=== PATIENT | female | born 1935 | race Caucasian/White ===

== ENCOUNTER → 2017-03-13 | Outpatient (CLI) | payer OTHER, MEDICARE ==
[~2017-03-13] MED LIST: AMOX875T PO; ATOR-22 PO; AZITTAB PO; BTP80 PO; CHOL100027 PO; EPP3/2 IM; LEVA1.255 INH; PRED10TA PO; SOTA80TA55 PO; SYN25 PO; WARF-284 PO
--- NOTE | 2017-03-13 11:02 | DIAGNOSTIC IMAGING REPORT ---
CHEST 2 VIEWS ROUTINE CLINICAL HISTORY: COPD EXCERNATION dyspnea COMPARISON STUDY: 08/25/2015 FINDINGS: Mild chronic bronchovascular prominence. No focal infiltrate. Heart top limits normal in terms of size. Diaphragms smooth. IMPRESSION: Chronic change. No acute process. The above report was generated using voice recognition software. It may contain grammatical, syntax or spelling errors. Electronically signed by: Jersey Menchaca M.D. 03/13/2017 11:00 AM Dictated Date/Time: 03/13/2017 10:59 AM
== END | disposition home or self-care (01) ==
LOC: C.RAD 10:31
PROVIDERS: ATTEND Physician Assistant Medical
DX: J44.1 Chronic obstructive pulmonary disease with (acute) exacerbation (principal)

== ENCOUNTER 2018-11-24 13:16 | Inpatient (IN) ==
--- OUTSIDE RECORDS SUMMARY | 2018-11-24 13:19 | External Medical Summary | Continuity of Care Document ---
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) (R61) Vitamin D deficiency (268.9) (E55.9) Hyperlipidemia (272.4) (E78.5) Esophageal reflux (530.81) (K21.9) Angioedema (995.1) (T78.3XXA) Idiopathic urticaria (708.1) (L50.1) Hypertension (401.9) (I10) Allergies and Adverse Reactions ciprofloxacin (Allergy) Iodine Solution SOLN (Allergy) nitrofurantoin (Allergy) Plavix (Allergy) Salicylates (Allergy) Zetia (Allergy) Adhesive Tape (Allergy) Medications EpiPen 0.3 MG/0.3ML SHAILA Refills: 0 Ondansetron HCl - 4 MG Oral Tablet; TAKE 1 TABLET EVERY 6 HO URS NEEDED Refills: 0 [place] Nasal [place] 0.65 % Nasal Solution Refills: 0 Levalbuterol HCl - 1.25 MG/0.5ML Inhalation Nebulization Katie ution Refills: 0 Warfarin Sodium TABS Refills: 0 Levothyroxine Sodium 25 MCG Oral Tablet; TAKE 1 TABLET DAILY . Refills: 0 HYDROcodone-Acetaminophen 5-325 MG Oral Tablet; TAKE 1 TABLET EVERY 6 HOURS NEEDED. Refills: 0 Azithromycin 250 MG Oral Tablet Refills: 0 Ceftin 500 MG TABS; TAKE 1 TABLET EVERY 12 HOURS DAILY. Refills: 0 predniSONE 10 MG Oral Tablet Refills: 0 Atorvastatin Calcium 20 MG Oral Tablet; TAKE 1 TABLET DAILY. Refills: 0 DuoNeb 0.5-2.5 (3) MG/3ML SOLN Refills: 0 Advair Diskus 250-50 MCG/DOSE Inhalation Aerosol Powder Breath Activated; INHALE 1 PUFFS TWICE DAILY Refills: 0 Sotalol HCl - 80 MG Oral Tablet; TAKE TABLET 1.5 TABLETS AM 1 TABLET PM Refills: 0 Vitamin D 1000 UNIT Oral Tablet; TAKE 1 TABLET DAILY. Refills: 0 Procedures Procedures not documented Immunizations Immunizations not documented Social History - Smoking Status Former smoker Interventions Discussion/SummaryThe patient is very pleasant but not the best historian. I discussed the case with Dr. Do on the phone. She indicated she was concerned that the patient was taking prednisone far too often. I suspect that is true. The patient tells me that she has used the rescue pack 3 times this year but it may well be more than that. Her physical exam revealed wheezing and was compatible with obstructive lung disease even though the pulmonary function test only showed restriction.Patient does not know her medicines or understand her medicines well. There was a lot of confusion as to what she was actually taking. She had been prescribed an Advair Diskus 250/51 puff b.i.d.. She did not use it at all. She states she thought that was only if she would have any symptoms. She had been on duo nebs which she was only taking when she was sick. Levalbuterol was also listed on her medicines. She told me that she did not get the other nebulizer solution because the pharmacy told her they would not give it to her and that other information needed to be obtained. Obviously the levalbuterol would have advantages for her in that it would be less likely to cause elevated heart rates from the atrial fibrillation.I spoke with the patient at length regarding her situation. I have suggested that she start taking the Advair regularly. I showed her how to use it properly. Dr. Do was going to evaluate if she ever got the levalbuterol or not and try to clarify that situation. She was also going to try to arrange for the x-rays to get put through to the [employer] computer system. I will plan on seeing the patient in 2 months for follow-up. Thank you for referring this patient. Plan of Treatment Planned Observations Planned Goals not documented Results No Known Results Results not documented Encounters Appointment; Boone Bejarano DO 08-Jun-2016 10:30 Encounter Diagnosis: Problem not documented
[2018-11-24] MEDS ORDERED: SODIUM CHLORIDE 0.9% 1000ML 1,000 ML IV ONE (13:57)
[2018-11-24] MEDS ORDERED: cefTRIAXone SODIUM 1,000 MG/50 ML BAG IV STA (13:57)
[2018-11-24] MEDS ORDERED: ACETAMINOPHEN 500 MG TAB PO STA (13:59)
--- NOTE | 2018-11-24 14:42 | XRay Report ---
XR chest 1V portable HISTORY: Sepsis COMPARISON: Chest 08/25/2015. FINDINGS: No pneumothorax. No pleural effusions. The heart is mildly enlarged. Mild diffuse interstit ial thickening, unchanged. No new focal lung consolidations to suggest pneumonia. IMPRESSION: No change in the mild cardiomegaly and chronic interstitial thickening. Electronically signed by: Jm Fontana M.D. 11/24/2018 2:41 PM
--- NOTE | 2018-11-24 14:47 | XRay Report ---
KUB HISTORY: Ureteral stent placed COMPARISON: KUB 02/24/2007. FINDINGS: The bowel gas pattern is unremarkable. There are no dilated loops of small bowel to suggest an obstruction. Prior cholecystectomy. No renal or ureteral calculi identified left ureteral stent appears in good position. No pneumoperitoneum or pneumatosis. IMPRESSION: The left ureteral stent appears in good position. No definite renal or ureteral calculi identified. Electronically signed by: Jm Fontana M.D. 11/24/2018 2:45 PM
[2018-11-24 15:02] LABS: Appearance Urine Cloudy (Clear); Bilirubin Urine Negative (Negative); Blood Urine 3+ (Negative); Color Urine Orange; Epithelial Cell Urine Auto >30 /lpf (0-5); Glucose Urine UA Negative (Negative); Ketones Urine Negative (Negative); Leukocyte Esterase Urine 2+ (Negative); Nitrite Urine Positive (Negative); Protein Urine 2+ (Negative); Specific Gravity Urine 1.018 (1.000-1.030); Urobilinogen Urine Negative (Negative); WBC Urine Automated >30 /hpf (0-5)
[2018-11-24 15:15] LABS: Basophils # (auto) 0.02 K/uL (0-0.2); Basophils % (auto) 0.1 %; Eosinophils # (auto) 0.06 K/uL (0-0.5); Eosinophils % (auto) 0.4 %; Hematocrit (blood only) 42.2 % (37-47); Hemoglobin 14.5 g/dL (12.0-16.0); Immature Granulocytes # (auto) 0.06 K/uL (0.00-0.02); Immature Granulocytes % (auto) 0.4 %; Lymphocytes # (auto) 1.32 K/uL (1.2-3.4); Lymphocytes % (auto) 9.4 %; Mean Corpuscular Hgb Conc 34.4 g/dL (32-36); Mean Corpuscular Volume 89.8 fL (80-100); Monocytes # (auto) 1.38 K/uL (0.11-0.59); Monocytes % (auto) 9.8 %; Neutrophils # (auto) 11.26 K/uL (1.4-6.5); Neutrophils % (auto) 79.9 %; Platelet Count 192 K/uL (130-400); RDW Coefficient of Variation 14.7 % (11.5-14.5); RDW Standard Deviation 48.8 fL (36.4-46.3)
[2018-11-24 15:27] LABS: Bacteria Urine Automated 1+ (Negative)
[2018-11-24 15:28] LABS: RBC Urine Automated >30 /hpf (0-4)
[2018-11-24 15:34] LABS: Calcium 8.7 mg/dl (8.5-10.1); Est GFR (Non-African American) 45.7; Potassium 4.2 mmol/L (3.5-5.1)
[2018-11-24 15:35] LABS: Partial Thromboplastin Ratio 1.3; Partial Thromboplastin Time 35.3 Seconds (21.0-31.0); Prothrombin Time 54.5 Seconds (9.0-12.0)
[2018-11-24 15:37] LABS: Albumin Globulin Ratio 0.7 (0.9-2); Bilirubin,Total 0.3 mg/dl (0.2-1); Globulin 4.4 gm/dl (2.5-4.0); Total Protein 7.4 gm/dl (6.4-8.2)
[2018-11-24 15:48] LABS: INR 6.1 (0.9-1.1)
[2018-11-24] MEDS ORDERED: FLUCONAZOLE 100 MG/50 ML BAG IV SCH (16:00)
--- NOTE | 2018-11-24 16:07 | Ultrasound Report ---
RENAL ULTRASOUND HISTORY: Ureteral stent w/ fever COMPARISON: Abdomen and pelvis CT 02/24/2007. FINDINGS: Right kidney: 12.1 cm. There are 2 cysts within largest measuring 1.6 cm. No hydronephrosis. Normal c orticomedullary differentiation and cortical thickness. Left kidney: 14.0 cm. Mild to moderate cortical thinning. There is a 1 cm stone within the midpole an d a 5 mm stone within the lower pole. There are few left renal cysts. The proximal portion of the brooks nt is not well visualized. The distal stent is seen within the bladder. No hydronephrosis. Bladder: Decompressed and therefore not well visualized. The distal left ureteral stent is identified . IMPRESSION: 1. No hydronephrosis. 2. The proximal portion of the left ureteral stent is not well visualized. However, the distal stent is located within the bladder. 3. Left-sided nephrolithiasis. Electronically signed by: Jm Fontana M.D. 11/24/2018 4:06 PM
[2018-11-24] MEDS ORDERED: EPINEPHRINE ADULT AUTO-INJECT 0.3 MG SYR IM PRN (18:36)
--- NOTE | 2018-11-24 20:02 | Emergency Department Note ---
Entered by Eulalia Gallego acting as a scribe for Jose A Cummings DO History of Present Illness General Chief complaint: Fever Stated complaint: FEVER AFTER SURGERY ON KIDNEY SUNDAY Source: patient Mode of arrival: ambulatory Limitations: no limitations History of Present Illness Onset (ago): hour(s) 6 Radiation: non-radiation Pain Consistency: + constant Maximum Pain Intensity: 8 Relieved By: + none Exacerbated By: + none Associated symptoms: + nausea/vomiting (+nausea, -vomiting) and + other (- diarrhea, -cold symptoms, -rhinorrhea, +hematuria); no chest pain and no cough Treatments prior to arrival: none The patient is an 83 year old female who presents to the ED with complaints of a persistent fever. She states she had stones taken out of her left kidney 1 week ago, and 1 week prior to that. The surgery was performed by Dr. Rodas of [facility] and done with a laser. She does have a stent in place in her left ureter. This morning she noticed her temperature was around 99 and has continued to rise. The highest recorded temperature at home was 101.7. She admits to nausea and "burning" flank pain. She is taking Pyridium but denies taking any antibiotics. She denies any recent cough, rhinorrhea, cold symptoms, chest pain, vomiting or diarrhea. The patient does take daily Coumadin and admits to hematuria. She does not take Tylenol as she is allergic to Aspirin. Home Medications Home Medications Medication Instructions Recorded Confirmed Type atorvastatin 20 mg PO DAILY 11/24/18 11/24/18 History cholecalciferol (vitamin D3) 1,000 unit PO DAILY 11/24/18 11/24/18 History [Vitamin D3] clotrimazole [Lotrimin AF] 1 applic TOPICAL BID 11/24/18 11/24/18 History epinephrine [EpiPen] 0.3 mg IM Q3H PRN 11/24/18 11/24/18 History fluticasone propionate 2 spray INTRANASAL DAILY 11/24/18 11/24/18 History gabapentin 100 mg PO TID 11/24/18 11/24/18 History levalbuterol HCl 1.25 mg INHALATION Q8H PRN 11/24/18 11/24/18 History levothyroxine 25 mcg PO QAM 11/24/18 11/24/18 History loratadine 10 mg PO DAILY 11/24/18 11/24/18 History losartan 50 mg PO BID 11/24/18 11/24/18 History melatonin 3 mg PO HS 11/24/18 11/24/18 History ondansetron 4 mg PO Q6H PRN 11/24/18 11/24/18 History oxycodone 5 mg PO Q6H PRN 11/24/18 11/24/18 History phenazopyridine 200 mg PO TID 11/24/18 11/24/18 History sotalol 120 mg PO BID 11/24/18 11/24/18 History tamsulosin 0.4 mg PO DAILY 11/24/18 11/24/18 History warfarin 3.75 mg PO DAILY 11/24/18 11/24/18 History Allergies Allergy/AdvReac Type Severity Reaction Status Date / Time aspirin Allergy Severe THROAT Verified 11/24/18 14:30 SWELLING nitrofurantoin Allergy Severe couldn't Verified 11/24/18 14:30 breathe adhesive Allergy Unknown TAPE Verified 11/24/18 14:30 clopidogrel Allergy Unknown - Verified 11/24/18 14:30 ezetimibe Allergy Unknown - Verified 11/24/18 14:30 Iodinated Contrast- Oral and Allergy Unknown . Verified 11/24/18 14:30 IV Dye iodine Allergy Unknown - Verified 11/24/18 14:30 Past Med/Surg History Medical History History of hysterectomy Social History Preferred Language: [place] Communication Ability: Effective Belt Polisher Required: No Beliefs That Will Affect Care: None Current Living Situation: Alone Feels Safe at Home: Yes Safety Concerns: Feels Safe At This Time Smoking Status: Former smoker Hx Alcohol Use: No Hx Substance Use: No Physical Exam Vital Signs Vital Signs - 24 hr 11/24/18 13:27 11/24/18 15:45 Temperature 37.9 C H 37.3 C Temperature Source Oral Oral Sepsis Recent Fever Within 48 Hours No Sepsis New/Unexplained Change in Mental Status No Sepsis Action Taken by Nursing No Action Required Pulse Rate 66 Pulse Rate [Finger] 59 L Pulse Rhythm [Finger] Regular Pulse Strength [Finger] Normal Respiratory Rate 20 16 Respiratory Effort / Characteristics Non-Labored Spontaneous Respiratory Depth Normal Respiratory Pattern Regular Blood Pressure 169/105 H Blood Pressure [Right Arm] 140/59 L Blood Pressure Mean 126 Blood Pressure Mean [Right Arm] 86 Blood Pressure Position [Right Arm] Lying Pulse Oximetry 93 98 Oxygen Delivery Method Room Air Room Air GENERAL: Patient is sitting up in bed, alert, well appearing, well nourished, no distress, non-toxic EYE EXAM: normal conjunctiva OROPHARYNX: no exudate, no erythema, lips, buccal mucosa, and tongue normal and mucous membranes are moist NECK: supple, no nuchal rigidity, no adenopathy, non-tender LUNGS: Clear to auscultation. Normal chest wall mechanics HEART: no murmurs, S1 normal and S2 normal ABDOMEN: abdomen soft, non-tender, normo-active bowel sounds, no masses, no rebound or guarding. BACK: Back is symmetrical on inspection and there is no deformity, no midline tenderness, no CVA tenderness. SKIN: no rashes and no bruising UPPER EXTREMITIES: upper extremities are grossly normal. LOWER EXTREMITIES: No pitting edema. NEURO EXAM: Normal sensorium, cranial nerves II-XII grossly intact, normal speech, no gross weakness of arms, no gross weakness of legs. Gross sensation intact. Course ED COURSE: Vital signs were reviewed and showed the patient is hypertensive and febrile. The patients medical record was reviewed The above diagnostic studies were performed and reviewed. ED treatments and interventions as stated above. 1355: The patient was evaluated in room C7. A complete history and physical exa mination was performed. 1558: I discussed the patients case with [facility]. She agrees the patient should be hospitalized for further evaluation. 1613: I discussed the patients case [facility] The patient will be further evaluated. 1620: Upon reevaluation, the patient is resting comfortably. I discussed my findings with the patient and she understands and agrees with the treatment plan. Based on the patients age, coexisting illnesses, exam and lab findings the decision to treat as an inpatient was made. The patient remained stable while under my care. The patient will be evaluated for further management. Consultations Consultation #1: I discussed the patients case with [facility] The patient will be further evaluated. Time: 16:13 Administered Medications Discontinued Medications Acetaminophen (Tylenol) 1,000 mg PO NOW STA Stop: 11/24/18 14:00 Last Admin: 11/24/18 14:28 Dose: 1,000 mg Documented by: [id number] Ceftriaxone Sodium (Rocephin) 1,000 mg in 50 mls @ 100 mls/hr IV NOW STA Stop: 11/24/18 14:26 Last Infusion: 11/24/18 15:30 Dose: 0 mls/hr Documented by: [id number] Admin: 11/24/18 15:00 Dose: 100 mls/hr Documented by: [id number] Sodium Chloride (Nss 1000ml) 1,000 mls @ 999 mls/hr IV .Q1H1M ONE Stop: 11/24/18 14:57 Last Infusion: 11/24/18 16:01 Dose: 0 mls/hr Documented by: [id number] Admin: 11/24/18 15:00 Dose: 999 mls/hr Documented by: [id number] Medical Decision Making Differential Diagnosis Differential diagnoses includes but is not limited to gastritis, peptic ulcer disease, GERD, gallbladder disease, pancreatitis, small bowel obstruction, acute coronary syndrome, pericarditis, ischemic bowel, irritable bowel disease, irritable bowel syndrome, appendicitis, diverticulitis, malignancy, hernia, urinary tract infection, torsion, perforation, trauma, infectious. Medical Records Attestation: I reviewed the patient's medical records. Home Medications Current Medication List: was personally reviewed by me Laboratory Data Attestation: I reviewed the patient's lab results. Result diagrams: 11/24/18 15:02 11/24/18 15:02 Lab Results 11/24/18 11/24/18 11/24/18 Range/Units 14:00 15:02 15:02 WBC 14.10 H (4.8-10.8) K/uL RBC 4.70 (4.2-5.4) M/uL Hgb 14.5 (12.0-16.0) g/dL Hct 42.2 (37-47) % MCV 89.8 (80-100) fL MCH 30.9 (25-34) pg MCHC 34.4 (32-36) g/dL RDW Std Deviation 48.8 H (36.4-46.3) fL RDW Coeff of Matias 14.7 H (11.5-14.5) % Plt Count 192 (130-400) K/uL MPV 12.0 H (7.4-10.4) fL Immature Gran % (Auto) 0.4 % Neut % (Auto) 79.9 % Lymph % (Auto) 9.4 % Miller % (Auto) 9.8 % Eos % (Auto) 0.4 % Baso % (Auto) 0.1 % Immature Gran # (Auto) 0.06 H (0.00-0.02) K/uL Neut # (Auto) 11.26 H (1.4-6.5) K/uL Lymph # (Auto) 1.32 (1.2-3.4) K/uL Miller # (Auto) 1.38 H (0.11-0.59) K/uL Eos # (Auto) 0.06 (0-0.5) K/uL Baso # (Auto) 0.02 (0-0.2) K/uL PT 54.5 H (9.0-12.0) Seconds INR 6.1 H* (0.9-1.1) APTT 35.3 H (21.0-31.0) Seconds PTT Ratio 1.3 Sodium (136-145) mmol/L Potassium (3.5-5.1) mmol/L Chloride (98-107) mmol/L Carbon Dioxide (21-32) mmol/L Anion Gap (3-11) BUN (7-18) mg/dl Creatinine (0.6-1.2) mg/dl Est Cr Clr Drug Dosing ml/min Est GFR ( Amer) Est GFR (Non-Af Amer) BUN/Creatinine Ratio (10-20) Glucose (70-99) mg/dl Lactate (0.4-2.0) mmol/L Calcium (8.5-10.1) mg/dl Total Bilirubin (0.2-1) mg/dl AST (15-37) U/L ALT (12-78) U/L Alkaline Phosphatase (45-117) U/L Total Protein (6.4-8.2) gm/dl Albumin (3.4-5.0) gm/dl Globulin (2.5-4.0) gm/dl Albumin/Globulin Ratio (0.9-2) Urine Color [place] Urine Appearance Cloudy A (Clear) Urine pH 5.0 (4.5-7.5) Ur Specific [place] 1.018 (1.000-1.030) Urine Protein 2+ H (Negative) Urine Glucose (UA) Negative (Negative) Urine Ketones Negative (Negative) Urine Blood 3+ H (Negative) Urine Nitrite Positive A (Negative) Urine Bilirubin Negative (Negative) Urine Urobilinogen Negative (Negative) Ur Leukocyte Esterase 2+ H (Negative) Urine WBC (Auto) >30 H (0-5) /hpf Urine RBC (Auto) >30 H (0-4) /hpf U Hyaline Cast (Auto) 1-5 (0-5) /lpf U Epithel Cells (Auto) >30 H (0-5) /lpf Urine Bacteria (Auto) 1+ H (Negative) Urine Yeast Budding A (None Prsent) 11/24/18 11/24/18 Range/Units 15:02 15:02 WBC (4.8-10.8) K/uL RBC (4.2-5.4) M/uL Hgb (12.0-16.0) g/dL Hct (37-47) % MCV (80-100) fL MCH (25-34) pg MCHC (32-36) g/dL RDW Std Deviation (36.4-46.3) fL RDW Coeff of Matias (11.5-14.5) % Plt Count (130-400) K/uL MPV (7.4-10.4) fL Immature Gran % (Auto) % Neut % (Auto) % Lymph % (Auto) % Miller % (Auto) % Eos % (Auto) % Baso % (Auto) % Immature Gran # (Auto) (0.00-0.02) K/uL Neut # (Auto) (1.4-6.5) K/uL Lymph # (Auto) (1.2-3.4) K/uL Miller # (Auto) (0.11-0.59) K/uL Eos # (Auto) (0-0.5) K/uL Baso # (Auto) (0-0.2) K/uL PT (9.0-12.0) Seconds INR (0.9-1.1) APTT (21.0-31.0) Seconds PTT Ratio Sodium 141 (136-145) mmol/L Potassium 4.2 (3.5-5.1) mmol/L Chloride 108 H (98-107) mmol/L Carbon Dioxide 27 (21-32) mmol/L Anion Gap 6.0 (3-11) BUN 34 H (7-18) mg/dl Creatinine 1.12 (0.6-1.2) mg/dl Est Cr Clr Drug Dosing 44.0 ml/min Est GFR ( Amer) 53.0 Est GFR (Non-Af Amer) 45.7 BUN/Creatinine Ratio 30.0 H (10-20) Glucose 85 (70-99) mg/dl Lactate 1.6 (0.4-2.0) mmol/L Calcium 8.7 (8.5-10.1) mg/dl Total Bilirubin 0.3 (0.2-1) mg/dl AST 32 (15-37) U/L ALT 40 (12-78) U/L Alkaline Phosphatase 100 (45-117) U/L Total Protein 7.4 (6.4-8.2) gm/dl Albumin 3.0 L (3.4-5.0) gm/dl Globulin 4.4 H (2.5-4.0) gm/dl Albumin/Globulin Ratio 0.7 L (0.9-2) Urine Color Urine Appearance (Clear) Urine pH (4.5-7.5) Ur Specific [place] (1.000-1.030) Urine Protein (Negative) Urine Glucose (UA) (Negative) Urine Ketones (Negative) Urine Blood (Negative) Urine Nitrite (Negative) Urine Bilirubin (Negative) Urine Urobilinogen (Negative) Ur Leukocyte Esterase (Negative) Urine WBC (Auto) (0-5) /hpf Urine RBC (Auto) (0-4) /hpf U Hyaline Cast (Auto) (0-5) /lpf U Epithel Cells (Auto) (0-5) /lpf Urine Bacteria (Auto) (Negative) Urine Yeast (None Prsent) Imaging Data Radiologist's Impression: Radiology results as stated below per my review and the radiologist's interpretation: RENAL ULTRASOUND HISTORY: Ureteral stent w/ fever COMPARISON: Abdomen and pelvis CT 02/24/2007. FINDINGS: Right kidney: 12.1 cm. There are 2 cysts within largest measuring 1.6 cm. No hydronephrosis. Normal corticomedullary differentiation and cortical thickness. Left kidney: 14.0 cm. Mild to moderate cortical thinning. There is a 1 cm stone within the midpole and a 5 mm stone within the lower pole. There are few left renal cysts. The proximal portion of the stent is not well visualized. The distal stent is seen within the bladder. No hydronephrosis. Bladder: Decompressed and therefore not well visualized. The distal left ureteral stent is identified. IMPRESSION: 1. No hydronephrosis. 2. The proximal portion of the left ureteral stent is not well visualized. However, the distal stent is located within the bladder. 3. Left-sided nephrolithiasis. Electronically signed by: Jm Fontana M.D. 11/24/2018 4:06 PM KUB HISTORY: Ureteral stent placed COMPARISON: KUB 02/24/2007. FINDINGS: The bowel gas pattern is unremarkable. There are no dilated loops of small bowel to suggest an obstruction. Prior cholecystectomy. No renal or ureteral calculi identified left ureteral stent appears in good position. No pneumoperitoneum or pneumatosis. IMPRESSION: The left ureteral stent appears in good position. No definite renal or ureteral calculi identified. Electronically signed by: Jm Fontana M.D. 11/24/2018 2:45 PM XR chest 1V portable HISTORY: Sepsis COMPARISON: Chest 08/25/2015. FINDINGS: No pneumothorax. No pleural effusions. The heart is mildly enlarged. Mild diffuse interstitial thickening, unchanged. No new focal lung consolidations to suggest pneumonia. IMPRESSION: No change in the mild cardiomegaly and chronic interstitial thickening. Electronically signed by: Jm Fontana M.D. 11/24/2018 2:41 PM Blood Pressure Blood Pressure Findings: Low blood pressure MDM Narrative Patient is an 83-year-old female who presents the ER who follows with Dr. Rodas who had 2 scopes and a stent placed to Fridays back to back. Patient notes that the fever started today associate with chills. Patient was slightly tachycardic. Labs show mild leukocytosis of 14,000. No significant anemia. INR was significant elevated at 6.1. BMP along with LFTs bilirubin was unremarkable. UA was positive for nitrates whites and leuks. Yeast was also positive. Diflucan given. Renal ultrasound was unremarkable. KUB was sent in place. Chest x-ray unremarkable. Patient was given IV fluids and IV Rocephin. Discussed with urology and the hospitalist and patient was admitted for fevers associate with tachycardia and leukocytosis secondary to urine infection/sepsis. Impression & Plan Sepsis, UTI (urinary tract infection) Discharge Plan Visit Data *Final* Discharge Date/Time: 11/24/18 18:05 Chief Complaint: Fever Stated Complaint: FEVER AFTER SURGERY ON KIDNEY SUNDAY ED Provider: Jose A Cummings Discharge Problem: Sepsis, UTI (urinary tract infection) Patient Disposition: Admitted As Inpatient Discharge Instructions Interventions: ED Discharge Assessment Last Done: 11/24/18 18:05 The scribe's documentation has been prepared under my direction and personally reviewed by me in its entirety. I confirm that the note above accurately reflec ts all work, treatment, procedures, and medical decision making performed by me.
[2018-11-24] MEDS ORDERED: PHYTONADIONE 5 MG TAB PO STA (20:05)
[2018-11-24] MEDS: LEVALBUTEROL HCL 0.63 MG/3 ML NEB NEB SCH (20:18)
[2018-11-24] MEDS: SODIUM CHLORIDE 0.9% 1000ML 1,000 ML IV SCH (20:28)
--- NOTE | 2018-11-24 20:29 | History & Physical Report ---
Date of Service November 24, 2018 Assessment & Plan (1) UTI (urinary tract infection): Kidney stones, s/p Lithotripsy - ff up blood and urine culture - Ceftri IV daily - Urology consulted Elevated INR Chronic Coumadin use, A. fib -Vitamin K 5 mg p.o. given hematuria -Continue sotalol 150 mg twice daily Paroxysmal A. fib, TIA -Continue sotalol, hold Coumadin Right buttock wounds = Daily wound care Hypertension -Continue losartan Asthma COPD -Nebs every 6 hours DVT prophylaxis Patient has supratherapeutic INR History of Present Illness 83-year-old female with history of kidney stones,, paroxysmal atrial fibrillation, TIA, hypertension, dyslipidemia, asthma/COPD, hypothyroidism, GERD presenting with fevers and chills x1 day. Next Patient had a second lithotripsy with stent placement and basket extraction last Sunday. Yesterday patient had developed fevers and chills, also noted blood-tinged urine. At the ER, urinalysis showed possible UTI. She was started on ceftriaxone IV. On exam, the patient seen resting in bed, comfortable no distress Denies active abdominal pain, does report dysuria. Also reports some shortness of breath and dry cough. Denies other symptoms Primary Care Provider: Jyoti Do, Allergies Allergy/AdvReac Type Severity Reaction Status Date / Time aspirin Allergy Severe THROAT Verified 11/24/18 14:30 SWELLING nitrofurantoin Allergy Severe couldn't Verified 11/24/18 14:30 breathe adhesive Allergy Unknown TAPE Verified 11/24/18 14:30 clopidogrel Allergy Unknown - Verified 11/24/18 14:30 ezetimibe Allergy Unknown - Verified 11/24/18 14:30 Iodinated Contrast- Oral and Allergy Unknown . Verified 11/24/18 14:30 IV Dye iodine Allergy Unknown - Verified 11/24/18 14:30 Home Medications Home Medications Medication Instructions Recorded Confirmed Type atorvastatin 20 mg PO DAILY 11/24/18 11/24/18 History cholecalciferol (vitamin D3) 1,000 unit PO DAILY 11/24/18 11/24/18 History [Vitamin D3] clotrimazole [Lotrimin AF] 1 applic TOPICAL BID 11/24/18 11/24/18 History epinephrine [EpiPen] 0.3 mg IM Q3H PRN 11/24/18 11/24/18 History fluticasone propionate 2 spray INTRANASAL DAILY 11/24/18 11/24/18 History gabapentin 100 mg PO TID 11/24/18 11/24/18 History levalbuterol HCl 1.25 mg INHALATION Q8H PRN 11/24/18 11/24/18 History levothyroxine 25 mcg PO QAM 11/24/18 11/24/18 History loratadine 10 mg PO DAILY 11/24/18 11/24/18 History losartan 50 mg PO BID 11/24/18 11/24/18 History melatonin 3 mg PO HS 11/24/18 11/24/18 History ondansetron 4 mg PO Q6H PRN 11/24/18 11/24/18 History oxycodone 5 mg PO Q6H PRN 11/24/18 11/24/18 History phenazopyridine 200 mg PO TID 11/24/18 11/24/18 History sotalol 120 mg PO BID 11/24/18 11/24/18 History tamsulosin 0.4 mg PO DAILY 11/24/18 11/24/18 History warfarin 3.75 mg PO DAILY 11/24/18 11/24/18 History Past Med/Surg History Medical History History of hysterectomy Social History Preferred Language: Yakut Communication Ability: Effective Environmental Services Tech Required: No Beliefs That Will Affect Care: None Current Living Situation: Alone Feels Safe at Home: Yes Safety Concerns: Feels Safe At This Time Smoking Status: Former smoker Hx Alcohol Use: No Hx Substance Use: No Review of Systems Review of Systems: All systems reviewed & are unremarkable except as noted in HPI & below Physical Exam Physical Exam: General- oriented x 3, not in distress, speaks in sentences with no effort or accessory muscle use Head- atraumatic Eyes- PERRL, EOMI, anicteric ENT- oropharynx clear Neck- supple, no JVD, no adenopathy, no thyromegaly; carotids +2/2, no bruits appreciated Lungs- faint intermittent wheeze Heart- normal rate, regular rhythm; no murmur, no gallop, no rub appreciated Abdomen- normal bowel sounds, nondistended, soft, nontender, no masses or hepatosplenomegaly Extremities- no pretibial edema, no calf tenderness; peripheral pulses intact Buttock- two small wounds, right buttock- medial Neuro- alert, oriented x 3; CN 2-12 grossly intact; motor 5/5 bilaterally;sensation 100% on all extremities; no other gross focal neurologic deficits Skin- warm & dry Results & Data Vital Signs (Past 12 Hours) Vital Signs Temp Pulse Pulse Resp BP BP Pulse Ox 11/24/18 19:06 36.8 C 20 135/74 97 11/24/18 18:40 36.8 C 70 20 133/83 94 11/24/18 17:45 57 L 18 135/62 98 11/24/18 15:45 37.3 C 59 L 16 140/59 L 98 11/24/18 13:27 37.9 C H 66 20 169/105 H 93 Laboratory Results Laboratory Results - last 24 hr 11/24/18 11/24/18 11/24/18 14:00 15:02 15:02 WBC 14.10 H RBC 4.70 Hgb 14.5 Hct 42.2 MCV 89.8 MCH 30.9 MCHC 34.4 RDW Std Deviation 48.8 H RDW Coeff of Matias 14.7 H Plt Count 192 MPV 12.0 H Immature Gran % (Auto) 0.4 Neut % (Auto) 79.9 Lymph % (Auto) 9.4 [place] % (Auto) 9.8 Eos % (Auto) 0.4 Baso % (Auto) 0.1 Immature Gran # (Auto) 0.06 H Neut # (Auto) 11.26 H Lymph # (Auto) 1.32 [place] # (Auto) 1.38 H Eos # (Auto) 0.06 Baso # (Auto) 0.02 PT 54.5 H INR 6.1 H* APTT 35.3 H PTT Ratio 1.3 Sodium Potassium Chloride Carbon Dioxide Anion Gap BUN Creatinine Est Cr Clr Drug Dosing Est GFR ( Amer) Est GFR (Non-Af Amer) BUN/Creatinine Ratio Glucose Lactate Calcium Total Bilirubin AST ALT Alkaline Phosphatase Total Protein Albumin Globulin Albumin/Globulin Ratio Urine Color Muse Urine Appearance Cloudy A Urine pH 5.0 Ur Specific [place] 1.018 Urine Protein 2+ H Urine Glucose (UA) Negative Urine Ketones Negative Urine Blood 3+ H Urine Nitrite Positive A Urine Bilirubin Negative Urine Urobilinogen Negative Ur Leukocyte Esterase 2+ H Urine WBC (Auto) >30 H Urine RBC (Auto) >30 H U Hyaline Cast (Auto) 1-5 U Epithel Cells (Auto) >30 H Urine Bacteria (Auto) 1+ H Urine Yeast Budding A 11/24/18 11/24/18 15:02 15:02 WBC RBC Hgb Hct MCV MCH MCHC RDW Std Deviation RDW Coeff of Matias Plt Count MPV Immature Gran % (Auto) Neut % (Auto) Lymph % (Auto) [place] % (Auto) Eos % (Auto) Baso % (Auto) Immature Gran # (Auto) Neut # (Auto) Lymph # (Auto) [place] # (Auto) Eos # (Auto) Baso # (Auto) PT INR APTT PTT Ratio Sodium 141 Potassium 4.2 Chloride 108 H Carbon Dioxide 27 Anion Gap 6.0 BUN 34 H Creatinine 1.12 Est Cr Clr Drug Dosing 44.0 Est GFR ( Amer) 53.0 Est GFR (Non-Af Amer) 45.7 BUN/Creatinine Ratio 30.0 H Glucose 85 Lactate 1.6 Calcium 8.7 Total Bilirubin 0.3 AST 32 ALT 40 Alkaline Phosphatase 100 Total Protein 7.4 Albumin 3.0 L Globulin 4.4 H Albumin/Globulin Ratio 0.7 L Urine Color Urine Appearance Urine pH Ur Specific [place] Urine Protein Urine Glucose (UA) Urine Ketones Urine Blood Urine Nitrite Urine Bilirubin Urine Urobilinogen Ur Leukocyte Esterase Urine WBC (Auto) Urine RBC (Auto) U Hyaline Cast (Auto) U Epithel Cells (Auto) Urine Bacteria (Auto) Urine Yeast
[2018-11-24] MEDS: PHENAZOPYRIDINE HCL 200 MG TAB PO SCH (21:25)
[2018-11-24] MEDS: CLOTRIMAZOLE 1% CR 15 GM TUBE TOP SCH (21:26)
[2018-11-24] MEDS: LOSARTAN POTASSIUM 50 MG TAB PO SCH (21:28)
[2018-11-24] MEDS: LACTOBACILLUS ACIDOPHILUS (FLORANEX) TAB PO SCH (21:28)
[2018-11-24] MEDS: SOTALOL HCL 80 MG TAB PO SCH (21:29)
[2018-11-24] MEDS: ACETAMINOPHEN 325 MG TAB PO PRN (21:42)
[2018-11-25] MEDS: LEVALBUTEROL HCL 0.63 MG/3 ML NEB NEB SCH ×2 (02:21→07:12)
[2018-11-25] MEDS: LEVOTHYROXINE SODIUM 25 MCG TABLET PO SCH (06:13)
[2018-11-25 06:53] LABS: Basophils # (auto) 0.02 K/uL (0-0.2); Basophils % (auto) 0.2 %; Eosinophils # (auto) 0.05 K/uL (0-0.5); Eosinophils % (auto) 0.4 %; Hematocrit (blood only) 41.8 % (37-47); Hemoglobin 13.6 g/dL (12.0-16.0); Immature Granulocytes # (auto) 0.06 K/uL (0.00-0.02); Immature Granulocytes % (auto) 0.5 %; Lymphocytes # (auto) 1.31 K/uL (1.2-3.4); Lymphocytes % (auto) 10.6 %; Mean Corpuscular Hgb Conc 32.5 g/dL (32-36); Mean Corpuscular Volume 90.7 fL (80-100); Mean Platelet Volume 12.4 fL (7.4-10.4); Monocytes # (auto) 1.11 K/uL (0.11-0.59); Monocytes % (auto) 8.9 %; Neutrophils # (auto) 9.86 K/uL (1.4-6.5); Neutrophils % (auto) 79.4 %; Platelet Count 179 K/uL (130-400); RDW Standard Deviation 49.6 fL (36.4-46.3); Red Blood Count 4.61 M/uL (4.2-5.4); White Blood Count 12.41 K/uL (4.8-10.8)
[2018-11-25 07:29] LABS: BUN Creatinine Ratio 21.4 (10-20); Calcium 8.6 mg/dl (8.5-10.1); Creatinine Clr Calc Pharmacy 43.5 ml/min; Est GFR (African American) 51.9; Est GFR (Non-African American) 44.7
[2018-11-25] MEDS: TAMSULOSIN HCL 0.4 MG CAP PO SCH (08:40)
[2018-11-25] MEDS: FLUTICASONE PROPIONATE NA SPR 16 GM BTL SCH (08:40)
[2018-11-25] MEDS: ATORVASTATIN 20 MG TAB PO SCH (08:40)
[2018-11-25] MEDS: GABAPENTIN 100 MG CAP PO SCH (08:40)
[2018-11-25] MEDS: LOSARTAN POTASSIUM 50 MG TAB PO SCH ×2 (08:40→21:41)
[2018-11-25] MEDS: CLOTRIMAZOLE 1% CR 15 GM TUBE TOP SCH ×2 (08:40→21:42)
[2018-11-25] MEDS: CHOLECALCIFEROL 1,000 UNITS TAB PO SCH (08:41)
[2018-11-25] MEDS: LACTOBACILLUS ACIDOPHILUS (FLORANEX) TAB PO SCH ×4 (08:41→21:41)
[2018-11-25] MEDS: PHENAZOPYRIDINE HCL 200 MG TAB PO SCH ×3 (08:41→21:41)
[2018-11-25] MEDS: SOTALOL HCL 80 MG TAB PO SCH ×2 (08:41→17:15)
--- NOTE | 2018-11-25 08:41 | Urology Consultation ---
Date of Consultation November 25, 2018 Assessment & Plan (1) UTI (urinary tract infection): seems to be limited to just the bladder no sign of pyelonephritis on exam. Await urine culture results seems to be improving on wide coverage. Her allergies might make picking an oral agent for home challenging. I think she has an intolerance to cipro as well. I think her urine incontinence will improve with treatment of uti. We can consider an antimuscarinic, but she is complaining of dry mouth at baseline so it might make it worse still add stool softener as well. I will remove the stent in the office mid week. Present on Admission?: Yes History of Present Illness Attending Physician: Adrian Armstrong MD History of Present Illness I am asked by Dr Armstrong to evaluate and treat patient for UTI after stone surgery. She presented with fever and dysuria. SHe had 2 surgeries for large left kidney stones, last sunday and 11/15 and this past wednesday 11/22. Intraop urine culture was no growth. She began with fevers POD #2. I asked her to be admitted. She has primarily bladder pain with bladder spasms intense urinary frequency and urge incontinence. She has no kidney pain. She had bacterial and yeast on admission urine so she has broad coverage. Her white count and temp curve are improving. Allergies Allergy/AdvReac Type Severity Reaction Status Date / Time aspirin Allergy Severe THROAT Verified 11/24/18 14:30 SWELLING nitrofurantoin Allergy Severe couldn't Verified 11/24/18 14:30 breathe adhesive Allergy Unknown TAPE Verified 11/24/18 14:30 clopidogrel Allergy Unknown - Verified 11/24/18 14:30 ezetimibe Allergy Unknown - Verified 11/24/18 14:30 Iodinated Contrast- Oral and Allergy Unknown . Verified 11/24/18 14:30 IV Dye iodine Allergy Unknown - Verified 11/24/18 14:30 Home Medications Home Medications Medication Instructions Recorded Confirmed Type atorvastatin 20 mg PO DAILY 11/24/18 11/24/18 History cholecalciferol (vitamin D3) 1,000 unit PO DAILY 11/24/18 11/24/18 History [Vitamin D3] clotrimazole [Lotrimin AF] 1 applic TOPICAL BID 11/24/18 11/24/18 History epinephrine [EpiPen] 0.3 mg IM Q3H PRN 11/24/18 11/24/18 History fluticasone propionate 2 spray INTRANASAL DAILY 11/24/18 11/24/18 History gabapentin 100 mg PO TID 11/24/18 11/24/18 History levalbuterol HCl 1.25 mg INHALATION Q8H PRN 11/24/18 11/24/18 History levothyroxine 25 mcg PO QAM 11/24/18 11/24/18 History loratadine 10 mg PO DAILY 11/24/18 11/24/18 History losartan 50 mg PO BID 11/24/18 11/24/18 History melatonin 3 mg PO HS 11/24/18 11/24/18 History ondansetron 4 mg PO Q6H PRN 11/24/18 11/24/18 History oxycodone 5 mg PO Q6H PRN 11/24/18 11/24/18 History phenazopyridine 200 mg PO TID 11/24/18 11/24/18 History sotalol 120 mg PO BID 11/24/18 11/24/18 History tamsulosin 0.4 mg PO DAILY 11/24/18 11/24/18 History warfarin 3.75 mg PO DAILY 11/24/18 11/24/18 History Patient History Medical History History of hysterectomy Social History Preferred Language: Malay Communication Ability: Effective Hazard Waste Handler Required: No Beliefs That Will Affect Care: None Current Living Situation: Alone Feels Safe at Home: Yes Safety Concerns: Feels Safe At This Time Smoking Status: Former smoker Hx Alcohol Use: No Hx Substance Use: No Review of Systems Review of Systems: PMH- HTN, afib, obesity Soc- , + grown children, retired, no tobacco use no alcohol Fam hx- not contributory at her advanced age ROS- + fevers, + slow bowels, + dry mouth, no chest pain, no cough, no shortness of breath, no rash, severe urinary incontinence Physical Exam Constitutional: WD/WN, vitals as above + well hydrated, + obese and healthy appearing Respiratory: normal respiratory effort and able to speak in complete sentences; no retractions and no cough Gastrointestinal (Abdomen): Inspection/Auscultation: abdomen normal to inspection and normal bowel sounds; abdomen not distended Percussion/Palpation: + abdomen tender tender in the suprapubic area, no rebound no tenderness in the right or left flank to percussion. Skin: no rashes, warm and dry no edema on the shins Psychiatric: A+Ox3, euthymic affect Results & Data Vital Signs (Past 12 Hours) Vital Signs Temp Pulse Resp BP BP Pulse Ox 11/25/18 07:13 71 18 94 11/25/18 07:00 37.9 C H 70 20 114/68 92 11/25/18 04:00 37.3 C 67 18 135/77 92 11/25/18 02:21 75 16 94 11/25/18 00:13 37.8 C H 66 16 135/73 92 11/24/18 21:44 37.7 C H
[2018-11-25] MEDS ORDERED: cefTRIAXone SODIUM 1,000 MG in DEXTROSE 5% 50 ML IV SCH (09:00)
[2018-11-25 09:20] LABS: INR 2.3 (0.9-1.1); Prothrombin Time 22.3 Seconds (9.0-12.0)
[2018-11-25] MEDS: SODIUM CHLORIDE 0.9% 1000ML 1,000 ML IV SCH ×2 (09:20→23:56)
[2018-11-25] MEDS: TOLTERODINE TARTRATE LA 4 MG CAPCR PO SCH (09:20)
[2018-11-25] MEDS: DOCUSATE SODIUM/SENNA 50/8.6MG TAB PO SCH (09:20)
[2018-11-25] MEDS ORDERED: LEVALBUTEROL HCL 0.63 MG/3 ML NEB NEB PRN (09:36)
[2018-11-25] MEDS ORDERED: cefTRIAXone SODIUM 2,000 MG in DEXTROSE 5% 50 ML IV SCH (16:00)
[2018-11-25] MEDS: ACETAMINOPHEN 325 MG TAB PO PRN (16:02)
[2018-11-25] MEDS ORDERED: PROMETHAZINE HCL 12.5 MG in SODIUM CHLORIDE 0.9% 50 ML IV PRN (16:22)
--- NOTE | 2018-11-25 16:48 | Hospitalist Progress Note ---
Date of Service November 25, 2018 Assessment & Plan (1) UTI (urinary tract infection): Kidney stones, s/p Lithotripsy - ff up blood and urine culture - Ceftri IV daily - Urology consulted Arianna Gallardo-Nicho added Plan to remove ureteral stent on Sunday Elevated INR Chronic Coumadin use, A. fib -Vitamin K 5 mg p.o. given hematuria 2.3 Hematuria resolved -Continue sotalol 150 mg twice daily Paroxysmal A. fib, TIA -Continue sotalol INR 2.3, hold Coumadin today Right buttock wounds = Daily wound care Wound care consult Hypertension -Continue losartan Asthma COPD Respiratory status improved -Nebs as needed DVT prophylaxis INR 2.3 Disposition Anticipate discharge to home when medically stable Subjective Follow-up for UTI Seen resting in bed, comfortable Main complaint is incontinence, and some dysuria Denies hematuria No abdominal pain, nausea vomiting Denies shortness of breath, cough, chest pain, dizziness Denies other symptoms Review of Systems Review of Systems: All systems reviewed & are unremarkable except as noted in HPI & below Physical Exam Physical Exam: General- oriented x 3, not in distress, speaks in sentences with no effort or accessory muscle use Eyes- anicteric Neck- no JVD Lungs- clear breath sounds bilaterally, no rales/wheezes Heart- normal rate, regular rhythm; no murmurs Abdomen- normal bowel sounds, nondistended, soft, nontender No CVA tenderness Extremities- no pretibial edema, no calf tenderness Neuro- alert, oriented x 3; no gross focal neurologic deficits Skin- warm & dry Results & Data Vital Signs (Past 12 Hours) Vital Signs Temp Pulse Pulse Resp BP BP Pulse Ox 11/25/18 15:23 38.0 C H 67 20 154/72 H 91 11/25/18 15:22 66 11/25/18 11:47 36.9 C 65 20 135/79 93 11/25/18 07:13 71 18 94 11/25/18 07:00 37.9 C H 70 20 114/68 92 Laboratory Results Laboratory Results - last 24 hr 11/25/18 11/25/18 11/25/18 06:26 06:26 07:38 WBC 12.41 H RBC 4.61 Hgb 13.6 Hct 41.8 MCV 90.7 MCH 29.5 MCHC 32.5 RDW Std Deviation 49.6 H RDW Coeff of Matias 15.0 H Plt Count 179 MPV 12.4 H Immature Gran % (Auto) 0.5 Neut % (Auto) 79.4 Lymph % (Auto) 10.6 [place] % (Auto) 8.9 Eos % (Auto) 0.4 Baso % (Auto) 0.2 Immature Gran # (Auto) 0.06 H Neut # (Auto) 9.86 H Lymph # (Auto) 1.31 [place] # (Auto) 1.11 H Eos # (Auto) 0.05 Baso # (Auto) 0.02 PT INR Sodium 142 Potassium 3.8 Chloride 108 H Carbon Dioxide 25 Anion Gap 9.0 BUN 24 H Creatinine 1.14 Est Cr Clr Drug Dosing 43.5 Est GFR ( Amer) 51.9 Est GFR (Non-Af Amer) 44.7 BUN/Creatinine Ratio 21.4 H Glucose 99 Calcium 8.6 11/25/18 09:02 WBC RBC Hgb Hct MCV MCH MCHC RDW Std Deviation RDW Coeff of Matias Plt Count MPV Immature Gran % (Auto) Neut % (Auto) Lymph % (Auto) [place] % (Auto) Eos % (Auto) Baso % (Auto) Immature Gran # (Auto) Neut # (Auto) Lymph # (Auto) [place] # (Auto) Eos # (Auto) Baso # (Auto) PT 22.3 H INR 2.3 H Sodium Potassium Chloride Carbon Dioxide Anion Gap BUN Creatinine Est Cr Clr Drug Dosing Est GFR ( Amer) Est GFR (Non-Af Amer) BUN/Creatinine Ratio Glucose Calcium
[2018-11-25] MEDS ORDERED: METOPROLOL TARTRATE 1 MG/ML VIAL IV STA (18:13)
[2018-11-25] MEDS ORDERED: dilTIAZem HCl 5 MG/ML 5 ML VIAL IV STA (19:17)
[2018-11-26] MEDS ORDERED: POTASSIUM CHLORIDE 20 MEQ TABCR PO STA (02:20)
[2018-11-26] MEDS ORDERED: METOPROLOL TARTRATE 1 MG/ML VIAL IV STA ×2 (02:20→03:53)
[2018-11-26] MEDS ORDERED: PIPERACILL/TAZOBAC CONSULT ACTIVE PRN (02:27)
--- NOTE | 2018-11-26 02:28 | Hospitalist Progress Note ---
Date of Service November 26, 2018 Subjective Made aware by RN of jordan matos, cardiac rate 140-160s. Patient comfortable. WBC noted to be increasing. AP Rapid [place] fib secondary to sepsis secondary to complicated UTI History Enterococcus growth on outpatient urine cultures. Change ceftriaxone to Zosyn for now. IVF, IV beta-bria, IV Cardizem boluses Continue Sotalol Supplement electrolytes Will relay to AM provider Results & Data Vital Signs (Past 12 Hours) Vital Signs Temp Pulse Pulse Resp BP BP BP 11/25/18 23:07 36.3 C L 107 H 20 119/69 11/25/18 19:34 36.3 C L 107 H 20 103/58 L 11/25/18 18:22 128 H 119/71 11/25/18 16:54 37.6 C H 124 H 22 118/71 11/25/18 15:23 38.0 C H 67 20 154/72 H 11/25/18 15:22 66 Pulse Ox 11/25/18 23:07 94 11/25/18 19:34 91 11/25/18 18:22 11/25/18 16:54 91 11/25/18 15:23 91 11/25/18 15:22
[2018-11-26] MEDS ORDERED: PIPERACILLIN/TAZOBACTAM 4.5 GM in DEXTROSE 5% 100 ML IV ONE (02:29)
[2018-11-26 02:45] LABS: Basophils # (auto) 0.01 K/uL (0-0.2); Basophils % (auto) 0.1 %; Eosinophils # (auto) 0.08 K/uL (0-0.5); Eosinophils % (auto) 0.5 %; Hematocrit (blood only) 39.7 % (37-47); Hemoglobin 12.9 g/dL (12.0-16.0); Immature Granulocytes # (auto) 0.08 K/uL (0.00-0.02); Immature Granulocytes % (auto) 0.5 %; Lymphocytes # (auto) 1.72 K/uL (1.2-3.4); Lymphocytes % (auto) 11.6 %; Mean Corpuscular Hgb Conc 32.5 g/dL (32-36); Mean Corpuscular Volume 90.2 fL (80-100); Mean Platelet Volume 11.9 fL (7.4-10.4); Monocytes % (auto) 8.8 %; Neutrophils # (auto) 11.61 K/uL (1.4-6.5); Neutrophils % (auto) 78.5 %; Platelet Count 148 K/uL (130-400)
[2018-11-26 02:58] LABS: INR 1.4 (0.9-1.1); Prothrombin Time 13.7 Seconds (9.0-12.0)
[2018-11-26 03:03] LABS: Calcium 8.1 mg/dl (8.5-10.1); Creatinine Clr Calc Pharmacy 49.1 ml/min; Est GFR (Non-African American) 51.8; Magnesium 1.9 mg/dl (1.8-2.4); Potassium 4.1 mmol/L (3.5-5.1)
[2018-11-26] MEDS ORDERED: SODIUM CHLORIDE 0.9% 500 ML IV ONE (03:06)
[2018-11-26] MEDS ORDERED: MAGNESIUM SULFATE / D5W 1 GM/100 ML BAG IV ONE (03:06)
[2018-11-26 03:14] LABS: Albumin Level 2.4 gm/dl (3.4-5.0)
[2018-11-26] MEDS: SOTALOL HCL 80 MG TAB PO SCH ×2 (03:35→20:52)
[2018-11-26] MEDS ORDERED: dilTIAZem HCl 5 MG/ML 5 ML VIAL IV STA ×3 (03:55→14:00)
[2018-11-26] MEDS: LEVOTHYROXINE SODIUM 25 MCG TABLET PO SCH (06:00)
[2018-11-26] MEDS ORDERED: dilTIAZem HCl 5 MG/ML 5 ML VIAL IV ONE (06:25)
[2018-11-26] MEDS ORDERED: DIGOXIN 250 MCG in SYRINGE 9 ML IV STA (06:27)
[2018-11-26] MEDS: CLOTRIMAZOLE 1% CR 15 GM TUBE TOP SCH ×2 (08:10→20:52)
[2018-11-26] MEDS ORDERED: Heparin IV Low Dose *NO* Bolus IV SCH (08:22)
[2018-11-26] MEDS: LOSARTAN POTASSIUM 50 MG TAB PO SCH ×2 (08:27→20:51)
[2018-11-26] MEDS: LACTOBACILLUS ACIDOPHILUS (FLORANEX) TAB PO SCH ×4 (08:27→22:14)
[2018-11-26] MEDS: PHENAZOPYRIDINE HCL 200 MG TAB PO SCH ×3 (08:27→20:51)
[2018-11-26] MEDS: ATORVASTATIN 20 MG TAB PO SCH (08:27)
[2018-11-26] MEDS: GABAPENTIN 100 MG CAP PO SCH (08:27)
[2018-11-26] MEDS: TAMSULOSIN HCL 0.4 MG CAP PO SCH (08:27)
[2018-11-26] MEDS: FLUTICASONE PROPIONATE NA SPR 16 GM BTL SCH (08:27)
[2018-11-26] MEDS: DOCUSATE SODIUM/SENNA 50/8.6MG TAB PO SCH (08:27)
[2018-11-26] MEDS: CHOLECALCIFEROL 1,000 UNITS TAB PO SCH (08:27)
[2018-11-26] MEDS: PIPERACILLIN/TAZOBACTAM 3.375 GM in DEXTROSE 5% 100 ML IV SCH ×2 (08:28→16:38)
[2018-11-26] MEDS: TOLTERODINE TARTRATE LA 4 MG CAPCR PO SCH (08:29)
--- NOTE | 2018-11-26 08:30 | Hospitalist Progress Note ---
Date of Service November 26, 2018 Assessment & Plan (1) UTI (urinary tract infection): Kidney stones, s/p Lithotripsy, Stent Placement - blood and urine culture: negative so far - tmax 38C at 3 pm yesterday, afebrile since this morning - Ceftri changed to Zosyn overnight in light of increased WBC, a fib in RVR ff up cultures - possible removal of Ureteral Stent tomorrow as per Dr. Rodas - Urology consulted Detrol added, Senokot-S added Paroxysmal A. fib, TIA - in RVR - likely from underlying infection, stress - on Sotalol 120mg BID given IV Diltiazem and Digoxin overnight - on Coumadin admission INR 6, with hematuria, given Vit k INR today 1.4, hematuria resolving, heparin IV low dose, no bolus started coumadin held for planned stent removal tomorrow Right buttock wounds = Daily wound care Wound care consult Hypertension -Continue losartan Asthma COPD Respiratory status improved -Nebs as needed DVT prophylaxis inr 1.4 heparin drip started Disposition Anticipate discharge to home when medically stable Subjective ff up for UTI, a fib converted to a fib in RVR late evening yesterday given Diltiazem IV and Digoxin overnight remains in a fib , rate controlled resting in bed, comfortable not in distress denies active chest pain, dyspnea, palpitations, nausea no abdominal pain/flank pain, chills reports intermittent pink tinged urine denies other symptoms Review of Systems Review of Systems: All systems reviewed & are unremarkable except as noted in HPI & below Physical Exam Physical Exam: General- oriented x 3, not in distress, speaks in sentences with no effort or accessory muscle use Eyes- anicteric Neck- no JVD Lungs- clear BS BL no rales/wheezing Heart- normal rate, irregularly irregular rhythm; no murmurs Abdomen- normal bowel sounds, nondistended, soft, nontender Extremities- no pretibial edema, no calf tenderness Neuro- alert, oriented x 3; no gross focal neurologic deficits Skin- warm & dry Results & Data Vital Signs (Past 12 Hours) Vital Signs Temp Pulse Pulse Resp BP BP BP 11/26/18 07:20 37.5 C 93 H 18 127/62 11/26/18 07:14 91 H 11/26/18 03:28 36.8 C 160 H 24 132/87 11/26/18 02:45 141 H 148/74 H 05/27/19 23:07 36.3 C L 107 H 20 119/69 Pulse Ox 11/26/18 07:20 91 11/26/18 07:14 11/26/18 03:28 94 11/26/18 02:45 11/25/18 23:07 94 Laboratory Results Laboratory Results - last 24 hr 11/25/18 11/26/18 11/26/18 09:02 02:34 02:34 WBC 14.80 H RBC 4.40 Hgb 12.9 Hct 39.7 MCV 90.2 MCH 29.3 MCHC 32.5 RDW Std Deviation 50.0 H RDW Coeff of Matias 15.0 H Plt Count 148 MPV 11.9 H Immature Gran % (Auto) 0.5 Neut % (Auto) 78.5 Lymph % (Auto) 11.6 [place] % (Auto) 8.8 Eos % (Auto) 0.5 Baso % (Auto) 0.1 Immature Gran # (Auto) 0.08 H Neut # (Auto) 11.61 H Lymph # (Auto) 1.72 [place] # (Auto) 1.30 H Eos # (Auto) 0.08 Baso # (Auto) 0.01 PT 22.3 H 13.7 H INR 2.3 H 1.4 H Sodium Potassium Chloride Carbon Dioxide Anion Gap BUN Creatinine Est Cr Clr Drug Dosing Est GFR ( Amer) Est GFR (Non-Af Amer) BUN/Creatinine Ratio Glucose Calcium Magnesium Albumin TSH 11/26/18 02:34 WBC RBC Hgb Hct MCV MCH MCHC RDW Std Deviation RDW Coeff of Matias Plt Count MPV Immature Gran % (Auto) Neut % (Auto) Lymph % (Auto) [place] % (Auto) Eos % (Auto) Baso % (Auto) Immature Gran # (Auto) Neut # (Auto) Lymph # (Auto) [place] # (Auto) Eos # (Auto) Baso # (Auto) PT INR Sodium 140 Potassium 4.1 Chloride 109 H Carbon Dioxide 29 Anion Gap 2.0 L BUN 19 H Creatinine 1.01 Est Cr Clr Drug Dosing 49.1 Est GFR ( Amer) 60.0 Est GFR (Non-Af Amer) 51.8 BUN/Creatinine Ratio 19.0 Glucose 135 H Calcium 8.1 L Magnesium 1.9 Albumin 2.4 L TSH 0.392
[2018-11-26] MEDS ORDERED: HEPARIN IV BOLUS 4,000 UNITS in SYRINGE 0 ML IV ONE (10:30)
[2018-11-26] MEDS: Heparin Adult LOW DOSE Wt-Based Dextrose 5% 25,000 units/500 mL IV SCH (11:53)
[2018-11-26] MEDS: SODIUM CHLORIDE 0.9% 1000ML 1,000 ML IV SCH (14:50)
[2018-11-26] MEDS: dilTIAZem HCl 125 MG in DEXTROSE 5% 100 ML IV SCH (15:11)
--- NOTE | 2018-11-26 16:06 | Consultation Report ---
DATE OF CONSULTATION: 11/26/2018 INPATIENT CARDIOLOGY CONSULTATION CONSULTATION REQUESTED BY: Dr. Lea. REASON FOR CONSULTATION: Atrial fibrillation with rapid ventricular response. HISTORY OF PRESENT ILLNESS: Ms. Ramos is a very pleasant 83-year-old woman who normally follows with Dr. Urena and Shellie Agudelo of our cardiology practice. She presented to [facility] Emergency Department on 11/24/2018 with a complaint of fevers, chills and blood-tinged urine a few days after cystoscopy and lithotripsy. The patient was recently admitted to the telemetry unit and started on broad-spectrum antibiotics for her urinary tract infection. Her INR was elevated at arrival and vitamin K was given. She was maintained on her sotalol. Then, early in the a.m. of 11/26/2018, the patient was found to go into atrial fibrillation with rapid ventricular response and was given a bolus of Cardizem and started on a heparin drip. Currently, the patient states that she is feeling well. She is feeling better than when she arrived and denies experiencing any palpitations, shortness of breath, lightheadedness, dizziness, syncope, or chest pain. She states her heart really has been bothering her lately. Upon review of extensive medical records, the patient has a long history of tachypalpitations and paroxysmal atrial fibrillation on chronic sotalol therapy. Most recent ZIO patch monitor performed in September showed 20% Afib burden. PAST SURGICAL HISTORY: 1. Cardiac catheterization, revealing nonobstructive disease in the past. 2. Multiple cystoscopies. 3. Multiple colonoscopies. 4. Lithotripsy. 5. Carpal tunnel surgery. 6. Total abdominal hysterectomy. MEDICAL ILLNESSES: 1. Paroxysmal atrial fibrillation on chronic sotalol and Coumadin therapy. 2. Asthma. 3. History of tobacco abuse. 4. Dyslipidemia. 5. Hypothyroidism. 6. Recurrent renal calculi. FAMILY HISTORY: Noncontributory. SOCIAL HISTORY: The patient is a former smoker, quit in 2008. Denies any alcohol or recreational drug use. REVIEW OF SYSTEMS: As per HPI. All review of systems reviewed and negative at this time. ALLERGIES: 1. ZETIA. 2. ADHESIVE TAPE. 3. CIPRO. 4. IODINE. 5. NITROFURANTOIN. 6. PLAVIX. 7. ASPIRIN, CAUSES THROAT SWELLING. MEDICATIONS AN OUTPATIENT: 1. Sotalol 120 mg b.i.d. 2. Atorvastatin 20 mg daily. 3. Warfarin with alternating 7.5 mg dosages. 4. Levoxyl. 5. Neurontin. 6. Losartan 50 mg b.i.d. PHYSICAL EXAMINATION: VITALS: Temperature 36.9, pulse 112, respiratory rate 12, blood pressure 111/70. GENERAL: Awake, alert, oriented x3 in no acute distress. HEENT: Normocephalic, atraumatic. Pupils equal, round, reactive to light and accommodation. Extraocular muscles intact. Anicteric. Moist mucous membranes. NECK: No JVD, no bruit. CARDIOVASCULAR: Irregularly irregular, unable to appreciate any murmurs, rubs or gallops. PULMONARY: Clear to auscultation bilaterally. No rales, rhonchi, or wheezing. ABDOMEN: Bowel sounds x4, soft. No rebound, guarding, tenderness. No organomegaly. EXTREMITIES: No clubbing, cyanosis or edema. +2 pedal pulses bilaterally. SKIN: Warm and dry. TEST RESULTS: A 12-lead EKG performed in the Emergency Department independently reviewed at this time shows normal sinus rhythm at 63 beats per minute, normal axis, normal intervals with a QTC of 440 milliseconds. Repeat EKG on 11/26/2018 shows atrial fibrillation with rapid ventricular response, the heart rate of 100 beats per minute. IMPRESSION: 1. Atrial fibrillation with rapid ventricular response. 2. Longstanding history of paroxysmal atrial fibrillation on chronic Coumadin and sotalol therapy. 3. Urinary tract infection with hematuria, Coumadin reversed. 4. Hypertension. RECOMMENDATIONS: It was my pleasure to see Mrs. Ramos in consultation today. From a cardiac standpoint, I believe it is certainly understandable that she go back in atrial fibrillation, given the UTI and I believe the most prudent course of action at this point, we would try to help get her rates under control to see if we cannot get her to spontaneously convert to normal sinus rhythm, so we will start her on a Cardizem bolus and drip. She will be maintained on her heparin therapy. She has not been off anticoagulation for an extended period of time and do believe that we possible perform a discontinue cardioversion without VANESSA should that be necessary. Otherwise, she will continue her current dose of sotalol.
--- NOTE | 2018-11-26 18:35 | Urology Progress Note ---
Date of Service November 26, 2018 Assessment & Plan (1) UTI (urinary tract infection): urine is only growing yeast spoke with pharmacy and Dr Espinal. The diflucan can prolong QT so will get daily ekg. Stay on monitored bed. plan stent removal at bedside tomorrow mid day does not need to stop heparin or be NPO for stent removal. Present on Admission?: Yes Subjective Patient is feeling fair. Neither better nor worse than yesterday. She is still bothered with urge incontinence but sounds like less since the antimuscarinic started. Her daughter thinks the stent is causing a reaction which caused the afib. She has a niece who is allergic to stents so she thinks this is similar. She can feel the afib only a little , much less than in years past. She was moved to PCU and is on heparin and cardizem drips. Her family says she was lethargic most of yesterday. Review of Systems Review of Systems: All systems reviewed & are unremarkable except as noted in HPI & below Last fever 3pm Sunday, poor appetite, still with constipation, has a small sore on the buttocks not infected, no margareth angina, no emesis. Results & Data Vital Signs (Past 12 Hours) Vital Signs Temp Pulse Pulse Resp BP BP Pulse Ox 11/26/18 16:00 120 H 11/26/18 15:00 36.8 C 126 H 20 121/81 92 11/26/18 11:18 36.9 C 100 H 18 111/70 91 11/26/18 07:20 37.5 C 93 H 18 127/62 91 11/26/18 07:14 91 H
[2018-11-26 18:53] LABS: Partial Thromboplastin Ratio 1.6; Partial Thromboplastin Time 42.2 Seconds (21.0-31.0)
[2018-11-26] MEDS ORDERED: FLUCONAZOLE 100 MG TAB PO STA (19:10)
[2018-11-26] MEDS ORDERED: HEPARIN IV BOLUS 3,000 UNITS in SYRINGE 0 ML IV ONE (22:15)
[2018-11-27] MEDS: PIPERACILLIN/TAZOBACTAM 3.375 GM in DEXTROSE 5% 100 ML IV SCH ×2 (00:29→08:29)
[2018-11-27 05:11] LABS: Creatinine Clr Calc Pharmacy 59.8 ml/min; Est GFR (Non-African American) 63.8
[2018-11-27 05:12] LABS: Partial Thromboplastin Ratio 2.8
[2018-11-27 05:15] LABS: Partial Thromboplastin Time 75.6 Seconds (21.0-31.0)
[2018-11-27] MEDS: LEVOTHYROXINE SODIUM 25 MCG TABLET PO SCH (06:11)
[2018-11-27] MEDS: dilTIAZem HCl 125 MG in DEXTROSE 5% 100 ML IV SCH (08:28)
[2018-11-27] MEDS: SOTALOL HCL 80 MG TAB PO SCH ×2 (08:30→20:32)
[2018-11-27] MEDS: CLOTRIMAZOLE 1% CR 15 GM TUBE TOP SCH ×2 (08:31→20:32)
[2018-11-27] MEDS: FLUTICASONE PROPIONATE NA SPR 16 GM BTL SCH (08:31)
[2018-11-27] MEDS: ATORVASTATIN 20 MG TAB PO SCH (09:34)
[2018-11-27] MEDS: TAMSULOSIN HCL 0.4 MG CAP PO SCH (09:34)
[2018-11-27] MEDS: PHENAZOPYRIDINE HCL 200 MG TAB PO SCH ×3 (09:34→20:31)
[2018-11-27] MEDS: CHOLECALCIFEROL 1,000 UNITS TAB PO SCH (09:34)
[2018-11-27] MEDS: LACTOBACILLUS ACIDOPHILUS (FLORANEX) TAB PO SCH ×4 (09:34→20:31)
[2018-11-27] MEDS: LOSARTAN POTASSIUM 50 MG TAB PO SCH ×2 (09:34→20:31)
[2018-11-27] MEDS: GABAPENTIN 100 MG CAP PO SCH (09:34)
[2018-11-27] MEDS: DOCUSATE SODIUM/SENNA 50/8.6MG TAB PO SCH (09:34)
[2018-11-27] MEDS: TOLTERODINE TARTRATE LA 4 MG CAPCR PO SCH (09:34)
[2018-11-27] MEDS: SODIUM CHLORIDE 0.9% 1000ML 1,000 ML IV SCH ×2 (11:21→20:33)
[2018-11-27 11:46] LABS: INR 1.3 (0.9-1.1); Partial Thromboplastin Ratio 1.5; Partial Thromboplastin Time 41.3 Seconds (21.0-31.0); Prothrombin Time 13.1 Seconds (9.0-12.0)
[2018-11-27] MEDS ORDERED: HEPARIN IV BOLUS 3,000 UNITS in SYRINGE 0 ML IV STA (12:08)
--- NOTE | 2018-11-27 12:19 | Procedure Note ---
Procedure Note Date of Service November 27, 2018 Note Pre-op Diagnosis: left stent after stone surgery Post-op diagnosis: same Procedure: cysto left stent removal Surgeon: jarad Assist: none EBL; 0mL specimens : none Findings- clean bladder, clean stent complications; none Anesthesia: none Location; PCU bed #204 Indications: has ureteral stent after stone surgery. We suspect stent might now be colonized with yeast and so plan stent removal to aid clearance of fungus. Report of Operation: Patient was placed in frogleg position with her sacrum elevated on a folded blanket. Her genitals were prepped and draped in sterile fashion. Time out held with team. I placed a 18 fr flexible cystoscope to bladder. Saline was the irrigant. The urethra is unremarkable. The bladder is free or inflammatory changes and urine is an orange color consistent with dilute pyridium staining. T he UOs are in normal location. The stent is quite clean. I used a flexible stent grasper to grasp the bladder coil of stent and removed it easily. She was cleaned up and the assisted back into the bedside chair. She tolerated procedure well. Plan: remains in hospital for treatment of fungal UTI and afib Pyridium for dysuria x 3 days flomax can be discontinued ASA 3 clean contaminated case diflucan antifungal given last night Coding
[2018-11-27] MEDS: Heparin Adult LOW DOSE Wt-Based Dextrose 5% 25,000 units/500 mL IV SCH (15:12)
[2018-11-27] MEDS ORDERED: WARFARIN SOD 5 MG TAB PO SCH (16:00)
[2018-11-27 19:15] LABS: Partial Thromboplastin Ratio 1.8
[2018-11-27 19:19] LABS: Partial Thromboplastin Time 47.6 Seconds (21.0-31.0)
--- NOTE | 2018-11-27 20:41 | Hospitalist Progress Note ---
Date of Service November 27, 2018 Assessment & Plan (1) UTI (urinary tract infection): was admitted with concerns for Urinary tract infection after stone surgery -had 2 surgeries for large left kidney stones, on 11/15/18 and 11/22/18. Intraoperative urine culture was no growth. -presented with fever and initial started on ceftriaxone and then transitioned to Zosyn -admission blood culture no growth to date and admission urine culture with ricardo only -cysto left stent removal completed on 11/27/18; Dr. Rodas urology discussed about monitoring patient off antibiotics and off fluconzole and will monitor the patient off IV antibiotics and off anti fungals -Pyridium for dysuria x 3 days Atrial fibrillation with rapid ventricular response. Longstanding history of paroxysmal atrial fibrillation on chronic Coumadin and sotalol therapy. -remains on diltiazem drip as per cardiology -on heparin drip because INR was supratherapeutic as 6 on admission and this was reversed and patient with rapid ventricular response -continue heparin drip with coumadin 5 mg started on 11/27/18 - on Sotalol 120mg BID History of hypothyroidism -continue home dose Levothyroxine -TSH 0.392, will repeat TSH with free T4 Hypertension -Continue losartan Right buttock wounds -Daily wound care Asthma COPD -Respiratory status improved DVT prophylaxis heparin drip with coumadin 5 mg started on 11/27/18 Subjective Patient with atrial fibrillation and sometimes tachycardia. remains on diltiazem drip as per cardiology. patient feels comfortable. denies chest pain or palpitations. no shortness of breath. on room air Physical Exam 2 Constitutional: comfortable Eyes: PERRL, conjunctivae normal, anicteric sclerae EOM intact bilaterally ENMT: external ear and nose normal, oropharynx normal Respiratory: normal respiratory effort, lungs clear to auscultation Cardiovascular: Rate/Rhythm: + tachycardic and + irregularly irregular Gastrointestinal (Abdomen): normal bowel sounds, soft, nontender, no hepatosplenomegaly Musculoskeletal: no cyanosis or clubbing, extremities motor strength 5/5 Head/Neck/Chest: normocephalic and head atraumatic Neurologic: PERRL, EOMI, accommodation nl, no face palsy, no dysarthria CN's II-XI intact bilaterally Results & Data Vital Signs (Past 12 Hours) Vital Signs Temp Pulse Pulse Resp BP BP Pulse Ox 11/27/18 20:00 37.3 C 96 H 18 143/86 H 93 11/27/18 16:00 59 L 11/27/18 15:48 37.4 C 77 18 128/61 94 11/27/18 11:33 37.3 C 63 16 126/65 94 11/27/18 09:32 75 124/61
[2018-11-28 01:43] LABS: Appearance Urine Slightly Cloudy (Clear); Color Urine Orange; Protein Urine Negative (Negative); Specific Gravity Urine 1.007 (1.000-1.060)
[2018-11-28 01:45] LABS: Epithelial Cell Urine >30 /lpf (0-5)
[2018-11-28 01:46] LABS: Bacteria Urine 1+ (Negative)
[2018-11-28] MEDS: dilTIAZem HCl 125 MG in DEXTROSE 5% 100 ML IV SCH (04:37)
[2018-11-28] MEDS: LEVOTHYROXINE SODIUM 25 MCG TABLET PO SCH (06:08)
[2018-11-28 06:24] LABS: Basophils # (auto) 0.01 K/uL (0-0.2); Basophils % (auto) 0.1 %; Eosinophils # (auto) 0.22 K/uL (0-0.5); Hemoglobin 11.8 g/dL (12.0-16.0); Immature Granulocytes # (auto) 0.04 K/uL (0.00-0.02); Immature Granulocytes % (auto) 0.4 %; Lymphocytes # (auto) 1.52 K/uL (1.2-3.4); Lymphocytes % (auto) 13.7 %; Mean Corpuscular Hgb Conc 32.8 g/dL (32-36); Mean Platelet Volume 12.6 fL (7.4-10.4); Monocytes # (auto) 0.93 K/uL (0.11-0.59); Monocytes % (auto) 8.4 %; Neutrophils # (auto) 8.35 K/uL (1.4-6.5); Neutrophils % (auto) 75.4 %; Platelet Count 180 K/uL (130-400); RDW Coefficient of Variation 14.8 % (11.5-14.5); RDW Standard Deviation 49.1 fL (36.4-46.3); White Blood Count 11.07 K/uL (4.8-10.8)
[2018-11-28 06:37] LABS: INR 1.8 (0.9-1.1); Partial Thromboplastin Ratio 1.6; Partial Thromboplastin Time 42.1 Seconds (21.0-31.0); Prothrombin Time 17.6 Seconds (9.0-12.0)
[2018-11-28 06:53] LABS: Albumin Level 2.2 gm/dl (3.4-5.0); BUN Creatinine Ratio 21.7 (10-20); Calcium 8.8 mg/dl (8.5-10.1); Creatinine Clr Calc Pharmacy 66.3 ml/min; Est GFR (African American) 84.7; Est GFR (Non-African American) 73.1; Magnesium 1.8 mg/dl (1.8-2.4); Potassium 3.7 mmol/L (3.5-5.1)
[2018-11-28] MEDS ORDERED: HEPARIN IV BOLUS 3,000 UNITS in SYRINGE 0 ML IV ONE (07:00)
[2018-11-28 07:04] LABS: Albumin Globulin Ratio 0.6 (0.9-2); Bilirubin,Total 0.4 mg/dl (0.2-1); Total Protein 6.2 gm/dl (6.4-8.2)
[2018-11-28] MEDS: FLUTICASONE PROPIONATE NA SPR 16 GM BTL SCH (07:29)
[2018-11-28] MEDS: CLOTRIMAZOLE 1% CR 15 GM TUBE TOP SCH ×2 (07:30→20:36)
[2018-11-28] MEDS: GABAPENTIN 100 MG CAP PO SCH (07:31)
[2018-11-28] MEDS: DOCUSATE SODIUM/SENNA 50/8.6MG TAB PO SCH (07:31)
[2018-11-28] MEDS: PHENAZOPYRIDINE HCL 200 MG TAB PO SCH ×2 (07:31→14:29)
[2018-11-28] MEDS: TOLTERODINE TARTRATE LA 4 MG CAPCR PO SCH (07:31)
[2018-11-28] MEDS: SOTALOL HCL 80 MG TAB PO SCH ×2 (07:31→20:36)
[2018-11-28] MEDS: CHOLECALCIFEROL 1,000 UNITS TAB PO SCH (07:32)
[2018-11-28] MEDS: LOSARTAN POTASSIUM 50 MG TAB PO SCH ×2 (07:32→20:36)
[2018-11-28] MEDS: LACTOBACILLUS ACIDOPHILUS (FLORANEX) TAB PO SCH ×4 (07:32→20:36)
[2018-11-28] MEDS: ATORVASTATIN 20 MG TAB PO SCH (07:32)
--- NOTE | 2018-11-28 07:59 | Cardiology Progress Note ---
Date of Service November 27, 2018 Assessment & Plan (1) Atrial flutter: rates controlled on heparin on cardizem gtt asymptomatic doubt she would tolerate full dose anticoagulation given recurrent calculi will cont cardizem gtt for now if does not convert by 11/29, will perform cardioversion laura not needed since heparin was started immediately after going into flutter unfortunately, would need 30 days of anticoagulation in that case (2) UTI (urinary tract infection): started on diflucan will monitor qt interval with daily ekg's and keep on tele to evaluate for ventricular arrhythmias will cont current sotalol dose for now Subjective Late entry for 11/27/18. Pt seen and examined, states that she's feeling better today. Denies experiencing "buzzing sensation in her chest" that she felt previously with atrial flutter. Denies cp, sob, palpitations, lightheadedness or dizziness. tele reviewed: atrial flutter with variable rates Review of Systems Review of Systems: All systems reviewed & are unremarkable except as noted in HPI & below Physical Exam Physical Exam: General: Awake, alert and oriented x 3. No acute distress. HEENT: Normocephalic, atraumatic. Pupils equal, round and reactive to light and accommodation. Extraocular muscles are intact. Anicteric sclera. Moist mucous membranes. Neck: No JVD. No bruit. Cardiovascular: irregularly irregular, unable to appreciate murmur, rub or gallop. Pulmonary: Clear to auscultation bilaterally. No rales, rhonchi, or wheezing. Abdomen: Bowel sounds x 4, soft. No rebound, guarding or tenderness. No organomegaly. Extremities: No clubbing, cyanosis or edema. +2 pedal pulses bilaterally. Skin: Warm and dry. Results & Data Vital Signs (Past 12 Hours) Vital Signs Temp Pulse Pulse Resp BP BP Pulse Ox 11/28/18 07:01 37.0 C 98 H 20 126/73 94 11/28/18 04:00 36.4 C L 82 18 127/93 95 11/28/18 00:46 82 11/28/18 00:29 37.1 C 107 H 16 107/72 94 11/27/18 20:00 37.3 C 96 H 18 143/86 H 93
[2018-11-28] MEDS ORDERED: dilTIAZem HCL 30 MG TAB PO SCH (09:45)
--- NOTE | 2018-11-28 10:27 | Cardiology Progress Note ---
Date of Service November 28, 2018 Assessment & Plan (1) Atrial flutter: rates controlled on heparin asymptomatic doubt she would tolerate full dose anticoagulation given recurrent calculi will chage cardizem to po 30mg tid now if does not convert by 11/29, will perform cardioversion laura not needed since heparin was started immediately after going into flutter unfortunately, would need 30 days of anticoagulation in that case (2) UTI (urinary tract infection): started on diflucan will monitor qt interval with daily ekg's and keep on tele to evaluate for ventricular arrhythmias will cont current sotalol dose for now QTc actually decreased to 415 ms today Subjective Pt seen and examined, oob in chair. States that she's feeling well. Some blood clots in urine last PM, now resolved. Denies dysuria, abdominal pain, chest pain, sob, palpitations, lightheadedness or dizziness. tele reviewed: atrial flutter with controlled rates Review of Systems Review of Systems: All systems reviewed & are unremarkable except as noted in HPI & below Physical Exam Physical Exam: General: Awake, alert and oriented x 3. No acute distress. HEENT: Normocephalic, atraumatic. Pupils equal, round and reactive to light and accommodation. Extraocular muscles are intact. Anicteric sclera. Moist mucous membranes. Neck: No JVD. No bruit. Cardiovascular: irregularly irregular, unable to appreciate murmur, rub or gallop. Pulmonary: Clear to auscultation bilaterally. No rales, rhonchi, or wheezing. Abdomen: Bowel sounds x 4, soft. No rebound, guarding or tenderness. No organomegaly. Extremities: No clubbing, cyanosis or edema. +2 pedal pulses bilaterally. Skin: Warm and dry. Results & Data Vital Signs (Past 12 Hours) Vital Signs Temp Pulse Pulse Resp BP Pulse Ox 11/28/18 07:01 37.0 C 98 H 20 126/73 94 11/28/18 04:00 36.4 C L 82 18 127/93 95 11/28/18 00:46 82 11/28/18 00:29 37.1 C 107 H 16 107/72 94
--- NOTE | 2018-11-28 12:47 | Hospitalist Progress Note ---
Date of Service November 28, 2018 Assessment & Plan (1) UTI (urinary tract infection): was admitted with concerns for Urinary tract infection after stone surgery -had 2 surgeries for large left kidney stones, on 11/15/18 and 11/22/18. Intraoperative urine culture was no growth. -presented with fever and initial started on ceftriaxone and then transitioned to Zosyn -admission blood culture no growth to date and admission urine culture with ricardo only -cysto left stent removal completed on 11/27/18; Dr. Rodas urology discussed about monitoring patient off antibiotics and off fluconzole and will monitor the patient off IV antibiotics and off anti fungals -continue Pyridium for dysuria x total of 3 days; currently 2 more days left Atrial fibrillation with rapid ventricular response. Longstanding history of paroxysmal atrial fibrillation on chronic Coumadin and sotalol therapy. -on heparin drip because INR was supratherapeutic as 6 on admission and this was reversed and patient with rapid ventricular response -continue heparin drip with coumadin 5 mg started on 11/27/18. INR is 1.8 on 11/28/18 and will reduce coumaidn to 2.5 mg daily and monitor INR while on heparin drip - on Sotalol 120mg BID -as of 11/28/18, patient is transitioned from diltiazem drip as per cardiology to oral diltiazem 30mg TID -will keep NPO after midnight incase cardiology has any plans on cardioversion by 11/29/18 History of hypothyroidism -continue home dose Levothyroxine -TSH 0.392, -repeat TSH as 0.589 Hypertension -Continue losartan Right buttock wounds -Daily wound care Asthma COPD -Respiratory status improved DVT prophylaxis heparin drip with coumadin Subjective Patient continues to be in atrial fibrillation with heart rate controlled in the 80 bpm. continues to be on heparin drip. INR 1.8 and will reduce today's coumadin dosing to avoid supratherapeutic INR. Patient with no fever since being off antibiotics or anti fungal. Patient denies acute pain. on room air denies acute shortness of breath. no abdomen pain. no back pain Physical Exam Constitutional: comfortable Eyes: PERRL, conjunctivae normal, anicteric sclerae EOM intact bilaterally ENMT: external ear and nose normal, oropharynx normal Respiratory: normal respiratory effort, lungs clear to auscultation Cardiovascular: Rate/Rhythm: regular rhythm and + irregularly irregular Gastrointestinal (Abdomen): normal bowel sounds, soft, nontender, no hepatosplenomegaly Musculoskeletal: no cyanosis or clubbing, extremities motor strength 5/5 Head/Neck/Chest: normocephalic and head atraumatic Neurologic: PERRL, EOMI, accommodation nl, no face palsy, no dysarthria CN's II-XI intact bilaterally Results & Data Vital Signs (Past 12 Hours) Vital Signs Temp Pulse Pulse Resp BP Pulse Ox 11/28/18 11:07 36.5 C 78 20 112/89 95 11/28/18 07:01 37.0 C 98 H 20 126/73 94 11/28/18 04:00 36.4 C L 82 18 127/93 95 11/28/18 00:46 82
[2018-11-28 14:13] LABS: Partial Thromboplastin Ratio 1.7
[2018-11-28 14:14] LABS: Partial Thromboplastin Time 46.1 Seconds (21.0-31.0)
[2018-11-28] MEDS: dilTIAZem HCL 30 MG TAB PO SCH ×2 (14:29→20:36)
[2018-11-28] MEDS ORDERED: WARFARIN SOD 2.5 MG TAB PO SCH (16:00)
[2018-11-28] MEDS ORDERED: WARFARIN SOD 7.5 MG TAB PO SCH (16:00)
--- NOTE | 2018-11-28 17:25 | Urology Progress Note ---
Date of Service November 28, 2018 Assessment & Plan (1) UTI (urinary tract infection): urine is only growing yeast had one dose diflucan then stent removal next day. we have paused treatment of infection and thus far with removal of stent she is doing well I have no concern about the debris she passed after stent removal. No need to study it in the lab. She seems to be helped by the detrol LA (tolterodine 4mg) keep her on it until discharge then discontinue. If her bladder starts to become overactive again she can call office for refill. Present on Admission?: Yes Subjective patient feeling better she is off abt and off diflucan her bladder is feeling better since the stent was removed. she is having some dry mouth from the detrol Review of Systems Review of Systems: no chest pain, no breathing problems, bowels fine, + dry mouth, appetite improving, passed some clots in urine after stent removal . Physical Exam Constitutional: WD/WN, vitals as above + obese and comfortable Results & Data Vital Signs (Past 12 Hours) Vital Signs Temp Pulse Resp BP Pulse Ox 11/28/18 15:29 37.1 C 100 H 18 119/55 L 96 11/28/18 11:07 36.5 C 78 20 112/89 95 11/28/18 07:01 37.0 C 98 H 20 126/73 94
[2018-11-28] MEDS: Heparin Adult LOW DOSE Wt-Based Dextrose 5% 25,000 units/500 mL IV SCH (22:32)
[2018-11-29 05:56] LABS: Basophils # (auto) 0.02 K/uL (0-0.2); Basophils % (auto) 0.2 %; Eosinophils # (auto) 0.21 K/uL (0-0.5); Eosinophils % (auto) 2.4 %; Hematocrit (blood only) 36.4 % (37-47); Hemoglobin 12.1 g/dL (12.0-16.0); Immature Granulocytes # (auto) 0.06 K/uL (0.00-0.02); Immature Granulocytes % (auto) 0.7 %; Lymphocytes # (auto) 1.82 K/uL (1.2-3.4); Lymphocytes % (auto) 21.1 %; Mean Corpuscular Hgb Conc 33.2 g/dL (32-36); Mean Corpuscular Volume 90.3 fL (80-100); Mean Platelet Volume 11.5 fL (7.4-10.4); Monocytes # (auto) 0.82 K/uL (0.11-0.59); Monocytes % (auto) 9.5 %; Neutrophils # (auto) 5.68 K/uL (1.4-6.5); Neutrophils % (auto) 66.1 %; Platelet Count 192 K/uL (130-400); RDW Coefficient of Variation 14.7 % (11.5-14.5); RDW Standard Deviation 49.1 fL (36.4-46.3); Red Blood Count 4.03 M/uL (4.2-5.4); White Blood Count 8.61 K/uL (4.8-10.8)
[2018-11-29] MEDS: LEVOTHYROXINE SODIUM 25 MCG TABLET PO SCH (05:56)
[2018-11-29 06:24] LABS: INR 2.8 (0.9-1.1); Partial Thromboplastin Ratio 1.7; Prothrombin Time 26.4 Seconds (9.0-12.0)
[2018-11-29 06:28] LABS: BUN Creatinine Ratio 23.3 (10-20); Calcium 9.1 mg/dl (8.5-10.1); Creatinine Clr Calc Pharmacy 67.2 ml/min; Est GFR (Non-African American) 74.2; Potassium 3.7 mmol/L (3.5-5.1)
[2018-11-29] MEDS: LOSARTAN POTASSIUM 50 MG TAB PO SCH (08:00)
[2018-11-29] MEDS: LACTOBACILLUS ACIDOPHILUS (FLORANEX) TAB PO SCH (08:01)
[2018-11-29] MEDS: SOTALOL HCL 80 MG TAB PO SCH (08:01)
[2018-11-29] MEDS: DOCUSATE SODIUM/SENNA 50/8.6MG TAB PO SCH (08:02)
[2018-11-29] MEDS: GABAPENTIN 100 MG CAP PO SCH (08:02)
[2018-11-29] MEDS: TOLTERODINE TARTRATE LA 4 MG CAPCR PO SCH (08:02)
[2018-11-29] MEDS: dilTIAZem HCL 30 MG TAB PO SCH (08:03)
[2018-11-29] MEDS: CHOLECALCIFEROL 1,000 UNITS TAB PO SCH (08:08)
[2018-11-29] MEDS: FLUTICASONE PROPIONATE NA SPR 16 GM BTL SCH (08:08)
[2018-11-29] MEDS: ATORVASTATIN 20 MG TAB PO SCH (08:08)
[2018-11-29] MEDS: CLOTRIMAZOLE 1% CR 15 GM TUBE TOP SCH (08:09)
[2018-11-29] MEDS ORDERED: MIDAZOLAM HCL 1 MG/ML 2ML VIAL ONE (09:14)
[2018-11-29] MEDS ORDERED: fentaNYL citrate 100 MCG/2 ML VIAL ONE (09:14)
--- NOTE | 2018-11-29 09:54 | Cardiology Progress Note ---
Date of Service November 29, 2018 Assessment & Plan (1) Atrial flutter: rates controlled on heparin asymptomatic will plan for d/c cardioversion this AM no hematuria on heparin, previously tolerating coumadin without issue coumadin restarted last PM INR therapeutic today (2) UTI (urinary tract infection): received single dose of diflucan QTc actually decreased to 455 ms today QT has remained stable no need to monitor further Subjective Pt seen and examined, states that she feels well. No complaints overnight. Denies cp, sob, palpitations, lightheadedness or dizziness. No hematuria. Tele reviewed: atrial flutter with variable rates overnight. Review of Systems Review of Systems: All systems reviewed & are unremarkable except as noted in HPI & below Physical Exam Physical Exam: General: Awake, alert and oriented x 3. No acute distress. HEENT: Normocephalic, atraumatic. Pupils equal, round and reactive to light and accommodation. Extraocular muscles are intact. Anicteric sclera. Moist mucous membranes. Neck: No JVD. No bruit. Cardiovascular: irregularly irregular, unable to appreciate murmur, rub or gallop. Pulmonary: Clear to auscultation bilaterally. No rales, rhonchi, or wheezing. Abdomen: Bowel sounds x 4, soft. No rebound, guarding or tenderness. No organomegaly. Extremities: No clubbing, cyanosis or edema. +2 pedal pulses bilaterally. Skin: Warm and dry. Results & Data Vital Signs (Past 12 Hours) Vital Signs Temp Pulse Pulse Resp BP BP Pulse Ox 11/29/18 07:38 36.9 C 111 H 20 139/76 95 11/29/18 03:51 36.7 C 87 18 129/85 94 11/29/18 03:39 36.8 C 77 18 139/64 93 11/29/18 00:00 111 H 11/28/18 23:30 36.7 C 109 H 18 134/73 96
--- NOTE | 2018-11-29 12:34 | History & Physical Report ---
Date of Service November 29, 2018 Assessment & Plan (1) UTI (urinary tract infection): UTI (urinary tract infection) from ureteral stent; s/p ureteral stent removal on this hospitalization -had 2 surgeries for large left kidney stones, on 11/15/18 and 11/22/18. Intraoperative urine culture was no growth. -presented with fever and initial started on ceftriaxone and then transitioned to Zosyn -admission blood culture no growth to date and admission urine culture with ricardo only -cysto left stent removal completed on 11/27/18; Dr. Rodas urology discussed about monitoring patient off antibiotics and off fluconzole and will monitor the patient off IV antibiotics and off anti fungals -11/29/18: no fevers since stent removal, no dsyuria symptoms; patient discharge to home and can follow up with Dr. Rodas as needed Atrial fibrillation with rapid ventricular response. Atrial fibrillation with rapid ventricular response (currently sinus bradycardia on 11/29/18), supratherapeutic INR on admission, INR subsequently reversed and then anticoagulated on anticoagulation therapy with coumadin and heparin drip (currently INR is 2.8), -on this admission patient had atrial fibrillation with rapid ventricular response and the INR that was supratherapeutic as 6 and this was reversed and patient and patient with rapid ventricular response -patient was placed on heparin drip on this hospitalization after INR was reversed. left ureteral stent was removed. -patient then was bridged to therapeutic INR with heparin drip -heart rate was controlled with Sotalol 120mg BID; initially also with diltiazem drip and then transitioned to oral diltizaem by 11/28/18 -plans were made to cardiovert patient on 11/29/18 by cardiology service but Patient cardioverted to sinus bradycardia on 11/29/18 spontaneously -Dr. Espinal from cardiology service recommends a follow up appointment with cardiology clinic in 2 to 4 weeks but there are no available appointments within that time frame currently; the [facility] appointment line will send message to cardiology office on adjusting appointment schedules -patient will continue home dose sotalol 120 mg BID -Patient should hold coumadin on 11/29/18 and then resume coumadin as low dose 2 mg daily until follow up with coumadin clinic on 12/02/2018 6:20 PM Provider [facility], [place] hypothyroidism -continue home dose Levothyroxine -TSH 0.392, -repeat TSH as 0.589 Hypertension -Continue losartan Right buttock wounds -self care on discharge Asthma COPD -Respiratory status improved DVT prophylaxis heparin drip with coumadin Discharge Diagnosis UTI (urinary tract infection) from ureteral stent; s/p ureteral stent removal on this hospitalization. Atrial fibrillation with rapid ventricular response (currently sinus bradycardia on 11/29/18), supratherapeutic INR on admission, INR subsequently reversed and then anticoagulated on anticoagulation therapy with coumadin and heparin drip (currently INR is 2.8), Hypothyroidism Follow up appointments Dr. Espinal from cardiology service recommends a follow up appointment with cardiology clinic in 2 to 4 weeks but there are no available appointments within that time frame currently; the [facility] appointment line will send message to cardiology office on adjusting appointment schedules Follow up with urology Dr. Rodas office if needed Other follow ups Patient should hold coumadin on 11/29/18 and then resume coumadin as low dose 2 mg daily until follow up with coumadin clinic on 12/02/2018 6:20 PM Provider [facility] [place] [facility], [place] 12/04/2018 1:00 PM Provider Leticia Malave [facility], [place] 12/16/2018 9:50 AM Provider Jyoti Do [facility] 01/20/2019 3:00 PM Provider Dorothea Romero MD Department Nephrology, [facility] 02/04/2019 1:30 PM Provider Shellie Agudelo PA-C Department Cardiology, [facility] History of Present Illness Patient cardioverted to sinus bradycardia on 11/29/18 spontaneously. Patient denies chest pain. No shortness of breath. no lightheadedness. no dizziness. no fever. no dysuria. no fever Primary Care Provider: Jyoti Do DO Allergies Allergy/AdvReac Type Severity Reaction Status Date / Time aspirin Allergy Severe THROAT Verified 11/24/18 14:30 SWELLING nitrofurantoin Allergy Severe couldn't Verified 11/24/18 14:30 breathe adhesive Allergy Unknown TAPE Verified 11/24/18 14:30 clopidogrel Allergy Unknown - Verified 11/24/18 14:30 ezetimibe Allergy Unknown - Verified 11/24/18 14:30 Iodinated Contrast- Oral and Allergy Unknown . Verified 11/24/18 14:30 IV Dye iodine Allergy Unknown - Verified 11/24/18 14:30 Home Medications Home Medications Medication Instructions Recorded Confirmed Type atorvastatin 20 mg PO DAILY 11/24/18 11/24/18 History cholecalciferol (vitamin D3) 1,000 unit PO DAILY 11/24/18 11/24/18 History [Vitamin D3] clotrimazole [Lotrimin AF] 1 applic TOPICAL BID 11/24/18 11/24/18 History epinephrine [EpiPen] 0.3 mg IM Q3H PRN 11/24/18 11/24/18 History fluticasone propionate 2 spray INTRANASAL DAILY 11/24/18 11/24/18 History gabapentin 100 mg PO TID 11/24/18 11/24/18 History levalbuterol HCl 1.25 mg INHALATION Q8H PRN 11/24/18 11/24/18 History levothyroxine 25 mcg PO QAM 11/24/18 11/24/18 History loratadine 10 mg PO DAILY 11/24/18 11/24/18 History losartan 50 mg PO BID 11/24/18 11/24/18 History melatonin 3 mg PO HS 11/24/18 11/24/18 History ondansetron 4 mg PO Q6H PRN 11/24/18 11/24/18 History oxycodone 5 mg PO Q6H PRN 11/24/18 11/24/18 History phenazopyridine 200 mg PO TID 11/24/18 11/24/18 History sotalol 120 mg PO BID 11/24/18 11/24/18 History tamsulosin 0.4 mg PO DAILY 11/24/18 11/24/18 History warfarin 3.75 mg PO DAILY 11/24/18 11/24/18 History warfarin 2 mg PO DAILY@1600 2 Days #4 tab 11/29/18 Rx Past Med/Surg History Medical History History of hysterectomy Social History Preferred Language: Lithuanian Communication Ability: Effective Launch Leader Required: No Beliefs That Will Affect Care: None Current Living Situation: Alone Feels Safe at Home: Yes Safety Concerns: Feels Safe At This Time Smoking Status: Former smoker Hx Alcohol Use: No Hx Substance Use: No Physical Exam Constitutional: comfortable Eyes: PERRL, conjunctivae normal, anicteric sclerae EOM intact bilaterally ENMT: external ear and nose normal, oropharynx normal Respiratory: normal respiratory effort, lungs clear to auscultation Cardiovascular: Rate/Rhythm: regular rhythm and + bradycardic Gastrointestinal (Abdomen): normal bowel sounds, soft, nontender, no hepatosplenomegaly Musculoskeletal: no cyanosis or clubbing, extremities motor strength 5/5 Head/Neck/Chest: normocephalic and head atraumatic Neurologic: PERRL, EOMI, accommodation nl, no face palsy, no dysarthria CN's II-XI intact bilaterally Results & Data Vital Signs (Past 12 Hours) Vital Signs Temp Pulse Resp BP BP Pulse Ox 11/29/18 11:50 36.5 C 54 L 18 131/64 96 11/29/18 07:38 36.9 C 111 H 20 139/76 95 11/29/18 03:51 36.7 C 87 18 129/85 94 11/29/18 03:39 36.8 C 77 18 139/64 93
--- NOTE | 2018-11-29 12:46 | Discharge Summary ---
Date of Service November 29, 2018 Admission HPI Per Admitting Provider 83-year-old female with history of kidney stones,, paroxysmal atrial fibrillation, TIA, hypertension, dyslipidemia, asthma/COPD, hypothyroidism, GERD presenting with fevers and chills x1 day. Next Patient had a second lithotripsy with stent placement and basket extraction last Sunday. Yesterday patient had developed fevers and chills, also noted blood-tinged urine. At the ER, urinalysis showed possible UTI. She was started on ceftriaxone IV. On exam, the patient seen resting in bed, comfortable no distress Denies active abdominal pain, does report dysuria. Also reports some shortness of breath and dry cough. Denies other symptoms Admission Exam Per Admitting Provider General- oriented x 3, not in distress, speaks in sentences with no effort or accessory muscle use Head- atraumatic Eyes- PERRL, EOMI, anicteric ENT- oropharynx clear Neck- supple, no JVD, no adenopathy, no thyromegaly; carotids +2/2, no bruits appreciated Lungs- faint intermittent wheeze Heart- normal rate, regular rhythm; no murmur, no gallop, no rub appreciated Abdomen- normal bowel sounds, nondistended, soft, nontender, no masses or hepatosplenomegaly Extremities- no pretibial edema, no calf tenderness; peripheral pulses intact Buttock- two small wounds, right buttock- medial Neuro- alert, oriented x 3; CN 2-12 grossly intact; motor 5/5 bilater ally;sensation 100% on all extremities; no other gross focal neurologic deficits Skin- warm & dry Principal Diagnosis UTI (urinary tract infection) from ureteral stent; s/p ureteral stent removal on this hospitalization. Atrial fibrillation with rapid ventricular response (currently sinus bradycardia on 11/29/18), supratherapeutic INR on admission, INR subsequently reversed and then anticoagulated on anticoagulation therapy with coumadin and heparin drip (currently INR is 2.8), Hypothyroidism Discharge Exam Constitutional comfortable Eyes PERRL, conjunctivae normal, anicteric sclerae EOM intact bilaterally ENMT external ear and nose normal, oropharynx normal Respiratory normal respiratory effort, lungs clear to auscultation Cardiovascular Rate/Rhythm: regular rhythm and + bradycardic Gastrointestinal (Abdomen) normal bowel sounds, soft, nontender, no hepatosplenomegaly Musculoskeletal no cyanosis or clubbing, extremities motor strength 5/5 Head/Neck/Chest: normocephalic and head atraumatic Neurologic PERRL, EOMI, accommodation nl, no face palsy, no dysarthria CN's II-XI intact bilaterally Discharge Data Allergies Allergy/AdvReac Type Severity Reaction Status Date / Time aspirin Allergy Severe THROAT Verified 11/24/18 14:30 SWELLING nitrofurantoin Allergy Severe couldn't Verified 11/24/18 14:30 breathe adhesive Allergy Unknown TAPE Verified 11/24/18 14:30 clopidogrel Allergy Unknown - Verified 11/24/18 14:30 ezetimibe Allergy Unknown - Verified 11/24/18 14:30 Iodinated Contrast- Oral and Allergy Unknown . Verified 11/24/18 14:30 IV Dye iodine Allergy Unknown - Verified 11/24/18 14:30 Consultations 11/24/18 16:14 ED Decision to Admit Stat 11/24/18 18:36 Consult Urology Routine 11/26/18 07:34 Consult Cardiology Routine Ordered Studies 11/24/18 14:01 US renal/blad retro comp Stat Hospital Course (1) UTI (urinary tract infection): UTI (urinary tract infection) from ureteral stent; s/p ureteral stent removal on this hospitalization -had 2 surgeries for large left kidney stones, on 11/15/18 and 11/22/18. Intraoperative urine culture was no growth. -presented with fever and initial started on ceftriaxone and then transitioned to Zosyn -admission blood culture no growth to date and admission urine culture with ricardo only -cysto left stent removal completed on 11/27/18; Dr. Rodas urology discussed about monitoring patient off antibiotics and off fluconzole and will monitor the patient off IV antibiotics and off anti fungals -11/29/18: no fevers since stent removal, no dsyuria symptoms; patient discharge to home and can follow up with Dr. Rodas as needed Atrial fibrillation with rapid ventricular response. Atrial fibrillation with rapid ventricular response (currently sinus bradycardia on 11/29/18), supratherapeutic INR on admission, INR subsequently reversed and then anticoagulated on anticoagulation therapy with coumadin and heparin drip (currently INR is 2.8), -on this admission patient had atrial fibrillation with rapid ventricular response and the INR that was supratherapeutic as 6 and this was reversed and patient and patient with rapid ventricular response -patient was placed on heparin drip on this hospitalization after INR was reversed. left ureteral stent was removed. -patient then was bridged to therapeutic INR with heparin drip -heart rate was controlled with Sotalol 120mg BID; initially also with diltiazem drip and then transitioned to oral diltizaem by 11/28/18 -plans were made to cardiovert patient on 11/29/18 by cardiology service but Patient cardioverted to sinus bradycardia on 11/29/18 spontaneously -Dr. Espinal from cardiology service recommends a follow up appointment with cardiology clinic in 2 to 4 weeks but there are no available appointments within that time frame currently; the [facility] appointment line will send message to cardiology office on adjusting appointment schedules -patient will continue home dose sotalol 120 mg BID -Patient should hold coumadin on 11/29/18 and then resume coumadin as low dose 2 mg daily until follow up with coumadin clinic on 12/02/2018 6:20 PM Provider [facility], [place] hypothyroidism -continue home dose Levothyroxine -TSH 0.392, -repeat TSH as 0.589 Hypertension -Continue losartan Right buttock wounds -self care on discharge Asthma COPD -Respiratory status improved DVT prophylaxis heparin drip with coumadin Discharge Diagnosis UTI (urinary tract infection) from ureteral stent; s/p ureteral stent removal on this hospitalization. Atrial fibrillation with rapid ventricular response (currently sinus bradycardia on 11/29/18), supratherapeutic INR on admission, INR subsequently reversed and then anticoagulated on anticoagulation therapy with coumadin and heparin drip (currently INR is 2.8), Hypothyroidism Follow up appointments Dr. Espinal from cardiology service recommends a follow up appointment with cardiology clinic in 2 to 4 weeks but there are no available appointments within that time frame currently; the [facility] appointment line will send message to cardiology office on adjusting appointment schedules Follow up with urology Dr. Rodas office if needed Other follow ups Patient should hold coumadin on 11/29/18 and then resume coumadin as low dose 2 mg daily until follow up with coumadin clinic on 12/02/2018 6:20 PM Provider [facility] Department Pharmacy, [place] 12/04/2018 1:00 PM Provider Leticia Malave Department [facility] 12/16/2018 9:50 AM Provider Jyoti Do DO [facility] 01/20/2019 3:00 PM Provider Dorothea Romero MD Department Nephrology, [facility] 02/04/2019 1:30 PM Provider Shellie Agudelo PA-C Department Cardiology, [facility] Total Time Total Time Spent Total Time Spent (In Minutes): 40 minutes Total Time Includes: Examination of the Patient, Discharge Planning, Medication Reconciliation and Communication With Other Providers Discharge Plan Discharge Items Patient Disposition: Home - Self-Care Reason For Visit: UTI Discharge Diagnosis: UTI (urinary tract infection) from ureteral stent; s/p ureteral stent removal on this hospitalization. Atrial fibrillation with rapid ventricular response (currently sinus bradycardia on 11/29/18), supratherapeutic INR on admission, INR subsequently reversed and then anticoagulated on anticoagulation therapy with coumadin and heparin drip (currently INR is 2.8), Hypothyroidism Condition: Good Discharge Goals: Improve disease control Activity: Resume your previous activity Non-emergency contact: Primary Care Provider, Tuyere Fitter and Urologist Call non-emergency contact if: you have any medication questions Follow-up/Referrals: Jyoti Do DO [Primary Care Provider] - Diet: Heart Healthy Addtl Provider Instructions: Follow up appointments Dr. Espinal from cardiology service recommends a follow up appointment with cardiology clinic in 2 to 4 weeks but there are no available appointments within that time frame currently; the [facility] appointment line will send message to cardiology office on adjusting appointment schedules Follow up with urology Dr. Rodas office if needed Other follow ups Patient should hold coumadin on 11/29/18 and then resume coumadin as low dose 2 mg daily until follow up with coumadin clinic on 12/02/2018 6:20 PM Provider [facility] [place] Department Pharmacy, [place] 12/04/2018 1:00 PM Provider Leticia Malave DO [facility] 12/16/2018 9:50 AM Provider Jyoti Do DO [facility] 01/20/2019 3:00 PM Provider Dorothea Romero MD Department Nephrology, [facility] 02/04/2019 1:30 PM Provider Shellie Agudelo PA-C Department Cardiology, [facility] Prescriptions: New warfarin 2 mg tablet 2 mg PO DAILY@1600 2 Days Qty: 4 RF: 0 Continued atorvastatin 20 mg tablet 20 mg PO DAILY RF: 0 sotalol 80 mg tablet 120 mg PO BID RF: 0 gabapentin 100 mg capsule 100 mg PO TID RF: 0 epinephrine [EpiPen] 0.3 mg/0.3 mL Auto-Injector 0.3 mg IM Q3H PRN (Reason: Allergic Reaction) RF: 0 cholecalciferol (vitamin D3) [Vitamin D3] 1,000 unit Capsule 1,000 unit PO DAILY RF: 0 fluticasone propionate 50 mcg/actuation spray,suspension 2 spray intranasal DAILY RF: 0 clotrimazole [Lotrimin AF] 1 % Cream 1 applic TOPICAL BID RF: 0 losartan 50 mg tablet 50 mg PO BID RF: 0 melatonin 3 mg Tablet 3 mg PO HS RF: 0 levothyroxine 25 mcg tablet 25 mcg PO QAM RF: 0 levalbuterol HCl 1.25 mg/3 mL Solution For Nebulization 1.25 mg INHALATION Q8H PRN (Reason: Wheezing) RF: 0 ondansetron 4 mg Tablet,Disintegrating 4 mg PO Q6H PRN (Reason: Nausea) RF: 0 loratadine 10 mg Tablet 10 mg PO DAILY RF: 0 Discontinued warfarin 7.5 mg tablet 3.75 mg PO DAILY RF: 0 phenazopyridine 200 mg tablet 200 mg PO TID RF: 0 tamsulosin 0.4 mg capsule 0.4 mg PO DAILY RF: 0 oxycodone 5 mg tablet 5 mg PO Q6H PRN (Reason: Pain) RF: 0 Stand-Alone Forms: [facility] Discharge Orders: Discharge Order (Routine); Ordered 11/29/18 Ordered By: Renato Wood Admission Data Admit Date/Time: 11/24/18 16:45 Attending Provider: Renato Wood Admit Provider: Adrian Armstrong Primary Care Provider: Jyoti Do Other Providers: Adrian Armstrong ; Brandi Rodas ; Karsten David Service: Telemetry
[2018-11-30] MEDS ORDERED: WARFARIN SOD 2.5 MG TAB PO SCH (16:00)
== END 2018-11-29 13:40 | disposition home or self-care (01) | DRG 699 ==
LOC: ED 13:16 → SUATTDRO 16:45 → 2W 16:45 → 2E 11-26 15:02

== ENCOUNTER 2019-01-17 13:17 | Inpatient (IN) ==
[~2019-01-17 13:17] MED LIST changes: -AMOX875T PO; -ATOR-22 PO; -AZITTAB PO; -BTP80 PO; +CEFAZOLIN 2000MG 2,000 MG/15 ML SYR IV SCH; -CHOL100027 PO; -EPP3/2 IM; -LEVA1.255 INH; +LR 15ML/HR IV SCH; +PATIENT'S HEIGHT AND/OR WEIGHT NEEDED SCH; -PRED10TA PO; -SOTA80TA55 PO; -SYN25 PO; -WARF-284 PO
[2019-01-17] MEDS ORDERED: LIDOCAINE HCL 1% 20 ML VIAL ONE (14:57)
[2019-01-17] MEDS ORDERED: BUPIVACAINE 0.25% 30 ML VIAL ONE (14:57)
[2019-01-17] MEDS ORDERED: BACITRACIN INJ 50,000 UNIT VIAL ONE (14:57)
--- NOTE | 2019-01-17 15:18 | Pre Anesthesia Assessment ---
Date of Service January 17, 2019 Pre Sedation Assessment Vital Signs Temp Pulse Resp BP Pulse Ox 01/17/19 14:22 36.5 C 56 L 20 187/87 H 96 Cardiovascular RRR, no murmur, no edema + bradycardic Respiratory normal respiratory effort, lungs clear to auscultation Pre-Sedation Airway Assessment Smoking Status: Light tobacco smoker Hx Sleep Apnea: No Hx Difficult Intubation: No Short, Thick Neck: No Thyromental Distance: < 3.5 Finger Breadths Oral Cavity: + WNL Mallampati Class: II ASA: ASA3 NPO Status Date of Last Intake of Fluids: 01/16/19 Date of Last Intake of Solid Food: 01/16/19 Procedure Planning Contraindications for Sedation: none Current Medications Reviewed: Yes Notes The planned sedation has been discussed with the patient. Informed Consent was obtained. I have identified the patient, determined the appropriateness of sedation and have assessed the patient immediately prior to the procedure. All medicine(s) and interventions are by my order.
--- NOTE | 2019-01-17 15:18 | History & Physical Bridge Note ---
Date of Service January 17, 2019 History & Physical Bridge Note I have examined the patient, reviewed the History & Physical and in the interval since the performance of the History & Physical I have noted the following changes of clinical significance: no changes noted
[2019-01-17] MEDS ORDERED: fentaNYL citrate 100 MCG/2 ML VIAL ONE (15:35)
[2019-01-17] MEDS ORDERED: MIDAZOLAM HCL 5 MG/ML 1 ML VIAL ONE (15:35)
[2019-01-17] MEDS ORDERED: raNITIdine HCl 25 MG/ML VIAL IV ONE (15:42)
[2019-01-17] MEDS ORDERED: methylPREDNISolone 125 MG/2 ML VIAL ONE (15:42)
[2019-01-17] MEDS ORDERED: DiphenhydrAMINE HCL 50 MG/ML VIAL ONE (15:42)
[2019-01-17] MEDS ORDERED: ACETAMINOPHEN 325 MG TAB PO PRN (17:00)
[2019-01-17] MEDS ORDERED: OXYCODONE/ACETAMINOPHEN 5mg/325mg TAB PO PRN (17:00)
--- NOTE | 2019-01-17 17:01 | Post Anesthesia Assessment ---
Date of Service January 17, 2019 Post Sedation Assessment Vital Signs Temp Pulse Resp BP Pulse Ox 01/17/19 14:22 36.5 C 56 L 20 187/87 H 96 Recovery Score Activity: Moves 4 extremities Respiration: Deep Breath/Cough Circulation: +/-20% PreAnes Value Consciousness: Fully Awake Oxygen Saturation: > 92% On Room Air Discharge Sedation Level of Care: Fast Track Phase II Post Sedation Plan On clinical assessment, the patient appears to have tolerated the sedation without complications. Patient is recovering as anticipated. Patient will continue to be monitored by nursing and may be discharged when sedation discharge criteria are met per below protocol. Upon Completions of procedure and additional 15 minutes continue every 5 minute vital signs and the P.A.R. score; then discharge to a Phase [facility] or [facility] per the following guidelines: * Discharge Patient to appropriate Phase II area if PAR is 8 or greater or return to pre- procedure baseline. The post - procedure orders will be as directed. * If PAR score is less than 8 or not return to pre-procedure baseline then patient will follow Phase I monitoring till PAR is reached for Phase II. The Phase I may be done in procedure room or may call to secure a Phase I area. * If naloxone or flumazenil are used for reversal, hold in Phase I for continued monitoring from when last reversal dose was given for a minimum of 60 minutes or longer pending the nurse and/or physician discretion of patient condition before discharge to Phase II. Please call the Sedation Physician to re-evaluate and complete post-note for discharge to Phase II area. Do NOT discharge from procedure sedation or Phase 1 until post- sedation evaluation note is complete by procedure /sedation MD Sedation Discharge Instructions to be given to the patient at discharge to home.
--- NOTE | 2019-01-17 17:02 | Operative Report ---
Post Operative Report Pre & Post Diagnosis TBS Operation Date: 01/17/19 15:00 <No data on this case meets the specified criteria> Procedure Operation Date: 01/17/19 15:00 Actual Procedures p Pacer with A/V Leads (Dual) - Anali Blank DO Surgeon Anali Blank, DO Street Photographer none Estimated Blood Loss 40 Findings Consistent with Post-Op Diagnosis Specimens none Description of Procedure see official report I attest to the content of the Intraoperative Record and any orders documented therein. Any exceptions are noted below.
[2019-01-17] MEDS ORDERED: FLUTICASONE PROPIONATE NA SPR 16 GM BTL NAE PRN (17:04)
[2019-01-17] MEDS ORDERED: EPINEPHRINE ADULT AUTO-INJECT 0.3 MG SYR IM PRN (17:04)
[2019-01-17] MEDS ORDERED: ONDANSETRON 4 MG TAB PO PRN (17:04)
[2019-01-17] MEDS ORDERED: LORATADINE 10 MG TAB PO PRN (17:04)
[2019-01-17] MEDS ORDERED: LEVALBUTEROL HCL 1.25 MG/3 ML NEB INH PRN (17:04)
--- NOTE | 2019-01-17 17:09 | Discharge Summary ---
Date of Service January 20, 2019 Admission HPI Per Admitting Provider pt a/w TBS for elective ppm Admission Exam Per Admitting Provider aaox3, NAD NC/AT, EOMI Supple No JVD Nrl S1/S2, No murmur CTA b/l no w/r/r soft nt/nd no LE edema b/l skin intact no focal deficits Principal Diagnosis TBS s/p dual chamber ppm pAF s/p increase in sotalol dose Discharge Exam aaox3, NAD NC/AT, EOMI Supple No JVD Nrl S1/S2, No murmur CTA b/l no w/r/r soft nt/nd no LE edema b/l skin intact no focal deficits left pectoral incision intact, no hematoma mild ecchymosis ENMT Mallampati Class: II Respiratory normal respiratory effort, lungs clear to auscultation Cardiovascular RRR, no murmur, no edema Rate/Rhythm: + bradycardic Discharge Data Allergies Allergy/AdvReac Type Severity Reaction Status Date / Time aspirin Allergy Severe THROAT Verified 01/17/19 14:00 SWELLING Iodinated Contrast- Oral and Allergy Severe can't Verified 01/17/19 14:00 IV Dye breath iodine Allergy Severe can't Verified 01/17/19 14:00 breath nitrofurantoin Allergy Severe couldn't Verified 01/17/19 14:00 breathe ezetimibe Allergy Intermediate pt unsure Verified 01/17/19 14:00 adhesive Allergy Mild tears skin Verified 01/17/19 14:00 clopidogrel Allergy Unknown pt unsure Verified 01/17/19 14:00 Procedures Performed Operation Date: 01/17/19 15:00 Actual Procedures p Pacer with A/V Leads (Dual) - Anali Blank DO Ordered Studies 01/17/19 07:00 EP Lab Images for PACS ONCE Hospital Course (1) Tachy-kelsey syndrome: (2) Atrial fibrillation: pt went back into pAF on 01/19 but converted back to SR/AP on her own with addition of metoprolol to the higher dose of sotalol Total Time Total Time Spent Total Time Spent (In Minutes): 30 Total Time Includes: Examination of the Patient, Discharge Planning, Medication Reconciliation and Other Discharge Plan Discharge Items Patient Disposition: Home - Self-Care Reason For Visit: DCP Discharge Diagnosis: TBS s/p dual chamber ppm and increase in sotalol Discharge Goals: Improve function Activity: As commented below Activity Comment: do not lift the left elbow over the left shoulder for 1 month Lifting: No more than 10 pounds Lifting Comment: do not lift more than 10 pounds with the left arm for 2 weeks Bathing: Keep incision dry Bathing Comment: can get insicion wet on Friday 01/19 Sexual Activity: After two weeks Driving/Machine Use: Resume 1 day after discharge Non-emergency contact: Primary Care Provider and Scuba Diving Teacher Call non-emergency contact if: you have any medication questions Follow-up/Referrals: Jyoti Do DO [Primary Care Provider] - Diet: Heart Healthy Addtl Provider Instructions: Device and wound check Wednesday 01/24 If you notice any swelling call my office immdediately. Take 7.5mg of coumadin tonite then resume normal dosing and followup with anticoagulation clinic. Prescriptions: New metoprolol succinate 25 mg Tablet Extended Release 24 Hr 25 mg PO QAM Qty: 34 RF: 3 sotalol 80 mg Tablet 160 mg PO BID Qty: 60 RF: 0 Continued atorvastatin 20 mg tablet 20 mg PO DAILY RF: 0 gabapentin 100 mg capsule 100 mg PO TID RF: 0 epinephrine [EpiPen] 0.3 mg/0.3 mL Auto-Injector 0.3 mg IM Q3H PRN (Reason: Allergic Reaction) RF: 0 cholecalciferol (vitamin D3) [Vitamin D3] 1,000 unit Capsule 1,000 unit PO DAILY RF: 0 fluticasone propionate 50 mcg/actuation spray,suspension 2 spray intranasal DAILY PRN (Reason: Congestion) RF: 0 clotrimazole [Lotrimin AF] 1 % Cream 1 applic TOPICAL BID RF: 0 losartan 50 mg tablet 50 mg PO BID RF: 0 melatonin 3 mg Tablet 3 mg PO HS RF: 0 levothyroxine 25 mcg tablet 25 mcg PO QAM RF: 0 levalbuterol HCl 1.25 mg/3 mL Solution For Nebulization 1.25 mg INHALATION Q8H PRN (Reason: Wheezing) RF: 0 ondansetron 4 mg Tablet,Disintegrating 4 mg PO Q6H PRN (Reason: Nausea) RF: 0 loratadine 10 mg Tablet 10 mg PO DAILY PRN (Reason: Congestion) RF: 0 warfarin [Coumadin] 7.5 mg Tablet 3.75 mg PO DAILY RF: 0 Discontinued sotalol 80 mg tablet 120 mg PO BID RF: 0 Stand-Alone Forms: [facility] Discharge Orders: Discharge Order (Routine); Ordered 01/20/19 Ordered By: Dalton Do Admission Data Admit Date/Time: 01/17/19 16:14 Attending Provider: Anali Blank Admit Provider: Anali Blank Primary Care Provider: Jyoti Do Other Providers: Natalya Langley ; Clifford Clifford ; Ana Clifford ; Elías Leigh ; Trinidad Murrieta ; Quirino Montague ; Lizeth Katz ; Boone Katz V ; Ritika Galo ; Clara Bradford ; Ruben Gillespie ; Karsten Tellez ; Sonam Avendaño ; Jm Avendaño ; Bren Leblanc ; Brandi Parker ; Sita Gomez ; Yamileth Stoll ; Babs Griffith ; Bijan Olguin ; Pritesh Nino ; Lupe Garcia ; Liberty Wu ; Samaria Gregorio ; Rene Bates ; Hunter Chapa ; Duke Carter ; Prasanna Carter ; Elan Wheat ; Hunter Jackson ; Dipti Green ; Floyd Adrian ; Lucas Salazar ; Boone Oconnor ; Shahram Lu ; Evie Duran ; Melissa Schaeffer ; Ritika Lanier ; Rossy Shin ; Jersey Shin ; Karsten Boo ; Cindy Keating ; Radha Keating ; Manuel Brothers ; Bettye Hoffman ; Adrian Piña ; Cindy Amaya ; Kim Watson ; Ede Lott ; Swapna Mcgee Service: Telemetry Other Interventions: Discharge Summary Assessment (RN) Last Done: 01/20/19 11:54 Pending Studies at Discharge: No DC Date/Time DO NOT enter until pt leaves facility: 01/20/19 12:05
[2019-01-17 18:26] LABS: INR 1.2 (0.9-1.1); Prothrombin Time 11.8 Seconds (9.0-12.0)
[2019-01-17] MEDS: GABAPENTIN 100 MG CAP PO SCH (20:54)
[2019-01-17] MEDS: LOSARTAN POTASSIUM 50 MG TAB PO SCH (20:55)
[2019-01-17] MEDS: CLOTRIMAZOLE 1% CR 15 GM TUBE TOP SCH (20:55)
[2019-01-17] MEDS: SOTALOL HCL 80 MG TAB PO SCH (20:59)
[2019-01-18] MEDS: LEVOTHYROXINE SODIUM 25 MCG TABLET PO SCH ×2 (06:05→06:25)
[2019-01-18] MEDS: ATORVASTATIN 20 MG TAB PO SCH (08:11)
[2019-01-18] MEDS: CHOLECALCIFEROL 1,000 UNITS TAB PO SCH (08:11)
[2019-01-18] MEDS: SOTALOL HCL 80 MG TAB PO SCH ×2 (08:11→20:59)
[2019-01-18] MEDS: GABAPENTIN 100 MG CAP PO SCH ×3 (08:12→21:01)
[2019-01-18] MEDS: LOSARTAN POTASSIUM 50 MG TAB PO SCH ×2 (08:12→21:00)
[2019-01-18] MEDS: CLOTRIMAZOLE 1% CR 15 GM TUBE TOP SCH ×2 (08:12→21:00)
--- NOTE | 2019-01-18 09:41 | XRay Report ---
XR chest 2V routine CLINICAL HISTORY: Post pacemaker chest x-ray COMPARISON STUDY: 11/24/2018 FINDINGS: The heart is mildly enlarged. There is a left subclavian dual-chamber central venous pacema ker present. There is no focal pulmonary consolidation. There are no pleural effusions. There is no p neumothorax. Electrode position is unremarkable.[ IMPRESSION: No evidence of pneumothorax status post placement of a left subclavian dual-chamber centr al venous pacemaker. Electronically signed by: Eddie Quintanilla M.D. 01/18/2019 9:39 AM
--- NOTE | 2019-01-18 13:23 | Cardiology Progress Note ---
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 No complications. Hospitalized for sotalol loading. Previous dose 120 mg twice daily. She received 2 doses of 160 mg, last evening as well as this morning. Repeat ECG demonstrates normal QTC. No evidence of paroxysmal atrial fibrillation on telemetry. Continue sotalol dosing. Plan for discharge after 6 doses, sunday01/20/19. Subjective Patient seen and examined at the bedside. Feeling well from a cardiovascular perspective. Atrial paced rhythm on telemetry. Repeat ECG this morning demonstrates normal QT interval. Denies palpitations, chest discomfort, unusual shortness of breath. Mild soreness over pacemaker implantation site noted. No evidence of pneumothorax per chest x-ray. Review of Systems Review of Systems: All systems reviewed & are unremarkable except as noted in HPI & below Physical Exam Physical Exam: General: NAD, AAO x3, well nourished. HEENT: Normocephalic. Atraumatic. Conjunctiva pink, no scleral icterus. Neck: No carotid bruits, the carotid upstrokes are brisk. No JVD. No HJR chest: Left-sided pacemaker pressure dressing clean, dry, intact. Heart: Regular normal S-1 and S-2 no S-3 or S-4 gallop. No murmurs or rub appreciated. PMI is not displaced. No RV heave. Lungs: Clear bilateral without rales , rhonchi, or wheeze. Abdomen: Normal bowel sounds. Soft. Nontender. No masses or organomegaly. No abdominal bruits. Extremities: No clubbing, cyanosis, or edema. Pulses: radial=2/4, Dorsalis pedis =2/4, posterior tibial=2/4. Neuro: Cranial nerves grossly intact. No focal motor deficit. Results & Data Vital Signs (Past 12 Hours) Vital Signs Temp Pulse Resp BP Pulse Ox 01/18/19 12:13 36.5 C 59 L 18 146/54 H 97 01/18/19 07:53 36.9 C 61 18 150/78 H 98 01/18/19 05:00 36.3 C L 62 18 150/76 H 94
[2019-01-18] MEDS ORDERED: WARFARIN SOD 1.25 MG TAB PO SCH (16:00)
[2019-01-18] MEDS ORDERED: METOPROLOL TARTRATE 1 MG/ML VIAL IV STA (22:51)
[2019-01-18] MEDS ORDERED: METOPROLOL TARTRATE 1 MG/ML VIAL IV ONE (22:53)
[2019-01-19] MEDS: LEVOTHYROXINE SODIUM 25 MCG TABLET PO SCH (05:52)
[2019-01-19] MEDS: LOSARTAN POTASSIUM 50 MG TAB PO SCH ×2 (08:47→20:39)
[2019-01-19] MEDS: GABAPENTIN 100 MG CAP PO SCH ×3 (08:47→20:39)
[2019-01-19] MEDS: SOTALOL HCL 80 MG TAB PO SCH ×2 (08:47→20:40)
[2019-01-19] MEDS: ATORVASTATIN 20 MG TAB PO SCH (08:47)
[2019-01-19] MEDS: CHOLECALCIFEROL 1,000 UNITS TAB PO SCH (08:47)
[2019-01-19] MEDS: CLOTRIMAZOLE 1% CR 15 GM TUBE TOP SCH ×2 (08:48→20:40)
[2019-01-19] MEDS ORDERED: METOPROLOL TARTRATE 1 MG/ML VIAL IV STA (12:39)
--- NOTE | 2019-01-19 12:40 | Cardiology Progress Note ---
Date of Service January 19, 2019 Assessment & Plan (1) Tachy-kelsey syndrome: (2) Atrial fibrillation: Patient converted to atrial fibrillation with rapid ventricular response last evening. Will give additional 5 mg IV Lopressor x1 now. Lab studies including BMP, magnesium level, CBC, and INR will be drawn at this time. Repeat ECG now and then daily. Continue sotalol 160 mg twice daily. Continue to follow clinically. Patient may require transesophageal guided cardioversion prior to d ischarge. Repeat labs demonstrate subtherapeutic INR. Will initiate IV heparin without bolus. Increase Coumadin to 7.5 mg daily. Repeat PT/INR in a.m. N.p.o. except medications after midnight. Subjective Patient seen and examined at the bedside. Converted to atrial fibrillation last evening. Intermittent periods of rapid ventricular response. Patient notes palpitations. Denies chest pain at this time. Heart rates remain mildly elevated on telemetry. Review of Systems Review of Systems: All systems reviewed & are unremarkable except as noted in HPI & below Physical Exam Physical Exam: General: NAD, AAO x3, well nourished. Overweight. HEENT: Normocephalic. Atraumatic. Conjunctiva pink, no scleral icterus. Neck: No carotid bruits, the carotid upstrokes are brisk. No JVD. No HJR. Chest: Left- sided pacemaker surgical site clean, dry, intact. No erythema or drainage. Heart: Irregular, borderline tachycardic. Normal S1-S2. No murmur appreciated. PMI is not displaced. No RV heave. Lungs: Clear bilateral without rales , rhonchi, or wheeze. Abdomen: Normal bowel sounds. Soft. Nontender. No masses or organomegaly. No abdominal bruits. Extremities: No clubbing, cyanosis, or edema. Pulses: radial=2/4, Dorsalis pedis =2/4, posterior tibial=2/4. Neuro: Cranial nerves grossly intact. No focal motor deficit. Results & Data Vital Signs (Past 12 Hours) Vital Signs Temp Pulse Resp BP Pulse Ox 01/19/19 11:35 37.0 C 107 H 18 131/71 95 01/19/19 07:59 36.4 C L 105 H 18 138/90 01/19/19 03:40 37.0 C 113 H 18 145/86 H 94
[2019-01-19 13:35] LABS: Basophils # (auto) 0.02 K/uL (0-0.2); Basophils % (auto) 0.1 %; Eosinophils # (auto) 0.08 K/uL (0-0.5); Eosinophils % (auto) 0.5 %; Hematocrit (blood only) 40.2 % (37-47); Hemoglobin 13.1 g/dL (12.0-16.0); Immature Granulocytes # (auto) 0.06 K/uL (0.00-0.02); Immature Granulocytes % (auto) 0.4 %; Lymphocytes # (auto) 3.29 K/uL (1.2-3.4); Lymphocytes % (auto) 22.4 %; Mean Corpuscular Volume 90.5 fL (80-100); Mean Platelet Volume 11.6 fL (7.4-10.4); Monocytes # (auto) 1.08 K/uL (0.11-0.59); Monocytes % (auto) 7.4 %; Neutrophils # (auto) 10.15 K/uL (1.4-6.5); Neutrophils % (auto) 69.2 %; Platelet Count 174 K/uL (130-400); RDW Coefficient of Variation 15.6 % (11.5-14.5); RDW Standard Deviation 51.7 fL (36.4-46.3); Red Blood Count 4.44 M/uL (4.2-5.4); White Blood Count 14.68 K/uL (4.8-10.8)
[2019-01-19 13:46] LABS: Mean Corpuscular Hgb Conc 32.6 g/dL (32-36)
[2019-01-19 13:53] LABS: INR 1.1 (0.9-1.1); Prothrombin Time 11.4 Seconds (9.0-12.0)
[2019-01-19 14:00] LABS: BUN Creatinine Ratio 22.6 (10-20); Calcium 8.5 mg/dl (8.5-10.1); Creatinine Clr Calc Pharmacy 39.4 ml/min; Est GFR (African American) 47.3; Est GFR (Non-African American) 40.8; Magnesium 2.2 mg/dl (1.8-2.4); Potassium 3.7 mmol/L (3.5-5.1)
[2019-01-19] MEDS ORDERED: Heparin IV Standard *NO* Bolus IV ONE (14:01)
[2019-01-19] MEDS ORDERED: METOPROLOL TARTRATE 50 MG TAB PO STA (14:07)
[2019-01-19] MEDS ORDERED: POTASSIUM CHLORIDE 20 MEQ TABCR PO STA (14:08)
[2019-01-19] MEDS: SODIUM CHLORIDE 0.9% 500 ML IV SCH ×2 (15:24→21:38)
[2019-01-19] MEDS ORDERED: Heparin Adult STANDARD Wt-Based Dextrose 5% 25,000 units/500 mL IV SCH (15:45)
[2019-01-19] MEDS ORDERED: WARFARIN SOD 7.5 MG TAB PO SCH (16:00)
[2019-01-19] MEDS ORDERED: METOPROLOL TARTRATE 25 MG TAB PO SCH (21:00)
[2019-01-19 22:42] LABS: Partial Thromboplastin Ratio 2.5
[2019-01-19 22:48] LABS: Partial Thromboplastin Time 68.6 Seconds (21.0-31.0)
[2019-01-20] MEDS: LEVOTHYROXINE SODIUM 25 MCG TABLET PO SCH (05:58)
[2019-01-20 06:46] LABS: INR 1.4 (0.9-1.1); Partial Thromboplastin Ratio 4.7; Prothrombin Time 13.6 Seconds (9.0-12.0)
[2019-01-20 06:50] LABS: Partial Thromboplastin Time 127.2 Seconds (21.0-31.0)
[2019-01-20 07:07] LABS: BUN Creatinine Ratio 29.8 (10-20); Calcium 8.2 mg/dl (8.5-10.1); Creatinine Clr Calc Pharmacy 57.9 ml/min; Est GFR (Non-African American) 64.7; Potassium 3.9 mmol/L (3.5-5.1)
[2019-01-20 07:49] LABS: Partial Thromboplastin Ratio 4.6
[2019-01-20 07:59] LABS: Partial Thromboplastin Time 123.7 Seconds (21.0-31.0)
[2019-01-20] MEDS ORDERED: METOPROLOL SUCC 25MG EXT REL TAB PO SCH (09:00)
[2019-01-20] MEDS: SOTALOL HCL 80 MG TAB PO SCH (09:18)
[2019-01-20] MEDS: CHOLECALCIFEROL 1,000 UNITS TAB PO SCH (09:18)
[2019-01-20] MEDS: ATORVASTATIN 20 MG TAB PO SCH (09:18)
[2019-01-20] MEDS: CLOTRIMAZOLE 1% CR 15 GM TUBE TOP SCH (09:19)
[2019-01-20] MEDS: LOSARTAN POTASSIUM 50 MG TAB PO SCH (09:19)
[2019-01-20] MEDS: GABAPENTIN 100 MG CAP PO SCH (09:19)
--- NOTE | 2019-01-20 10:06 | Cardiology Progress Note ---
Date of Service January 20, 2019 Assessment & Plan (1) Tachy-kelsey syndrome: (2) Atrial fibrillation: Patient converted to sinus rhythm overnight. Feeling well from a cardiovascular perspective. Will discharge to home on sotalol 160 mg twice daily and Toprol-XL 25 mg daily. Instructed to take 7.5 mg of Coumadin this evening then resume normal dosing. Follow-up with anticoagulation clinic as scheduled. Outpatient electrophysiology follow-up with Dr. Ortega in 2 to 4 weeks. Subjective Patient seen and examined at the bedside. Converted to normal sinus rhythm last evening. Feeling well this morning. INR remains subtherapeutic. A.m. ECG demonstrates normal QTc. Review of Systems Review of Systems: All systems reviewed & are unremarkable except as noted in HPI & below Physical Exam Physical Exam: General: NAD, AAO x3, well nourished. Overweight. HEENT: Normocephalic. Atraumatic. Conjunctiva pink, no scleral icterus. Neck: No carotid bruits, the carotid upstrokes are brisk. No JVD. No HJR. Chest: Left- sided pacemaker surgical site clean, dry, intact. No erythema or drainage. Heart: Irregular, borderline tachycardic. Normal S1-S2. No murmur appreciated. PMI is not displaced. No RV heave. Lungs: Clear bilateral without rales , rhonchi, or wheeze. Abdomen: Normal bowel sounds. Soft. Nontender. No masses or organomegaly. No abdominal bruits. Extremities: No clubbing, cyanosis, or edema. Pulses: radial=2/4, Dorsalis pedis =2/4, posterior tibial=2/4. Neuro: Cranial nerves grossly intact. No focal motor deficit. Results & Data Vital Signs (Past 12 Hours) Vital Signs Temp Pulse Pulse Resp BP Pulse Ox 01/20/19 07:05 36.6 C 60 20 134/85 96 01/20/19 04:43 36.6 C 61 17 140/84 95 01/20/19 00:01 96 H 01/19/19 23:10 36.7 C 99 H 18 137/73 95
--- NOTE | 2019-01-25 06:37 | Operative Report ---
DATE OF OPERATION: 01/17/2019 DATE OF PROCEDURE: 01/17/2019 PREOPERATIVE DIAGNOSIS: Tachybrady syndrome. POSTOPERATIVE DIAGNOSIS: Tachybrady syndrome. PROCEDURE: Dual chamber rate responsive permanent pacemaker under fluoroscopic guidance. SURGEON: Anali Blank DO ASSISTANTS: None. ANESTHESIA: Monitored conscious sedation administered under my supervision by Teetee Stout. Start time 1552 and end time 1654. A total of 2 mg of Versed, 50 mcg of fentanyl. INTRAVENOUS FLUIDS: 39 mL. ANTIBIOTICS: Two grams of Ancef. ADDITIONAL MEDICINES: 50 mg of Benadryl, 125 mg of Solu-Medrol, 50 mg of Zantac secondary to her having a contrast dye allergy. BLOOD LOSS: 40 mL. FINDINGS: See below. URINE OUTPUT: Not applicable. SPECIMENS: None. FINDINGS: See below. DRAINS: None. INDICATIONS: This is an 83-year-old female with past medical history for paroxysmal atrial fibrillation on sotalol 120 mg twice a day and Coumadin. Her CHADS2-VASc score of 6, hypertension, hyperlipidemia, history of a TIA, asthma, COPD and hypothyroidism. She is having evidence of tachybrady syndrome and was recommended a dual chamber pacemaker. CONSENT: Consent was obtained prior to the patient going into electrophysiology lab. The patient was informed of the risks, benefits and alternative procedure. Risks include but not limited to sudden cardiac , cardiac arrhythmias, cerebrovascular accident, myocardial infarction, injury to the blood vessels, chamber of the heart and lung, bleeding, and infection. The patient understood these risks and agreed to the procedure as planned. Informed consent was obtained. DESCRIPTION OF THE PROCEDURE: The patient was brought into the electrophysiology lab in a fasting state. She was connected to continuous telemetry monitor. A timeout was performed to ensure patient's identity and procedure correctly. The patient was prepped and draped over the left infraclavicular space in normal surgical standard fashion. Monitored conscious sedation was given throughout the procedure for patient's comfort level. Drift precautions were maintained throughout the procedure. A 10 mL of 1% lidocaine, bupivacaine mixture were given in the left deltopectoral groove. Incision was made in left deltopectoral groove. Blunt dissection was performed down to identify cephalic vein. Cephalic vein was identified and isolated using 0 silk ties. The vein was nicked with an 11 blade and a guidewire was inserted without any resistance. An 8-Swedish sheath was inserted over the guidewire without any resistance. Dilator was removed and a second guidewire was inserted through the 8-Swedish sheath to allow for retained venous access. Sheath was removed, flushed, dilator reinserted over and then it was reinserted over one of the guidewires. The guidewire and dilator removed. The right ventricular lead was then advanced into right ventricle and positioned in intraventricular apex under fluoroscopic guidance. There was adequate pacing and sensing thresholds and no diaphragmatic stimulation with high output pacing. The 8-Swedish sheath was peeled away and lead was fixated to pectoralis muscle using 0 silk suture. A second 8-Swedish sheath was inserted over the retained guidewire without any resistance. The guidewire and dilator removed. The right atrial lead was then advanced into right atrium and positioned into right atrial appendage under fluoroscopic guidance. There was adequate pacing and sensing thresholds and no diaphragmatic stimulation with high output pacing. The 8-Swedish sheath was peeled away and lead was fixated to pectoralis muscle using 0 silk suture. A pursestring using 2-[address] needle was placed around the vein puncture site to stop any backbleeding. Then using blunt dissection over the pectoralis muscle within the pectoralis fascia, a pacemaker pocket was created. Pocket was flushed with copious amounts of bacitracin saline wash and inspected for hemostasis. Pulse generator was attached to the leads, making sure that the pins were in appropriate position, passed set screw and set screws were all tightened. Pulse generator was then placed in the Tyrx pouch followed then by being placed in the pocket, making sure that the leads were lying flat beneath the device. A stay stitch using 0 silk suture was used to secure the device to pectoralis muscle. The incision was then closed in 3-layer fashion with 2-0 Vicryl and suture followed by 3-0 Vicryl interrupted suture followed by 4-0 Monocryl running stitch and Dermabond was applied followed by a pressure dressing. EQUIPMENT: 1. Pulse generator is a Medtronic Carey XT DR BELIA Kimball [id number], serial #[id number]. 2. Tyrx pouch is reference [facility] [id number], lot #[id number], expiration 03/01/2019. 3. Right atrial lead Medtronic 5076-52 cm, serial #[id number]. 4. Right ventricular lead, Medtronic 5076-58 cm, serial #[id number]. INTRAOPERATIVE TESTIN. Right atrial lead: P waves 3.4 millivolts, impedance 456 ohms, threshold 0.5 volts at 0.4 milliseconds. 2. Right ventricular lead: R waves 11.6 millivolts, impedance 798 ohms, threshold 0.8 volts at 0.4 milliseconds. FINAL MEASUREMENTS THROUGH THE DEVICE: 1. Right atrial lead: P-wave 4.6 millivolts, impedance 494 ohms, threshold 0.5 volts at 0.4 milliseconds. 2. Right ventricular lead: R-wave 17.6 millivolts, impedance 798 ohms, threshold 0.5 volts at 0.4 milliseconds. FINAL PARAMETERS: MVP-R 60/130, right atrial amplitude 3.5 volts, pulse width 0.4 milliseconds, sensitivity 0.3 millivolts. Right ventricular amplitude 3.5 volts, pulse width 0.4 milliseconds, sensitivity 1.2 millivolts. IMPRESSION: Successful dual chamber rate responsive permanent pacemaker implantation under fluoroscopic guidance secondary to tachybrady syndrome. PLAN: Monitor patient in the hospital for an increase in her sotalol dose to 160 twice a day. Continue her on Coumadin. She is not allowed to lift left elbow or left shoulder for 1 month. She cannot lift more than 10 pounds with the left arm for 2 weeks. She can shower in 2 days, let water run over the incision, do not scrub it. She should follow up in our [facility] on Sunday01/24/2019 for device and wound check. I attest to the content of the Intraoperative Record and any orders documented therein. Any exception s are noted below.
== END 2019-01-20 12:05 | disposition home or self-care (01) | DRG 244 ==
LOC: ASU 13:17 → 2S 16:14
DX: E78.5 Hyperlipidemia, unspecified; I10 Essential (primary) hypertension; I48.0 Paroxysmal atrial fibrillation; J45.909 Unspecified asthma, uncomplicated; Z86.73 Personal history of transient ischemic attack (TIA), and cerebral infarction without residual deficits; Z79.01 Long term (current) use of anticoagulants; I49.5 Sick sinus syndrome; J44.9 Chronic obstructive pulmonary disease, unspecified; E03.9 Hypothyroidism, unspecified

== ENCOUNTER 2023-06-08 20:27 | Inpatient (IN) ==
[2023-06-08 21:43] LABS: Alanine Aminotransferase 14 U/L (7-52); Albumin Globulin Ratio 1.2 (0.9-2); Albumin Level 3.9 gm/dl (3.4-5.0); Alkaline Phosphatase 121 U/L (34-104); Anion Gap 6 (3-11); Aspartate Aminotransferase 24 U/L (13-39); Bilirubin,Total 0.5 mg/dl (0.2-1.0); Blood Urea Nitrogen 23 mg/dl (6-23); Calcium 9.2 mg/dl (8.6-10.3); Carbon Dioxide 28 mmol/L (21-32); Chloride 105 mmol/L (98-107); Est GFR (African American) 74.6 ml/min; Est GFR (Non-African American) 64.3 ml/min; Globulin 3.3 gm/dl (2.5-4.0); Glucose 110 mg/dl (70-99(Fasting)); Sodium 139 mmol/L (136-145); Total Protein 7.2 gm/dl (6.0-8.3)
[2023-06-08 22:08] LABS: Basophils # (auto) 0.03 K/uL (0.00-0.20); Basophils % (auto) 0.4 %; Eosinophils # (auto) 0.13 K/uL (0.00-0.50); Eosinophils % (auto) 1.7 %; Hemoglobin 14.5 g/dl (12.0-16.0); Immature Granulocytes # (auto) 0.02 K/uL (0.01-0.20); Immature Granulocytes % (auto) 0.3 %; Lymphocytes # (auto) 2.07 K/uL (1.20-3.40); Lymphocytes % (auto) 27.7 %; Mean Corpuscular Hemoglobin 29.7 pg (25.0-34.0); Mean Corpuscular Hgb Conc 32.2 g/dL (32.0-36.0); Mean Platelet Volume 12.1 fL (9.4-12.4); Monocytes # (auto) 0.74 K/uL (0.11-0.59); Monocytes % (auto) 9.9 %; Neutrophils # (auto) 4.48 K/uL (1.40-6.50); Platelet Count 187 K/uL (130-400); RDW Coefficient of Variation 15.1 % (11.5-14.5); RDW Standard Deviation 51.1 fL (36.4-46.3); Red Blood Count 4.89 M/uL (4.20-5.40); White Blood Count 7.47 K/ul (4.8-10.8)
--- NOTE | 2023-06-08 23:16 | Emergency Department Note ---
Impression & Plan Back pain, Ambulatory dysfunction, Sciatica, Abnormal CT of thoracic spine ED Provider Note CHIEF COMPLAINT: Bilateral hip and leg pain HISTORY OF PRESENTING ILLNESS: This 88-year-old female patient presents to the emergency department via EMS with her daughter for evaluation of lower back pain, bilateral hip pain, and leg pain for the past 3 days. Patient states that she has had back pain over the past 3 days that radiates into both of her legs. Both legs are now swollen which is new for her. The patient states the pain also radiates into her RLQ and she is concerned for possible kidney stone. She has a history of renal failure as well. She rates her discomfort as 5/10. She denies chest pain or SOB. Denies any injury or trauma. No nausea or vomiting. Denies any loss of control of their bowel or bladder functions. Denies any numbness of their legs. Denies weakness of their legs. Denies any saddle paresthesias. Denies abdominal pain, nausea, or vomiting. Denies urinary symptoms or changes in their BMs. She is on Coumadin. She has take Tylenol at home without much improvement. She has a history of skin cancer, but she doesn't know what kind. She follows up with dermatology, but not oncology at this time. History of ovarian cancer when she was younger s/p hysterectomy. REVIEW OF SYSTEMS: See HPI for pertinent positives and pertinent negatives. ALLERGIES: See below MEDICATIONS: See below PAST MEDICAL HISTORY: See below PHYSICAL EXAM: VITALS: Vitals are noted on the nurse's note and reviewed by myself. GENERAL: Non toxic, no acute distress, non-diaphoretic. SKIN: See musculoskeletal exam. Capillary refill <2 sec. EYES: PERRLA. EOMI. Conjunctivae without injection, sclerae without icterus. NOSE: Patent without discharge. MOUTH: Mucous membranes moist. Uvula midline. Airway patent. NECK: Supple without nuchal rigidity. No cervical spine tenderness. No paraspinal muscle tenderness. Full range of motion of the neck without pain. HEART: Regular rate and rhythm without murmurs gallops or rubs. LUNGS: Clear to auscultation bilaterally without wheezes, rales or rhonchi. No retractions or accessory muscle use. ABDOMEN: Positive bowel sounds x 4. Normal tympanic percussion. Soft, tender to palpation in the right lower quadrant. No masses or organomegaly. No CVA tenderness. Abbott sign negative. No guarding or rebound tenderness. No focal LLQ tenderness. MUSCULOSKELETAL: The patient is tender to palpation of the thoracic and lumbar spine diffusely. She is also tender to palpation over the paraspinal muscles of the thoracic and lumbar spine. The patient's bilateral lower extremities are edematous without pitting. No obvious erythema or warmth. Mild discomfort in the bilateral calves. No bony tenderness to palpation of the bilateral lower extremities. She does have a mildly positive right-sided straight leg raise test, but negative left-sided straight leg raise test. Dorsalis pedis and posterior tibial pulse 2+ and equal bilaterally. Normal sensation to light and sharp touch of the bilateral lower extremities. NEURO: Patient was alert and oriented. No focal neurological deficits. DIFFERENTIAL DIAGNOSIS: Differential diagnosis includes strain/sprain, muscle spasm, disc herniation, fracture, subluxation, metastatic disease, cord compression, discitis, sciatica, cauda equina, conus medullaris syndrome, infection, epidural abscess, epidural hematoma, aortic disease, renal colic, UTI, pyelonephritis, gastrointestinal, as well as other pathologies. ED COURSE AND MEDICAL DECISION MAKING: HISTORY FROM INDEPENDENT HISTORIAN: Additional history was obtained from the patient's daughter. MONITOR: Continuous security monitor: Order was placed for continuous security monitor. Patient was placed on the security monitor and continuous pulse ox. Patient was noted to be in normal sinus rhythm at an initial rate of 70 bpm per my interpretation. EKG: EKG was interpreted by myself as an atrial paced rhythm at 61 bpm with no acute ST or T wave changes and no significant change from her previous EKG. MEDICATIONS GIVEN: 500 mL normal saline solution bolus. Morphine 4 mg IV and Zofran 4 mg IV. INTERPRETATION OF LABS: I interpreted the labs with full lab results as below in the lab section of this note. CBC without leukocytosis, anemia, or thrombocytopenia. INR is therapeutic at 2.6. Glucose 110 and alk phos 121, but CMP otherwise without significant abnormalities. BNP is elevated 141. Lipase normal. High-sensitivity troponin was normal. Urinalysis was negative. INTERPRETATION OF IMAGING: Chest x-ray was interpreted by myself and showed possible congestive changes in the left lower lobe with radiology report still pending. Additional imaging studies were interpreted by myself and read by radiology as per the imaging section of this note. CT scan of the abdomen pelvis without contrast showed nonspecific nodular thickening of the adrenal glands, but otherwise negative. CT scan of the lumbar spine without contrast showed no acute lumbar spine pathology. CT scan of the thoracic spine without contrast showed no acute fracture or subluxation, but did show multiple pulmonary nodules concerning for metastatic disease. There are also findings concerning for bronchitis with prominent mediastinal lymph nodes. Venous Dopplers of the bilateral lower extremities showed no evidence for DVT, but does show a complex right popliteal cyst. CONSULTATIONS: On-call hospitalist [facility] SUMMARY: I examined the patient. An IV lock was placed and labs were drawn. The patient was medicated as above with improvement of her pain as long as she does not move. However, she still has significant pain with movement or trying to ambulate. The patient declined any additional medication for pain while in the emergency department. Workup results as above. There is concern for multiple pulmonary nodules and possible metastatic disease on the CT scan of the thoracic spine. The patient was not aware of these findings before I discussed them with her and her daughter. The patient has a history of ovarian cancer when she was younger and is currently being treated by dermatology for "skin cancer." The patient is unable to tolerate IV contrast even with premedication per the patient so additional imaging was not obtained in the emergency department. The patient was independently evaluated by Dr. Graham, who agrees with my assessment and treatment plan. The patient does not feel that she can ambulate on her own at home due to the pain and will also require further workup of the possible metastatic disease. The patient would like to be admitted for further evaluation and treatment as well as pain management. I spoke with the on-call hospitalist who agreed to admit the patient for further management. Please refer to their dictation for further details. 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 Acid reflux COPD (chronic obstructive pulmonary disease) Asthma Hypothyroidism Hypertension Hypertension Hyperlipidemia TIA (transient ischemic attack) Surgical History History of cataract extraction with lens replacement History of tonsillectomy History of cholecystectomy History of hysterectomy History of hysterectomy Family History Other Family history non-contributory Social History Smoking Status: Current some day smoker Tobacco Type: Cigarettes Hx Alcohol Use: No Hx Substance Use: No Preferred Language: Jordanian Communication Ability: Effective Engineering Team Supervisor Required: No Beliefs That Will Affect Care: None Current Living Situation: Alone Feels Safe at Home: Yes Assistive Devices: Oxygen - Continuous Allergies Allergies Allergy/AdvReac Type Severity Reaction Status Date / Time aspirin Allergy Severe THROAT Verified 06/27/19 11:26 SWELLING Iodinated Contrast Media Allergy Severe can't Verified 06/27/19 11:26 breath iodine Allergy Severe can't Verified 06/27/19 11:26 breath nitrofurantoin Allergy Severe couldn't Verified 06/27/19 11:26 breathe ezetimibe Allergy Intermediate pt unsure Verified 06/27/19 11:26 adhesive Allergy Mild tears skin Verified 06/27/19 11:26 clopidogrel Allergy Unknown pt unsure Verified 06/27/19 11:26 Home Meds Home Medications Medication Instructions Recorded Confirmed allopurinol 100 mg tablet 100 mg PO DAILY 06/09/23 06/09/23 atorvastatin 20 mg tablet 20 mg PO DAILY 06/09/23 06/09/23 gabapentin 100 mg capsule 100 mg PO TID 06/09/23 06/09/23 hydrochlorothiazide 25 mg tablet 25 mg PO UD 06/09/23 06/09/23 levothyroxine 25 mcg tablet 25 mcg PO DAILY 06/09/23 06/09/23 metoprolol succinate 100 mg 100 mg PO DAILY 06/09/23 06/09/23 tablet,extended release 24 hr metoprolol succinate 25 mg 25 mg PO DAILY 06/09/23 06/09/23 tablet,extended release 24 hr potassium citrate 10 mEq (1,080 10 meq PO BID 06/09/23 06/09/23 mg) tablet,extended release sotalol 160 mg tablet 160 mg PO BID 06/09/23 06/09/23 warfarin 2.5 mg tablet 2.5 mg PO UD 06/09/23 06/09/23 Results & Data (ED) Vital Signs Vital Signs - 24 hr 06/08/23 20:28 06/08/23 23:32 06/08/23 23:38 Temperature 36.8 C Temperature Source Temporal Artery Scan Pulse Rate 78 60 Pulse Rate [Apical] 61 Respiratory Rate 18 18 Respiratory Effort / Characteristics Non-Labored Spontaneous Respiratory Depth Normal Respiratory Pattern Regular Blood Pressure 154/82 H Blood Pressure [Right Arm] 152/73 H Blood Pressure Mean 106 Blood Pressure Mean [Right Arm] 99 Blood Pressure Position [Right Arm] Semi-fowlers Pulse Oximetry 97 98 Oxygen Delivery Method Room Air Room Air Sepsis Recent Fever Within 48 Hours No Sepsis New/Unexplained Change in Mental Status No Sepsis Action Taken by Nursing No Action Required 06/09/23 00:01 06/09/23 02:00 06/09/23 03:30 Temperature Temperature Source Pulse Rate 73 Pulse Rate [Apical] 60 61 Respiratory Rate 18 20 Respiratory Effort / Characteristics Non-Labored Spontaneous Non-Labored Spontaneous Respiratory Depth Normal Normal Respiratory Pattern Regular Regular Blood Pressure Blood Pressure [Right Arm] 153/63 H 149/61 H Blood Pressure Mean Blood Pressure Mean [Right Arm] 93 90 Blood Pressure Position [Right Arm] Semi-fowlers Pulse Oximetry 98 97 Oxygen Delivery Method Room Air Room Air Sepsis Recent Fever Within 48 Hours Sepsis New/Unexplained Change in Mental Status Sepsis Action Taken by Nursing 06/09/23 04:16 06/09/23 06:09 Temperature Temperature Source Pulse Rate Pulse Rate [Apical] 63 61 Respiratory Rate 20 20 Respiratory Effort / Characteristics Non-Labored Spontaneous Non-Labored Spontaneous Respiratory Depth Normal Normal Respiratory Pattern Blood Pressure Blood Pressure [Right Arm] 146/118 H 142/77 H Blood Pressure Mean Blood Pressure Mean [Right Arm] 127 98 Blood Pressure Position [Right Arm] Pulse Oximetry 96 95 Oxygen Delivery Method Room Air Room Air Sepsis Recent Fever Within 48 Hours Sepsis New/Unexplained Change in Mental Status Sepsis Action Taken by Nursing Laboratory Data 06/08/23 21:05 06/08/23 21:05 Lab Results 06/08/23 06/08/23 06/09/23 Range/Units 21:05 23:43 00:22 WBC 7.47 (4.8-10.8) K/ul RBC 4.89 (4.20-5.40) M/uL Hgb 14.5 (12.0-16.0) g/dl Hct 45.0 (37.0-47.0) % MCV 92.0 (80.0-100.0) fL MCH 29.7 (25.0-34.0) pg MCHC 32.2 (32.0-36.0) g/dL RDW Std Deviation 51.1 H (36.4-46.3) fL RDW Coeff of Matias 15.1 H (11.5-14.5) % Plt Count 187 (130-400) K/uL MPV 12.1 (9.4-12.4) fL Immature Gran % (Auto) 0.3 % Neut % (Auto) 60.0 % Lymph % (Auto) 27.7 % [place] % (Auto) 9.9 % Eos % (Auto) 1.7 % Baso % (Auto) 0.4 % Neut # (Auto) 4.48 (1.40-6.50) K/uL Lymph # (Auto) 2.07 (1.20-3.40) K/uL [place] # (Auto) 0.74 H (0.11-0.59) K/uL Eos # (Auto) 0.13 (0.00-0.50) K/uL Baso # (Auto) 0.03 (0.00-0.20) K/uL Immature Gran # (Auto) 0.02 (0.01-0.20) K/uL PT 26.5 H (9.0-12.0) Seconds INR 2.6 H (0.9-1.1) APTT 37 H (21-31) Seconds PTT Ratio 1.3 Sodium 139 (136-145) mmol/L Potassium 4.0 (3.5-5.1) mmol/L Chloride 105 (98-107) mmol/L Carbon Dioxide 28 (21-32) mmol/L Anion Gap 6 (3-11) BUN 23 (6-23) mg/dl Creatinine 0.82 (0.6-1.2) mg/dl Est Cr Clr Drug Dosing Not Reportable Est GFR ( Amer) 74.6 ml/min Est GFR (Non-Af Amer) 64.3 ml/min BUN/Creatinine Ratio 28.0 H (10-20) Glucose 110 H (70-99(Fasting)) mg/dl Calcium 9.2 (8.6-10.3) mg/dl Total Bilirubin 0.5 (0.2-1.0) mg/dl AST 24 (13-39) U/L ALT 14 (7-52) U/L Alkaline Phosphatase 121 H (34-104) U/L Troponin I High Sens 4.7 (0-14) pg/ml B-Natriuretic Peptide 141 H (0-100) pg/ml Total Protein 7.2 (6.0-8.3) gm/dl Albumin 3.9 (3.4-5.0) gm/dl Globulin 3.3 (2.5-4.0) gm/dl Albumin/Globulin Ratio 1.2 (0.9-2) Lipase 30 (11-82) U/L Urine Color Yellow Urine Appearance Clear (Clear) Urine pH 7.0 (4.5-7.5) Ur Specific [place] 1.020 (1.000-1.030) Urine Protein Negative (Negative) Urine Glucose (UA) Negative (Negative) Urine Ketones Negative (Negative) Urine Blood Negative (Negative) Urine Nitrite Negative (Negative) Urine Bilirubin Negative (Negative) Urine Urobilinogen Negative (Negative) Ur Leukocyte Esterase Negative (Negative) Administered Medications Discontinued Medications Sodium Chloride (Nss) 500 mls @ 999 mls/hr IV .Q31M ONE Stop: 06/08/23 23:57 Last Infusion: 06/09/23 00:16 Dose: Infused Documented By: Admin: 06/08/23 23:45 Dose: 999 mls/hr Documented By: KINA Morphine Sulfate (Morphine Sulfate 4 Mg/Ml 1 Ml Carp\\Vial) 4 mg IV NOW STA Stop: 06/08/23 23:28 Last Admin: 06/08/23 23:45 Dose: 4 mg Documented By: KINA Ondansetron HCl (Ondansetron Inj 2 Mg/Ml 2 Ml Vial) 4 mg IV NOW STA Stop: 06/08/23 23:28 Last Admin: 06/08/23 23:45 Dose: 4 mg Documented By: KINA Imaging Data Radiologist's Impression: Abdomen/Pelvis CT 06/08/23 23:27 Exam(s): CT ABDOMEN + PELVIS Without Contrast EXAM: CT Abdomen and Pelvis Without Intravenous Contrast CLINICAL HISTORY: Reason for exam: RLQ and right flank pain. TECHNIQUE: Axial computed tomography images of the abdomen and pelvis without intravenous contrast. CTDI is 38.35 mGy and DLP is 2640.63 mGy-cm. Automated exposure control was utilized for the study. A dose lowering technique was utilized adhering to the principles of ALARA. COMPARISON: CT abdomen on 02/24/2007 FINDINGS: Lung bases: Unremarkable. No mass. No consolidation. Heart: Mild cardiomegaly. Pacer wire partially visualized in the heart. Coronary artery and mitral annular calcifications. ABDOMEN: Liver: Unremarkable. Gallbladder and bile ducts: Prior cholecystectomy. No ductal dilation. Pancreas: Unremarkable. No ductal dilation. Spleen: Unremarkable. No splenomegaly. Adrenals: Nonspecific nodular thickening of the adrenal glands. Kidneys and ureters: Bilateral renal cysts. Nonspecific bilateral perinephric fat stranding. No obstructing stones. Stomach and bowel: Evaluation of the stomach is limited by underdistention. Diverticulosis without evidence of diverticulitis. No small bowel obstruction. PELVIS: Appendix: Normal appendix. Bladder: Unremarkable. No stones. Reproductive: Unremarkable as visualized. ABDOMEN and PELVIS: Intraperitoneal space: Unremarkable. No free air. No significant fluid collection. Bones/joints: Degenerative changes of the spine. Grade 1 anterolisthesis of L4 on L5. No acute fracture. No dislocation. Soft tissues: Small fat-containing umbilical and ventral hernias. Vasculature: Atherosclerotic changes of the vasculature. No aortic aneurysm. Lymph nodes: Unremarkable. No enlarged lymph nodes. IMPRESSION: Nonspecific nodular thickening of the adrenal glands. No acute abnormality in the abdomen or pelvis. Electronically signed by: Nenita Hull M.D. 06/09/23 03:32 AM Chest X-Ray 06/08/23 23:27 XR chest 1V portable HISTORY: back pain COMPARISON: Chest and left rib series 06/27/2019. FINDINGS: No pneumothorax. No pleural effusions. The heart remains mildly enlarged. This left-sided dual-chamber pacemaker. No acute fractures. Mild interstitial thickening which is likely chronic. No new focal lung consolidations to suggest a pneumonia. No evidence for pulmonary edema. Left basilar linear densities favor subsegmental atelectasis or scarring. This remains unchanged. IMPRESSION: No significant change compared to the prior study. No acute process. ACT 112: Negative or not required by law. Electronically signed by: Jm Fontana M.D. 06/09/2023 7:[address] 06/08/23 23:27 Exam(s): CT L SPINE EXAM: CT Lumbar Spine Without Intravenous Contrast CLINICAL HISTORY: Reason for exam: back pain. TECHNIQUE: Axial computed tomography images of the lumbar spine without intravenous contrast. CTDI is 38.35 mGy and DLP is 2640.63 mGy-cm. Automated exposure control was utilized for the study. A dose lowering technique was utilized adhering to the principles of ALARA. COMPARISON: No relevant prior studies available. FINDINGS: Vertebrae: Unremarkable. No acute fracture. Diffuse osteopenia throughout the visualized bones. Positive [place] sign out L1-2, L2-3, L3-4 and L4-5. Discs/spinal canal/neural foramina: No acute findings. No spinal canal stenosis. Soft tissues: Unremarkable. IMPRESSION: No evidence of acute lumbar spine pathology. Electronically signed by: Lucy Nelson MD 06/09/23 02:[address] 06/08/23 23:27 Exam(s): CT T SPINE EXAM: CT Thoracic Spine Without Intravenous Contrast CLINICAL HISTORY: Reason for exam: back pain. TECHNIQUE: Axial computed tomography images of the thoracic spine without intravenous contrast. Automated exposure control was utilized for the study. A dose lowering technique was utilized adhering to the principles of ALARA. COMPARISON: No relevant prior studies available. FINDINGS: Vertebrae: Unremarkable. No acute fracture. Diffuse osteopenia throughout the visualized bones. Discs/spinal canal/neural foramina: No acute findings. No spinal canal stenosis. Soft tissues: Findings concerning for bronchitis, which may be of infectious or inflammatory etiologies. Prominent mediastinal lymph nodes. Multiple pulmonary nodules concerning for metastatic disease. IMPRESSION: No evidence of acute thoracic spine pathology. Multiple pulmonary nodules concerning for metastatic disease. Findings concern for bronchitis, which may be infectious or inflammatory urologist with prominent mediastinal lymph nodes. Electronically signed by: Lucy Nelson MD 06/09/23 02:22 AM Venous Doppler Study 06/08/23 23:27 Exam(s): US VENOUS BILATERAL LOWER EXTREMITIES EXAM: US Duplex Bilateral Lower Extremities Veins CLINICAL HISTORY: Reason for exam: Bilateral leg swelling and discomfort. TECHNIQUE: Real-time duplex ultrasound scan of the bilateral lower extremity veins integrating B-mode two-dimensional vascular structure, Doppler spectral analysis, color flow Doppler imaging and compression. COMPARISON: None FINDINGS: Right deep veins: Unremarkable. No DVT in the right common femoral, femoral, proximal deep femoral or popliteal veins. The veins demonstrate normal color flow, are normally compressible, with normal phasic flow and/or augmentation response. Right superficial veins: Unremarkable. No thrombus in the visualized right great saphenous vein. Left deep veins: Unremarkable. No DVT in the left common femoral, femoral, proximal deep femoral or popliteal veins. The veins demonstrate normal color flow, are normally compressible, with normal phasic flow and/or augmentation response. Left superficial veins: Unremarkable. No thrombus in the visualized left great saphenous vein. Soft tissues: Complex right popliteal cyst measuring 3.9 x 3.3 x 1.2 cm. IMPRESSION: 1. No deep venous thrombosis identified in either lower extremity. 2. Complex right popliteal cyst. Electronically signed by: Nenita Hull M.D. 06/09/23 03:37 AM Discharge Plan Visit Data Chief Complaint: Leg Injury/Pain Stated Complaint: BILATERAL HIP AND LEG PAIN FOR 3 DAYS ED Provider: Nayeli Graham ED Midlevel Provider: Gloria Roe Discharge Problem: Back pain, Ambulatory dysfunction, Sciatica, Abnormal CT of thoracic spine Patient Disposition: Admitted As Inpatient Condition: Good Forms Stand Alone Forms: [facility] Prescriptions Prescriptions: No Action sotalol 160 mg tablet 160 mg PO BID atorvastatin 20 mg tablet 20 mg PO DAILY metoprolol succinate 100 mg tablet extended release 24 hr 100 mg PO DAILY Rx Instructions: total 125mg daily warfarin 2.5 mg tablet 2.5 mg PO UD Rx Instructions: warfarin 3.75 mg po every Sunday and 2.5mg all other days. allopurinol 100 mg tablet 100 mg PO DAILY levothyroxine 25 mcg tablet 25 mcg PO DAILY potassium citrate 10 mEq (1,080 mg) tablet extended release 10 meq PO BID hydrochlorothiazide 25 mg tablet 25 mg PO UD Rx Instructions: 1 tab 4 times a week gabapentin 100 mg capsule 100 mg PO TID metoprolol succinate 25 mg tablet extended release 24 hr 25 mg PO DAILY Rx Instructions: total 125mg daily Referrals Referrals: Jyoti Do DO [Primary Care Provider] - Discharge Problem: Back pain Qualifiers: Back pain location: low back pain Chronicity: acute Back pain laterality: b ilateral Sciatica presence: with sciatica Sciatica laterality: sciatica of right side Qualified Code(s): M54.41 - Lumbago with sciatica, right side Sciatica Qualifiers: Laterality: right Qualified Code(s): M54.31 - Sciatica, right side
[2023-06-08] MEDS ORDERED: SODIUM CHLORIDE 0.9% 500 ML IV ONE (23:27)
[2023-06-08] MEDS ORDERED: MoRPHine SULFATE 4 MG/ML 1 ML CARP\\VIAL IV STA (23:27)
[2023-06-08] MEDS ORDERED: ONDANSETRON INJ 2 MG/ML 2 ML VIAL IV STA (23:27)
--- OUTSIDE RECORDS SUMMARY | 2023-06-09 | External Medical Summary | Summary of Care ---
Author Name Unknown Organization [facility] Address [address] [place] [address] Phone [phone] Care Team Providers Care Continuous Pickling Line Pickler Helper Name Role Phone NickJyoti bowman Primary Care Provider [phone] Encounter Details Date Type Department Care Team (Late st Contact Info) Description 05/11/2023 Result Scan Unspecified Department Andrzej Urena MD [address] [place] [address] <No scans attached> Allergies Active Allergy Reactions Criticality Noted Date Comments Adhesive Tape 10/30/2001 Rash Ciprofloxacin 09/29/2015 Eye drops, for pink eye and made her eye more red. 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 30 Tab 1 10/24/2014 Active levalbuterol (XOPENEX) 1.25 MG/3ML nebulizer solution Inhale 3 mL via nebulizer every 8 hours as needed for Wheezing. 120 mL 0 10/23/2018 Active Additional Information Patient not taking.Reported on 05/02/2023 Premarin 0.625 MG/GM Vaginal Cream (Estrogens, Conjugated)Indicati ons:Vaginal irritation Administer into the vagina 1 g in the morning. 42.5 g 12 12/28/2021 Active Additional Information Patient not taking.Reported on 04/23/2023 Metoprolol Succinate ER 100 MG Oral Tablet Extended Release 24 Hour (Toprol XL) Take 1 Tablet by mouth in the morning. 90 Tablet 3 08/03/2022 Active Additional Information Patient taking differently:100 mg OralHS, Reported on 08/09/2022 Gabapentin 100 MG Oral Capsule (Neurontin) take 1 capsule by mouth three times a day 270 Capsule 1 08/22/2022 Active Allopurinol 100 MG Oral Tablet (Zyloprim) take 1 tablet by mouth once daily 90 Tablet 2 09/25/2022 Active Metoprolol Succinate ER 25 MG Oral Tablet Extended Release 24 Hour (toPROL XL)Indications:Paro xysmal A-fib (HCC),Tachy-kelsey syndrome (HCC),HTN, goal below 140/90 Take one tablet with the 100 mg to equal 125 mg a day. 270 Tablet 3 11/06/2022 Active Sotalol HCl 160 MG Oral Tablet (Betapace)Indicatio ns:Paroxysmal A-fib (HCC) take 1 tablet by mouth twice a day 360 Tablet 3 11/21/2022 Active Potassium Citrate ER 10 MEQ (1080 MG) Oral Tablet Extended Release (Urocit-K)Indicatio ns:Nephrolithiasis, Stage 3a chronic kidney disease (HCC) take 1 tablet by mouth every morning and 1 tablet by mouth BEFORE BEDTIME 180 Tablet 2 11/22/2022 Active Levothyroxine Sodium 25 MCG Oral Tablet (Levoxyl) take 1 tablet by mouth once daily AT LEAST 30 MINUTES PRIOR TO BREAKFAST/OTHER MEDS 90 Tablet 2 11/21/2022 Active Warfarin Sodium 2.5 MG Oral Tablet (Coumadin)Indicatio ns:History of TIA (transient ischemic attack),Paroxysmal A-fib (HCC),Anticoagulate d on Coumadin,Anticoagul ation management encounter,USP current use of anticoagulant therapy Take 1 Tablet by mouth every evening. As directed. New tablet strength. Please dispense EMMA 90 Tablet 1 01/30/2023 Active Atorvastatin Calcium 20 MG Oral Tablet (Lipitor)Indication s:Dyslipidemia, goal LDL below 100 take 1 tablet by mouth once daily 90 Tablet 1 02/06/2023 Active hydroCHLOROthiazide 25 MG Oral Tablet (Hydrodiuril) TAKE 1 TABLET BY MOUTH DAILY 4 DAYS A WEEK INSTRUCTED 90 Tablet 3 05/02/2023 Active documented as of this encounter (statuses as of 05/11/2023) Active Problems Problem Noted Date Diagnosed Date COPD, group A, by GOLD 2017 classification 03/12 Overview: Per COPD GOLD Classification Hx of nonmelanoma skin cancer 06/08/2022 Overview: basal cell carcinoma (L 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/2014) Chronic kidney disease, stage 3a 05/09/2021 Overview: Per CKD protocol Family history of nonmelanoma skin cancer 2018 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 08/13/2015 03/14/2017 Overview: ICD-10 update of inactive term Hx of skin cancer, basal cell 02/07/2015 06/08/2022 Overview: Hx NMSC - BCC L nasal bridge 03/2014 Hematuria, gross 10/24/2014 03/27/2018 Urolithiasis 10/24/2014 03/27/2018 Bronchitis 03/15/2012 03/14/2017 COPD exacerbation 03/15/2012 03/14/2017 Hematuria 03/15/2012 03/14/2017 Overview: ICD-10 update of inactive term A-fib 12/25/2011 03/27/2018 Benign neoplasm of adrenal gland 05/22/2011 03/27/2018 PULMONARY NODULES 02/17/2011 03/27/2018 Generalized hyperhidrosis 02/17/2011 Malaise and fatigue 08/06/2009 05/22/20 11 Hematuria 08/06/2009 05/22/2011 Overview: ICD-10 update of inactive term Otalgia 06/30/2009 05/22/2011 Cough 06/30/2009 05/22/2011 Acute URI 06/30/2009 05/22/2011 Acute sinusitis 06/30/2009 05/22/2011 Benign neoplasm of colon 10/10/2007 Overview: adenomatous; repeat colonoscopy in 3 yrs Calculus of ureter 08/27/2007 8 DYSFUNCT EUSTACHIAN TUBE 11/01/2005 Idiopathic urticaria 09/16/2003 018 Urinary frequency 08/18/2003 03/23/2004 Dyslipidemia, goal to be determined 04/29/2003 05/12/2010 TIA (transient ischemic attack) 10/30/2001 09/21/2017 Tobacco use disorder 016 documented as of this encounter (statuses as of 05/11/2023) Immunizations Name Administration Dates Next Due COVID-19 mRNA, LNP-s, No Pre serve, 2-Dose Series (Pfizer) 06/10/2021,10/06/2020,09/15/2020 Pneumococcal Conjugate Vacc, 13 Valent (Prevnar) 02/24/2015 Pneumococcal Polysaccharide PPV23 (Pneumovax) 04/23/2007 SEASONAL INFLUENZA, PF, 6 M & Above, IM , (FLULAVAL or FLUZONE) 03/17/2020,03/19/2019,04/24/2018,03/2017 Seasonal Influenza, Quadriva lent Hd (Fluzone Hd) 04/23/2023,05/17/2022,04/29/2021 Seasonal Influenza, Quadriva lent, No Preserve, IM 05/18/2016,03/29/2015 05/18/2017 Seasonal Influenza, Split, I IV3, With Preserve, Inj 03/16/2014,03/19/2013,04/19/2012,03/03,04/01/2010,05/24/2009,04/27/20 08,04/23/2007,04/24/2006 TD, Preservative Free 04/27/2008 TDAP (age 10 and older)(Boostrix) 03/16/2014 Varicella Vaccine (Chicken Pox) 05/25/2006 Varicella Zoster Vaccine (Adult) 04/30/2014 Zoster Vaccine Recombinant (Shingrix) 12/17/2019 ,02/28/2019 documented as of this encounter Social History Tobacco Use Types Packs/Day Years Used Date Smoking Tobacco: Some Days Cigarettes 0.1 40 Passive Smoke Exposure: Current Smokeless Tobacco: Never Comments:passive smoke now a nd a rare cigarette if playing poker Passive Exposure Comments:Off and On around passive smoke Alcohol Use Standard Drinks/Week Comments No 0 (1 standard drink = 0.6 oz pur e alcohol) PHQ-2 Answer Date Recorded PHQ Adult Total Score 0 03/02/2023 Hunger Vital Sign Answer Date Recorded Within the past 12 months, y ou worried that your food would run out before you got the money to buy more. Never true 03/01/20 22 Within the past 12 months, t he food you bought just didn't last and you didn't have money to get more. Never true 03/01/2022 Sex and Gender Information Value Date Recorded Sex Assigned at Female 06/02/2019 9:10 AM EST Gender Identity Female 06/02/2019 9:10 AM EST Sexual Orientation Straight 11/11/2021 10 :36 AM EDT Job Start Date Occupation Industry Not on file Not on file Not on file documented as of this encounter Plan of Treatment Upcoming Encounters Date Type Department Care Team (Late st Contact Info) Description 05/18/2023 10:40 AM EST 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, [place] [address] [address] [place] [facility] [address] [address] 06/13/2023 10:10 AM EST Office Visit Family Practice, [place] [address] [phone] Jyoti Do DO [address] [facility] [address] 07/31/2023 10:30 AM EST Cardiac Studies Cardiology, [facility] [address] [facility] [place] [address] [facility] [address] [facility] [place] [address] 08/13/2023 2:30 PM EST Office Visit Cardiology, [facility] [address] [place] [address] [place] PA-C [address] [facility] [place] [address] 03/05/2024 10:00 AM EDT Nurse Only Ancillary Department, [place] [address] [place] [address] [place], Nurse Annual Wellness [address] [place] [address] Health Maintenance Due Date Last Done Comments Alpha-1 Antitrypsin 1953 DXA Scan 2014 2007, 08/2006, 2007, Additional history exists DISCUSS TOBACCO CESSATION (REFER TO SMARTSET #3291) 09/21/2018 09/21/2017 (Course Completed) COLONOSCOPY-EVERY 3 YRS AGES 18-100 07/28/2019 07/28/2016, 07/28/2016, 12/06/2010, Additional history exists COVID-19 Vaccine ( season) 2023 06/10/2021, 10/06/2020, 09/15/2020 CKD HGB USE SMARTSET 99813 05/17/202305/17, 11/07/2021, 11/07/2021, Additional history exists TSH 08/02/2023 08/02/2022, 05/02, 11/11/2021, Additional history exists Albumin/Creatinine Ratio 02/24/2024 02/23/2023, 10/30 CKD PHOS USE SMARTSET [id number] 02/24/2024 0810/2022, 11/07/2021, 05/06/2021, Additional history exists Depression Screening 03/02/2024 03/02/2023 O2 ASSESSMENT COMPLETED IN PAST YEAR FOR COPD 03/02/2024 03/02/2023 DTaP,Tdap,and Td Vaccines (2 - Td or Tdap) 03/16/2024 03/16/2014, 04/27/2008 Pneumococcal Vaccine: 65+ Years Completed 02/24/2015, 04/23/2007 Zoster Vaccines Completed 12/17/2019, 02/01, 04/30/2014 Influenza Vaccine (FLU shot) Completed , 05/17/2022, 04/29/2021, Additional history exists GARDASIL-HPV IMMUNIZATION SERIES Aged Out No longer eligible based on patient's age to complete this topic Hepatitis B Aged Out No longer eligi ble based on patient's age to complete this topic MENINGOCOCCAL (MENACTRA/MENVEO) Aged Out No longer eligible based on patient's age to complete this topic documented as of this encounter Medical Devices Not on filedocumented as of this encounter Procedures Procedure Name Priority Date/Time Associated Diagnosis Comments CARDIOLOGY SCANNED RESULT 05/11/2023 documented in this encounter Results * CARDIOLOGY SCANNED RESULT (05/11/2023) 05/11/2023 Andrzej Urena MD OTHER documented in this encounter Advance Directives Latest Code Status on File Code Status Date Activated Date Inactivated Comments Full Code 11/12/2015 10:17 AM 11/12/2015 6:13 PM This order reflects the patients wishes and were consensually agreed upon. Code Status History Code Status Date Activated Date Inactivated Comments Full Code 11/27/2014 6:49 AM 11/27/2014 1:49 PM This order reflects the patients wishes and were consensually agreed upon. Full Code 08/27/2007 8:13 AM 08/27/2007 3:51 PM Care Teams Continuous Pickling Line Pickler Helper Relationship Specialty Start Date End Date Jyoti Do DO [address] [place] [address] PCP - General Family Medicine 08/08/18 documented as of this encounter
--- OUTSIDE RECORDS SUMMARY | 2023-06-09 | External Medical Summary | Summary of Care ---
Author Name Unknown Organization [facility] Address [address] [place] [address] Phone [phone] Care Team Providers Care Medical Records Receptionist Name Role Phone Jyoti Do DO Primary Care Provider [phone] Reason for Visit * Reason Comments Dosage Adjustment In Person (Anticoag Cl inic) Encounter Details Date Type Department Care Team (Latest Contact Info) Description 05/15/2023 1:50 PM EST 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 Pharmacy, [address] [address] [facility] [address] [place] [address] History of TIA (transient ischemic attack)*; Paroxysmal A-fib (HCC); Anticoagulated on Coumadin; 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 management encounter; 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),Asthma with COPD (chronic obstructive [...] A-fib (HCC),Anticoagulate d on Coumadin,Anticoagul ation management encounter,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 Take 1 [...] as of this encounter (statuses as of 05/15/2023) Active Problems Problem Noted Date Diagnosed Date [...] as of this encounter (statuses as of 05/15/2023) Resolved Problems Problem Noted Date Diagnosed Date Resolved Date Prediabetes 12/12/2021 03/15/2023 Overview: Per Prediabetes protocol Kidney disease, chronic, sta ge III (GFR 30-59 ml/min) 06/09/2019 05/12/2021 Overview: Per CKD protocol Acute recurrent maxillary sinusitis 10/18/2018 03/19/2019 Postural headache 01/19/2017 03/27/2018 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 08/13/2015 [...] as of this encounter (statuses as of 05/15/2023) Immunizations Name Administration Dates Next Due COVID-19 mRNA, LNP-s, No Pre serve, 2-Dose Series (Smule) 06/10/2021,10/06/2020,09/15/2020 Pneumococcal Conjugate Vacc, 13 Valent (Prevnar) 02/24/2015 Pneumococcal Polysaccharide PPV23 (Pneumovax) 04/23/2007 SEASONAL INFLUENZA, PF, 6 M & Above, IM , (FLULAVAL or FLUZONE) 03/17/2020,03/19/2019,04/24/2018,10/0 03/2017 Seasonal Influenza, Quadriva lent Hd (Fluzone Hd) [...] on file documented as of this encounter Progress Notes * Kendall Cohen RPh - 05/15/2023 1:39 PM EST Medication Therapy Disease Management - 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 Sonia Ramos 1935 Patient Findings Negatives: Signs/symptoms of thrombosis, Signs/symptoms of bleeding, Change in health, Change in alcohol use, Change in activity, Upcoming invasive procedure, Missed doses, Extra doses, Change in medications, Change in diet/appetite, Bruising INR Result As of 05/15/2023 INR goal: 2.0-3.0 INR used for dosin.2 (05/15/2023) Warfarin Plan As of 05/15/2023 Full warfarin instructions: 3.75 mg every Sun; 2.5 mg all other days No change documented: Kendall Cohen RPh Next INR check: 06/13/2023 Repeat PT/INR in 4 week(s) Weekly dose: not changed Kendall Johnson RPh, CACP, CDE Clinical Pharmacist Medication Therapy Management Clinic 05/15/2023 1:50 PM documented in this encounter Plan of Treatment Upcoming Encounters Date Type Department Care Team (Late st Contact Info) Description 06/13/2023 10:00 AM EST Laboratory Laboratory, [place] [address] [facility], [place] [phone] [facility] [address] [facility], [place] [address] 06/13/2023 10:10 AM EST Office Visit Family [facility], [place] [address] [facility], [place] [phone] Jyoti Do, [address] [facility], [place] [address] 06/14/2023 7:00 AM EST 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 Pharmacy, [place] [address] [facility], [place] [address] [place] [facility] [address] [facility], [place] [address] 07/31/2023 10:30 AM EST Cardiac Studies Cardiology, [facility] [address] [facility] [address] [facility] [address] 08/13/2023 2:30 PM EST Office Visit Cardiology, [facility] [place] [address] [place] PAJef[facility] [address] [facility] [address] 03/05/2024 10:00 AM EDT Nurse Only Ancillary Department, [place] [address] [facility], [place] [address] [place], Nurse Annual Wellness [address] [facility], [place] [address] Health Maintenance Due Date Last Done Comments Alpha-1 Antitrypsin 1953 DXA Scan 2014 2007, 08/2006, 2007, Additional history exists DISCUSS TOBACCO CESSATION (REFER TO SMARTSET #3291) 09/21/2018 09/21/2017 (Course Completed) COLONOSCOPY-EVERY 3 YRS AGES 18-100 07/28/2019 07/28/2016, 07/28/2016, 12/06/2010, Additional history exists COVID-19 Vaccine ( season) 2023 06/10/2021, 10/06/2020, 09/15/2020 CKD HGB USE SMARTSET 14480 05/17/202305/17, 11/07/2021, 11/07/2021, Additional history exists TSH 08/02/2023 08/02/2022, 05/02, 11/11/2021, Additional history exists Albumin/Creatinine Ratio 02/24/2024 02/23/2023, 10/30 CKD PHOS USE SMARTSET 43771 02/24/2024 0810/2022, 11/07/2021, 05/06/2021, Additional history exists [...] Procedure Name Priority Date/Time Associated Diagnosis Comments INR FINGERSTICK, POINT OF CARE STAT 05/15/2023 1:44 PM EST History of TIA (transient ischemic attack) Paroxysmal A-fib (HCC) Anticoagulated on Coumadin 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 management encounter 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 documented in this encounter Results * INR FINGERSTICK, POINT OF CARE (05/15/2023 1:44 PM EST) Fingerstick INR 2.2 INR 1:45 PM EST [facility] Blood 05/15/2023 1:44 PM EST 05/15/2023 1:45 PM EST Narrative [facility] - 05/15/2023 1:45 PM EST Therapeutic ranges for non-operative patients: Prophylaxsis/treatment of DVT: (Range:2.0-3.0) Treatment of pulmonary embolism:(Range:2.0-3.0) Prevention of systemic embolism from: -tissue heart valves -acute myocardial infarction -valvular heart disease -atrial fibrillation (Range: 2.0-3.0) Mechanical prosthetic valves: (Range: 2.5-3.5) [facility] Uribe [facility] POINT OF CARE TEST DOCKED DEVICE UNSOLICITED RESULTS [facility] [place] [facility] [address] [place] [address] documented in this encounter Visit Diagnoses Diagnosis History of TIA (transient ischemic attack)- Primary Transient ischemic attack (TIA), and cerebral infarction without residual deficits Paroxysmal A-fib (HCC) Atrial fibrillation Anticoagulated on Coumadin Encounter for therapeutic drug monitoring 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 management encounter Encounter for therapeutic drug monitoring USP current use of anticoagulant therapy documented in this encounter Advance Directives Latest [...] 8:13 AM 08/27/2007 3:51 PM Care Teams Medical Records Receptionist Relationship Specialty Start Date End Date Jyoti Do DO [address] [place] [address] PCP - General Family Medicine 08/08/18 documented as of this encounter
--- OUTSIDE RECORDS SUMMARY | 2023-06-09 | External Medical Summary | Summary of Care ---
Author Name Unknown Organization [facility] Address [address] [place] [address] Phone [phone] Care Team Providers Care Extrusion Operator Name Role Phone Dian Maurer DO Primary Care Provider [phone] Reason for Visit * Reason Comments eRx-Medication Refill Encounter Details Date Type Department Care Team (Late st Contact Info) Description 05/15/2023 Refill [place] [address] [place] [address] Dian Maurer DO [address] [place] [address] Allergies Active Allergy Reactions Criticality Noted Date Comments Adhesive Tape 10/30/2001 Rash Ciprofloxacin 09/29/2015 Eye drops, for pink eye and made her eye more red. Iodine 03/06/2000 hives Nitrofurantoin Diarrhea 03/08/2012 SOB Diarrhea Clopidogrel Bisulfate Muscle pain 08/18/2009 Salicylates 03/06/2000 ASA throat swelling Ezetimibe Hives Medium 01/19/2009 documented as of this encounter (statuses as of 05/16/2023) Medications Medication Sig Dispensed Refills Start Date End Date Status EPIPEN 0.3 MG/0.3ML IJ DEVIIndications:An gioneurotic edema One injection into thigh as needed for severe allergic reaction 2 Device 1 2 Active Additional Information Patient not taking.Reported on 05/02/2023 NEBULIZER COMPRESSOR MISCIndications:CO PD exacerbation (HCC),Asthma with COPD (chronic obstructive pulmonary disease),Wheezing Use as directed 1 Each 1 5 Active ondansetron (ZOFRAN) 4 MG TabletIndications: Hematuria, gross,Urolithiasis ,Renal cyst,Backache Take 1 Tab by mouth every 6 hours as needed for Nausea. 30 Tab 1 5 Active levalbuterol (XOPENEX) 1.25 MG/3ML nebulizer solution Inhale 3 mL via nebulizer every 8 hours as needed for Wheezing. 120 mL 0 9 Active Additional Information Patient not taking.Reported on 05/02/2023 Premarin 0.625 MG/GM Vaginal Cream (Estrogens, Conjugated)Indicat ions:Vaginal irritation Administer into the vagina 1 g in the morning. 42.5 g 12 2 Active Additional Information Patient not taking.Reported on 04/23/2023 Metoprolol Succinate ER 100 MG Oral Tablet Extended Release 24 Hour (Toprol XL) Take 1 Tablet by mouth in the morning. 90 Tablet 3 3 Active Additional Information Patient taking differently:100 mg OralHS, Reported on 08/09/2022 Allopurinol 100 MG Oral Tablet (Zyloprim) take 1 tablet by mouth once daily 90 Tablet 2 3 Active Metoprolol Succinate ER 25 MG Oral Tablet Extended Release 24 Hour (toPROL XL)Indications:Par oxysmal A-fib (HCC),Tachy-kelsey syndrome (HCC),HTN, goal below 140/90 Take one tablet with the 100 mg to equal 125 mg a day. 270 Tablet 3 3 Active Sotalol HCl 160 MG Oral Tablet (Betapace)Indicati ons:Paroxysmal A-fib (HCC) take 1 tablet by mouth twice a day 360 Tablet 3 3 Active Potassium Citrate ER 10 MEQ (1080 MG) Oral Tablet Extended Release (Urocit-K)Indicati ons:Nephrolithiasi s,Stage 3a chronic kidney disease (HCC) take 1 tablet by mouth every morning and 1 tablet by mouth BEFORE BEDTIME 180 Tablet 2 3 Active Levothyroxine Sodium 25 MCG Oral Tablet (Levoxyl) take 1 tablet by mouth once daily AT LEAST 30 MINUTES PRIOR TO BREAKFAST/OTHER MEDS 90 Tablet 2 3 Active Warfarin Sodium 2.5 MG Oral Tablet (Coumadin)Indicati ons:History of TIA (transient ischemic attack),Paroxysmal A-fib (HCC),Anticoagulat ed on Coumadin,Anticoagu lation management encounter,half-way current use of anticoagulant therapy Take 1 Tablet by mouth every evening. As directed. New tablet strength. Please dispense EMMA 90 Tablet 1 3 Active Atorvastatin Calcium 20 MG Oral Tablet (Lipitor)Indicatio ns:Dyslipidemia, goal LDL below 100 take 1 tablet by mouth once daily 90 Tablet 1 3 Active hydroCHLOROthiazid e 25 MG Oral Tablet (Hydrodiuril) TAKE 1 TABLET BY MOUTH DAILY 4 DAYS A WEEK INSTRUCTED 90 Tablet 3 3 Active Gabapentin 100 MG Oral Capsule (Neurontin) take 1 capsule by mouth three times a day 270 Capsule 1 3 Active Gabapentin 100 MG Oral Capsule (Neurontin) take 1 capsule by mouth three times a day 270 Capsule 1 3 05/16/20 23 Discontinued documented as of this encounter (statuses as of 05/16/2023) Active Problems Problem Noted Date Diagnosed Date [...] as of this encounter (statuses as of 05/16/2023) Resolved Problems Problem Noted Date Diagnosed Date Resolved Date Prediabetes 12/12/2021 03/15/2023 Overview: Per Prediabetes protocol Kidney disease, chronic, sta ge III (GFR 30-59 ml/min) 06/09/2019 05/12/2021 Overview: Per CKD protocol Acute recurrent maxillary sinusitis 10/18/2018 03/19/2019 Postural headache 01/19/2017 03/27/2018 half-way current use of ant icoagulant therapy 08/13/2015 [...] as of this encounter (statuses as of 05/16/2023) Immunizations Name Administration Dates Next Due COVID-19 mRNA, LNP-s, No Pre serve, 2-Dose Series ([employer]) 06/10/2021,10/06/2020,09/15/2020 Pneumococcal Conjugate Vacc, 13 Valent (Prevnar) [...] on file documented as of this encounter Miscellaneous Notes * Telephone Encounter - Dian Maurer DO - 05/16/2023 9:48 AM ESTSigned Prescriptions: Disp Refills Gabapentin 100 MG Oral Capsule (Neurontin) 270 Ca*1 Sig: take 1 capsule by mouth three times a day Authorizing Provider: DIAN MAURER * Telephone Encounter - Luann Cabrales LPN - 05/15/2023 4:44 PM ESTPending Prescriptions: Disp Refills Gabapentin 100 MG Oral Capsule [Pharmacy M*270 Ca*1 Sig: take 1 capsule by mouth three times a day * Telephone Encounter - Keenan Horn - 05/15/2023 1:23 PM ESTPending Prescriptions: Disp Refills Gabapentin 100 MG Oral Capsule [Pharmacy M*270 Ca*1 Sig: take 1capsule by mouth three times a day documented in this encounter Plan of Treatment Upcoming Encounters Date Type Department Care Team (Late st Contact Info) Description 06/13/2023 10:00 AM EST Laboratory Laboratory, [place] [address] [place] [facility] [place] [phone] [place], Laboratory [address] [place] [address] 06/13/2023 10:10 AM EST Office Visit [facility], [place] [address] [facility] [phone] Dian Maurer DO [address] [place] [facility] [place] [facility] [address] 06/14/2023 7:00 AM EST 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 Pharmacy, [place] [address] [place] [facility] [address] [place] [facility] [address] [place] [facility] [address] 07/31/2023 10:30 AM EST Cardiac Studies Cardiology, [facility] [address] [facility] [place] [address] Amy Christie [facility] [address] [facility] [place] [address] 08/13/2023 2:30 PM EST Office Visit Cardiology, [facility] [address] [place] [address] [place] PA-C [address] [place] [address] 03/05/2024 10:00 AM EDT Nurse Only Ancillary Department, [place] [address] [facility] [address] [place], Nurse [facility] [address] [facility] [address] Health Maintenance Due Date Last Done Comments Alpha-1 Antitrypsin 1953 DXA Scan 2014 2007, 08/2006, 2007, Additional history exists DISCUSS TOBACCO CESSATION (REFER TO SMARTSET #3291) 09/21/2018 09/21/2017 (Course Completed) COLONOSCOPY-EVERY 3 YRS AGES 18-100 07/28/2019 07/28/2016, 07/28/2016, 12/06/2010, Additional history exists COVID-19 Vaccine ( season) 2023 06/10/2021, 10/06/2020, 09/15/2020 CKD HGB USE SMARTSET 51975 05/17/202305/17, 11/07/2021, 11/07/2021, Additional history exists TSH 08/02/2023 08/02/2022, 05/02, 11/11/2021, Additional history exists Albumin/Creatinine Ratio 02/24/2024 02/23/2023, 10/30 CKD PHOS USE SMARTSET 31152 02/24/2024 0810/2022, 11/07/2021, 05/06/2021, Additional history exists [...] Not on filedocumented as of this encounter Advance Directives Latest Code Status [...] 8:13 AM 08/27/2007 3:51 PM Care Teams Extrusion Operator Relationship Specialty Start Date End Date Dian Maurer DO [address] [place] [address] PCP - General Family Medicine 08/08/18 documented as of this encounter
--- OUTSIDE RECORDS SUMMARY | 2023-06-09 | External Medical Summary ---
Author Name Unknown Address Unknown Organization : Laboratory Report Ordering Provider Test Date Status DONNY ALLISON 05/15/2023 13:44:01 Final Therapeutic ranges for non-o perative patients:
Prophylaxsis/treatment of DVT: (Range:2.0-3.0)
Treatment of pulmonary embolism:(Range:2.0-3.0)
Prevention of systemic embolism from:
-tissue heart valves
-acute myocardial infarction
-valvular heart disease
-atrial fibrillation
(Range: 2.0-3.0)
Mechanical prosthetic valves: (Range: 2.5-3.5) Observation Date Value Abnormality Reference (Units ) Status INR in Capillary blood by Coagulation assay 05/15/2023 13:44:01 2.2 (INR) Final Performing Location
--- OUTSIDE RECORDS SUMMARY | 2023-06-09 00:01 | External Medical Summary ---
Author Name Unknown Address Unknown Organization : Laboratory Report Ordering Provider Test Date Status DONNY ALLISON 04/20/2023 10:03:31 Final Therapeutic ranges for non-o perative patients:
Prophylaxsis/treatment of DVT: (Range:2.0-3.0)
Treatment of pulmonary embolism:(Range:2.0-3.0)
Prevention of systemic embolism from:
-tissue heart valves
-acute myocardial infarction
-valvular heart disease
-atrial fibrillation
(Range: 2.0-3.0)
Mechanical prosthetic valves: (Range: 2.5-3.5) Observation Date Value Abnormality Reference (Units ) Status INR in Capillary blood by Coagulation assay 04/20/2023 10:03:31 2.4 (INR) Final Performing Location
--- OUTSIDE RECORDS SUMMARY | 2023-06-09 00:01 | External Medical Summary | Summary of Care ---
Author Name Unknown Organization [facility] Address [address] [place] [address] Phone [phone] Care Team Providers Care Wind Turbine Controls Engineer Name Role Phone HiDian Demetri MICHEL Primary Care Provider [phone] Reason for Visit * Reason Comments Follow Up Encounter Details Date Type Department Care Team (Late st Contact Info) Description 05/02/2023 10:30 AM EDT Office Visit Cardiology, [facility] [address] [facility] [place] [address] Andrzej Urena MD [address] [facility] [place] [address] Paroxysmal atrial fibrillation (HCC)*; Cardiac pacemaker in situ Allergies Active Allergy Reactions Criticality Noted Date Comments Adhesive Tape 10/30/2001 Rash Ciprofloxacin 09/29/2015 Eye drops, for pink eye and made her eye more red. Iodine 03/06/2000 hives Nitrofurantoin Diarrhea 03/08/2012 SOB Diarrhea Clopidogrel Bisulfate Muscle pain 08/18/2009 Salicylates 03/06/2000 ASA throat swelling Ezetimibe Hives Medium 01/19/2009 documented as of this encounter (statuses as of 05/02/2023) Medications Medication Sig Dispensed Refills Start Date End Date Status EPIPEN 0.3 MG/0.3ML IJ DEVIIndications:An gioneurotic edema One injection into thigh as needed for severe allergic reaction 2 Device 1 11/21/2011 Active Additional Information Patient not taking.Reported on 05/02/2023 NEBULIZER COMPRESSOR MISCIndications:CO PD exacerbation (HCC),Asthma with COPD (chronic obstructive pulmonary disease),Wheezing Use as directed 1 Each 1 10/02/2014 Active ondansetron (ZOFRAN) 4 MG TabletIndications: Hematuria, [...] Release 24 Hour (toPROL XL)Indications:Par oxysmal A-fib (HCC),Tachy-slade syndrome (HCC),HTN, goal below 140/90 Take one [...] once daily 90 Tablet 1 02/06/2023 Active hydroCHLOROthiazid e 25 MG Oral Tablet (Hydrodiuril) TAKE 1 TABLET BY MOUTH DAILY 4 DAYS A WEEK INSTRUCTED 90 Tablet 3 05/02/2023 Active hydroCHLOROthiazid e 25 MG Oral Tablet (Hydrodiuril) TAKE 1 TABLET BY MOUTH DAILY 5 DAYS A WEEK INSTRUCTED 90 Tablet 3 12/05/2022 3 Discontinu ed(Refill) documented as of this encounter (statuses as of 05/02/2023) Active Problems Problem Noted Date Diagnosed Date COPD, group A, by GOLD 2017 classification 03/12 Overview: Per COPD GOLD Classification Hx of nonmelanoma skin cancer 06/08/2022 Overview: basal cell carcinoma (L 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/2014) Chronic kidney disease, stage 3a 05/09/2021 Overview: Per CKD protocol Family history of nonmelanoma skin cancer 2018 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 Paroxysmal A-fib 10/18/2018 History of [...] as of this encounter (statuses as of 05/02/2023) Resolved Problems Problem Noted Date Diagnosed Date [...] as of this encounter (statuses as of 05/02/2023) Immunizations Name Administration Dates Next Due COVID-19 mRNA, LNP-s, No Pre serve, 2-Dose Series ([email or web address]) 06/10/2021,10/06/2020,09/15/2020 Pneumococcal Conjugate Vacc, 13 Valent (Prevnar) [...] Passive Smoke Exposure: Current Smokeless Tobacco: Never Tobacco Cessation:Ready to Q uit: Not Asked; Counseling Given: Not Answered Comments:passive smoke now and a rare cigarette if playing poker Passive [...] on file documented as of this encounter Last Filed Vital Signs Vital Sign Reading Time Taken Comments Blood Pressure 106/60 05/02/2023 10:13 AM EDT Pulse 82 05/02/2023 10:13 AM EDT Temperature - - Respiratory Rate 20 05/02/2023 10:1 3 AM EDT Oxygen Saturation - - Inhaled Oxygen Concentration - - Weight 84.7 kg (186 lb 11.2 oz) 023 10:13 AM EDT Height - - Body Mass Index 31.07 03/02/2023 10:34 AM EDT documented in this encounter Progress Notes * Andrzej Urena MD - 05/02/2023 10:30 AM EDT May 02, 2023 Cardiology Follow Up Referring Provider: PCP: DIAN MAURER [facility] [address] [place], [place] [id number] Chief Complaint: Follow-up tachy Slade syndrome SUBJECTIVE: Sonia Ramos is a 86 year old year old female with ongoing cardiac issues 1. Longstanding hypertension with hypertensive heart disease. 2. Remote cardiac catheterization without obstructive disease with negative stress testing, last performed August 2015, negative. 3. Paroxysmal atrial fibrillation, atrial tachycardias controlled in sinus rhythm with sotalol. 4. Chronic obstructive lung disease. 5. History of remote TIA. 6. 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 Notes no cardiac complaints notes no chest pain or discomfort. Is concerned regarding chronic left shoulder pain, right knee pain Worries blood pressure is too low Rare episodes of tachy palpitations noted but no syncope or near syncope and much improved from prior No fevers chills or unexplained infections. No bleeding difficulties Weight is stable no edema or orthopnea A Complete Review of Systems is as stated above or negative. 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 ANGIOEDEMA T78.3XXA Asthma in COPD J44.89 Esophageal reflux K21.9 ADVANCE DIRECTIVE INFORMATION History of tobacco use Z87.891 Dyslipidemia, goal LDL below 100 E78.5 Vitamin D deficiency E55.9 Hypothyroidism E03.9 Anticoagulated on Coumadin Z79.01 Renal cyst N28.1 History of TIA (transient ischemic attack) Z86.73 Paroxysmal A-fib ([facility]) I48.0 Tachy-slade syndrome ([facility]) I49.5 Family history of nonmelanoma skin cancer Z80.8 Chronic kidney disease, stage 3a ([facility]) N18.31 Hx of nonmelanoma skin cancer Z85.828 COPD, group A, by GOLD 2017 classification ([facility]) J44.9 Review of patient's allergies indicates: Allergen Reactions Zetia [Ezetimibe] Hives Adhesive Tape Rash Ciprofloxacin Eye drops, for pink eye and made her eye more red. Iodine hives Nitrofurantoin Diarrhea SOB Diarrhea Plavix [Clopidogrel Bisulfate] Muscle pain Salicylates ASA throat swelling Current Outpatient Medications Medication Sig Dispense Refill ondansetron (ZOFRAN) 4 MG Tablet Take 1 Tab by mouth every 6 hours as needed for Nausea. 30 Tab 1 Metoprolol Succinate ER 100 MG Oral Tablet Extended Release 24 Hour (Toprol XL) Take 1 Tablet by mouth in the morning. (Patient taking differently: Take 1 Tablet by mouth at bedtime.) 90 Tablet 3 Gabapentin 100 MG Oral Capsule (Neurontin) take 1 capsule by mouth three times a day 270 Capsule 1 Allopurinol 100 MG Oral Tablet (Zyloprim) take 1 tablet by mouth once daily 90 Tablet 2 Metoprolol Succinate ER 25 MG Oral Tablet Extended Release 24 Hour (toPROL XL) Take one tablet withthe 100 mg to equal 125 mg a day. 270 Tablet 3 Sotalol HCl 160 MG Oral Tablet (Betapace) take 1 tablet by mouth twice a day 360 Tablet 3 Potassium Citrate ER 10 MEQ (1080 MG) Oral Tablet Extended Release (Urocit-K) take 1 tablet by mouth every morning and 1 tablet by mouth BEFORE BEDTIME 180 Tablet 2 Levothyroxine Sodium 25 MCG Oral Tablet (Levoxyl) take 1 tablet by mouth once daily AT LEAST 30 MINUTES PRIOR TO BREAKFAST/OTHER MEDS 90 Tablet 2 Warfarin Sodium 2.5 MG Oral Tablet (Coumadin) Take 1 Tablet by mouth every evening. As directed. New tablet strength. Please dispense EMMA 90 Tablet 1 Atorvastatin Calcium 20 MG Oral Tablet (Lipitor) take 1 tablet by mouth once daily 90 Tablet 1 hydroCHLOROthiazide 25 MG Oral Tablet (Hydrodiuril) TAKE 1 TABLET BY MOUTH DAILY 4 DAYS A WEEK INSTRUCTED 90 Tablet 3 EPIPEN 0.3 MG/0.3ML IJ SHAILA One injection into thigh as needed for severe allergic reaction (Patient not taking: Reported on 05/02/2023) 2 Device 1 NEBULIZER COMPRESSOR [facility] Use as directed 1 Each 1 levalbuterol (XOPENEX) 1.25 MG/3ML nebulizer solution Inhale 3 mL via nebulizer every 8 hours as needed for Wheezing. (Patient not taking: Reported on 05/02/2023) 120 mL 0 Premarin 0.625 MG/GM Vaginal Cream (Estrogens, Conjugated) Administer into the vagina 1 g in the morning. (Patient not taking: Reported on 04/23/2023) 42.5 g 12 No current facility-administered medications for this visit. OBJECTIVE/PHYSICAL EXAMINATION: BP 106/60 (BP Site: Left Arm, BP Position: Sitting, BP Cuff Size: Large) | Pulse 82 | Resp 20 | Wt 84.7 kg (186 lb 11.2 oz) | BMI 31.07 kg/m | BSA 1.97 m General: no acute distress and stated age Head: normocephalic, no masses, lesions, tenderness or abnormalities Eyes: conjunctiva are pink and non-injected, sclera clear Throat: clear Nares: without discharge Neck: supple, no adenopathy, no bruits, normal jugular venous pulse, no hepatojugular reflux, no carotid bruits Chest: normal shape and normal respiratory effort pacemaker site without irritation or tenderness Lungs: clear to auscultation and percussion with mildly diminished breath sounds Cardiac Exam: - regular rate & rhythm, no murmur, gallop or rub - normal S-1, normal S-2 Abdomen: abdomen soft, non-tender, no abnormal masses, no hepatosplenomegaly, no abdominal bruit, no femoral bruit Musculoskeletal: no gait disturbance, no joint inflammation, no deforming arthritis Extremities: no edema, no cyanosis, pulses intact 2+/4 Neuro: grossly normal exam Data: Echocardiogram July 08, 2021 There was normal sinus rhythm during the examination. The left ventricular cavity size is normal. The LV wall thickness is mildly increased (concentric). The left ventricular wall motion is normal. The qualitative LV ejection fraction is 55-59% (normal). The left atrium is moderately enlarged. Mild mitral regurgitation is present. Moderate tricuspid regurgitation is present. There is no evidence of pulmonary hypertension. Pacemaker interrogation February 20, 2023 Normal device function estimated battery life 9.6 years Predominantly atrial paced 73% 22 % atrial fibrillation breakthrough burden ASSESSMENT: 87 year old year old female with ongoing issues 1. Longstanding hypertension with hypertensive heart disease controlled on current regimen 2. Paroxysmal atrial fibrillation with tachy-salde syndrome control predominantly in sinus rhythm with sotalol a good medication tolerance. No renal insufficiency. Patient on chronic anticoagulation with warfarin patient mildly symptomatic during breakthrough episodes 3. Status post dual-chamber pacemaker with normal device function PLAN: Discussed management in detail with patient. Patient on high-dose beta-bria and sotalol with still breakthrough atrial fibrillation. If episodes become more pronounced consider AV junction ablation Patient report any worsening symptoms DISPOSITION: Return 6 months Andrzej Urena MD Cardiology, [address] [address] documented in this encounter Nursing Notes * Maria E Bustillo CMA - 05/02/2023 10:11 AM EDT Examination Room: 14 Name: Sonia Ramos Date of : (1935). Reason for Visit: 7M f/u Interim Hospitalization(s): [facility] ED November 2022 fall Problems/Concerns: denies Chest Pain/SOB: denies [facility] Discussed: Not applicable [facility] is a way you can talk to your provider online through e-mail. Would you like to sign up? I can activate it for you? DECLINES Patient was instructed to not get up on the exam table until directed and assisted by their provider; patient is to remain seated in the chair/ wheelchair/ exam table for fall prevention and safety reasons. Patient is aware to have assistance to step down off exam table with personnel. Patient voiced full comprehension of instructions. documented in this encounter Plan of Treatment Upcoming Encounters Date Type Department Care Team (Late st Contact Info) Description 05/18/2023 10:40 AM EST 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 Pharmacy, [place] [address] [place] [address] [facility] [address] [place] [address] 06/13/2023 10:10 AM EST Office Visit [facility], [place] [address] [facility] [phone] Dian Maurer, [address] [place] [address] 07/31/2023 10:30 AM EST Cardiac Studies Cardiology, [facility] [address] [facility] [place] [address] [facility] [address] [facility] [place] [address] 08/13/2023 2:30 PM EST Office Visit Cardiology, [facility] [address] [facility] [place] [address] [place] PA-C [address] [place] [address] 03/05/2024 10:00 AM EDT Nurse Only Ancillary Department, [place] [address] [facility] [address] [place], Nurse [facility] [address] [facility] [address] Health Maintenance Due Date Last Done Comments Alpha-1 Antitrypsin 1953 DXA Scan 2014 2007, 08/2006, 2007, Additional history exists DISCUSS TOBACCO CESSATION (REFER TO SMARTSET #3291) 09/21/2018 09/21/2017 (Course Completed) COLONOSCOPY-EVERY 3 YRS AGES 18-100 07/28/2019 07/28/2016, 07/28/2016, 12/06/2010, Additional history exists COVID-19 Vaccine ( season) 2023 06/10/2021, 10/06/2020, 09/15/2020 CKD HGB USE SMARTSET [id number] 05/17/202305/17, 11/07/2021, 11/07/2021, Additional history exists TSH 08/02/2023 08/02/2022, 05/02, 11/11/2021, Additional history exists Albumin/Creatinine Ratio 02/24/2024 02/23/2023, 10/30 CKD PHOS USE SMARTSET [id number] 02/24/202401/31, 11/07/2021, 05/06/2021, Additional history exists Depression Screening 03/02/2024 03/02/2023 O2 ASSESSMENT COMPLETED IN PAST YEAR FOR COPD 03/02/2024 03/02/2023 DTaP,Tdap,and Td Vaccines (2 - Td or Tdap) 03/16/2024 03/16/2014, 04/27/2008 Pneumococcal Vaccine: 65+ Years Completed 02/24/2015, 04/23/2007 Zoster Vaccines Completed 12/17/2019, 08/3 , 04/30/2014 Influenza Vaccine (FLU shot) Completed , [...] Not on filedocumented as of this encounter Visit Diagnoses Diagnosis Paroxysmal atrial fibrillation (HCC)- Primary Atrial fibrillation Cardiac pacemaker in situ documented in this encounter Advance Directives Latest [...] 8:13 AM 08/27/2007 3:51 PM Care Teams Wind Turbine Controls Engineer Relationship Specialty Start Date End Date Dian Maurer DO [address] [place] [address] PCP - General Family Medicine 08/08/18 documented as of this encounter"
--- OUTSIDE RECORDS SUMMARY | 2023-06-09 00:01 | External Medical Summary | Summary of Care ---
Author Name Unknown Organization [facility] Address [address] [place] [address] Phone [phone] Care Team Providers Care Office Auditor Name Role Phone Jyoti Do DO Primary Care Provider [phone] Reason for Visit * Reason Onset Date Comments Chronic Kidney Disease (CKD) Medication Administration 04/23/2023 Flu an d/or Pneumo Inj Encounter Details Date Type Department Care Team (Late st Contact Info) Description 04/23/2023 11:40 AM EDT Office Visit Nephrology, [facility] [address] [place] [address] Rich Dick MD [address] [facility] [place] [address] Nephrolithiasis*; Need for prophylactic vaccination and inoculation against influenza; Stage 3a chronic kidney disease (HCC); HTN, goal below 150/90 Allergies Active Allergy Reactions Criticality Noted Date Comments Adhesive Tape 10/30/2001 Rash Ciprofloxacin 09/29/2015 Eye drops, for pink eye and made her eye more red. 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 120 mL 0 10/23/2018 Active Premarin 0.625 MG/GM Vaginal Cream (Estrogens, Conjugated)Indicati [...] BREAKFAST/OTHER MEDS 90 Tablet 2 11/21/2022 Active hydroCHLOROthiazide 25 MG Oral Tablet (Hydrodiuril) TAKE 1 TABLET BY MOUTH DAILY 5 DAYS A WEEK INSTRUCTED 90 Tablet 3 12/05/2022 Active Warfarin Sodium 2.5 MG Oral Tablet (Coumadin)Indicatio ns:History of TIA (transient ischemic attack),Paroxysmal A-fib (HCC),Anticoagulate d on Coumadin,Anticoagul ation management encounter,prison current use of anticoagulant therapy Take 1 Tablet by mouth every evening. As directed. New tablet strength. Please dispense EMMA 90 Tablet 1 01/30/2023 Active Atorvastatin Calcium 20 MG Oral Tablet (Lipitor)Indication s:Dyslipidemia, goal LDL below 100 take 1 tablet by mouth once daily 90 Tablet 1 02/06/2023 Active documented as of this encounter (statuses as of 04/23/2023) Active Problems Problem Noted Date Diagnosed Date [...] as of this encounter (statuses as of 04/23/2023) Resolved Problems Problem Noted Date Diagnosed Date Resolved Date Prediabetes 12/12/2021 03/15/2023 Overview: Per Prediabetes protocol Kidney disease, chronic, sta ge III (GFR 30-59 ml/min) 06/09/2019 05/12/2021 Overview: Per CKD protocol Acute recurrent maxillary sinusitis 10/18/2018 03/19/2019 Postural headache 01/19/2017 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 08/13/2015 [...] as of this encounter (statuses as of 04/23/2023) Immunizations Name Administration Dates Next Due COVID-19 [...] Sign Reading Time Taken Comments Blood Pressure 116/71 04/23/2023 11:37 AM EDT Pulse 69 04/23/2023 11:37 AM EDT Temperature 36.5 C (97.7 F) 04/23/2023 11:37 AM E DT Respiratory Rate - - Oxygen Saturation - - Inhaled Oxygen Concentration - - Weight 85.4 kg (188 lb 4.8 oz) 04/23/2023 11:37 AM EDT Height - - Body Mass Index 31.33 03/02/2023 10:34 AM EDT documented in this encounter Patient Instructions * Patient Instructions* Evelina Tijerina LPN - 04/23/2023 11:44 AM EDT ~~PATIENT INSTRUCTIONS FOR FLU SHOT~~ Possible side effects of influenza vaccine, (flu shot), are usually mild and include: 1. Soreness or redness at injection site 2. Low grade fever 3. Body aches You may use Tylenol/Acetaminophen as needed for these symptoms. LET YOUR DOCTOR KNOW IMMEDIATELY IF YOU HAVE DIFFICULTY BREATHING OR SWALLOWING, EXPERIENCE ITCHINGOF FEET OR HANDS, HAVE SWELLING OF EYES, FACE OR INSIDE OF NOSE. documented in this encounter Progress Notes * Rich Dick MD - 04/23/2023 12:01 PM EDT REASON FOR VISIT: Nephrolithiasis HPI: Sonia Ramos is a 87 year old female seen for nephrolithiasis. First kidney stone about 20+ yrs ago. Pt says she has had easily about 40 procedures. Pt with hypertension for many years. History of afib on coumadin. Pt with asthma/copd-quit tobacco about 6 yrs ago. Hx of stroke in 1989 with slight paralysis on right side but has gotten better. Hx of an WY in 1989 about 4 weeks after stroke. she had cystoscopy on 11/15/2018 and 11/22/2018 with the lithotripsy. She also had a left JJ stent which was exchanged on 11/22/2018. Kidney stone was 80% uric acid and 20% calcium oxalate. Last office visit was in ---. No kidney stone events-- even the renal ultrasound done 08/08/2022 did not show any kidney stone. She is on potassium citrate + Lemon juice + HCTZ for stone prevention. She is trying to drink more water. Past Medical History: Diagnosis Date Atrial fibrillation (HCC) Atrial tachycardia Benign neoplasm of colon 10/10/07 adenomatous; repeat colonoscopy in 3 yrs Benign neoplasm of colon 12/06/10 diverticulosis, polyps x4 -adenomatous tissue --repeat in 3 yrs COPD, severity to be determined (HCC) Dyslipidemia, goal to be determined Esophageal reflux HTN, goal below 140/90 Idiopathic urticaria TIA (transient ischemic attack) Tobacco use disorder smoked about 34 years. Uterine cancer (HCC) at age 33. Review of Systems: General ROS: negative for - chills or fever Psychological ROS: negative for - mood swings ENT ROS: negative for - nasal congestion or nasal discharge Endocrine ROS: negative Respiratory ROS: no cough, shortness of breath, or wheezing Cardiovascular ROS: no chest pain or dyspnea on exertion Gastrointestinal ROS: no abdominal pain, change in bowel habits, or black or bloody stools Genito-Urinary ROS: no dysuria, trouble voiding, or hematuria Musculoskeletal ROS: negative for - muscle pain Neurological ROS: no TIA or stroke symptoms Dermatological ROS: negative for rash Family History Problem Relation Age of Onset Allergies Daughter rhinitis Cancer Daughter Colon Ca age 33. Cancer Daughter Appendix Cancer Sister Salivary Glands Social History Socioeconomic History Marital status: Spouse name: Not on file Number of children: Not on file Years of education: Not on file Highest education level: Not on file Occupational History Not on file Social Needs Financial resource strain: Not on file Food insecurity: Worry: Not on file Inability: Not on file Transportation needs: Medical: Not on file Non-medical: Not on file Tobacco Use Smoking status: Former Smoker Packs/day: 1.00 Years: 40.00 Pack years: 40.00 Last attempt to quit: 11/30/2008 Years since quittin.4 Smokeless tobacco: Never Used Tobacco comment: passive smoke now Substance and Sexual Activity Alcohol use: No Drug use: No Sexual activity: Not Currently Lifestyle Physical activity: Days per week: Not on file Minutes per session: Not on file Stress: Not on file Relationships Social connections: Talks on phone: Not on file Gets together: Not on file Attends hoahaoism service: Not on file Active member of club or organization: Not on file Attends meetings of clubs or organizations: Not on file Relationship status: Not on file Intimate partner violence: Fear of current or ex partner: Not on file Emotionally abused: Not on file Physically abused: Not on file Forced sexual activity: Not on file Other Topics Concern Not on file Social History Narrative Lives alone. 13 steps, she sleeps upstairs. Has to go down stairs to go to bathroom. No walker or no cane. Retired Worked for [employer] Current Outpatient Medications Medication Sig Dispense Refill EPIPEN 0.3 MG/0.3ML IJ SHAILA One injection into thigh as needed for severe allergic reaction 2 Device 1 NEBULIZER COMPRESSOR MISC Use as directed 1 Each 1 ondansetron (ZOFRAN) 4 MG Tablet Take 1 [...] PRIOR TO BREAKFAST/OTHER MEDS 90 Tablet 2 hydroCHLOROthiazide 25 MG Oral Tablet (Hydrodiuril) TAKE 1 TABLET BY MOUTH DAILY 5 DAYS A WEEK INSTRUCTED 90 Tablet 3 Warfarin Sodium 2.5 MG Oral Tablet (Coumadin) Take 1 Tablet by mouth every evening. As directed. New tablet strength. Please dispense EMMA 90 Tablet 1 Atorvastatin Calcium 20 MG Oral Tablet (Lipitor) take 1 tablet by mouth once daily 90 Tablet 1 levalbuterol (XOPENEX) 1.25 MG/3ML nebulizer solution Inhale 3 mL via nebulizer every 8 hours as needed for Wheezing. 120 mL 0 Premarin 0.625 MG/GM Vaginal Cream (Estrogens, Conjugated) Administer into the vagina 1 g in the morning. (Patient not taking: Reported on 04/23/2023) 42.5 g 12 No current facility-administered medications for this visit. Filed Vitals: 04/23/23 1137 BP: 116/71 Pulse: 69 Temp: 36.5 C (97.7 F) TempSrc: Tympanic Weight: 85.4 kg (188 lb 4.8 oz) PHYSICAL EXAM: GENERAL: Alert, in no acute distress. EYES: PERRL, conjunctivae anicteric. ENT: Mucous membranes moist, oropharynx clear. NECK: Supple, no JVD. LYMPH: No cervical or supraclavicular lymphadenopathy. LUNGS: Clear to auscultation bilaterally, no respiratory distress. CARDIAC: Regular rate and rhythm, normal S1/S2, no murmurs, rubs, or gallops. ABDOMEN: Soft, non-tender, non-distended, bowel sounds present. EXT/MSK: No clubbing, cyanosis, or edema. SKIN: No rash, no jaundice. NEURO: No tremor, no asterixis. LABS/STUDIES: NEPH-FLOW Latest Ref Rng & Units 01/07/2019 06/02/2019 08/28/2019 Bun 6 - 20 mg/dL 26 (H) 25 (H) 22 (H) Cr 0.5 - 1.0 mg/dL 1.0 1.0 1.0 eGFR >60 mL/min eGFR >60 51.2 (L) 55.8 (L) 54.0 (L) K 3.5 - 5.1 mmol/L 4.2 4.1 4.2 Hb 12.0 - 15.3 g/dL 14.5 NEPH-FLOW Latest Ref Rng & Units 01/01/2020 02/24/2020 05/19/2020 Bun 6 - 20 mg/dL 19 18 17 Cr 0.5 - 1.0 mg/dL 0.9 0.8 0.9 eGFR >60 mL/min eGFR >60 >60.0 >60.0 >60.0 K 3.5 - 5.1 mmol/L 4.3 3.8 4.7 Hb 12.0 - 15.3 g/dL 15.1 NEPH-FLOW Latest Ref Rng & Units 01/01/2020 02/24/2020 05/19/2020 Bun 6 - 20 mg/dL 19 18 17 Cr 0.5 - 1.0 mg/dL 0.9 0.8 0.9 eGFR >60 mL/min eGFR >60 >60.0 >60.0 >60.0 K 3.5 - 5.1 mmol/L 4.3 3.8 4.7 Hb 12.0 - 15.3 g/dL 15.1 NEPH-FLOW Latest Ref Rng & Units 05/19/2020 11/10/2020 05/06/2021 Bun 6 - 20 mg/dL 17 26 (H) 28 (H) Cr 0.5 - 1.0 mg/dL 0.9 1.0 1.0 eGFR >=60 mL/min 53.8 (L) 52 (L) eGFR >60 >60.0 K 3.5 - 5.1 mmol/L 4.7 4.2 4.3 Hb 12.0 - 15.3 g/dL 15.0 Pro/Cr ratio <150 mg/g 70 Latest Reference Range & Units 05/17/22 11:19 08/02/22 11:42 Sodium 135 - 146 mmol/L 140 140 Potassium 3.5 - 5.1 mmol/L 4.5 4.3 Chloride 98 - 107 mmol/L 104 101 CO2 22 - 32 mmol/L 25 33 (H) BUN 6 - 20 mg/dL 20 25 (H) Creatinine 0.5 - 1.0 mg/dL 0.9 0.9 Estimated Glomerular Filtration Rate >=60 mL/min 64 62 Anion Gap 7 - 15 mmol/L 11 6 (L) Glucose 70 - 120 mg/dL 102 84 Calcium 8.4 - 10.2 mg/dL 9.6 9.5 (H): Data is abnormally high (L): Data is abnormally low ASSESSMENT AND PLAN Nephrolithiasis (Primary) Patient with the both uric acid and calcium oxalate kidney stones. Multiple procedures for obstructive kidney stones in her lifetime. Continue to take potassium citrate twice daily again. She was also started Hydrochlorothiazide to elp with reducing calcium nephrolithiasis and will continue same. She also has concentrated lemon juice and water as per my advice. On the current regimen she does not have kidney stone even on the renal ultrasound. Will continue the current regimen ---of potassiumcitrate hydrochlorothiazide and concentrated lemon juice with forced hydration-- for stone risk prevention. Labs done August 02, 2022 was reviewed and shows a slightly elevated bicarb and BUN likelya reflection of hydrochlorothiazide but she can also drink more water. Stage 3a chronic kidney disease (HCC) Very very mild if any. GFR gets below 60 at times but not always. HTN, goal below 150/90 Blood pressure is controlled on current regimen. No side effect with hydrochlorothiazide We are using hydrochlorothiazide for both blood pressure as well as decreasing kidney stone. Need for prophylactic vaccination and inoculation against influenza - INFLUENZA VACC, QUAD, HIGH DOSE (FLUZONE HD) Follow Up: Return in about 1 year (around 04/23/2024). Rich Dick MD * Evelina Tijerina LPN - 04/23/2023 11:44 AM EDT PRE - ADMINISTRATION DOCUMENTATION Are you experiencing any cold symptoms or fever? No Have you had Guillain-[place] Syndrome (an illness that causes paralysis) within the last 6 weeks? No Have you had the flu shot in the past? YES Have you ever had a reaction to the flu shot? No Evelina Tijerina LPN, 04/23/2023 11:44 AM Immunization Administration Documentation Time Out Procedure Performed: Yes Patient Identified (Ask Name/Date of ): Yes Does the patient have a fever greater than 101 degrees today? No Patient allergic to latex? No VFC Stock: No Immunization(s) verified: Yes, Immunization Name: Flu, VIS Sheet(s) given: Yes Verified Side and Site: Yes Verified Shot(s) with Parent(s)/Patient: Yes documented in this encounter Nursing Notes * Evelina Tijerina LPN - 04/23/2023 11:34 AM EDT Return patient documented in this encounter Plan of Treatment Upcoming Encounters Date Type Department Care Team (Late st Contact Info) Description 05/02/2023 10:30 AM EDT Office Visit Cardiology, [facility] [address] [place] [address] Andrzej Urean MD [address] [place] [address] 05/18/2023 10:40 AM EST 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 Pharmacy, [place] [address] [facility] [place] [address] [facility] [address] [place] [address] 06/13/2023 10:10 AM EST Office Visit [facility], [place] [address] [facility] [id number] Jyoti Do DO [address] [facility] [place] [address] 07/31/2023 10:30 AM EST Cardiac Studies Cardiology, [facility] [address] [place] [address] [facility] [address] [place] [address] 03/05/2024 10:00 AM EDT Nurse Only Ancillary Department, [place] [address] [facility] [place] [address] Florinda, Nurse Annual Wellness [address] [facility] [place] [address] Health Maintenance Due Date Last Done Comments Alpha-1 Antitrypsin 1953 DXA Scan 2014 2007, 08/2006, 2007, Additional history exists DISCUSS TOBACCO CESSATION (REFER TO SMARTSET #3291) 09/21/2018 09/21/2017 (Course Completed) COLONOSCOPY-EVERY 3 YRS AGES 18-100 07/28/2019 07/28/2016, 07/28/2016, 12/06/2010, Additional history exists COVID-19 Vaccine ( season) 2023 06/10/2021, 10/06/2020, 09/15/2020 CKD HGB USE SMARTSET 09522 05/17/202305/17, 11/07/2021, 11/07/2021, Additional history exists TSH 08/02/2023 08/02/2022, 05/02, 11/11/2021, Additional history exists Albumin/Creatinine Ratio 02/24/2024 02/23/2023, 10/30 CKD PHOS USE SMARTSET 57568 02/24/202401/31, 11/07/2021, 05/06/2021, Additional history exists Depression [...] as of this encounter Visit Diagnoses Diagnosis Nephrolithiasis- Primary Calculus of kidney Need for prophylactic vaccination and inoculation against influenza Stage 3a chronic kidney disease (HCC) HTN, goal below 150/90 documented in this encounter Advance Directives Latest [...] 8:13 AM 08/27/2007 3:51 PM Care Teams Office Auditor Relationship Specialty Start Date End Date Jyoti Do DO [address] [place] [address] PCP - General Family Medicine 08/08/18 documented as of this encounter
--- OUTSIDE RECORDS SUMMARY | 2023-06-09 00:01 | External Medical Summary | Summary of Care ---
Author Name Unknown Organization [facility] Address [address] [place] [address] Phone [phone] Care Team Providers Care Director Diabetes Name Role Phone Jyoti Do DO Primary Care Provider [phone] Reason for Visit * Reason Comments Dosage Adjustment In Person (Anticoag Cl inic) Encounter Details Date Type Department Care Team Description 04/20/2023 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 Pharmacy, [place] [address] [place] [address] [facility] [address] [place] [address] History of TIA (transient ischemic attack)*; Paroxysmal A-fib (HCC); Anticoagulated on Coumadin; 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 management encounter; [facility] current use of anticoagulant therapy Allergies Active Allergy Reactions Severity Noted Date Comments Adhesive Tape 10/30/2001 Rash Ciprofloxacin 09/29/2015 Eye drops, for pink eye and made her eye more red. Iodine 03/06/2000 hives Nitrofurantoin Diarrhea 03/08/2012 SOB Diarrhea Clopidogrel Bisulfate Muscle pain 08/18/2009 Salicylates 03/06/2000 ASA throat swelling Ezetimibe Hives Medium 01/19/2009 documented as of this encounter (statuses as of 04/20/2023) Medications Medication Sig Dispensed Refills Start Date End Date Status EPIPEN 0.3 MG/0.3ML IJ DEVIIndications:Ang ioneurotic edema One injection into thigh as needed for severe allergic reaction 2 Device 1 11/21/2011 Active NEBULIZER COMPRESSOR MISCIndications:APPLICATION DEVELOPMENT SPECIALIST D exacerbation (HCC),Asthma with COPD (chronic obstructive [...] the morning. 42.5 g 12 12/28/2021 Active Metoprolol Succinate ER 100 MG Oral Tablet [...] A-fib (HCC),Anticoagulate d on Coumadin,Anticoagul ation management encounter,[facility] current use of anticoagulant therapy Take 1 Tablet by mouth every evening. As directed. New tablet strength. Please dispense EMMA 90 Tablet 1 01/30/2023 Active Atorvastatin Calcium 20 MG Oral Tablet (Lipitor)Indication s:Dyslipidemia, goal LDL below 100 take 1 tablet by mouth once daily 90 Tablet 1 02/06/2023 Active documented as of this encounter (statuses as of 04/20/2023) Active Problems Problem Noted Date COPD, group A, by GOLD 2017 classificati on 03/12/2023 Overview: Per COPD GOLD Classification Hx of nonmelanoma skin cancer 06/08/2022 Overview: basal cell carcinoma (L 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/2014) Chronic kidney disease, stage 3a 021 Overview: Per CKD protocol Family history of nonmelanoma skin cance r 02/20/2019 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 use of anticoagulant therapy 0 08/13/2015 03/14/2017 Overview: ICD-10 update of inactive term Hx of skin cancer, basal cell 02/07/2015 Overview: Hx NMSC - BCC L nasal bridge 03/2014 Hematuria, gross 10/24/2014 03/27/2018 Urolithiasis 10/24/2014 03/27/2018 Bronchitis 03/15/2012 03/14/2017 COPD exacerbation 03/15/2012 03/14/2017 Hematuria 03/15/2012 03/14/2017 Overview: ICD-10 update of inactive term A-fib 12/25/2011 03/27/2018 Benign neoplasm of adrenal gland 05/22/2011 03/27/2018 PULMONARY NODULES 02/17/2011 03/27/2018 Generalized hyperhidrosis 02/17/20112017 Malaise and fatigue 08/06/2009 05/22/2011 Hematuria 08/06/2009 05/22/2011 Overview: ICD-10 update of inactive term Otalgia 06/30/2009 05/22/2011 Cough 06/30/2009 05/22/2011 Acute URI 06/30/2009 05/22/2011 Acute sinusitis 06/30/2009 05/22/2011 Benign neoplasm of colon 10/10/2007 018 Overview: adenomatous; repeat colonoscopy in 3 yrs Calculus of ureter 08/27/2007 03/27/2018 DYSFUNCT EUSTACHIAN TUBE 11/01/2005 018 Idiopathic urticaria 09/16/2003 09/21/2017 Urinary frequency 08/18/2003 03/23/2004 Dyslipidemia, goal to be determined 04/29/2003 05/12/2010 TIA (transient ischemic attack) 10/30/2001 09/21/2017 Tobacco use disorder 08/13/2015 documented as of this encounter (statuses as of 04/20/2023) Immunizations Name Administration Dates Next Due COVID-19 mRNA, LNP-s, No Pre serve, 2-Dose Series ([employer]) 06/10/2021,10/06/2020,09/15/2020 Pneumococcal Conjugate Vacc, 13 Valent (Prevnar) 02/24/2015 Pneumococcal Polysaccharide PPV23 (Pneumovax) 04/23/2007 SEASONAL INFLUENZA, PF, 6 M & Above, IM , (FLULAVAL or FLUZONE) 03/17/2020,03/19/2019,04/24/2018,03/2017 Seasonal Influenza, Quadriva lent Hd (Fluzone Hd) 05/17/2022,04/29/2021 Seasonal Influenza, Quadriva lent, No Preserve, IM [...] drink = 0.6 oz pur e alcohol) Food Insecurity Answer Date Recorded Within the past 12 months, y ou worried that your food would run out before you got money to buy more. Never true 03/01/2022 Within the past 12 months, t he food you bought just didn't last and you didn't have money to get more. Never true 03/01/2022 Sex Assigned at Date Recorded Female 06/02/2019 9:[address] Job Start Date Occupation Industry Not on file Not on file Not on file documented as of this encounter Progress Notes * Sena Uribe RPh - 04/20/2023 9:53 AM EDT Medication Therapy Disease Management - 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 Patient: Sonia Ramos | : 1935 Subjective Patient-Reported Symptoms: Patient Findings Negatives: Signs/symptoms of thrombosis, Signs/symptoms of bleeding, Change in health, Change in alcohol use, Change in activity, Upcoming invasive procedure, Missed doses, Extra doses, Change in medications, Change in diet/appetite, Bruising Objective Current Warfarin Dose As of 04/20/2023 Warfarin maintenance plan: 3.75 mg (2.5 mg x 1.5) every Wed; 2.5 mg (2.5 mg x 1) all other days INR Result As of 04/20/2023 INR goal: 2.0-3.0 INR used for dosin.4 (04/20/2023) Assessment & Plan Warfarin Plan As of 04/20/2023 Full warfarin instructions: 3.75 mg every Wed; 2.5 mg all other days No change documented: Sena Uribe RPh Next INR check: 05/18/2023 Repeat PT/INR in 4 week(s) Weekly dose: not changed Additional Dosing Information: Sena Uribe RP Clinical Pharmacist 04/20/2023, 9:54 AM documented in this encounter Plan of Treatment Upcoming Encounters Date Type Specialty Care Team Description 04/23/2023 Office Visit Nephrology Rich Dick MD [address] [facility] [place] [address] 05/02/2023 Office Visit Cardiology Andrzej Urena MD [address] [place] [address] 05/18/2023 [facility] [place] [address] [facility] [address] 06/13/2023 Office Visit Family Medicine Jyoti Do DO [address] [facility] [place] [address] 07/31/2023 Cardiac Studies Cardiology [facility] [address] [facility] [place] [address] 03/05/2024 Nurse Only Ancillary [place] Nurse [facility] [address] [facility] [place] [address] Health Maintenance Due Date Last Done Comments Alpha-1 Antitrypsin 1953 DXA Scan 2014 2007, 08/2006, 2007, Additional history exists DISCUSS TOBACCO CESSATION (REFER TO SMARTSET #3291) 09/21/2018 09/21/2017 (Course Completed) COLONOSCOPY-EVERY 3 YRS AGES 18-100 07/28/2019 07/28/2016, 07/28/2016, 12/06/2010, Additional history exists COVID-19 Vaccine ( season) 2023 06/10/2021, 10/06/2020, 09/15/2020 Influenza Vaccine (FLU shot) (#1) 2023 05/17/2022, 04/29/2021, 03/17/2020, Additional history exists CKD HGB USE SMARTSET 24763 05/17/202305/17, 11/07/2021, 11/07/2021, Additional history exists TSH 08/02/2023 08/02/2022, 05/02, 11/11/2021, Additional history exists Albumin/Creatinine Ratio 02/24/2024 02/23/2023, 10/30 CKD PHOS USE SMARTSET 16042 02/24/202401/31, 11/07/2021, 05/06/2021, Additional history exists Depression Screening 03/02/2024 03/02/2023 O2 ASSESSMENT COMPLETED IN PAST YEAR FOR COPD 03/02/2024 03/02/2023 DTaP,Tdap,and Td Vaccines (2 - Td or Tdap) 03/16/2024 03/16/2014, 04/27/2008 Pneumococcal Vaccine: 65+ Years Completed 02/24/2015, 04/23/2007 Zoster Vaccines Completed 12/17/2019, 02/01, 04/30/2014 GARDASIL-HPV IMMUNIZATION SERIES Aged Out No longer [...] Comments INR FINGERSTICK, POINT OF CARE STAT 04/20/2023 10:03 AM EDT History of TIA (transient ischemic attack) Paroxysmal A-fib (HCC) Anticoagulated on Coumadin 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 management encounter terminal 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 use of anticoagulant therapy documented in this encounter Results * INR FINGERSTICK, POINT OF CARE (04/20/2023 10:03 AM EDT) Fingerstick INR 2.4 INR 10:05 AM EDT [facility]01 Blood 04/20/2023 10:0 3 AM EDT 04/20/2023 10:05 AM EDT Narrative LAB[facility]ATORY [facility] 56-01 - 04/20/2023 10:05 AM EDT Therapeutic ranges for non-operative patients: Prophylaxsis/treatment of DVT: (Range:2.0-3.0) Treatment of pulmonary embolism:(Range:2.0-3.0) Prevention of systemic embolism from: -tissue heart valves -acute myocardial infarction -valvular heart disease -atrial fibrillation (Range: 2.0-3.0) Mechanical prosthetic valves: (Range: 2.5-3.5) Senanrei Uribe [facility] LAB POINT OF CARE TEST DOCKED DEVICE UNSOLICITED RESULTS [facility] [place] [address] documented in this encounter Visit Diagnoses Diagnosis History of TIA (transient ischemic attack)- Primary Transient ischemic attack (TIA), and cerebral infarction without residual deficits Paroxysmal A-fib (HCC) Atrial fibrillation Anticoagulated on Coumadin Encounter for therapeutic drug monitoring 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 management encounter Encounter for therapeutic drug monitoring [facility] current use of anticoagulant therapy documented in [...] 8:13 AM 08/27/2007 3:51 PM Care Teams Director Diabetes Relationship Specialty Start Date End Date Jyoti Do, [address] [place] [address] PCP - General Family Medicine 08/08/18 documented as of this encounter"
[2023-06-09 00:02] LABS: Appearance Urine Clear (Clear); Bilirubin Urine Negative (Negative); Blood Urine Negative (Negative); Color Urine Yellow; Glucose Urine UA Negative (Negative); Ketones Urine Negative (Negative); Leukocyte Esterase Urine Negative (Negative); Nitrite Urine Negative (Negative); Protein Urine Negative (Negative); Urobilinogen Urine Negative (Negative)
--- OUTSIDE RECORDS SUMMARY | 2023-06-09 00:02 | External Medical Summary ---
Author Name Unknown Address Unknown Organization : Laboratory Report Ordering Provider Test Date Status DONNY ALLISON 03/23/2023 09:39:23 Final Therapeutic ranges for non-o perative patients:
Prophylaxsis/treatment of DVT: (Range:2.0-3.0)
Treatment of pulmonary embolism:(Range:2.0-3.0)
Prevention of systemic embolism from:
-tissue heart valves
-acute myocardial infarction
-valvular heart disease
-atrial fibrillation
(Range: 2.0-3.0)
Mechanical prosthetic valves: (Range: 2.5-3.5) Observation Date Value Abnormality Reference (Units ) Status INR in Capillary blood by Coagulation assay 03/23/2023 09:39:23 1.8 (INR) Final Performing Location
--- OUTSIDE RECORDS SUMMARY | 2023-06-09 00:02 | External Medical Summary | Summary of Care ---
Author Name Unknown Organization [facility] Address [address] [place] [address] Phone [phone] Care Team Providers Care Track Car Operator Name Role Phone DanielJyoti hong Primary Care Provider [phone] Reason for Visit * Reason Onset Date Comments Mycode Lab Reorder 03/26/2023 Encounter Details Date Type Department Care Team Description 03/26/2023 Orders Only Outcomes Research Department [address] [place] [address] Briana Ariza CHRA MyCode Research Other*[id number]* Allergies Active Allergy Reactions Severity Noted Date Comments Adhesive Tape 10/30/2001 Rash Ciprofloxacin 09/29/2015 Eye drops, for pink eye and made her eye more red. 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 As directed. New tablet strength. Please dispense EMMA 90 Tablet 1 01/30/2023 Active Atorvastatin Calcium 20 MG Oral Tablet (Lipitor)Indication s:Dyslipidemia, goal LDL below 100 take 1 tablet by mouth once daily 90 Tablet 1 02/06/2023 Active documented as of this encounter (statuses as of 03/26/2023) Active Problems Problem Noted Date COPD, group [...] as of this encounter (statuses as of 03/26/2023) Resolved Problems Problem Noted Date Resolved Date Prediabetes 12/12/2021 03/15/2023 Overview: Per Prediabetes protocol Kidney disease, chronic, stage III (GFR 30-59 ml /min) 06/09/2019 05/12/2021 Overview: Per CKD protocol Acute recurrent maxillary sinusitis 10/18/2018 03/19/2019 Postural headache 01/19/2017 03/27/2018 [facility] current use of anticoagulant therapy 0 08/13/2015 [...] as of this encounter (statuses as of 03/26/2023) Immunizations Name Administration Dates Next Due COVID-19 mRNA, LNP-s, No Pre serve, 2-Dose Series ([employer]) 06/10/2021,10/06/2020,09/15/2020 Pneumococcal Conjugate Vacc, 13 Valent (Prevnar) 02/24/2015 Pneumococcal Polysaccharide PPV23 (Pneumovax) 04/23/2007 Seasonal Influenza, PF, 6 mo ns & Above, IM , (Flulaval) 03/17/2020,03/19/2019,04/24/2018,03/2017 Seasonal Influenza, Quadriva lent Hd (Fluzone [...] as of this encounter Progress Notes * CRUZ Quigley - 03/26/2023 12:09 PM EDT MyCode lab reordered. documented in this encounter Plan of Treatment Upcoming Encounters Date Type Specialty Care Team Description 04/20/2023 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 Pharmacy [place], [facility] [address] [place] [address] 04/26/2023 Office Visit Cardiology Andrzej Urena MD [address] [facility] [place] [address] 06/13/2023 Office Visit Family Medicine Jyoti Do, [address] [place] [facility] [place] [address] 07/31/2023 Cardiac Studies Cardiology [facility] [address] [facility] [place] [address] 09/05/2023 Office Visit Nephrology Rich Dick MD [address] [place] [address] 03/05/2024 Nurse Only Ancillary [place], Nurse [facility] [address] [place] [address] Scheduled Orders Name Type Priority Associated Diagnoses Orde r Schedule MYCODE SUBSEQUENT ADULT Lab Routine MyCode Research Other*[id number] Every 6 Months for 2 Occurrences starting 03/26/2023 until 04/14/2024 Health Maintenance Due Date Last Done Comments Alpha-1 Antitrypsin 1953 DXA Scan 2014 2007, 08/2006, 2007, Additional history exists DISCUSS TOBACCO CESSATION (REFER TO SMARTSET #5098) 09/21/2018 09/21/2017 (Course Completed) COLONOSCOPY-EVERY 3 YRS AGES 18-100 07/28/2019 07/28/2016, 07/28/2016, 12/06/2010, Additional history exists COVID-19 Vaccine (4 - Pfizer series) 08/05/2021 06/10/2021, 10/06/2020, 09/15/2020 Influenza Vaccine (FLU shot) (#1) 2023 05/17/2022, 04/29/2021, 03/17/2020, Additional history exists CKD HGB USE SMARTSET 40941 05/17/202305/17, 11/07/2021, 11/07/2021, Additional history exists TSH 08/02/2023 08/02/2022, 05/02, 11/11/2021, Additional history exists Albumin/Creatinine Ratio 02/24/2024 02/23/2023, 10/30 CKD PHOS USE SMARTSET 36976 02/24/202401/31, 11/07/2021, 05/06/2021, Additional history exists Depression [...] as of this encounter Visit Diagnoses Diagnosis MyCode Research Other*[id number]- Primary documented in this encounter Advance Directives Latest [...] 8:13 AM 08/27/2007 3:51 PM Care Teams Track Car Operator Relationship Specialty Start Date End Date Jyoti Do, [address] [place] [facility] [place] [address] PCP - General Family Medicine 08/08/18 documented as of this encounter
--- OUTSIDE RECORDS SUMMARY | 2023-06-09 00:02 | External Medical Summary | Summary of Care ---
Author Name Unknown Organization [facility] Address [address] [place] [address] Phone [phone] Care Team Providers Care Earth Science Technical Officer Name Role Phone Jyoti Do DO Primary Care Provider [phone] Reason for Visit * Reason Comments Dosage Adjustment In Person (Anticoag Cl inic) Encounter Details Date Type Department Care Team Description 03/23/2023 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 Pharmacy, [place] [address] [place] [address] [facility] [address] [place] [address] History of TIA (transient ischemic attack)*; Paroxysmal A-fib (HCC); Anticoagulated on Coumadin; 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 management encounter; longterm current use of anticoagulant therapy Allergies Active Allergy Reactions Severity Noted Date Comments Adhesive Tape 10/30/2001 Rash Ciprofloxacin 09/29/2015 Eye drops, for pink eye and made her eye more red. 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 270 Tablet 3 11/06/2022 Active Sotalol HCl 160 MG Oral Tablet (Betapace)Indicatio ns:Paroxysmal A-fib ([facility]) take 1 tablet by mouth twice a [...] A-fib (HCC),Anticoagulate d on Coumadin,Anticoagul ation management encounter,longterm current use of anticoagulant therapy Take 1 Tablet by mouth every evening. As directed. New tablet strength. Please dispense EMMA 90 Tablet 1 01/30/2023 Active Atorvastatin Calcium 20 MG Oral Tablet (Lipitor)Indication s:Dyslipidemia, goal LDL below 100 take 1 tablet by mouth once daily 90 Tablet 1 02/06/2023 Active documented as of this encounter (statuses as of 03/23/2023) Active Problems Problem Noted Date COPD, group [...] as of this encounter (statuses as of 03/23/2023) Resolved Problems Problem Noted Date Resolved Date Prediabetes 12/12/2021 03/15/2023 Overview: Per Prediabetes protocol Kidney disease, chronic, stage III (GFR 30-59 ml /min) 06/09/2019 05/12/2021 Overview: Per CKD protocol Acute recurrent maxillary sinusitis 10/18/2018 03/19/2019 Postural headache 01/19/2017 03/27/2018 manager terminal current use of anticoagulant therapy 0 08/13/2015 [...] as of this encounter (statuses as of 03/23/2023) Immunizations Name Administration Dates Next Due COVID-19 mRNA, LNP-s, No Pre serve, 2-Dose Series (Pfizer) 06/10/2021,10/06/2020,09/15/2020 Pneumococcal Conjugate Vacc, 13 Valent (Prevnar) 02/24/2015 Pneumococcal Polysaccharide PPV23 (Pneumovax) 04/23/2007 Seasonal Influenza, PF, 6 mo ns & Above, IM , (Flulaval) 03/17/2020,03/19/2019,04/24/2018,1003/2017 Seasonal Influenza, Quadriva lent Hd (Fluzone Hd) [...] Progress Notes * Sena Uribe RPh - 03/23/2023 9:33 AM EDT Images from the original note were not included. Medication Therapy Disease Management - 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 Patient: Sonia Ramos | : 1935 Subjective Patient-Reported Symptoms: Patient Findings Negatives: Signs/symptoms of thrombosis, Signs/symptoms of bleeding, Change in health, Change in alcohol use, Change in activity, Upcoming invasive procedure, Missed doses, Extra doses, Change in medications, Change in diet/appetite, Bruising Objective Current Warfarin Dose As of 03/23/2023 Warfarin maintenance plan: 3.75 mg (2.5 mg x 1.5) every Wed; 2.5 mg (2.5 mg x 1) all other days INR Result As of 03/23/2023 INR goal: 2.0-3.0 INR used for dosin.8 (03/23/2023) Assessment & Plan Warfarin Plan As of 03/23/2023 Full warfarin instructions: 03/23: 3.75 mg; Otherwise 3.75 mg every Wed; 2.5 mg all other days Next INR check: 04/20/2023 Repeat PT/INR in 4 week(s) Weekly dose: not changed Additional Dosing Information: Sena Uribe [facility] Clinical Pharmacist 03/23/2023, 9:34 AM documented in this encounter Plan of Treatment Upcoming Encounters Date Type Specialty Care Team Description 04/20/2023 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 Pharmacy [facility] [address] [place] [address] 04/26/2023 Office Visit Cardiology Andrzej Urena MD [address] [place] [address] 06/13/2023 Office Visit Family Medicine Jyoti Do DO [address] [place] [address] 06/26/2023 Office Visit Dermatology Rossy Cain PA-C [address] [place] [address] [place] [address] 07/31/2023 Cardiac Studies Cardiology [facility] [address] [place] [address] 09/05/2023 Office Visit Nephrology Rich Dick MD [address] [place] [facility] [place] [address] 03/05/2024 Nurse Only [facility], Nurse [facility] [address] [place] [address] Health Maintenance Due Date Last Done Comments [...] Additional history exists CKD HGB USE SMARTSET 08521 05/17/202305/17, 11/07/2021, 11/07/2021, Additional history exists TSH 08/02/2023 08/02/2022, 05/02, 11/11/2021, Additional history exists Albumin/Creatinine Ratio 02/24/2024 02/23/2023, 10/30 CKD PHOS USE SMARTSET 88481 02/24/2024 08/2 10/2022, 11/07/2021, 05/06/2021, Additional history exists Depression Screening [...] Comments INR FINGERSTICK, POINT OF CARE STAT 03/23/2023 9:39 AM EDT History of TIA (transient ischemic attack) Paroxysmal A-fib (HCC) Anticoagulated on Coumadin 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 management encounter manager terminal current use of anticoagulant therapy documented in this encounter Results * INR FINGERSTICK, POINT OF CARE (03/23/2023 9:39 AM EDT) Fingerstick INR 1.8 INR 9:41 AM EDT LABORAT[facility] 56-01 Blood 03/23/2023 9:39 AM EDT 03/23/2023 9:41 AM EDT Narrative LAB[facility] 56-01 - 03/23/2023 9:41 AM EDT Therapeutic ranges for non-operative patients: Prophylaxsis/treatment of DVT: (Range:2.0-3.0) Treatment of pulmonary embolism:(Range:2.0-3.0) Prevention of systemic embolism from: -tissue heart valves -acute myocardial infarction -valvular heart disease -atrial fibrillation (Range: 2.0-3.0) Mechanical prosthetic valves: (Range: 2.5-3.5) Sena Roseherkatie Uribe [facility] LAB POINT OF CARE TEST DOCKED DEVICE UNSOLICITED RESULTS [facility]AT[facility] [place] [address] [place] [address] documented in this encounter Visit Diagnoses Diagnosis History of TIA (transient ischemic attack)- Primary Transient ischemic attack (TIA), and cerebral infarction without residual deficits Paroxysmal A-fib (HCC) Atrial fibrillation Anticoagulated on Coumadin Encounter for therapeutic drug monitoring 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 management encounter Encounter for therapeutic drug monitoring longterm current use of anticoagulant therapy documented in [...] 8:13 AM 08/27/2007 3:51 PM Care Teams Earth Science Technical Officer Relationship Specialty Start Date End Date Jyoti Do, [address] [place] [address] PCP - General Family Medicine 08/08/18 documented as of this encounter"
--- OUTSIDE RECORDS SUMMARY | 2023-06-09 00:02 | External Medical Summary | Summary of Care ---
Author Name Unknown Organization [facility] Address [address] [place] [address] Phone [phone] Care Team Providers Care Drapery Inspector Name Role Phone Jyoti Do DO Primary Care Provider + [phone] Reason for Visit * Reason Comments Adult Annual Wellness Visit, Subsequent Visit Encounter Details Date Type Department Care Team Description 03/02/2023 Nurse Only Ancillary Department, Council [address] [place] [address] Council, Nurse Annual Wellness [address] [place] [address] Adult Annual Wellness Visit, Subsequent Visit Allergies Active Allergy Reactions Severity Noted Date Comments Adhesive Tape 10/30/2001 Rash Ciprofloxacin 09/29/2015 Eye drops, for pink eye and made her eye more red. 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 As directed. New tablet strength. Please dispense EMMA 90 Tablet 1 01/30/2023 Active Atorvastatin Calcium 20 MG Oral Tablet (Lipitor)Indication s:Dyslipidemia, goal LDL below 100 take 1 tablet by mouth once daily 90 Tablet 1 02/06/2023 Active documented as of this encounter (statuses as of 03/02/2023) Active Problems Problem Noted Date Hx of nonmelanoma skin cancer 06/08/2022 Overview: basal cell carcinoma (L 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/2014) Prediabetes 12/12/2021 Overview: Per Prediabetes protocol Chronic kidney disease, stage 3a 021 Overview: [...] as of this encounter (statuses as of 03/02/2023) Resolved Problems Problem Noted Date Resolved Date Kidney disease, chronic, stage III (GFR 30-59 ml /min) 06/09/2019 05/12/2021 Overview: Per CKD protocol Acute recurrent maxillary sinusitis 10/18/2018 03/19/2019 Postural headache 01/19/2017 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 0 [...] as of this encounter (statuses as of 03/02/2023) Immunizations Name Administration Dates Next Due COVID-19 [...] Sign Reading Time Taken Comments Blood Pressure 118/60 03/02/2023 10:34 AM EDT Pulse 66 03/02/2023 10:34 AM EDT Temperature 36.4 C (97.5 F) 03/02/2023 1 0:34 AM EDT Respiratory Rate - - Oxygen Saturation 95% 03/02/2023 10: 34 AM EDT Inhaled Oxygen Concentration - - Weight 83.8 kg (184 lb 11.2 oz) 023 10:34 AM EDT Height 165.1 cm (5' 5") 03/02/2023 10:3 4 AM EDT Body Mass Index 30.74 03/02/2023 10:34 AM EDT documented in this encounter Patient Instructions * Patient Instructions* Haleigh Saravia RN - 03/02/2023 10:57 AM EDT Patient Instructions - Fall Prevention (This education is for all patients over 65 regardless of symptoms) Remember to take your current medications as prescribed. In order to prevent falls, you are encouraged to: Exercise Utilize assistive/adaptive devices Avoid multifocal lenses when walking Avoid hazards in home Maintain a regular toileting schedule Any questions please contact our office. Preventing Falls in the Home (This education is for all patients over 65 regardless of symptoms) As you get older, falls are more likely. Thats because your reaction time slows. Your muscles and joints may also get stiffer, making them less flexible. Illness, medications, and vision changes can also affect your balance. A fall could leave you unable to live on your own. To make your home safer, follow these tips: Floors Put nonskid pads under area rugs Remove throw rugs Replace worn floor coverings Tack carpets firmly to each step on carpeted stairs. Put nonskid strips on the edges of uncarpeted stairs Keep floors and stairs free of clutter and cords Arrange furniture so there are clear pathways Clean up any spills right away Bathrooms Install grab bars in the tub or shower Apply nonskid strips or put a nonskid rubber mat in the tub or shower Sit on a bath chair to bathe Use bathmats with nonskid backing Lighting Keep a flashlight in each room Put a nightlight along the pathway between the bedroom and the bathroom [employer] Patient Education Copyright 2008 - 2010 Rena except where otherwise noted Preventing Falls: Exercises to Improve Balance, Flexibility, Strength, and Staying Power (This education is for all patients over 65 regardless of symptoms) Certain types of exercises may help make you less likely to fall. Try the ones below. Or do other exercises that your healthcare provider suggests. Depending on your health, you may need to start slowly. Dont let that stop you. Even small amounts of exercise can help you. Be sure to talk to yourhealthcare provider before starting any exercise program. Improve Balance Many types of exercise can help improve balance. J Luis chi and yoga are good examples. Heres another one to try. You can do it anytime and almost anywhere. Stand next to a counter or solid support. Push yourself up onto your tiptoes. Hold for 5 seconds. If you start to lose your balance, hold on to the counter. Rest and repeat 5 times. Work up to holding for 20 to 30 seconds, if you can. Increase Flexibility Being more flexible makes it easier for you to move around safely. Try exercises like the seated hamstring stretch. Sit in a chair and put one foot on a stool. Straighten your leg and reach with both hands down either side of your leg. Reach as far down your leg as you can. Hold for about 20 seconds. Go back to the starting position. Then repeat 5 times. Switch legs. Build Strength Resistance exercises help build strength. You can do them without equipment. Or you can use weights, elastic bands, or special machines. One such exercise is called the biceps curl. You can hold a 1 pound weight or even a can of soup. Do this exercise at least 3 times a week. Strive for everyday. Sit up straight in a chair. Keep your elbow close to your body and your wrist straight. Bend your arm, moving your hand up to your shoulder. Then slowly lower your arm. Repeat 5 times. Switch to the other arm. Build Your Staying Power Aerobic exercises make your heart and lungs stronger so you can keep moving longer. Walking and swimming are two of the best types of exercises you can do. Using a stationary bike is great, too. Find an aerobic exercise that you enjoy. Start slowly and build up. Even 5 minutes is helpful. Aimfor a goal of 30 minutes, at least 3 times a week. You dont have to do 30 minutes in one session. Break it up and walk a little throughout the day. More Helpful Tips Start easy. Slowly work up to doing more. Talk with your healthcare provider about the best exercises for you. Call senior centers or health clubs about exercise programs. If needed, have a family member watch you walk every so often to check your stability. Exercise with a friend. Choose an activity you both enjoy. Try exercises that you can do anytime, anywhere. Here are two examples. Have someone with you when you first try these: Practice walking by placing one foot right in front of the other. Stand up and sit down 10 times. Repeat this throughout the day. [employer] Patient Education Copyright 2008 [employer] except where otherwise noted. Preventing Falls: Moving Safely Using a Cane or Walker (This education is for all patients over 65 regardless of symptoms) Keep the cane away from your feet so you dont trip. A walking aid, such as a cane or walker, can help you stay more independent and avoid falls. Remember to keep your walking aid within easy reach when youre in a chair or in bed. And learn how to use it safely so you dont injure yourself. Using a Cane If you have a stronger side, hold the cane on that side. Get your balance. Move the cane and your weaker leg forward. Support your weight on both the cane and your weaker side. Step with your stronger leg. Start again from step 1. If youre using a folding walker, be sure you know how to lock it open. Check that its locked open before each use. Using a Walker Roll the walker (or lift it, if youre using one without wheels) forward about 12 inches. Step forward with your weaker leg first. Use the walker to help keep your balance. Bring your other foot forward to the center of the walker. Start again from step 1. Helpful Tips Check with your healthcare provider about the right walking aid to use. Ask about a walker with a seat attached. Check the tips of your cane or walker to make sure they have nonskid covers. Move slowly from room to room. Dont evans. Sit down to get dressed. Use a nancy pack or backpack to keep your hands free. Get help for jobs that mean climbing, even on a stepstool. [employer] Patient Education Copyright 2008 - 2010 [employer] except where otherwise noted. Urinary Incontinence Plan of Care Documentation: (This education is for all patients over 65 regardless of symptoms) Current medications reconciled. Patient encouraged to: Practice kegal exercises Provide education materials Use the restroom every 2 hours throughout the day Limit caffeine, alcohol, spicy foods and acidic foods Keep a bladder diary Limit fluid intake 3-4 hours before bed Lose weight Prevent constipation Take fluid pills at a time when you can get to the bathroom quickly Control sugar better if diabetic Limit fluid intake to 60 oz. per day Wear support stockings (TEDs)if you have edema Haleihg Saravia RN 03/02/2023 Kegel Exercises Kegel exercises dont require special clothing or equipment. Theyre easy to learn and simple to do. And if you do them right, no one can tell youre doing them, so they can be done almost anywhere. Your doctor, nurse, or physical therapist can answer any questions you have and help you get started. A Weak Pelvic Floor The pelvic floor muscles may weaken due to aging, and vaginal childbirth, injury, surgery, chronic cough, or lack of exercise. If the pelvic floor is weak, your bladder and other pelvic organs may sag out of place. The urethra may also open too easily and allow urine to leak out. Kegel exercises can help you strengthen your pelvic floor muscles so they can better support the pelvic organs and control urine flow. How Kegel Exercises Are Done Try each of the Kegel exercises described below. When youre doing them, try not to move your leg, buttock, or stomach muscles. While youre urinating, try to stop the flow of urine. Start and stop it as often as you can. Contract as if you were stopping your urine stream, but do it when youre not urinating. Tighten your rectum as if trying not to pass gas. Contract your anus, but dont move your buttocks. Helpful Hints Do your Kegels as often as you can. The more you do them, the faster youll feel the results. Pick an activity you do often as a reminder. For instance, do your Kegels every time you sit down. Tighten your pelvic floor before you sneeze, get up from a chair, cough, laugh, or lift. This protects your pelvic floor from injury and can help prevent urine leakage. Try to hold each Kegel for a slow count to five. You probably wont be able to hold them for thatlong at first, but keep practicing. It will get easier as your pelvic floor gets stronger. Eventually, special weights that you place in your vagina may be recommended to help make your Kegels even more effective. [employer] Patient Education Copyright 2008 - 2010 [employer] except where otherwise noted. Here are some helpful tips for your urinary incontinence: (This education is for all patients over 65 regardless of symptoms) Practice Kegel exercises Use the restroom every 2 hours throughout the day Limit caffeine, alcohol, spicy foods, and acidic foods Keep a bladder diary Limit fluid intake 3-4 hours before bed Lose weight Prevent constipation Take fluid pills at a time when can get to the bathroom quickly Control sugar better if diabetic Limit fluid intake to 60 oz. per day Any questions, please feel free to contact our office. Hi Humberto Rachel, As your primary care physician, I know that regular visits with my patients who have several chronic conditions can go a long way in helping you stay healthy. Many times, the clinic team and I are in touch with you and/or other care team members between office visits to adjust medications, discuss any changes in your health, and review our care plan to make sure it is still meeting your needs. I am dedicated to helping you take a more active role in your overall care. It is important that there are resources available to you, so I created a personalized plan of care with a Health Calendar for you, which is included on the next page of this letter. Below is a list that summarizes your electronic health record: Health Maintenance Due: Health Maintenance Due Topic Date Due Alpha-1 Antitrypsin Never done DXA Scan 2014 DISCUSS TOBACCO CESSATION (REFER TO SMARTSET #3291) 09/21/2018 COLONOSCOPY-EVERY 3 YRS AGES 18-100 07/28/2019 COVID-19 Vaccine (4 - Pfizer series) 08/05/2021 Depression Screening, Annual for Pts 12 and Over 03/01/2023 Influenza Vaccine (FLU shot) (1) 03/02/2023 Current Medication List: (as of Visit date not found (in office), Visit date not found (telemedicine) ) Current Outpatient Medications Medication Sig Dispense Refill Metoprolol Succinate ER 100 MG Oral Tablet [...] 24 Hour (toPROL XL) Take one tablet with the 100 mg to equal 125 mg a day. 270 Tablet 3 Sotalol HCl 160 MG Oral Tablet (Betapace) take 1 tablet by mouth twice a day 360 Tablet 3 Potassium Citrate ER 10 MEQ (1080 MG) Oral Tablet Extended Release (Urocit- K) take 1 tablet by mouth every morning and 1 tablet by mouth BEFORE BEDTIME 180 Tablet 2 Levothyroxine Sodium 25 MCG Oral Tablet (Levoxyl) take 1 tablet by mouth once daily AT LEAST 30MINUTES PRIOR TO BREAKFAST/OTHER MEDS 90 Tablet 2 [...] by mouth once daily 90 Tablet 1 EPIPEN 0.3 MG/0.3ML IJ SHAILA One injection into thigh as needed for severe allergic reaction 2 Device 1 NEBULIZER COMPRESSOR MISC Use as directed 1 Each 1 ondansetron (ZOFRAN) 4 MG Tablet Take 1 Tab by mouth every 6 hours as needed for Nausea. 30 Tab1 levalbuterol (XOPENEX) 1.25 MG/3ML nebulizer solution Inhale 3 mL via nebulizer every 8 hours as needed for Wheezing. 120 mL 0 Premarin 0.625 MG/GM Vaginal Cream (Estrogens, Conjugated) Administer into the vagina 1 g in the morning. 42.5 g 12 No current facility-administered medications for this visit. Current List of Allergies: (as of Visit date not found (in office), Visit date not found (telemedicine) ) Review of patient's allergies indicates: Allergen Reactions Zetia [Ezetimibe] Hives Adhesive Tape Rash Ciprofloxacin Eye drops, for pink eye and made her eye more red. Iodine hives Nitrofurantoin Diarrhea SOB Diarrhea Plavix [Clopidogrel Bisulfate] Muscle pain Salicylates ASA throat swelling Most Recent Lab Results: Results for orders placed or performed in visit on 03/02/23 INR FINGERSTICK, POINT OF CARE Result Value Ref Range Fingerstick INR 2.8 INR *Note: Due to a large number of results and/or encounters for the requested time period, some results have not been displayed. A complete set of results can be found in Results Review. Sincerely, Jyoti Do, DO 03/02/2023 [facility] (as of Visit date not found (in office), Visit date not found (telemedicine) ) Care needs Care needs Last completed Due next Alpha-1 Antitrypsin --- Never done Bone Density 2007 2014 Discuss quitting tobacco use 09/21/2017 (COURSE COMPL) 09/21/2018 Colonoscopy - every 3 years 07/28/2016 07/28/2019 COVID-19 Vaccine (4 - Pfizer series) 06/10/2021 08/05/2021 Flu vaccine (recommended) (1) 05/17/2022 03/02/2023 A1C blood sugar test 05/17/2022 05/17/2023 Yearly thyroid level check 08/02/2022 08/02/2023 Yearly COPD oxygen test 10/18/2022 10/19/2023 Urine albumin/creatinine test 02/23/2023 02/24/2024 Diphtheria, tetanus & pertussis vaccines (2 - Td or Tdap) 03/16/2014 03/16/2024 As you look over the recommended services, be sure to check with your insurance company to determine what's covered. [employer] is a great tool that helps you review your medical record online, including test results, doctor notes and your health summary. You can also schedule appointments with me and other members of your care team, request prescription refills and ask for advice related to your medical conditions at [email or web address]. documented in this encounter Progress Notes * Haleigh Saravia RN - 03/02/2023 10:39 AM EDT AD8 Dementia Screening Interview Person answering questions: patient Remember, "Yes, a change" indicates that there has been a change in the last several years caused by cognitive (thinking and memory) problems 1. Problems with judgement (eg: problems making decisions, bad financial decisions, problems with thinking). No (0) 2. Less interest in hobbies/activities. No (0) 3. Repeats the same things over and over (questions, stories, or statements). No (0) 4. Trouble learning how to use a tool, appliance, or gadget (eg: VCR, computer, microwave, remote control). No (0) 5. Forgets correct month or year. No (0) 6. Trouble handling complicated financial affairs (eg: balancing checkbook, income taxes, paying bills). No (0) 7. Trouble remembering appointments. No (0) 8. Daily problems with thinking and/or memory. No (0) TOTAL AD8: 0 - AD8 Dementia Screening Score The final score is a sum of the number items marked "Yes, A Change". 0 - 1: Normal cognition; 2 or greater: Cognitive impairments is likely to be present - further testing required Adult Annual Wellness Visit: Sonia Ramos is a 87 year old female who presents for an Adult Annual Wellness Visit. Depression Screening: Did the patient complete the screening questionnaire for Depression? Yes Is the patient's total score for Depression 15 or greater? No, no further intervention needed, unless requested by patient. Did the patient answer positively to the suicide question? No, no further intervention needed, unless requested by patient. In general, compared to other people your age, what would you say that your health is? Good Ht Readings from Last 1 Encounters: 03/02/23 1.651 m (5' 5") Wt Readings from Last 1 Encounters: 03/02/23 83.8 kg (184 lb 11.2 oz) Body Mass Index: BMI Greater than 30 Body mass index is 30.74 kg/m. BP Readings from Last 1 Encounters: 03/02/23 118/60 Medical/Surgical/Family History Reviewed: Yes Past Medical History: Diagnosis Date Atrial fibrillation (HCC) Atrial tachycardia (HCC) Benign neoplasm of colon 10/10/07 adenomatous; repeat colonoscopy in 3 yrs Benign neoplasm of colon 12/06/10 diverticulosis, polyps x4 -adenomatous tissue --repeat in 3 yrs COPD, severity to be determined (HCC) Dyslipidemia, goal to be determined Esophageal reflux HTN, goal below 140/90 Idiopathic urticaria TIA (transient ischemic attack) Tobacco use disorder smoked about 34 years. Uterine cancer (HCC) at age 33. Past Surgical History: Procedure Laterality Date CARPAL TUNNEL SURGERY Left 09/03/2017 [place] COLONOSCOPY 09/03 nl - repeat 5 yrs COLONOSCOPY W/ LESION REMOVAL, CAUTERY 12/17/02 sigmoid polyp; repeat 3 years if benign COLONOSCOPY W/ LESION REMOVAL, SNARE 12/06/2010 diverticulosis, polyps x4 -adenomatous tissue --repeat in 3 yrs COLONOSCOPY, DIAGNOSTIC (RECTUM) 07/28/2016 adenomatous polyps, diverticulosis, repeat 3 yrs/COLONOSCOPY FLEXIBLE PROXIMAL DIAGNOSTIC performedby Freddy Pearson MD at ENDOSCOPY [facility] CYSTO/URETERO W/LITHOTRIPSY 11-12-2015 CYSTO/URETERO W/LITHOTRIPSY Bilateral 11/12/2015 CYSTOURETHROSCOPY URETEROSCOPY WITH LITHOTRIPSY AND STENT INSERTION performed by Brandi Blood MD at OR [facility] CYSTO/URETERO W/LITHOTRIPSY Left 11/15/2018 CYSTOURETHROSCOPY URETEROSCOPY WITH LITHOTRIPSY AND STENT INSERTION performed by Brandi Blood MD at OR [facility] CYSTO/URETERO W/LITHOTRIPSY Left 11/22/2018 CYSTOURETHROSCOPY URETEROSCOPY WITH LITHOTRIPSY AND STENT INSERTION performed by Brandi Blood MD at OR [facility] CYSTOSCOPY 01-22-07 CYSTOSCOPY 03-26-07 stent removal CYSTOSCOPY 08/11/2008 CYSTOSCOPY 09/07/2010 cysto/left retrograde pyelogram/stent placement CYSTOSCOPY 09-20-2010 stent removal CYSTOSCOPY 06-16-2011 stent placed CYSTOSCOPY 10-26-2014 CYSTOSCOPY 11-19-2015 CYSTOSCOPY/INSERTION OF STENT 08/27/07 CYSTOURETHROSCOPY WITH INSERTION URETERAL STENT performed by BRANDI BLOOD at OR [facility] CYSTOSCOPY/REMOVE OBJECT, SIMPLE Bilateral 11/27/2014 CYSTOURETHROSCOPY WITH FOREIGN BODY REMOVAL SIMPLE performed by Brandi Blood MD at [facility] CYSTOURETERO W/LITHOTRIPSY 08/27/07 CYSTOURETHROSCOPY URETROSCOPY WITH LITHOTRIPSY performed by BRANDI BLOOD at OR [facility] CYSTOURETRO &/OR PYELOSCOPE Right 11/27/2014 CYSTOURETHROSCOPY URETROSCOPY AND OR PYELOSCOPY performed by Brandi Blood MD at OR [facility] FRAGMENT KIDNEY STONE BY SHOCK WAVE 08/21/2008 FRAGMENT KIDNEY STONE BY SHOCK WAVE 09-02-2010 ESWL (Extracorporeal Shock Wave Lithotripsy) FRAGMENT KIDNEY STONE BY SHOCK WAVE 06-16-2011 ESWL (Extracorporeal Shock Wave Lithotripsy) LAPAROSCOPY; CHOLECYSTECTOMY 11/02 Cholecystectomy, Laproscopic LEFT HEART CATHETERIZATION 12/19/2001 cardiac cath normal study MISCELLANEOUS ORDER ([facility] ONLY) Age 20 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 Mucocele right max. TOTAL ABD HYSTERECTOMY W/WO REMOVAL OF TUBE(S) age 33 Total Abd Hysterectomy with bilateral salpingo-oophorectomy Family History Problem Relation Age of Onset Allergies Daughter rhinitis Cancer Daughter Colon Ca age 33. Cancer Daughter Appendix Cancer Sister Salivary Glands Has patient ever had cancer? 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 Yes Hospital Care: Admissions (within the last year): Not Applicable ER within 30 days: No Does the patient have an Advance Directives/Living Will? Yes Last Physical Exam: Last physical exam: 02/23/2023 Does patient see primary provider regularly? Yes Does patient see other providers? Yes, Specialist Patient Care Team updated? Yes Review of patient's allergies indicates: Allergen Reactions Zetia [Ezetimibe] Hives Adhesive Tape Rash Ciprofloxacin Eye drops, for pink eye and made her eye more red. Iodine hives Nitrofurantoin Diarrhea SOB Diarrhea Plavix [Clopidogrel Bisulfate] Muscle pain Salicylates ASA throat swelling Immunization History Administered Date(s) Administered COVID-19 mRNA, LNP-s, No Preserve, 2-Dose Series ([employer]) 09/15/2020, 10/06/2020, 06/10/2021 Pneumococcal Conjugate Vacc, 13 Valent (Prevnar) 02/24/2015 Pneumococcal Polysaccharide PPV23 (Pneumovax) 04/23/2007 Seasonal Influenza, PF, 6 mons & Above, IM , (Flulaval) 04/09/2017, 04/24/2018, 03/19/2019, 03/17/2020 Seasonal Influenza, Quadrivalent Hd (Fluzone Hd) 04/29/2021, 05/17/2022 Seasonal Influenza, Quadrivalent, No Preserve, IM 03/29/2015, 05/18/2016 Seasonal Influenza, Split, IIV3, With Preserve, Inj 04/29/2003, 04/24/2006, 04/23/2007, 04/27/2008,05/24/2009, 04/01/2010, 03/27/2011, 04/19/2012, 03/19/2013, 03/16/2014 TD, Preservative Free 04/27/2008 TDAP (age 10 and older)(Boostrix) 03/16/2014 Varicella Vaccine (Chicken Pox) 05/25/2006 Varicella Zoster Vaccine (Adult) 04/30/2014 Zoster Vaccine Recombinant (Shingrix) 02/28/2019, 12/17/2019 Current Outpatient Medications Medication Sig Dispense Refill Metoprolol Succinate ER 100 MG Oral Tablet [...] by mouth once daily 90 Tablet 1 EPIPEN 0.3 MG/0.3ML IJ SHAILA One injection into thigh as needed for severe allergic reaction 2 Device 1 NEBULIZER COMPRESSOR MISC Use as directed 1 Each 1 ondansetron (ZOFRAN) 4 MG Tablet Take 1 Tab by mouth every 6 hours as needed for Nausea. 30 Tab 1 levalbuterol (XOPENEX) 1.25 MG/3ML nebulizer solution Inhale 3 mL via nebulizer every 8 hours as needed for Wheezing. 120 mL 0 Premarin 0.625 MG/GM Vaginal Cream (Estrogens, Conjugated) Administer into the vagina 1 g in the morning. 42.5 g 12 No current facility-administered medications for this visit. 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 Yes Patient takes medications as prescribed? Yes Patient manages own medications: Yes Patient uses a pill box? Yes, refill(s) completed by self Dental Exam: Yes: Every 6 Months Eye Screening: Yes: Every year Are you having trouble with hearing? Yes, history of cancer left ear Do you use an assistive device to help your hearing? No Exercise Screening: does not exercise regularly, doing PT Nutrition Assessment: Eats a balanced diet and Eats three meals a day Pain Screening: Are you having any pain? Yes. Pain Scale: 1 out of 10; Location: lt hip, When: few months, Duration: comes and goes, Aggravating Factors: walking, Relieved by: sitting Sleep Screening Tool 'STOP': Do you snore? No Do you feel fatigued during the day? No Do you wake up feeling like you haven't slept? No Have you been told you stop breathing at night? No Do you gasp for air or choke while sleeping? No Have you been told you have Sleep Apnea? No Do you have high blood pressure or are on medication(s) to control high blood pressure? Yes SCORE: If you check YES to two or more questions, make a referral for Obstructive Sleep Apnea Was evaluated previously - no sleep apnea Patient and Caregiver Support System: Patient lives alone Means of Transportation: Drives. Not a concern. Patient lives in Two Story - How many stairs: 13 with hand railing Community Resources: Not Applicable Functional Status and ADL Skills: Has patient ever had an amputation? No Functional Assessment: 80- Normal activity with effort: some symptoms of disease Ambulation: Patient ambulates with assistive device. Cane Dressing: Gets clothes and dresses without any assistance: Independent Able to move freely in chair or bed including turning over: Independent Repositioning (bed or chair): Not applicable Transfers: Independent Toileting: Goes to bathroom, uses toilet, arranges clothes and returns without any assistance: Independent Toileting: continent of bowel and incontinent of bladder Feeding: Self Bathing: Self; tub, shower chair, grab bars, mat step out onto Requires none assistance with ADLs. Instrumental ADL's: Shopping: Independent Housekeeping: Minimal Assistance Handling Finances: Independent DME Vendor Name: Not Applicable Fall Risk Assessment: Can the patient demonstrate that she can stand from a sitting position? Yes Has the patient had a fall within the last 6 months? No Does the patient have a problem with her gait or balance? Yes Does the patient take 4 or more prescription medicines? Yes Does the patient use sedatives or narcotics? No Fall Risk Factors Present: Uses more than 4 medications Uses assistive devices Balance or gait disturbances Older than age 70 Ses-Jm-fij-Go Test: Time began at 1000. Patient stood from sitting position and walked approximately 10 feet, returned and sat down. Total time for wdz-ov-kws-go test was 14 seconds. Tsb-Gh-bmw-Go Test completed? Yes Gender Specific Preventative Plan: Health Maintenance Topic Date Due Alpha-1 Antitrypsin Never done DXA Scan 2014 DISCUSS TOBACCO CESSATION (REFER TO SMARTSET #7522) 09/21/2018 COLONOSCOPY-EVERY 3 YRS AGES 18-100 07/28/2019 COVID-19 Vaccine (4 - Pfizer series) 08/05/2021 Depression Screening, Annual for Pts 12 and Over 03/01/2023 Influenza Vaccine (FLU shot) (1) 03/02/2023 HbA1c 05/17/2023 CKD HGB USE SMARTSET 43242 05/17/2023 TSH 08/02/2023 O2 ASSESSMENT COMPLETED IN PAST YEAR FOR COPD 10/19/2023 Albumin/Creatinine Ratio 02/24/2024 CKD PHOS USE SMARTSET 23931 02/24/2024 DTaP,Tdap,and Td Vaccines (2 - Td or Tdap) 03/16/2024 Zoster Vaccines Completed Pneumococcal Vaccine: 65+ Years Completed Hepatitis B Aged Out MENINGOCOCCAL (MENACTRA/MENVEO) Aged Out GARDASIL-HPV IMMUNIZATION SERIES Aged Out Follow Up/ Referrals/Handouts: Depression screening - Completed Functional assessment - Completed Falls Risk screening - Completed, handouts given Exercise screening - Encouraged to be as active as able Nutrition assessment -. Education Provided and Handouts Provided Pain screening - Chronic Lt hip pain, no new concerns Incontinence screening - Urinary incontinence, no new concerns Routine general medical examination at a health care facility (Primary) Risk and functional assessment Prediabetes Component Latest Ref Rng 05/17/2022 Hemoglobin A1C 4.0 - 5.6 % 5.6 Estimated Average Glucose <126 mg/dL 114 Continue to monitor and follow with PCP Hypothyroidism, unspecified type Component Latest Ref Rng 08/02/2022 TSH 0.27 - 4.20 uIU/mL 1.00 -Med reconciliation completed and compliance discussed. - pt to continue present medications. Continue to monitor and follow with PCP Dyslipidemia, goal LDL below 100 Component Latest Ref Rng 05/06/2021 LDL Cholesterol <=129 mg/dL 77 -Med reconciliation completed and compliance discussed. - pt to continue present medications. Continue to monitor and follow with PCP Asthma in COPD Continue to monitor and follow with PCP Paroxysmal A-fib (HCC) -Med reconciliation completed and compliance discussed. - pt to continue present medications. Continue to monitor and follow with Cardiology HTN, goal below 140/90 BP Readings from Last 3 Encounters: 03/02/23 118/60 02/23/23 11810/18/22 122/68 -Med reconciliation completed and compliance discussed. - pt to continue present medications. Continue to monitor and follow with PCP Chronic kidney disease, stage 3a (HCC) Continue to monitor and follow with Nephrology Patient has been verbally educated on the need or importance of Colon Cancer Screening, Dexa Scan, and Immunizations: Influenza Patient is planning to get Influenza vaccine later in the fall Patient declined colonoscopy and Dexa scan Discussed importance of Covid Vaccine: pt has received the vaccine Yes, Patient has received both doses of Covid vaccine and 1 booster. Confirmed in Immunization record. Would patient like to schedule next AWV visit? Yes Haleigh Saravia RN Urinary Incontinence Plan of Care Documentation: (This education is for all patients over 65 regardless of symptoms) Current medications reconciled. Patient encouraged to: Practice kegal exercises Provide education materials Use the restroom every 2 hours throughout the day Limit caffeine, alcohol, spicy foods and acidic foods Keep a bladder diary Limit fluid intake 3-4 hours before bed Lose weight Prevent constipation Take fluid pills at a time when you can get to the bathroom quickly Control sugar better if diabetic Limit fluid intake to 60 oz. per day Wear support stockings (TEDs)if you have edema Haleigh Saravia RN 03/02/2023 documented in this encounter Miscellaneous Notes * Pt Handout (not on AVS) - Haleigh Saravia RN - 03/02/2023 11:00 AM EDT [id number] Fall Prevention Falls often take place due to slipping, tripping, or losing your balance. Millions of people fall every year and injure themselves. Among older adults in the [place] falls are the most common cause of traumatic brain injuries. Every 20 minutes, an older adult dies from a fall. Here are ways to reduceyour risk of falling again: Think about your fall. Was there anything that caused your fall that can be fixed, removed, or replaced? Make your home safe by keeping walkways clear of objects you may trip over, such as electrical cords. Use nonslip pads under rugs. Don't use area rugs or small throw rugs. Use nonslip mats in bathtubs and showers. Hang grab rails by the toilet and inside and outside the shower. Install handrails and lights on staircases. The handrails should be on both sides of the stairs. Use night lights. Don't walk in poorly lit areas. Don't stand on chairs or wobbly ladders. Use care when reaching overhead or looking up. This position can cause a loss of balance. Be sure your shoes fit well, are in good condition, and have nonslip bottoms. Wear shoes both inside and outside of your home. Don't go barefoot or wear slippers. Be cautious when going up and down stairs, curbs, and when walking on uneven sidewalks. If your balance is poor, consider using a cane or walker. Talk with your healthcare provider about having a balance assessment. If your fall was related to alcohol use, stop or limit alcohol intake. Ask your provider for help if you think you may overuse alcohol and can't stop. If your fall was related to use of sleeping medicines, talk with your provider about this. You may need to reduce your dosage at bedtime if you wake up during the night to go to the bathroom. To reduce the need for nighttime bathroom trips: o Don't drink fluids for several hours before going to bed o Empty your bladder before going to bed o Men can keep a urinal at the bedside Stay as active as you can. Balance, flexibility, strength, and endurance all come from exercise.They all play a role in preventing falls. Ask your provider which types of activity are right for you. Try to do some type of exercise every day. Get your eyes checked once a year or more often if your vision changes If you have pets, know where they are before you stand up or walk so you don't trip over them. Go over all your medicines with a pharmacist or other provider. This is to see if any of them could make you more likely to fall. Have this type of medicine review at least once every year. If your provider advises a new medicine, ask if the side effects will affect your balance. Don't move quickly from one position to another. For instance, don't stand up fast from sitting.This can cause dizziness and may lead to a fall. Sit down when putting on pants, socks, and shoes. This will make you less likely to lose your balance and fall. Always let your provider know if you have fallen since your last visit. Contact your provider right away if you're having balance problems or falling more often. Last Reviewed Date: 07/02/202119995054-0282 [employer]. All rights reserved. This information is not intended as a substitute for professional medical care. Always follow your healthcare professional's instructions. * Pt Handout (not on AVS) - Haleigh Saravia RN - 03/02/2023 11:00 AM EDT Images from the original note were not included. [id number] 5 Steps for Eating Healthier Changing the way you eat can improve your health. It can lower your cholesterol and blood pressure,and help you stay at a healthy weight. Your diet doesn?t have to be bland and boring to be healthy.Just watch your calories and follow these steps: Step 1. Eat fewer unhealthy fats Choose more fish and lean meats instead of fatty cuts of meat. Skip butter and lard, and use less margarine. Replace these with healthier fats, such as olive, canola, or avocado oils. Pass on foods that have palm, coconut, or partially hydrogenated oils. Eat fewer high-fat dairy foods like cheese, ice cream, and whole milk. Get a heart-healthy cookbook and try some new recipes. Step 2. Go light on salt Keep the saltshaker off the table. Limit high-salt ingredients, such as soy sauce, bouillon, and garlic salt. Instead of adding salt when cooking, season your food with herbs, spices, and other flavorings. Try lemon, garlic, onion, vinegar, or salt-free herb seasonings. Limit convenience foods, such as boxed or canned foods and restaurant food. Read food labels and choose lower-sodium options. Buy fresh, frozen, or canned vegetables that don't have added salt. Step 3. Limit sugar Pause before you add sugars to pancakes, cereal, coffee, or tea. This includes white and brown table sugar, syrup, honey, and molasses. Cut your usual amount by half. Swap out sugar-filled soda and other drinks. Buy sugar-free or low-calorie beverages. Remember, water is always the best choice. Try adding lemon juice to water for extra flavor. Read labels and choose foods with less added sugar. Keep in mind that dairy foods and foods withfruit will have some natural sugar. Cut the sugar in recipes by 1/3 to 1/2. Boost the flavor with extracts like almond, vanilla, or orange. Or add spices such as cinnamon or nutmeg. Step 4. Eat more fiber Eat fresh fruits and vegetables every day. Boost your diet with whole grains. Go for oats, whole-grain rice, and bran. Add beans and lentils to your meals. Drink more water to match your fiber increase to help prevent constipation. Step 5. Pay attention to serving sizes Remember that a serving size is a standard measurement. It will let you track the amount of fat,calories, and other nutrients in the food you eat. Read the Nutrition Facts label on packaged foods to learn their serving sizes. Use serving sizes to assess how much food you put on your plate. Pay attention to your portions.How many servings are you eating? Keep in mind that your needs may change if you?re more active or less active, or if you have other factors that change your calorie needs. Use your hand to help you measure serving sizes. For example: o 1 teaspoon: This is about the size of the first joint of your thumb. o 1 tablespoon: This is about the size of the first 2 joints of your thumb. o 1 ounce: This is about what you can fit in your cupped hand. o 2 to 3 ounces: This is about the size of the palm of your hand. o cup: This is also about what you can fit in your cupped hand. o 1 cup: This is about the size of your fist. Last Reviewed Date: 06/01/202219995180-6934 [employer]. All rights reserved. This information is not intended as a substitute for professional medical care. Always follow your healthcare professional's instructions. documented in this encounter Plan of Treatment Upcoming Encounters Date Type Specialty Care Team Description 03/23/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 [facility] [address] [place] [address] 04/26/2023 Office Visit Cardiology Andrzej Urena MD [address] [place] [address] 06/13/2023 Office Visit Family Medicine Jyoti Do DO [address] [place] [facility] [place] [address] 06/26/2023 Office Visit Dermatology Rossy Cain PA-C [address] [place] [address] [place] [address] 07/31/2023 Cardiac Studies Cardiology [facility] [address] [place] [address] 09/05/2023 Office Visit Nephrology Rich Dick MD [address] [address] 03/05/2024 Nurse Only [facility] Nurse Annual [facility] [address] [place] [facility] [place] [address] Health Maintenance Due Date Last Done Comments Alpha-1 Antitrypsin 1953 DXA Scan 2014 2007, 08/2006, 2007, Additional history exists DISCUSS TOBACCO CESSATION (REFER TO SMARTSET #3291) 09/21/2018 09/21/2017 (Course Completed) COLONOSCOPY-EVERY 3 YRS AGES 18-100 07/28/2019 07/28/2016, 07/28/2016, 12/06/2010, Additional history exists COVID-19 Vaccine (4 - Pfizer series) 08/05/2021 06/10/2021, 10/06/2020, 09/15/2020 Depression Screening, Annual for Pts 12 and Over 03/01/2023 03/01/2022 Influenza Vaccine (FLU shot) (#1) 2023 05/17/2022, 04/29/2021, 03/17/2020, Additional history exists CKD HGB USE SMARTSET 25773 05/17/202305/17, 11/07/2021, 11/07/2021, Additional history exists HbA1c 05/17/2023 05/17/2022, 10/30, 08/12/2010, Additional history exists TSH 08/02/2023 08/02/2022, 05/02, 11/11/2021, Additional history exists O2 ASSESSMENT COMPLETED IN PAST YEAR FOR COPD 10/19/2023 10/18/2022 Albumin/Creatinine Ratio 02/24/2024 02/23/2023, 10/30 CKD PHOS USE SMARTSET 02009 02/24/202401/31, 11/07/2021, 05/06/2021, Additional history exists DTaP,Tdap,and Td Vaccines (2 - Td or [...] as of this encounter Visit Diagnoses Diagnosis Routine general medical examination at a health care facility- Primary Risk and functional assessment Screening for unspecified condition Prediabetes Other abnormal glucose Hypothyroidism, unspecified type Dyslipidemia, goal LDL below 100 Other and unspecified hyperlipidemia Asthma in COPD Chronic obstructive asthma, unspecified Paroxysmal A-fib (HCC) Atrial fibrillation HTN, goal below 140/90 Unspecified essential hypertension Chronic kidney disease, stage 3a (HCC) documented in this encounter Advance Directives Latest [...] 8:13 AM 08/27/2007 3:51 PM Care Teams Drapery Inspector Relationship Specialty Start Date End Date Jyoti Do, [address] [place] [facility] [place] [address] PCP - General Family Medicine 08/08/18 documented as of this encounter
--- OUTSIDE RECORDS SUMMARY | 2023-06-09 00:02 | External Medical Summary | Summary of Care ---
Author Name Unknown Organization [facility] Address [address] [place] [address] Phone [phone] Care Team Providers Care Neonatal Doctor Name Role Phone Jyoti Do DO Primary Care Provider + [phone] Reason for Visit * Reason Comments NEW PATIENT Right foot callus * Evaluate & Treat - Unlimited Visits (Within 10 days (routine)) - Authorized Specialty Diagnoses / Procedures Referred By Gustavo candelario Referred To Contact Podiatry Diagnoses Callus of toe Jyoti Do DO [address] [place] [address] Referral ID Status Reason Start Date Expiration Date Visits Requested Visits Authorized [id number] Authorized Specialty Services Required 02/23/[phone] Encounter Details Date Type Department Care Team Description 02/27/2023 Office [facility] [address] [facility] [place] [address] [facility]ae [facility]oz DPM [address] [facility] [address] Pain of toe of right foot*; Mallet toe of right foot; Callus; Callus of toe [L84 (ICD-10-CM)] Allergies Active Allergy Reactions Severity Noted Date Comments Adhesive Tape 10/30/2001 Rash Ciprofloxacin 09/29/2015 Eye drops, for pink eye and made her eye more red. Iodine 03/06/2000 hives Nitrofurantoin Diarrhea 03/08/2012 SOB Diarrhea Clopidogrel Bisulfate Muscle pain 08/18/2009 Salicylates 03/06/2000 ASA throat swelling Ezetimibe Hives Medium 01/19/2009 documented as of this encounter (statuses as of 02/27/2023) Medications Medication Sig Dispensed Refills Start Date End Date Status EPIPEN 0.3 MG/0.3ML IJ DEVIIndications:Ang ioneurotic edema One injection into thigh as needed for severe allergic reaction 2 Device 1 11/21/2011 Active NEBULIZER COMPRESSOR MISCIndications:CIRCUIT RIDER D exacerbation ([facility]),Asthma with COPD (chronic obstructive pulmonary disease) ([facility]),Wheezing Use as directed 1 Each 1 10/02/2014 [...] A-fib (HCC),Anticoagulate d on Coumadin,Anticoagul ation management encounter,correction current use of anticoagulant therapy Take 1 Tablet by mouth every evening. As directed. New tablet strength. 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 0 08/13/2015 [...] as of this encounter (statuses as of 02/27/2023) Immunizations Name Administration Dates Next Due COVID-19 mRNA, LNP-s, No Pre serve, 2-Dose Series (Fulcrum SP Materials) 06/10/2021,10/06/2020,09/15/2020 Pneumococcal Conjugate Vacc, 13 Valent (Prevnar) 02/24/2015 Pneumococcal Polysaccharide PPV23 (Pneumovax) 04/23/2007 Seasonal Influenza, PF, 6 mo ns & Above, IM , (Flulaval) 03/17/2020,03/19/2019,04/24/2018,10/0 03/2017 Seasonal Influenza, Quadriva lent Hd [...] as of this encounter Progress Notes * Rae Munoz, SHIVA - 02/27/2023 1:59 PM EDT Podiatry New Patient Note [facility] Name: Sonia Ramos : 1935 Date: 02/27/2023 CHIEF COMPLAINT: Right 3rd toe pain HISTORY OF PRESENT ILLNESS: This patient is a 87 year old female who presents today with complaintsof right 3rd toe pain. Pt states for the past couple of months she has noticed increased pain to the end of her 3rd toe, right foot. She noticed a callus on the end of the toe and is painful to walk on it. She presents wearing sneakers and using a cane. Denies any other complaints. Past Medical History: Diagnosis Date Atrial fibrillation [...] DIAGNOSTIC performedby Freddy Pearson MD at ENDOSCOPY [facility] CYSTO/URETERO W/LITHOTRIPSY 11-12-2015 CYSTO/URETERO W/LITHOTRIPSY Bilateral 11/12/2015 CYSTOURETHROSCOPY URETEROSCOPY WITH LITHOTRIPSY AND STENT INSERTION performed by Brandi Blood MD at OR [facility] CYSTO/URETERO W/LITHOTRIPSY Left 11/15/2018 CYSTOURETHROSCOPY URETEROSCOPY WITH LITHOTRIPSY AND STENT INSERTION performed by Brandi Blood MD at OR [facility] CYSTO/URETERO W/LITHOTRIPSY Left 11/22/2018 CYSTOURETHROSCOPY URETEROSCOPY WITH LITHOTRIPSY AND STENT INSERTION performed by Brandi Blood MD at OR [facility] CYSTOSCOPY 01-22-07 CYSTOSCOPY 03-26-07 stent removal CYSTOSCOPY 08/11/2008 CYSTOSCOPY 09/07/2010 cysto/left retrograde pyelogram/stent placement CYSTOSCOPY 09-20-2010 stent removal CYSTOSCOPY 06-16-2011 stent placed CYSTOSCOPY 10-26-2014 CYSTOSCOPY 11-19-2015 CYSTOSCOPY/INSERTION OF STENT 08/27/07 CYSTOURETHROSCOPY WITH INSERTION URETERAL STENT performed by BRANDI BLOOD at OR [facility] CYSTOSCOPY/REMOVE OBJECT, SIMPLE Bilateral 11/27/2014 CYSTOURETHROSCOPY WITH FOREIGN BODY REMOVAL SIMPLE performed by Brandi Blood MD at OR [facility] CYSTOURETERO W/LITHOTRIPSY 08/27/07 CYSTOURETHROSCOPY URETROSCOPY WITH LITHOTRIPSY performed by BRANDI BLOOD at OR [facility] CYSTOURETRO &/OR PYELOSCOPE Right 11/27/2014 CYSTOURETHROSCOPY URETROSCOPY AND OR PYELOSCOPY performed by Brandi Blood MD at OR 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 Mucocele right max. TOTAL ABD HYSTERECTOMY W/WO REMOVAL OF TUBE(S) age 33 Total Abd Hysterectomy with bilateral salpingo-oophorectomy Family History Problem Relation Age of Onset Allergies Daughter rhinitis Cancer Daughter Colon Ca age 33. Cancer Daughter Appendix Cancer Sister Salivary Glands Social History Socioeconomic History Marital status: Tobacco Use Smoking status: Some Days Packs/day: 0.05 Years: 40.00 Pack years: 2.00 Types: Cigarettes Passive exposure: Current (Off and On around passive smoke) Smokeless tobacco: Never Tobacco comments: passive smoke now and a rare cigarette if playing poker Vaping Use Vaping Use: Never used Substance and Sexual Activity Alcohol use: No Drug use: No Sexual activity: Not Currently Social History Narrative Lives alone. 13 steps, she sleeps upstairs. Has to go down stairs to go to bathroom. No walker or no cane. Retired Worked for [employer] Determinants of Health Food Insecurity: No Food Insecurity Worried About Running Out of Food in the Last Year: Never true Ran Out of Food in the Last Year: Never true Current Outpatient Medications Medication Sig Dispense Refill [...] g in the morning. 42.5 g 12 Metoprolol Succinate ER 100 MG Oral Tablet [...] by mouth once daily 90 Tablet 1 No current facility-administered medications for this visit. ALLERGIES: Review of patient's allergies indicates: Allergen Reactions Zetia [Ezetimibe] Hives Adhesive Tape Rash Ciprofloxacin Eye drops, for pink eye and made her eye more red. Iodine hives Nitrofurantoin Diarrhea SOB Diarrhea Plavix [Clopidogrel Bisulfate] Muscle pain Salicylates ASA throat swelling REVIEW OF SYSTEMS: CONSTITUTIONAL: No change in weight, No weakness, No fatigue, and No fevers, sweats, or chills EYE: No recent significant change in vision and No eye pain, redness, discharge EARS: No ear pain and No recent change in hearing NOSE: No history of frequent colds or sinusitis and No nasal stuffiness PULMONARY: No cough, sputum, or hemoptysis and No recent change in breathing CARDIOVASCULAR: No chest pain and No shortness of breath EXTREMITIES: 3rd toe pain, right foot SKIN/INTEGUMENTARY: No edema, No rash, and No itching NEUROLOGIC: Normal balance, No headaches, No seizures, and No weakness PSYCHIATRIC: No depression, No anxiety, and No psychosis RIGHT FOCUSED PODIATRIC EXAM: Vitals: There were no vitals filed for this visit. General: Patient is awake alert oriented to person place time. No apparent distress. Vascular: DP/PT pulses palpable CFT < 3 sec 1-5. No edema noted. Temperature gradient is normal warm to cold. Neurologic: Protective sensation intact to light touch. Sensation to sharp/dull is intact. There is no babinskiresponse elicited. Ankle clonus is absent. Dermatological: Skin is normal in appearance with no open lesions or interdigital macerations. Nails 1-5 are normalin length and thickness. Pedal hair is noted. Callus noted to the distal 3rd digit. Musculoskeletal: Minimal POP noted to the distal 3rd toe. Mallet toe noted to the 3rd toe. No pain with active or passive ROM of the digits or ankle joint. Muscle strength is 5/5 for all muscle groups of the lower extremity. DIAGNOSTIC STUDIES: None ASSESSMENT: Toe pain, 3rd toe, right foot Mallet toe, 3rd toe, right foot Callus PLAN: - Callus debrided to appropriate level with the use of a 15 blade x1. Pt felt much relief. - Dispensed crest pad and instructed on how to wear. - List of local nail care providers given. - Activity to tolerance - Ok to soak, if needed. - OTC pain medication to tolerance - Pt to RTC as needed. Instructed to call with any problems or questions. Rae Munoz DPM documented in this encounter Nursing Notes * HERACLIO Pagan - 02/27/2023 1:47 PM EDT Pt presents today as new patient for right foot calluses. States her 3rd toe is the one with it andis sore, does not hurt unless she moves it a certain way. documented in this encounter Plan of Treatment Upcoming Encounters Date Type Specialty Care Team Description 03/02/2023 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 Pharmacy [facility] [address], [place] [id number] 03/02/2023 Nurse Only Ancillary Nurse [facility] [address] [place] [address] 04/26/2023 Office Visit Cardiology Andrzej Urena MD [address] [place] [address] 06/13/2023 Office Visit Family Medicine Jyoti Do DO [address] [facility] [place] [address] 06/26/2023 Office Visit Dermatology Rossy Cain PA-C [address] [place] [address] [place] [address] 07/31/2023 Cardiac Studies [address] [facility] [address] [place] [address] 09/05/2023 Office Visit Nephrology Rich Dick [facility] [address] [facility] [phone] Scheduled Referrals Name Type Priority Associated Diagnoses Orde r Schedule PODIATRY REFERRAL OP Referral Within 10 days (routine) Callus of toe Ordered: 02/23/2023 Health Maintenance Due Date Last Done Comments [...] Additional history exists CKD HGB USE SMARTSET 96558 05/17/202305/17, 11/07/2021, 11/07/2021, Additional history exists HbA1c 05/17/2023 05/17/2022, 10/30, 08/12/2010, Additional history exists TSH 08/02/2023 08/02/2022, 05/02, 11/11/2021, Additional history exists O2 ASSESSMENT COMPLETED IN PAST YEAR FOR COPD 10/19/2023 10/18/2022 Albumin/Creatinine Ratio 02/24/2024 02/23/2023, 10/30 CKD PHOS USE SMARTSET 33965 02/24/2024 0810/2022, 11/07/2021, 05/06/2021, Additional history exists DTaP,Tdap,and Td [...] as of this encounter Visit Diagnoses Diagnosis Pain of toe of right foot- Primary Pain in limb Mallet toe of right foot Callus Corns and callosities Callus of toe [L84 (ICD-10-CM)] documented in this encounter Advance Directives Latest [...] 8:13 AM 08/27/2007 3:51 PM Care Teams Neonatal Doctor Relationship Specialty Start Date End Date Jyoti Do, [address] [place] [facility] [place] [address] PCP - General Family Medicine 08/08/18 documented as of this encounter
--- OUTSIDE RECORDS SUMMARY | 2023-06-09 00:02 | External Medical Summary ---
Author Name Unknown Address Unknown Organization : Laboratory Report Ordering Provider Test Date Status DONNY ALLISON 03/02/2023 09:44:48 Final Therapeutic ranges for non-o perative patients:
Prophylaxsis/treatment of DVT: (Range:2.0-3.0)
Treatment of pulmonary embolism:(Range:2.0-3.0)
Prevention of systemic embolism from:
-tissue heart valves
-acute myocardial infarction
-valvular heart disease
-atrial fibrillation
(Range: 2.0-3.0)
Mechanical prosthetic valves: (Range: 2.5-3.5) Observation Date Value Abnormality Reference (Units ) Status INR in Capillary blood by Coagulation assay 03/02/2023 09:44:48 2.8 (INR) Final Performing Location
--- OUTSIDE RECORDS SUMMARY | 2023-06-09 00:02 | External Medical Summary | Summary of Care ---
Author Name Unknown Organization [facility] Address [address] [place] [address] Phone [phone] Care Team Providers Care Cloth Weigher Name Role Phone Jyoti Do DO Primary Care Provider [phone] Reason for Visit * Reason Comments Dosage Adjustment In Person (Anticoag Cl inic) Encounter Details Date Type Department Care Team Description 03/02/2023 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 Pharmacy, [place] [address] [place] [address] [facility] [address] [place] [address] History of TIA (transient ischemic attack)*; Paroxysmal A-fib (HCC); Anticoagulated on Coumadin; 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 management encounter; 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 0 08/13/2015 [...] Progress Notes * Sena Uribe RPh - 03/02/2023 9:41 AM EDT Medication Therapy Disease Management - 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 Patient: Sonia Ramos | : 1935 Subjective Patient-Reported Symptoms: Patient Findings Negatives: Signs/symptoms of thrombosis, Signs/symptoms of bleeding, Change in health, Change in alcohol use, Change in activity, Upcoming invasive procedure, Missed doses, Extra doses, Change in medications, Change in diet/appetite, Bruising Objective Current Warfarin Dose As of 03/02/2023 Warfarin maintenance plan: 3.75 mg (2.5 mg x 1.5) every Wed; 2.5 mg (2.5 mg x 1) all other days INR Result As of 03/02/2023 INR goal: 2.0-3.0 INR used for dosin.8 (03/02/2023) Assessment & Plan Warfarin Plan As of 03/02/2023 Full warfarin instructions: 3.75 mg every Wed; 2.5 mg all other days No change documented: Sena Uribe RPh Next INR check: 03/23/2023 Repeat PT/INR in 3 week(s) Weekly dose: not changed Additional Dosing Information: Sena Uribe RPh Clinical Pharmacist 03/02/2023, 9:41 AM documented in this encounter Plan of Treatment Upcoming Encounters Date Type Specialty Care Team Description 03/23/2023 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 Pharmacy [facility] [address] [place] [address] 04/26/2023 Office Visit Cardiology Andrzej Urena MD [address] [place] [address] 06/13/2023 Office Visit Family Medicine Jyoti Do, DO [address] [facility] [address] 06/26/2023 Office Visit Dermatology Rossy Cain PA-C [address] [place] [address] [place] [address] 07/31/2023 Cardiac Studies Cardiology [facility] [address] [place] [address] 09/05/2023 Office Visit Nephrology Rich Dick MD [address] [place] [address] Health Maintenance Due Date Last Done Comments [...] Additional history exists CKD HGB USE SMARTSET 05859 05/17/202305/17, 11/07/2021, 11/07/2021, Additional history exists HbA1c 05/17/2023 05/17/2022, 10/30, 08/12/2010, Additional history exists TSH 08/02/2023 08/02/2022, 05/02, 11/11/2021, Additional history exists O2 ASSESSMENT COMPLETED IN PAST YEAR FOR COPD 10/19/2023 10/18/2022 Albumin/Creatinine Ratio 02/24/2024 02/23/2023, 10/30 CKD PHOS USE SMARTSET 06575 02/24/202401/31, 11/07/2021, 05/06/2021, Additional history exists DTaP,Tdap,and [...] Comments INR FINGERSTICK, POINT OF CARE STAT 03/02/2023 9:44 AM EDT History of TIA (transient ischemic attack) Paroxysmal A-fib (HCC) Anticoagulated on Coumadin 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 management encounter 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 therapy documented in this encounter Results * INR FINGERSTICK, POINT OF CARE (03/02/2023 9:44 AM EDT) Fingerstick INR 2.8 INR 9:46 AM EDT [facility] Blood 03/02/2023 9:44 AM EDT 03/02/2023 9:46 AM EDT Narrative [facility] - 03/02/2023 9:46 AM EDT Therapeutic ranges for non-operative patients: Prophylaxsis/treatment of DVT: (Range:2.0-3.0) Treatment of pulmonary embolism:(Range:2.0-3.0) Prevention of systemic embolism from: -tissue heart valves -acute myocardial infarction -valvular heart disease -atrial fibrillation (Range: 2.0-3.0) Mechanical prosthetic valves: (Range: 2.5-3.5) Sena Uribe [facility] LAB POINT OF CARE TEST DOCKED DEVICE UNSOLICITED RESULTS [facility] [address] [place], [place] [phone] documented in this encounter Visit Diagnoses Diagnosis History of TIA (transient ischemic attack)- Primary Transient ischemic attack (TIA), and cerebral infarction without residual deficits Paroxysmal A-fib (HCC) Atrial fibrillation Anticoagulated on Coumadin Encounter for therapeutic drug monitoring 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 management encounter Encounter for therapeutic drug monitoring 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
--- OUTSIDE RECORDS SUMMARY | 2023-06-09 00:03 | External Medical Summary | Summary of Care ---
Author Name Unknown Organization [facility] Address [address] [place] [address] Phone [phone] Care Team Providers Care Racket Stringer Name Role Phone Jyoti Do DO Primary Care Provider [phone] Reason for Visit * Reason Comments Dosage Adjustment In Person (Anticoag Cl inic) Encounter Details Date Type Department Care Team Description 02/13/2023 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 Pharmacy, [place] [address] [place] [address] [facility] [address] [place] [address] History of TIA (transient ischemic attack)*; Paroxysmal A-fib (HCC); Anticoagulated on Coumadin; 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 management encounter; 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 As directed. New tablet strength. Please dispense EMMA 90 Tablet 1 01/30/2023 Active Atorvastatin Calcium 20 MG Oral Tablet (Lipitor)Indication s:Dyslipidemia, goal LDL below 100 take 1 tablet by mouth once daily 90 Tablet 1 02/06/2023 Active documented as of this encounter (statuses as of 02/13/2023) Active Problems Problem Noted Date Hx of [...] as of this encounter (statuses as of 02/13/2023) Resolved Problems Problem Noted Date Resolved Date [...] as of this encounter (statuses as of 02/13/2023) Immunizations Name Administration Dates Next Due COVID-19 mRNA, LNP-s, No Pre serve, 2-Dose Series (Pfizer) 06/10/2021,10/06/2020,09/15/2020 Pneumococcal Conjugate Vacc, 13 Valent (Prevnar) 02/24/2015 Pneumococcal Polysaccharide PPV23 (Pneumovax) 04/23/2007 Seasonal Influenza, Quadriva lent Hd (Fluzone Hd) 05/17/2022,04/29/2021 Seasonal Influenza, Quadriva lent, No Preserve, 6 Mons & Above, IM 03/17/2020,03/19/2019,04/24/2018,03/2017 Seasonal Influenza, Quadriva lent, No Preserve, IM [...] this encounter Progress Notes * Sena Uribe [facility] - 02/13/2023 3:50 PM EDT Agree with plan as documented. Sena Uribe [facility] Clinical Pharmacist 02/13/2023, 3:50 PM * Johnny Lacy, Pharmacy [employer] Equipment Operator - 02/13/2023 1:22 PM EDT Medication Therapy Disease Management - 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 Patient: Sonia Ramos | : 1935 Subjective Patient-Reported Symptoms: Patient Findings Negatives: Signs/symptoms of thrombosis, Signs/symptoms of bleeding, Change in health, Change in alcohol use, Change in activity, Upcoming invasive procedure, Missed doses, Extra doses, Change in medications, Change in diet/appetite, Bruising Objective Current Warfarin Dose As of 02/13/2023 Warfarin maintenance plan: No maintenance plan INR Result As of 02/13/2023 INR goal: 2.0-3.0 INR used for dosin.2 (02/13/2023) Assessment & Plan Warfarin Plan As of 02/13/2023 Full warfarin instructions: 02/13: 2.5 mg; Otherwise 3.75 mg every Wed; 2.5 mg all other days Next INR check: 03/02/2023 Repeat PT/INR in 2 week(s) Weekly dose: established Additional Dosing Information: Description 01/30/23- changing to 2.5 mg tablets- pt counseled extensively on different color and new dosing. Johnny Lacy, Pharmacy [employer] Operator Clinical Pharmacist 02/13/2023, 1:22 PM documented in this encounter Plan of Treatment Upcoming Encounters Date Type Specialty Care Team Description 02/23/2023 Office Visit Family Medicine Jyoti Do, DO [address] [place] [address] 03/02/2023 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 Pharmacy [place] [address] [place] [address] 03/02/2023 Nurse Only Ancillary [place] Nurse [facility] [address] [facility] [place] [address] 04/26/2023 Office Visit Cardiology Andrzej Urena MD [address] [place] [address] 06/26/2023 Office Visit Dermatology Rossy Cain PA-C [address] [place] [address] [place] [address] 07/31/2023 Cardiac Studies Cardiology Amy [facility] [address] [place] [address] 09/05/2023 Office Visit Nephrology Rich Dick MD [address] [place] [place] [address] Health Maintenance Due Date Last Done Comments Alpha-1 Antitrypsin 1953 DXA Scan 2014 2007, 08/2006, 2007, Additional history exists DISCUSS TOBACCO CESSATION (REFER TO SMARTSET #3291) 09/21/2018 09/21/2017 (Course Completed) COLONOSCOPY-EVERY 3 YRS AGES 18-100 07/28/2019 07/28/2016, 07/28/2016, 12/06/2010, Additional history exists COVID-19 Vaccine (4 - Pfizer series) 08/05/2021 06/10/2021, 10/06/2020, 09/15/2020 CKD PHOS USE SMARTSET 91805 11/07/20220 03/2022, 05/06/2021, 01/01/2020, Additional history exists Albumin/Creatinine Ratio 11/17/2022 11/17/2021 Depression Screening, Annual for Pts 12 and Over 03/01/2023 03/01/2022 Influenza Vaccine (FLU shot) (#1) 2023 05/17/2022, 04/29/2021, 03/17/2020, Additional history exists CKD HGB USE SMARTSET 52059 05/17/202305/17, 11/07/2021, 11/07/2021, Additional history exists HbA1c 05/17/2023 05/17/2022, 10/30, 08/12/2010, Additional history exists TSH 08/02/2023 08/02/2022, 05/02, 11/11/2021, Additional history exists O2 ASSESSMENT COMPLETED IN PAST YEAR FOR COPD 10/19/2023 10/18/2022 DTaP,Tdap,and Td Vaccines (2 - Td or [...] Diagnosis Comments INR FINGERSTICK, POINT OF CARE EMMA 02/13/2023 1:26 PM EDT documented in this encounter Results * INR FINGERSTICK, POINT OF CARE (02/13/2023 1:26 PM EDT) Fingerstick INR 2.2 INR 1:27 PM EDT [facility] 56-01 Blood 02/13/2023 1:26 PM EDT 02/13/2023 1:27 PM EDT Narrative PARKER BUENO 56- - 02/13/2023 1:27 PM EDT Therapeutic ranges for non-operative patients: Prophylaxsis/treatment of DVT: (Range:2.0-3.0) Treatment of pulmonary embolism:(Range:2.0-3.0) Prevention of systemic embolism from: -tissue heart valves -acute myocardial infarction -valvular heart disease -atrial fibrillation (Range: 2.0-3.0) Mechanical prosthetic valves: (Range: 2.5-3.5) [facility] [place] [facility] POINT OF CARE TEST DOCKED DEVICE UNSOLICITED RESULTS PARKER BUENO [address] [place] [address] [phone] documented in this encounter Visit Diagnoses Diagnosis History of TIA (transient ischemic attack)- Primary Transient ischemic attack (TIA), and cerebral infarction without residual deficits Paroxysmal A-fib (HCC) Atrial fibrillation Anticoagulated on Coumadin Encounter for therapeutic drug monitoring 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 management encounter Encounter for therapeutic drug monitoring [facility] current use of anticoagulant therapy documented in [...] 8:13 AM 08/27/2007 3:51 PM Care Teams Racket Stringer Relationship Specialty Start Date End Date Jyoti Do, [address] [place] [address] [phone] PCP - General Family Medicine 08/08/18 documented as of this encounter"
--- OUTSIDE RECORDS SUMMARY | 2023-06-09 00:03 | External Medical Summary | Summary of Care ---
Author Name Unknown Organization [facility] Address [address] [place] [address] Phone [phone] Care Team Providers Care Editing Intern Name Role Phone Jyoti Do DO Primary Care Provider [phone] Reason for Visit * Reason Onset Date Comments Health Maintenance 02/09/2023 Encounter Details Date Type Department Care Team Description 02/09/2023 Telephone [facility] [address] [place] [address] Jyoti Do DO [address] [place] [address] Health Maintenance Allergies Active Allergy Reactions Severity Noted Date Comments Adhesive Tape 10/30/2001 Rash Ciprofloxacin 09/29/2015 Eye drops, for pink eye and made her eye more red. 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 ([facility]),Asthma with COPD (chronic obstructive pulmonary disease) (HCC),Wheezing [...] as of this encounter (statuses as of 02/09/2023) Active Problems Problem Noted Date Hx of [...] as of this encounter (statuses as of 02/09/2023) Resolved Problems Problem Noted Date Resolved Date [...] as of this encounter (statuses as of 02/09/2023) Immunizations Name Administration Dates Next Due COVID-19 mRNA, LNP-s, No Pre serve, 2-Dose Series (Pfizer) 06/10/2021,10/06/2020,09/15/2020 Pneumococcal Conjugate Vacc, 13 Valent (Prevnar) 02/24/2015 Pneumococcal Polysaccharide PPV23 (Pneumovax) 04/23/2007 Seasonal Influenza, Quadriva lent Hd (Fluzone Hd) 05/17/2022,04/29/2021 Seasonal Influenza, Quadriva lent, No Preserve, 6 Mons & Above, IM 03/17/2020,03/19/2019,04/24/2018,10/0 03/2017 Seasonal Influenza, Quadriva lent, No Preserve, IM [...] encounter Miscellaneous Notes * Telephone Encounter - Meredith Menjivar LPN - 02/09/2023 9:58 AM EDT Care Gaps Comprehensive Care Outreach Last Office/Telemedicine Visit: 10/18/2022 (in office), Visit date not found (telemedicine) Next Office Visit: 02/23/2023 Hemoglobin AIC Results: Lab Results Component Value Date/Time HEMOGLOBIN A1C - [facility] 5.6 05/17/2022 11:19 AM HEMOGLOBIN A1C - [facility] 5.7 (H) 11/11/2021 11:40 AM HEMOGLOBIN A1C - [facility] 5.3 08/12/2010 10:21 AM HEMOGLOBIN A1C - [facility] 5.6 04/29/2008 08:12 AM HEMOGLOBIN A1C - [facility] 5.8 01/19/1997 01:54 PM Reviewed Health Maintenance below: Health Maintenance Topic Date Due Alpha-1 Antitrypsin Never done DXA Scan 2014 DISCUSS TOBACCO CESSATION (REFER TO SMARTSET #3291) 09/21/2018 COLONOSCOPY-EVERY 3 YRS AGES 18-100 07/28/2019 COVID-19 Vaccine (4 - Pfizer series) 08/05/2021 CKD PHOS USE SMARTSET 32491 11/07/2022 Albumin/Creatinine Ratio 11/17/2022 Depression Screening, Annual for Pts 12 and Over 03/01/2023 Influenza Vaccine (FLU shot) (1) 03/02/2023 HbA1c 05/17/2023 CKD HGB USE SMARTSET 41086 05/17/2023 awv already scheduled Labs Colon dexa Care Gap Outreach Action Taken: Unable to reach unable to leave a message documented in this encounter Plan of Treatment Upcoming Encounters Date Type Specialty Care Team Description 02/13/2023 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 Pharmacy [facility] [address] [place] [address] 02/23/2023 Office Visit Family Medicine Jyoti Do DO [address] [facility] [place] [address] 03/02/2023 Nurse Only Ancillary [place] Nurse Annual [facility] [address] [facility] [place] [address] 04/26/2023 Office Visit Cardiology Andrzej Urena MD [address] [place] [address] 06/26/2023 Office Visit Dermatology Rossy Cain PA-C [address] [place] [address] [place] [address] 07/31/2023 Cardiac Studies Cardiology [facility] [address] [place] [address] Health Maintenance Due Date Last Done Comments Alpha-1 Antitrypsin 1953 DXA Scan 2014 2007, 08/2006, 2007, Additional history exists DISCUSS TOBACCO CESSATION (REFER TO SMARTSET #3291) 09/21/2018 09/21/2017 (Course Completed) COLONOSCOPY-EVERY 3 YRS AGES 18-100 07/28/2019 07/28/2016, 07/28/2016, 12/06/2010, Additional history exists COVID-19 Vaccine (4 - Pfizer series) 08/05/2021 06/10/2021, 10/06/2020, 09/15/2020 CKD PHOS USE SMARTSET 13223 11/07/2022 05/0 03/2022, 05/06/2021, 01/01/2020, Additional history exists Albumin/Creatinine Ratio 11/17/2022 11/17/2021 Depression Screening, Annual for Pts 12 and Over 03/01/2023 03/01/2022 Influenza Vaccine (FLU shot) (#1) 2023 05/17/2022, 04/29/2021, 03/17/2020, Additional history exists CKD HGB USE SMARTSET 13130 05/17/202305/17, 11/07/2021, 11/07/2021, Additional history exists HbA1c [...] 8:13 AM 08/27/2007 3:51 PM Care Teams Editing Intern Relationship Specialty Start Date End Date Jyoti Do, [address] [place] [address] PCP - General Family Medicine 08/08/18 documented as of this encounter
--- OUTSIDE RECORDS SUMMARY | 2023-06-09 00:03 | External Medical Summary | Summary of Care ---
Author Name Unknown Organization [facility] Address [address] [place] [address] Phone [phone] Care Team Providers Care Sanitary Plumber Name Role Phone HiJyoti Demetri MICHEL Primary Care Provider [phone] Encounter Details Date Type Department Care Team Description 02/20/2023 Result Scan Unspecified Department Andrzej Urena MD [address] [place] [address] <No scans attached> Allergies Active Allergy Reactions Severity Noted Date Comments Adhesive Tape 10/30/2001 Rash Ciprofloxacin 09/29/2015 Eye drops, for pink eye and made her eye more red. 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),Asthma with COPD (chronic obstructive pulmonary disease) (HCC),Wheezing [...] as of this encounter (statuses as of 02/20/2023) Active Problems Problem Noted Date Hx of [...] as of this encounter (statuses as of 02/20/2023) Resolved Problems Problem Noted Date Resolved Date Kidney disease, chronic, stage III (GFR 30-59 ml /min) 06/09/2019 05/12/2021 Overview: Per CKD protocol Acute recurrent maxillary sinusitis 10/18/2018 03/19/2019 Postural headache 01/19/2017 03/27/2018 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 0 [...] as of this encounter (statuses as of 02/20/2023) Immunizations Name Administration Dates Next Due COVID-19 mRNA, LNP-s, No Pre serve, 2-Dose Series (TripleLift) 06/10/2021,10/06/2020,09/15/2020 Pneumococcal Conjugate Vacc, 13 Valent (Prevnar) [...] 02/23/2023 [facility] [address] [facility] [address] 03/02[facility]2023 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 [place] [address] [facility] [address] 03/02/2023 Nurse Only Ancillary [place], [facility] [address] [facility] [address] 04/26/2023 Office Visit Cardiology Andrzej Urena MD [address] [place] [address] 06/26/2023 Office Visit Dermatology Rossy Cain PA-C [address] [place] [address] [place] [address] 07/31/2023 Cardiac Studies Cardiology [place], Pacer [facility] [address] [place] [address] 09/05/2023 Office Visit Nephrology Rich Dick MD [address] [place] [address] Health Maintenance Due Date Last Done Comments Alpha-1 Antitrypsin 1953 DXA Scan 2014 2007, 08/2006, 2007, Additional history exists DISCUSS TOBACCO CESSATION (REFER TO SMARTSET #3291) 09/21/2018 09/21/2017 (Course Completed) COLONOSCOPY-EVERY 3 YRS AGES 18-100 07/28/2019 07/28/2016, 07/28/2016, 12/06/2010, Additional history exists COVID-19 Vaccine (4 - Pfizer series) 08/05/2021 06/10/2021, 10/06/2020, 09/15/2020 CKD PHOS USE SMARTSET 27012 11/07/2022 05/0 03/2022, 05/06/2021, 01/01/2020, Additional history exists Albumin/Creatinine Ratio 11/17/2022 11/17/2021 Depression Screening, Annual for Pts 12 and Over 03/01/2023 03/01/2022 Influenza Vaccine (FLU shot) (#1) 2023 05/17/2022, 04/29/2021, 03/17/2020, Additional history exists CKD HGB USE SMARTSET 22639 05/17/202305/17, 11/07/2021, 11/07/2021, Additional history exists HbA1c [...] Date/Time Associated Diagnosis Comments CARDIOLOGY SCANNED RESULT 02/20/2023 documented in this encounter Results * CARDIOLOGY SCANNED RESULT (02/20/2023) 02/20/2023 Andrzej Urena MD OTHER documented in this [...] 8:13 AM 08/27/2007 3:51 PM Care Teams Sanitary Plumber Relationship Specialty Start Date End Date Jyoti Do, [address] [place] [address] PCP - General Family Medicine 08/08/18 documented as of this encounter
--- OUTSIDE RECORDS SUMMARY | 2023-06-09 00:03 | External Medical Summary ---
Author Name Unknown Address Unknown Organization : Laboratory Report Ordering Provider Test Date Status XIMENA RANDALL 02/13/2023 13:26:25 Final Therapeutic ranges for non-o perative patients:
Prophylaxsis/treatment of DVT: (Range:2.0-3.0)
Treatment of pulmonary embolism:(Range:2.0-3.0)
Prevention of systemic embolism from:
-tissue heart valves
-acute myocardial infarction
-valvular heart disease
-atrial fibrillation
(Range: 2.0-3.0)
Mechanical prosthetic valves: (Range: 2.5-3.5) Observation Date Value Abnormality Reference (Units ) Status INR in Capillary blood by Coagulation assay 02/13/2023 13:26:25 2.2 (INR) Final Performing Location
--- OUTSIDE RECORDS SUMMARY | 2023-06-09 00:03 | External Medical Summary ---
Author Name Unknown Address Unknown Organization [id number]:LABORATORY [facility] [place] - [facility] [address] [facility] [address] [place] [address] Laboratory Report Ordering Provider Test Date Status ANTHONY BIGGSDREWKATIEIsamar 02/23/2023 11:03:56 Final Normal: <30 mg/g creatinine< br/>High: 30-300 mg/g creatinine
Very High: >300 mg/g creatinine
Nephrotic: >2200 mg/g creatinine Observation Date Value Abnormality Reference (Units ) Status Albumin, Urine 02/23/2023 11:03:56 <1.20 (mg/dL) Final Creatinine, Urine 02/23/2023 11:03:56 58 (mg/dL) Final Albumin/Creatinine [Mass Ratio] in Urine 02/23/2023 11:03:56 <21 <30 (mg/g Creat) Final Performing Location LAB[facility]ATORY [facility] [place] - [facility] [address] [place] [address]
--- OUTSIDE RECORDS SUMMARY | 2023-06-09 00:03 | External Medical Summary ---
Author Name Unknown Address Unknown Organization [id number]:[facility] [place] [facility] [address] [facility] [address] [place] [address] Laboratory Report Ordering Provider Test Date Status LIBERTDA BIGGS 02/23/2023 11:03:56 Final Observation Date Value Abnormality Reference (Units ) Status BUN 02/23/2023 11:03:56 20 6-20 (mg/dL) Final Creatinine 02/23/2023 11:03:56 0.9 0.5-1.0 (mg/dL) Final Glomerular filtration rate/1.73 sq M.predicted [Volume Rate/Area] in Serum, Plasma or Blood by Creatinine-based formula (CKD-EPI) 02/23/2023 11:03:56 63 >=60 (mL/min) Final eGFR is calculated based on the CKD-EPI 2020 equation SODIUM 02/23/2023 11:03:56 140 135-146 (m mol/L) Final Potassium 02/23/2023 11:03:56 4.4 3.5-5.1 (m mol/L) Final Cl 02/23/2023 11:03:56 98 98-107 (mm ol/L) Final CO2 02/23/2023 11:03:56 31 22-32 (mmo l/L) Final Anion gap 02/23/2023 11:03:56 11 7-15 (mmol /L) Final Glucose 02/23/2023 11:03:56 70 70-120 (mg /dL) Final Calcium 02/23/2023 11:03:56 9.3 8.4-10.2 ( mg/dL) Final Performing Location [facility] [place] [facility] [address] [facility] [address] [place] S[place] [address]
--- OUTSIDE RECORDS SUMMARY | 2023-06-09 00:03 | External Medical Summary | Summary of Care ---
Author Name Unknown Organization [facility] Address [address] [place] [address] Phone [phone] Care Team Providers Care Firm Administrator Name Role Phone Jyoti Do DO Primary Care Provider + [phone] Reason for Referral * Evaluate & Treat - Unlimited Visits (Within 10 days (routine)) - Authorized Specialty Diagnoses / Procedures Referred By Gustavo candelario Referred To Contact Podiatry Diagnoses Callus of toe Jyoti Do DO [address] [place] [address] Referral ID Status Reason Start Date Expiration Date Visits Requested Visits Authorized [id number] Authorized Specialty Services Required 02/23/2023 999 999 Question Answer Referral Priority Within 10 days (routine) Which condition are you referring this patient for? General Podiatry/Other Reason for Visit * Reason Comments Re-Check 3 month return Encounter Details Date Type Department Care Team Description 02/23/2023 Office Visit [facility] [address] [place] [address] Jyoti Do DO [address], [place] [id number] Callus of toe*; Asthma with COPD (chronic obstructive pulmonary disease) (HCC); Paroxysmal A-fib (HCC); HTN, goal below 140/90; Acquired hypothyroidism Allergies Active Allergy Reactions Severity Noted Date Comments Adhesive Tape 10/30/2001 Rash Ciprofloxacin 09/29/2015 Eye drops, for pink eye and made her eye more red. Iodine 03/06/2000 hives Nitrofurantoin Diarrhea 03/08/2012 SOB Diarrhea Clopidogrel Bisulfate Muscle pain 08/18/2009 Salicylates 03/06/2000 ASA throat swelling Ezetimibe Hives Medium 01/19/2009 documented as of this encounter (statuses as of 02/23/2023) Medications Medication Sig Dispensed Refills Start Date End Date Status EPIPEN 0.3 MG/0.3ML IJ DEVIIndications:Ang ioneurotic edema One injection into thigh as needed for severe allergic reaction 2 Device 1 11/21/2011 Active NEBULIZER COMPRESSOR MISCIndications:[facility] D exacerbation ([facility]),Asthma with COPD (chronic obstructive pulmonary disease) ([facility]),Wheezing Use as directed 1 Each [...] Release 24 Hour (toPROL XL)Indications:Paro xysmal A-fib ([facility]),Tachy-kelsey syndrome (HCC),HTN, goal below 140/90 [...] (HCC),Anticoagulate d on Coumadin,Anticoagul ation management encounter,[facility] current use of anticoagulant therapy Take 1 Tablet by mouth every evening. As directed. New tablet strength. 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 0 08/13/2015 [...] as of this encounter (statuses as of 02/23/2023) Immunizations Name Administration Dates Next Due COVID-19 mRNA, LNP-s, No Pre serve, 2-Dose Series ([employer]) 06/10/2021,10/06/2020,09/15/2020 Pneumococcal Conjugate Vacc, 13 Valent (Prevnar) [...] Sign Reading Time Taken Comments Blood Pressure 118/72 02/23/2023 10:02 AM EDT Pulse 64 02/23/2023 10:02 AM EDT Temperature 36.6 C (97.8 F) 02/23/2023 10:02 AM E DT Respiratory Rate 18 02/23/2023 10:02 AM EDT Oxygen Saturation - - Inhaled Oxygen Concentration - - Weight 84.8 kg (187 lb) 02/23/2023 10:02 AM EDT Height - - Body Mass Index 29.29 10/18/2022 10:16 AM EDT documented in this encounter Progress Notes * Jyoti Do, - 02/23/2023 10:10 AM EDT Subjective: Sonia Ramos is a 87 year old female. Chief Complaint Patient presents with Re-Check 3 month return HPI: 87 year old female here today for a regular return. 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 Had seen Jonathon and had injection in theL hip and in the R knee. Still doing PT, and now using a cane Right 3 rd toe, sore calculous --willing to see podiatry about this. PHM: Patient Active Problem List Diagnosis Code HTN, [...] R73.03 Hx of nonmelanoma skin cancer Z85.828 Current Outpatient Medications Medication Sig Dispense Refill EPIPEN 0.3 MG/0.3ML IJ SHAILA One injection into thigh as needed for severe allergic reaction 2 Device 1 ondansetron (ZOFRAN) 4 MG Tablet Take 1 Tab by mouth every 6 hours as needed for Nausea. 30 Tab 1 Premarin 0.625 MG/GM Vaginal Cream (Estrogens, Conjugated) [...] by mouth once daily 90 Tablet 1 NEBULIZER COMPRESSOR MISC Use as directed 1 Each 1 levalbuterol (XOPENEX) 1.25 MG/3ML nebulizer solution Inhale 3 mL via nebulizer every 8 hours as needed for Wheezing. 120 mL 0 No current facility-administered medications for this visit. Review of patient's allergies indicates: Allergen Reactions Zetia [Ezetimibe] Hives Adhesive Tape Rash Ciprofloxacin Eye drops, for pink eye and made her eye more red. Iodine hives Nitrofurantoin Diarrhea SOB Diarrhea Plavix [Clopidogrel Bisulfate] Muscle pain Salicylates ASA throat swelling Objective: BP 118/72 | Pulse 64 | Temp 36.6 C (97.8 F) (Infrared ) | Resp 18 | Wt 84.8 kg (187 lb) | BMI 29.29 kg/m | BSA 2 m Physical Exam: General: alert, healthy, and no distress Heart: no murmur and irregularly irregular Lungs: chest symmetric with normal AP diameter, no chest deformities noted, no chest wall tenderness, lungs clear to auscultation Extremities: no edema, 3rd toe on the R with callus on the bottom of her toe ASSESSMENT/PLAN: Callus of toe (Primary) - PODIATRY REFERRAL OP Asthma with COPD (chronic obstructive pulmonary disease) (HCC) Paroxysmal A-fib (HCC) HTN, goal below 140/90 - BASIC METABOLIC PANEL; Future; Expected date: 02/23/2023 - PHOSPHORUS; Future; Expected date: 02/23/2023 - ALBUMIN / CREATININE RATIO, URINE; Future; Expected date: 02/23/2023 Acquired hypothyroidism Follow Up: Return in about 3 months (around 05/26/2023) for Labs Today. | For: Labs Today Jyoti Do DO documented in this encounter Plan of Treatment Upcoming Encounters Date Type Specialty Care Team Description 02/27/2023 Office Visit Podiatry Rae Munoz DPM [address] [place] [address] 03/02/2023 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 Pharmacy [place] [address] [place] [address] 03/02/2023 Nurse Only Ancillary [place], [facility] [address] [place] [address] 04/26/2023 Office Visit Cardiology Andrzej Urena MD [address] [place] [address] 06/13/2023 Office Visit Family [facility] [address] [facility] [address] 06/26/2023 Office Visit Dermatology Rossy Cain PA-C [address] [place] [address] [place] [address] 07/31/2023 Cardiac Studies Cardiology [facility] [address] [place] [address] 09/05/2023 Office Visit Nephrology Rich Dick MD [address] [place] [address] Pending Results Name Type Priority Associated Diagnoses Date /Time BASIC METABOLIC PANEL Lab Routine HTN, goal below 140/90 02/23/2023 11:03 AM EDT PHOSPHORUS Lab Routine HTN, goal below 140/90 02/23/2023 11:03 AM EDT ALBUMIN / CREATININE RATIO, URINE Lab Routine HTN, goal below 140/90 02/23/2023 11:03 AM EDT Scheduled Orders Name Type Priority Associated Diagnoses Orde r Schedule BASIC METABOLIC PANEL Lab Routine HTN, goal below 140/90 Expected: 02/23/2023 (Approximate), Expires: 02/23/2024 PHOSPHORUS Lab Routine HTN, goal below 140/90 Expected: 02/23/2023 (Approximate), Expires: 02/23/2024 ALBUMIN / CREATININE RATIO, URINE Lab Routine HTN, goal below 140/90 Expected: 02/23/2023 (Approximate), Expires: 02/23/2024 Scheduled Referrals Name Type Priority Associated Diagnoses [...] 06/10/2021, 10/06/2020, 09/15/2020 CKD PHOS USE SMARTSET 43486 11/07/2022 05/0 03/2022, 05/06/2021, 01/01/2020, Additional history [...] as of this encounter Visit Diagnoses Diagnosis Callus of toe- Primary Asthma with COPD (chronic obstructive pulmonary disease) (HCC) Chronic obstructive asthma, unspecified Paroxysmal A-fib (HCC) Atrial fibrillation HTN, goal below 140/90 Unspecified essential hypertension Acquired hypothyroidism Unspecified hypothyroidism documented in this encounter Advance Directives Latest [...] 8:13 AM 08/27/2007 3:51 PM Care Teams Firm Administrator Relationship Specialty Start Date End Date Jyoti Do DO [address] [place] [address] PCP - General Family Medicine 08/08/18 documented as of this encounter"
--- OUTSIDE RECORDS SUMMARY | 2023-06-09 00:03 | External Medical Summary ---
Author Name Unknown Address Unknown Organization K01:[facility] [place] [address] [place] [address] Laboratory Report Ordering Provider Test Date Status LIBERTAD BIGGS 02/23/2023 11:03:56 Final Observation Date Value Abnormality Reference (Units ) Status Phosphate 02/23/2023 11:03:56 3.7 2.5-4.8 (m g/dL) Final Performing Location [facility] - [address] [place] [address]
--- OUTSIDE RECORDS SUMMARY | 2023-06-09 00:03 | External Medical Summary | Summary of Care ---
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 ([facility]),Asthma with COPD (chronic obstructive pulmonary disease) ([facility]),Wheezing Use as directed 1 Each [...] A-fib (HCC),Anticoagulate d on Coumadin,Anticoagul ation management encounter,jail current use of anticoagulant therapy Take 1 [...] sinusitis 10/18/2018 03/19/2019 Postural headache 01/19/2017 03/27/2018 jail current use of anticoagulant therapy 0 08/13/2015 [...] Influenza, Split, I IV3, With Preserve, Inj 03/16/2014,03/19/2013,04/19/2012,03/03,04/01/2010,05/24/2009,04/27/20,04/23/2007,04/24/2006 TD, Preservative Free 04/27/2008 TDAP (age 11 [...] Visit Podiatry Rae Munoz DPM [address] [facility] [place] [address] 03/02/2023 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 Pharmacy [facility] [address] [place] [address] 03/02/2023 Nurse Only Ancillary [facility] [address] [place] [address] 04/26/2023 Office Visit Cardiology Andrzej Urena MD [address] [place] [address] 06/13/2023 Office Visit Family Medicine Jyoti Do, [address] [place] [address] 06/26/2023 Office Visit Dermatology Rossy Cain PA-C [address] [place] [address] [place] [address] 07/31/2023 [facility] Studies [facility] [address] [place] [address] 09/05/2023 Office Visit Nephrology Rich Dick MD [address] [place] [address] Pending Results Name Type Priority Associated Diagnoses Date /Time BASIC METABOLIC PANEL Lab Routine HTN, goal below 140/90 02/23/2023 11:03 AM EDT PHOSPHORUS Lab Routine HTN, goal below 140/90 02/23/2023 11:03 AM EDT ALBUMIN / CREATININE RATIO, URINE Lab Routine HTN, goal below 140/90 02/23/2023 11:03 AM EDT Health Maintenance Due Date Last Done Comments Alpha-1 Antitrypsin 1953 DXA Scan 2014 2007, 08/2006, 2007, Additional history exists DISCUSS TOBACCO CESSATION (REFER TO SMARTSET #3291) 09/21/2018 09/21/2017 (Course Completed) COLONOSCOPY-EVERY 3 YRS AGES 18-100 07/28/2019 07/28/2016, 07/28/2016, 12/06/2010, Additional history exists COVID-19 Vaccine (4 - Pfizer series) 08/05/2021 06/10/2021, 10/06/2020, 09/15/2020 CKD PHOS USE SMARTSET 51269 11/07/2022 0503/2022, 05/06/2021, 01/01/2020, Additional history exists Albumin/Creatinine Ratio 11/17/2022 11/17/2021 Depression Screening, Annual for Pts 12 and Over 03/01/2023 03/01/2022 Influenza Vaccine (FLU shot) (#1) 2023 05/17/2022, 04/29/2021, 03/17/2020, Additional history exists CKD HGB USE SMARTSET 65815 05/17/202305/17, 11/07/2021, 11/07/2021, Additional history exists HbA1c [...] as of this encounter Visit Diagnoses Diagnosis HTN, goal below 140/90 Unspecified essential hypertension documented in this encounter Advance Directives Latest [...] 8:13 AM 08/27/2007 3:51 PM Care Teams Mobile Developer Relationship Specialty Start Date End Date Jyoti Do, DO [address] [place] [address] PCP - General Family Medicine 08/08/18 documented as of this encounter
[2023-06-09 00:04] LABS: INR 2.6 (0.9-1.1); Partial Thromboplastin Ratio 1.3; Partial Thromboplastin Time 37 Seconds (21-31); Prothrombin Time 26.5 Seconds (9.0-12.0)
--- OUTSIDE RECORDS SUMMARY | 2023-06-09 00:04 | External Medical Summary | Summary of Care ---
Author Name Unknown Organization [facility] Address [address] [place] [address] Phone [phone] Care Team Providers Care Call Manager Name Role Phone Dian Maurer DO Primary Care Provider [phone] Reason for Visit * Reason Comments eRx-Medication Refill Encounter Details Date Type Department Care Team Description 02/05/2023 Refill [place] [address] [place] [address] Dian Maurer DO [address] [place] [address] Dyslipidemia, goal LDL below 100 Allergies Active Allergy Reactions Severity Noted Date Comments Adhesive Tape 10/30/2001 Rash Ciprofloxacin 09/29/2015 Eye drops, for pink eye and made her eye more red. Iodine 03/06/2000 hives Nitrofurantoin Diarrhea 03/08/2012 SOB Diarrhea Clopidogrel Bisulfate Muscle pain 08/18/2009 Salicylates 03/06/2000 ASA throat swelling Ezetimibe Hives Medium 01/19/2009 documented as of this encounter (statuses as of 02/06/2023) Medications Medication Sig Dispensed Refills Start Date End Date Status EPIPEN 0.3 MG/0.3ML IJ DEVIIndications:An gioneurotic edema One injection into thigh as needed for severe allergic reaction 2 Device 1 2 Active NEBULIZER COMPRESSOR MISCIndications:[place] PD exacerbation (HCC),Asthma with COPD (chronic obstructive pulmonary disease) (HCC),Wheezing Use as directed 1 Each 1 5 Active ondansetron (ZOFRAN) 4 MG TabletIndications: Hematuria, gross,Urolithiasis ,Renal cyst,Backache Take 1 Tab by mouth every 6 hours as needed for Nausea. 30 Tab 1 5 Active levalbuterol (XOPENEX) 1.25 MG/3ML nebulizer solution Inhale 3 mL via nebulizer every 8 hours as needed for Wheezing. 120 mL 0 9 Active Premarin 0.625 MG/GM Vaginal Cream (Estrogens, Conjugated)Indicat ions:Vaginal irritation Administer into the vagina 1 g in the morning. 42.5 g 12 2 Active Metoprolol Succinate ER 100 MG Oral Tablet Extended Release 24 Hour (Toprol XL) Take 1 Tablet by mouth in the morning. 90 Tablet 3 3 Active Additional Information Patient taking differently:100 mg OralHS, Reported on 08/09/2022 Gabapentin 100 MG Oral Capsule (Neurontin) take 1 capsule by mouth three times a day 270 Capsule 1 3 Active Allopurinol 100 MG Oral Tablet (Zyloprim) take 1 tablet by mouth once daily 90 Tablet 2 3 Active Metoprolol Succinate ER 25 MG Oral Tablet Extended Release 24 Hour (toPROL XL)Indications:Par oxysmal A-fib ([facility]),Tachy-kelsey syndrome (HCC),HTN, goal below 140/90 Take one tablet with the 100 mg to equal 125 mg a day. 270 Tablet 3 3 Active Sotalol HCl 160 MG Oral Tablet (Betapace)Indicati ons:Paroxysmal A-fib ([facility]) take 1 tablet by mouth [...] BREAKFAST/OTHER MEDS 90 Tablet 2 3 Active hydroCHLOROthiazid e 25 MG Oral Tablet (Hydrodiuril) TAKE 1 TABLET BY MOUTH DAILY 5 DAYS A WEEK INSTRUCTED 90 Tablet 3 3 Active Warfarin Sodium 2.5 MG Oral Tablet (Coumadin)Indicati ons:History of TIA (transient ischemic attack),Paroxysmal A-fib (HCC),Anticoagulat ed on Coumadin,Anticoagu lation management encounter,[facility] current use of anticoagulant therapy Take 1 Tablet by mouth every evening. As directed. New tablet strength. Please dispense EMMA 90 Tablet 1 3 Active Atorvastatin Calcium 20 MG Oral Tablet (Lipitor)Indicatio ns:Dyslipidemia, goal LDL below 100 take 1 tablet by mouth once daily 90 Tablet 1 3 Active Atorvastatin Calcium 20 MG Oral Tablet (Lipitor)Indicatio ns:Dyslipidemia, goal LDL below 100 take 1 tablet by mouth daily 90 Tablet 1 3 02/07/20 23 Discontinued documented as of this encounter (statuses as of 02/06/2023) Active Problems Problem Noted Date Hx of [...] as of this encounter (statuses as of 02/06/2023) Resolved Problems Problem Noted Date Resolved Date Kidney disease, chronic, stage III (GFR 30-59 ml /min) 06/09/2019 05/12/2021 Overview: Per CKD protocol Acute recurrent maxillary sinusitis 10/18/2018 03/19/2019 Postural headache 01/19/2017 03/27/2018 [facility] current use of anticoagulant therapy 0 08/13/2015 [...] as of this encounter (statuses as of 02/06/2023) Immunizations Name Administration Dates Next Due COVID-19 [...] encounter Miscellaneous Notes * Telephone Encounter - Lilian Lind corrina - 02/06/2023 11:39 AM EDTSigned Prescriptions: Disp Refills Atorvastatin Calcium 20 MG Oral Tablet (Li*90 Tab*1 Sig: take 1 tablet by mouth once dailyAuthorizing Provider: DIAN MAURER User: LILIAN LIND----- documented in this encounter Plan of Treatment Upcoming Encounters Date Type Specialty Care Team Description 02/13/2023 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 [address] [place] [address] 02/23/2023 Office Visit Family Medicine Dian Maurer DO [address] [place] [address] 03/02/2023 Nurse Only Ancillary [facility] [address] [place] [address] 04/26/2023 Office Visit Cardiology Andrzej Urena MD [address] [place] [address] 06/26/2023 Office Visit Dermatology Rossy Cain PA-C [address] [place] [address] [place] [address] 07/31/2023 [facility] [address] [place] [address] Health Maintenance Due Date Last Done Comments Alpha-1 Antitrypsin 1953 DXA Scan 2014 2007, 08/2006, 2007, Additional history exists DISCUSS TOBACCO CESSATION (REFER TO SMARTSET #3291) 09/21/2018 09/21/2017 (Course Completed) COLONOSCOPY-EVERY 3 YRS AGES 18-100 07/28/2019 07/28/2016, 07/28/2016, 12/06/2010, Additional history exists COVID-19 Vaccine (4 - Pfizer series) 08/05/2021 06/10/2021, 10/06/2020, 09/15/2020 CKD PHOS USE SMARTSET 62072 11/07/2022 05/0 03/2022, 05/06/2021, 01/01/2020, Additional history exists Albumin/Creatinine Ratio 11/17/2022 11/17/2021 Depression Screening, Annual for Pts 12 and Over 03/01/2023 03/01/2022 Influenza Vaccine (FLU shot) (#1) 2023 05/17/2022, 04/29/2021, 03/17/2020, Additional history exists CKD HGB USE SMARTSET 41840 05/17/202305/17, 11/07/2021, 11/07/2021, Additional history exists HbA1c [...] as of this encounter Visit Diagnoses Diagnosis Dyslipidemia, goal LDL below 100 Other and unspecified hyperlipidemia documented in this encounter Advance Directives Latest [...] 8:13 AM 08/27/2007 3:51 PM Care Teams Call Manager Relationship Specialty Start Date End Date Dian Maurer, [address] [place] [address] PCP - General Family Medicine 08/08/18 documented as of this encounter
--- OUTSIDE RECORDS SUMMARY | 2023-06-09 00:04 | External Medical Summary | Summary of Care ---
Author Name Unknown Organization [facility] Address [address] [place] [address] Phone [phone] Care Team Providers Care Food Vendor Name Role Phone Jyoti Do DO Primary Care Provider [phone] Reason for Visit * Reason Comments Dosage Adjustment In Person (Anticoag Cl inic) Encounter Details Date Type Department Care Team Description 02/06/2023 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 Pharmacy, [place] [address] [place] [address] [facility] [address] [place] [address] History of TIA (transient ischemic attack)*; Paroxysmal A-fib (HCC); Anticoagulated on Coumadin; 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 management encounter; 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 Working to re-establish patient's maintenance dose. Needed to changetablet strengths due to continued supratherapeutic INRs. Sena Uribe [facility] Clinical Pharmacist 02/06/2023, 1:49 PM * Johnny Lacy, Pharmacy Tax Staff Accountant - 02/06/2023 10:43 AM EDT Images from the original note [...] Bruising Objective Current Warfarin Dose As of 02/06/2023 Warfarin maintenance plan: No maintenance plan INR Result As of 02/06/2023 INR goal: 2.0-3.0 INR used for dosin.9 (02/06/2023) Assessment & Plan Warfarin Plan As of 02/06/2023 Full warfarin instructions: 02/06: 2.5 mg; 02/07: 3.75 mg; 02/08: 2.5 mg; 02/09: 2.5 mg; 02/10: 2.5 mg; 02/11: 2.5 mg; 02/12: 2.5 mg; 02/13: 2.5 mg Next INR check: 02/13/2023 Repeat PT/INR in 1 week(s) Weekly dose: establishing Additional Dosing Information: Description 01/30/23- changing to 2.5 mg tablets- pt counseled extensively on different color and new dosing. Johnny Lacy, Pharmacy Tax Staff Accountant Clinical Pharmacist 02/06/2023, 10:43 AM documented in this encounter Plan of Treatment Upcoming Encounters Date Type Specialty Care Team Description 02/13/2023 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 Pharmacy [facility] [address] [place] [facility] [place] [address] 02/23/2023 Office Visit Family Medicine Jyoti Do, DO [address] [place] [facility] [address] 03/02/2023 Nurse Only Ancillary [place], Nurse [facility] [address] [place] [address] 04/26/2023 Office Visit Cardiology Andrzej Urena MD [address] [place] [address] 06/26/2023 Office Visit Dermatology Rossy Cain PA-C [address] [place] [address] [place] [address] 07/31/2023 Cardiac Studies Cardiology [facility], Pacer [facility] [address] [place] [address] Health Maintenance Due Date Last Done Comments Alpha-1 Antitrypsin 1953 DXA Scan 2014 2007, 08/2006, 2007, Additional history exists DISCUSS TOBACCO CESSATION (REFER TO SMARTSET #3291) 09/21/2018 09/21/2017 (Course Completed) COLONOSCOPY-EVERY 3 YRS AGES 18-100 07/28/2019 07/28/2016, 07/28/2016, 12/06/2010, Additional history exists COVID-19 Vaccine (4 - Pfizer series) 08/05/2021 06/10/2021, 10/06/2020, 09/15/2020 CKD PHOS USE SMARTSET [id number] 11/07/2022 05/0 03/2022, 05/06/2021, 01/01/2020, Additional history exists Albumin/Creatinine Ratio 11/17/2022 11/17/2021 Depression Screening, Annual for Pts 12 and Over 03/01/2023 03/01/2022 Influenza Vaccine (FLU shot) (#1) 2023 05/17/2022, 04/29/2021, 03/17/2020, Additional history exists CKD HGB USE SMARTSET 83288 05/17/202305/17, 11/07/2021, 11/07/2021, Additional history exists HbA1c [...] Comments INR FINGERSTICK, POINT OF CARE EMMA 02/06/2023 10:46 AM EDT documented in this encounter Results * INR FINGERSTICK, POINT OF CARE (02/06/2023 10:46 AM EDT) Fingerstick INR 1.9 INR 10:49 AM EDT LAB[facility] [place] [id number]- Blood 02/06/2023 10:4 6 AM EDT 02/06/2023 10:49 AM EDT Narrative [facility] - 02/06/2023 10:49 AM EDT Therapeutic ranges for non-operative patients: Prophylaxsis/treatment of DVT: (Range:2.0-3.0) Treatment of pulmonary embolism:(Range:2.0-3.0) Prevention of systemic embolism from: -tissue heart valves -acute myocardial infarction -valvular heart disease -atrial fibrillation (Range: 2.0-3.0) Mechanical prosthetic valves: (Range: 2.5-3.5) [facility] [place] [facility] POINT OF CARE TEST DOCKED DEVICE UNSOLICITED RESULTS PSYCHIATRIC [address] [place] [address] [phone] documented in this encounter Visit Diagnoses Diagnosis History of TIA (transient ischemic attack)- Primary Transient ischemic attack (TIA), and cerebral infarction without residual deficits Paroxysmal A-fib (HCC) Atrial fibrillation Anticoagulated on Coumadin Encounter for therapeutic drug monitoring 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 management encounter Encounter for therapeutic drug monitoring terminal clerk current use of anticoagulant therapy documented in [...] 8:13 AM 08/27/2007 3:51 PM Care Teams Food Vendor Relationship Specialty Start Date End Date Jyoti Do, [address] [address] PCP - General Family Medicine 08/08/18 documented as of this encounter"
--- OUTSIDE RECORDS SUMMARY | 2023-06-09 00:04 | External Medical Summary | Summary of Care ---
Author Name Unknown Organization [facility] Address [address] [place] [address] Phone [phone] Care Team Providers Care Lab Pack Chemist Name Role Phone Jyoti Do DO Primary Care Provider [phone] Reason for Visit * Reason Comments Dosage Adjustment Via Phone (anticoag Cl inic) Encounter Details Date Type Department Care Team Description 01/31/2023 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 Pharmacy, [place] [address] [place] [address] [facility] [address] [place] [address] History of TIA (transient ischemic attack)*; Paroxysmal A-fib (HCC); Anticoagulated on Coumadin Allergies Active Allergy Reactions Severity Noted Date Comments Adhesive Tape 10/30/2001 Rash Ciprofloxacin 09/29/2015 Eye drops, for pink eye and made her eye more red. 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 ([facility]),Asthma with COPD (chronic obstructive pulmonary disease) ([facility]),Wheezing Use as directed 1 Each [...] taking differently:100 mg OralHS, Reported on 08/09/2022 Atorvastatin Calcium 20 MG Oral Tablet (Lipitor)Indication s:Dyslipidemia, goal LDL below 100 take 1 tablet by mouth daily 90 Tablet 1 08/08/2022 Active Gabapentin 100 MG Oral Capsule (Neurontin) take 1 capsule by mouth three times a day 270 Capsule 1 08/22/2022 Active Allopurinol 100 MG Oral Tablet (Zyloprim) take 1 tablet by mouth once daily 90 Tablet 2 09/25/2022 Active Metoprolol Succinate ER 25 MG Oral Tablet Extended Release 24 Hour (toPROL XL)Indications:Paro xysmal A-fib ([facility]),Tachy-kelsey syndrome ([facility]),HTN, goal below 140/90 Take one tablet with the 100 mg to equal 125 mg a day. 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 As directed. New tablet strength. Please dispense EMMA 90 Tablet 1 01/30/2023 Active documented as of this encounter (statuses as of 01/31/2023) Active Problems Problem Noted Date Hx of [...] as of this encounter (statuses as of 01/31/2023) Resolved Problems Problem Noted Date Resolved Date [...] as of this encounter (statuses as of 01/31/2023) Immunizations Name Administration Dates Next Due COVID-19 [...] Progress Notes * Sena Uribe RPh - 01/31/2023 8:41 AM EDT Images from the original note were not included. Medication Therapy Disease Management - 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 Patient: Sonia Ramos | : 1935 Subjective Contacts Type Contact Phone/Fax 01/31/2023 08:41 AM EDT Phone (Outgoing) Sonia Ramos (Self) [phone] (H) Left Message Patient-Reported Symptoms: Patient Findings Negatives: Signs/symptoms of thrombosis, Signs/symptoms of bleeding, Change in health, Change in alcohol use, Change in activity, Upcoming invasive procedure, Missed doses, Extra doses, Change in medications, Change in diet/appetite, Bruising Objective Current Warfarin Dose As of 01/31/2023 Warfarin maintenance plan: No maintenance plan INR Result As of 01/31/2023 INR goal: 2.0-3.0 INR used for dosin.2 (01/30/2023) Assessment & Plan Warfarin Plan As of 01/31/2023 Full warfarin instructions: 8/2: Hold; 8/3: Hold; 8/4: 2.5 mg; 8/5: 2.5 mg; 8/6: 2.5 mg; 8/7: 2.5 mg Next INR check: 02/06/2023 Repeat PT/INR in 6 day(s) Weekly dose: decreased Additional Dosing Information: Description 01/30/23- changing to 2.5 mg tablets- pt counseled extensively on different color and new dosing. Sena Uribe RPh Clinical Pharmacist 01/31/2023, 8:42 AM documented in this encounter Plan of Treatment Upcoming Encounters Date Type Specialty Care Team Description 02/06/2023 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 Pharmacy [facility] [address] [place] [address] 02/23/2023 Office Visit Family Medicine Jyoti Do DO [address] [facility] [place] [address] 03/02/2023 Nurse Only Nurse [facility] [address] [facility] [place] [address] 04/26/2023 Office Visit Cardiology Andrzej Urena MD [address] [place] [address] 06/26/2023 Office Visit Dermatology Rossy Cain PA-C [address] [place] [address] [place] [address] 07/31/2023 Cardiac Studies Cardiology [facility] [address] [place] [address] Health Maintenance Due Date Last Done Comments Alpha-1 Antitrypsin 1953 DXA Scan 2014 2007, 08/2006, 2007, Additional history exists DISCUSS TOBACCO CESSATION (REFER TO SMARTSET #3291) 09/21/2018 09/21/2017 (Course Completed) COLONOSCOPY-EVERY 3 YRS AGES 18-100 07/28/2019 07/28/2016, 07/28/2016, 12/06/2010, Additional history exists COVID-19 Vaccine (4 - Pfizer series) 08/05/2021 06/10/2021, 10/06/2020, 09/15/2020 CKD PHOS USE SMARTSET [id number] 11/07/2022 05/03/2022, 05/06/2021, 01/01/2020, Additional history exists Albumin/Creatinine Ratio 11/17/2022 11/17/2021 Depression Screening, Annual for Pts 12 and Over 03/01/2023 03/01/2022 Influenza Vaccine (FLU shot) (#1) 2023 05/17/2022, 04/29/2021, 03/17/2020, Additional history exists CKD HGB USE SMARTSET 46099 05/17/202305/17, 11/07/2021, 11/07/2021, Additional history exists HbA1c [...] as of this encounter Visit Diagnoses Diagnosis History of TIA (transient ischemic attack)- Primary Transient ischemic attack (TIA), and cerebral infarction without residual deficits Paroxysmal A-fib (HCC) Atrial fibrillation Anticoagulated on Coumadin Encounter for therapeutic drug monitoring documented in this encounter Advance Directives Latest [...] 8:13 AM 08/27/2007 3:51 PM Care Teams Lab Pack Chemist Relationship Specialty Start Date End Date Jyoti Do, [address] [place] [address] PCP - General Family Medicine 08/08/18 documented as of this encounter"
--- OUTSIDE RECORDS SUMMARY | 2023-06-09 00:04 | External Medical Summary ---
Author Name Unknown Address Unknown Organization : Laboratory Report Ordering Provider Test Date Status XIMENA RANDALL 02/06/2023 10:46:34 Final Therapeutic ranges for non-o perative patients:
Prophylaxsis/treatment of DVT: (Range:2.0-3.0)
Treatment of pulmonary embolism:(Range:2.0-3.0)
Prevention of systemic embolism from:
-tissue heart valves
-acute myocardial infarction
-valvular heart disease
-atrial fibrillation
(Range: 2.0-3.0)
Mechanical prosthetic valves: (Range: 2.5-3.5) Observation Date Value Abnormality Reference (Units ) Status INR in Capillary blood by Coagulation assay 02/06/2023 10:46:34 1.9 (INR) Final Performing Location
--- OUTSIDE RECORDS SUMMARY | 2023-06-09 00:05 | External Medical Summary ---
Author Name Unknown Address Unknown Organization : Laboratory Report Ordering Provider Test Date Status DONNY ALLISON 01/30/2023 10:27:58 Final Therapeutic ranges for non-o perative patients:
Prophylaxsis/treatment of DVT: (Range:2.0-3.0)
Treatment of pulmonary embolism:(Range:2.0-3.0)
Prevention of systemic embolism from:
-tissue heart valves
-acute myocardial infarction
-valvular heart disease
-atrial fibrillation
(Range: 2.0-3.0)
Mechanical prosthetic valves: (Range: 2.5-3.5) Observation Date Value Abnormality Reference (Units ) Status INR in Capillary blood by Coagulation assay 01/30/2023 10:27:58 >8.0 (INR) Final Performing Location
--- OUTSIDE RECORDS SUMMARY | 2023-06-09 00:05 | External Medical Summary | Summary of Care ---
Author Name Unknown Organization [facility] Address [address] [place] [address] Phone [phone] Care Team Providers Care Rv Mechanic Name Role Phone Jyoti Do DO Primary Care Provider [phone] Reason for Visit * Reason Comments Outpatient Testing Encounter Details Date Type Department Care Team Description 01/30/2023 Laboratory Laboratory, [place] [address] [place] [address] [place], Laboratory [address] [place] [address] History of TIA (transient ischemic attack); Paroxysmal A-fib (HCC); Anticoagulated on Coumadin; 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 management encounter; assisted current use of anticoagulant therapy Allergies Active Allergy Reactions Severity Noted Date Comments Adhesive Tape 10/30/2001 Rash Ciprofloxacin 09/29/2015 Eye drops, for pink eye and made her eye more red. Iodine 03/06/2000 hives Nitrofurantoin Diarrhea 03/08/2012 SOB Diarrhea Clopidogrel Bisulfate Muscle pain 08/18/2009 Salicylates 03/06/2000 ASA throat swelling Ezetimibe Hives Medium 01/19/2009 documented as of this encounter (statuses as of 01/30/2023) Medications Medication Sig Dispensed Refills Start Date End Date Status EPIPEN 0.3 MG/0.3ML IJ DEVIIndications:Ang ioneurotic edema One injection into thigh as needed for severe allergic reaction 2 Device 1 11/21/2011 Active NEBULIZER COMPRESSOR MISCIndications:EKG TECH D exacerbation ([facility]),Asthma with COPD (chronic obstructive pulmonary disease) ([facility]),Wheezing Use as directed 1 Each 1 [...] Hour (toPROL XL)Indications:Paro xysmal A-fib ([facility]),Tachy-kelsey syndrome ([facility]),HTN, goal below 140/90 Take one tablet with the 100 mg to equal 125 mg a day. 270 Tablet 3 11/06/2022 Active Sotalol HCl 160 MG Oral Tablet (Betapace)Indicatio ns:Paroxysmal A-fib ([facility]) take 1 tablet by mouth twice a day 360 Tablet 3 11/21/2022 Active Potassium Citrate ER 10 MEQ (1080 MG) Oral Tablet Extended Release (Urocit-K)Indicatio ns:Nephrolithiasis, Stage 3a chronic kidney disease ([facility]) take 1 tablet by mouth every morning [...] A-fib (HCC),Anticoagulate d on Coumadin,Anticoagul ation management encounter,assisted current use of anticoagulant therapy Take 1 Tablet by mouth every evening. As directed. New tablet strength. 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 0 [...] as of this encounter (statuses as of 01/30/2023) Immunizations Name Administration Dates Next Due COVID-19 [...] Date Recorded Female 06/02/2019 9:10 AM E Job Start Date Occupation Industry Not on file Not on file Not on file documented as of this encounter Plan of Treatment Upcoming Encounters Date Type Specialty Care Team Description 02/06/2023 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 Pharmacy [facility] [address] [facility] [place] [address] 02/23/2023 Office Visit Family Medicine Jyoti Do, [address] [facility] [place] [address] 03/02/2023 Nurse Only Ancillary [place], Nurse [facility] [address] [facility] [place] [facility] [place] [address] 04/26/2023 Office Visit Cardiology Andrzej Urena MD [address] [place] [address] 06/26/2023 Office Visit Dermatology Rossy Cain PA-C [address] [place] [address] [place] [address] 07/31/2023 Cardiac Studies Cardiology Pratik, Pacer [facility] [address] [place] [address] Pending Results Name Type Priority Associated Diagnoses Date /Time PT INR Lab Routine History of TIA (transient ischemic attack) Paroxysmal A-fib (HCC) Anticoagulated on Coumadin 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 management encounter 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 01/30/2023 10:47 AM EDT Health Maintenance Due Date Last Done Comments Alpha-1 Antitrypsin 1953 DXA Scan 2014 2007, 08/2006, 2007, Additional history exists DISCUSS TOBACCO CESSATION (REFER TO SMARTSET #3291) 09/21/2018 09/21/2017 (Course Completed) COLONOSCOPY-EVERY 3 YRS AGES 18-100 07/28/2019 07/28/2016, 07/28/2016, 12/06/2010, Additional history exists COVID-19 Vaccine (4 - Pfizer series) 08/05/2021 06/10/2021, 10/06/2020, 09/15/2020 CKD PHOS USE SMARTSET [id number] 11/07/2022 05/0 03/2022, 05/06/2021, 01/01/2020, Additional history exists Albumin/Creatinine Ratio 11/17/2022 11/17/2021 Depression Screening, Annual for Pts 12 and Over 03/01/2023 03/01/2022 Influenza Vaccine (FLU shot) (#1) 2023 05/17/2022, 04/29/2021, 03/17/2020, Additional history exists CKD HGB USE SMARTSET 90004 05/17/202305/17, 11/07/2021, 11/07/2021, Additional history exists HbA1c [...] Diagnoses Diagnosis History of TIA (transient ischemic attack) Transient ischemic attack (TIA), and cerebral infarction without residual deficits Paroxysmal A-fib (HCC) Atrial fibrillation Anticoagulated on Coumadin Encounter for therapeutic drug monitoring 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 management encounter Encounter for therapeutic drug monitoring assisted current use of anticoagulant therapy documented in [...] 8:13 AM 08/27/2007 3:51 PM Care Teams Rv Mechanic Relationship Specialty Start Date End Date Jyoti Do, DO [address] [place] [address] PCP - General Family Medicine 08/08/18 documented as of this encounter
--- OUTSIDE RECORDS SUMMARY | 2023-06-09 00:05 | External Medical Summary | Summary of Care ---
Author Name Unknown Organization [facility] Address [address] [place] [address] Phone [phone] Care Team Providers Care Program Clinician Name Role Phone Jyoti Maurer DO Primary Care Provider [phone] Reason for Visit * Reason Comments eRx-Medication Refill Encounter Details Date Type Department Care Team Description 01/07/2023 Refill [place] [address] [place] [address] Jyoti Maurer DO [address] [place] [address] A-fib ([facility]); 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 management encounter Allergies Active Allergy Reactions Severity Noted Date Comments Adhesive Tape 10/30/2001 Rash Ciprofloxacin 09/29/2015 Eye drops, for pink eye and made her eye more red. Iodine 03/06/2000 hives Nitrofurantoin Diarrhea 03/08/2012 SOB Diarrhea Clopidogrel Bisulfate Muscle pain 08/18/2009 Salicylates 03/06/2000 ASA throat swelling Ezetimibe Hives Medium 01/19/2009 documented as of this encounter (statuses as of 01/08/2023) Medications Medication Sig Dispensed Refills Start Date End Date Status EPIPEN 0.3 MG/0.3ML IJ DEVIIndications:A ngioneurotic edema One injection into thigh as needed for severe allergic reaction 2 Device 1 2 Active NEBULIZER COMPRESSOR MISCIndications:C OPD exacerbation (HCC),Asthma with COPD (chronic obstructive pulmonary disease) ([facility]),Wheezing Use as directed 1 Each 1 5 Active ondansetron (ZOFRAN) 4 MG TabletIndications :Hematuria, gross,Urolithiasi s,Renal cyst,Backache Take 1 Tab by mouth every 6 hours as needed for Nausea. 30 Tab 1 5 Active levalbuterol (XOPENEX) 1.25 MG/3ML nebulizer solution Inhale 3 mL via nebulizer every 8 hours as needed for Wheezing. 120 mL 0 9 Active Premarin 0.625 MG/GM Vaginal Cream (Estrogens, Conjugated)Indica tions:Vaginal irritation Administer into the vagina 1 g in the morning. 42.5 g 12 2 Active Metoprolol Succinate ER 100 MG Oral Tablet Extended Release 24 Hour (Toprol XL) Take 1 Tablet by mouth in the morning. 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 270 Tablet 3 3 Active Sotalol HCl 160 MG Oral Tablet (Betapace)Indicat ions:Paroxysmal A-fib ([facility]) take 1 tablet by mouth twice a day 360 Tablet 3 3 Active Potassium Citrate ER 10 MEQ (1080 MG) Oral Tablet Extended Release (Urocit-K)Indicat ions:Nephrolithia sis,Stage 3a chronic kidney disease (HCC) take 1 tablet by mouth every morning and 1 tablet by mouth BEFORE BEDTIME 180 Tablet 2 3 Active Levothyroxine Sodium 25 MCG Oral Tablet (Levoxyl) take 1 tablet by mouth once daily AT LEAST 30 MINUTES PRIOR TO BREAKFAST/OTHER MEDS 90 Tablet 2 3 Active hydroCHLOROthiazi de 25 MG Oral Tablet (Hydrodiuril) TAKE 1 TABLET BY MOUTH DAILY 5 DAYS A WEEK INSTRUCTED 90 Tablet 3 3 Active Warfarin Sodium 5 MG Oral Tablet (Coumadin)Indicat ions:A-fib (HCC),Anticoagula tion management encounter Take 0.5-1 Tablets by mouth every evening. Discontinue 7.5 mg tablets 50 Tablet 2 3 Active Warfarin Sodium 7.5 MG Oral Tablet (Coumadin)Indicat ions:A-fib (HCC),Anticoagula tion management encounter Take 1/2 tablet (3.75mg) by mouth daily or as directed by Coumadin clinic 45 Tablet 3 2 01/09/20 23 Discontinued documented as of this encounter (statuses as of 01/08/2023) Active Problems Problem Noted Date Hx of [...] as of this encounter (statuses as of 01/08/2023) Resolved Problems Problem Noted Date Resolved Date Kidney disease, chronic, stage III (GFR 30-59 ml /min) 06/09/2019 05/12/2021 Overview: Per CKD protocol Acute recurrent maxillary sinusitis 10/18/2018 03/19/2019 Postural headache 01/19/2017 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 Discontinue 7.5 mg tabletsAuthorizing Provider: Jessenia MAURER User: SENA URIBE * Telephone Encounter - Sena Uribe [facility] ED - 01/08/2023 12:01 PM EDT Pt in to [facility] today for INR monitoring. Dose decreased. Updated script sent. Sena Uribe, BretD Clinical Pharmacist Medication Therapy Disease Management 01/08/2023, 12:02 PM documented in this encounter Plan of Treatment Upcoming Encounters Date Type Specialty Care Team Description 01/30/2023 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 [address] [facility] [address] [facility]/23[facility]23 [facility] Visit [facility] [address] [facility] [address] 03/02/2023 Nurse Only Ancillary Florinda, Nurse [facility] [address] [facility] [address] 04/26/2023 Office Visit Cardiology Andrzej Urena MD [address] [place] [address] 06/26/2023 Office Visit Dermatology Rossy Cain PA-C [address] [place] [address] [place] [address] 07/31/2023 [facility] [address] [place] [address] Health Maintenance Due Date Last Done Comments Alpha-1 Antitrypsin 1953 DXA Scan 2014 2007, 08/2006, 2007, Additional history exists DISCUSS TOBACCO CESSATION (REFER TO SMARTSET #3291) 09/21/2018 09/21/2017 (Course Completed) COLONOSCOPY-EVERY 3 YRS AGES 18-100 07/28/2019 07/28/2016, 07/28/2016, 12/06/2010, Additional history exists COVID-19 Vaccine (4 - Pfizer series) 08/05/2021 06/10/2021, 10/06/2020, 09/15/2020 CKD PHOS USE SMARTSET 21972 11/07/2022 05/0 03/2022, 05/06/2021, 01/01/2020, Additional history exists Albumin/Creatinine Ratio 11/17/2022 11/17/2021 Depression Screening, Annual for Pts 12 and Over 03/01/2023 03/01/2022 Influenza Vaccine (FLU shot) (#1) 2023 05/17/2022, 04/29/2021, 03/17/2020, Additional history exists CKD HGB USE SMARTSET 62072 05/17/202305/17, 11/07/2021, 11/07/2021, Additional history exists HbA1c [...] as of this encounter Visit Diagnoses Diagnosis A-fib (HCC) Atrial fibrillation 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 management encounter Encounter for therapeutic drug monitoring documented in [...] 8:13 AM 08/27/2007 3:51 PM Care Teams Program Clinician Relationship Specialty Start Date End Date Jyoti Maurer, [address] [place] [address] PCP - General Family Medicine 08/08/18 documented as of this encounter
--- OUTSIDE RECORDS SUMMARY | 2023-06-09 00:05 | External Medical Summary | Summary of Care ---
Author Name Unknown Organization [facility] Address [address] [place] [address] Phone [phone] Care Team Providers Care Travel Registered Nurse Oncology Name Role Phone Jyoti Do DO Primary Care Provider [phone] Reason for Visit * Reason Comments Dosage Adjustment In Person (Anticoag Cl inic) Encounter Details Date Type Department Care Team Description 01/08/2023 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 Pharmacy, [address] [address] [facility] [address] [place] [address] History of TIA (transient ischemic attack)*; Paroxysmal A-fib (HCC); Anticoagulated on Coumadin; 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 management encounter; [facility] current use of anticoagulant therapy Allergies Active [...] 2 Device 1 11/21/2011 Active NEBULIZER COMPRESSOR MISCIndications: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 270 Tablet 3 11/06/2022 Active Sotalol HCl 160 MG Oral Tablet (Betapace)Indicatio ns:Paroxysmal A-fib ([facility]) take 1 tablet by mouth twice a day 360 Tablet 3 11/21/2022 Active Potassium Citrate ER 10 MEQ (1080 MG) Oral Tablet Extended Release (Urocit-K)Indicatio ns:Nephrolithiasis, Stage 3a chronic kidney disease ([facility]) take 1 tablet by mouth every morning [...] 90 Tablet 3 12/05/2022 Active Warfarin Sodium 5 MG Oral Tablet (Coumadin)Indicatio ns:A-fib (HCC),Anticoagulati on management encounter Take 0.5-1 Tablets by mouth every evening. Discontinue 7.5 mg tablets 50 Tablet 2 01/08/2023 Active documented as of this encounter (statuses [...] Progress Notes * Sena Uribe RPh - 01/08/2023 11:50 AM EDT Images from the original note were not included. Medication Therapy Disease Management - 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 Patient: Sonia Ramos : 1935 Current Warfarin Dose As of 01/08/2023 Warfarin maintenance plan: 0 mg every Wed; 3.75 mg (7.5 mg x 0.5) all other days Patient-Reported Symptoms: Patient Findings Negatives: Signs/symptoms of thrombosis, Signs/symptoms of bleeding, Change in health, Change in alcohol use, Change in activity, Upcoming invasive procedure, Missed doses, Extra doses, Change in medications, Change in diet/appetite, Bruising INR Result As of 01/08/2023 INR goal: 2.0-3.0 INR used for dosin.2 (01/08/2023) Warfarin Plan As of 01/08/2023 Full warfarin instructions: 5 mg every Wed; 2.5 mg all other days Next INR check: 01/29/2023 Additional Dosing Information: Description Patient prefers to continue with current tablets at this time. Reports no issues splitting pills. Repeat PT/INR in 3 week(s) Weekly dose: decreased Sena Uribe RPh Clinical Pharmacist 01/08/2023, 11:50 AM documented in this encounter Plan of Treatment Upcoming Encounters Date Type Specialty Care Team Description 01/30/2023 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 [address] [facility] [address] 02/23/2023 Office Visit Family Medicine Jyoti Do DO [address] [facility] [place] [address] 03/02/2023 Nurse Only Ancillary Florinda, Nurse [facility] [address] [facility] [place] [address] 04/26/2023 Office Visit Cardiology Andrzej Urena MD [address] [place] [address] 06/26/2023 Office Visit Dermatology Rossy Cain PA-C [address] [place] [address] [place] [address] 07/31/2023 [facility] Studies [facility] [address] [place] [address] Health Maintenance Due Date Last Done Comments Alpha-1 Antitrypsin 1954 DXA Scan 2014 2007, 08/2006, 2007, Additional history exists DISCUSS TOBACCO CESSATION (REFER TO SMARTSET #7135) 09/21/2018 09/21/2017 (Course Completed) COLONOSCOPY-EVERY 3 YRS AGES 18-100 07/28/2019 07/28/2016, 07/28/2016, 12/06/2010, Additional history exists COVID-19 Vaccine (4 - Pfizer series) 08/05/2021 06/10/2021, 10/06/2020, 09/15/2020 CKD PHOS USE SMARTSET 09862 11/07/2022 05/0 03/2022, 05/06/2021, 01/01/2020, Additional history exists Albumin/Creatinine Ratio 11/17/2022 11/17/2021 Depression Screening, Annual for Pts 12 and Over 03/01/2023 03/01/2022 Influenza Vaccine (FLU shot) (#1) 2023 05/17/2022, 04/29/2021, 03/17/2020, Additional history exists CKD HGB USE SMARTSET 42767 05/17/202305/17, 11/07/2021, 11/07/2021, Additional history exists HbA1c [...] Comments INR FINGERSTICK, POINT OF CARE STAT 01/08/2023 11:55 AM EDT History of TIA (transient ischemic attack) Paroxysmal A-fib (HCC) Anticoagulated on Coumadin 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 management encounter 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 documented in this encounter Results * INR FINGERSTICK, POINT OF CARE (01/08/2023 11:55 AM EDT) Fingerstick INR 3.2 INR 12:22 PM EDT [facility] Blood 01/08/2023 11:5 5 AM EDT 01/08/2023 12:22 PM EDT Narrative [facility] - 01/08/2023 12:22 PM EDT Therapeutic ranges for non-operative patients: Prophylaxsis/treatment of DVT: (Range:2.0-3.0) Treatment of pulmonary embolism:(Range:2.0-3.0) Prevention of systemic embolism from: -tissue heart valves -acute myocardial infarction -valvular heart disease -atrial fibrillation (Range: 2.0-3.0) Mechanical prosthetic valves: (Range: 2.5-3.5) Brittani Chiu [facility] POINT OF CARE TEST DOCKED DEVICE UNSOLICITED RESULTS [facility] [address] [place] [address] documented in this encounter Visit Diagnoses Diagnosis History of TIA (transient ischemic attack)- Primary Transient ischemic attack (TIA), and cerebral infarction without residual deficits Paroxysmal A-fib (HCC) Atrial fibrillation Anticoagulated on Coumadin Encounter for therapeutic drug monitoring 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 management encounter Encounter for therapeutic drug monitoring 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
--- OUTSIDE RECORDS SUMMARY | 2023-06-09 00:05 | External Medical Summary | Summary of Care ---
Author Name Unknown Organization [facility] Address [address] [place] [address] Phone [phone] Care Team Providers Care Prepress Stripper Name Role Phone NickJyoti bowman Demetri MICHEL Primary Care Provider [phone] Reason for Visit * Reason Onset Date Comments Encounter Created in Error 01/01/2023 Encounter Details Date Type Department Care Team Description 01/01/2023 Telephone Cardiology, [facility] [address] [facility] [place] [address] [facility] Encounter Created in Error Allergies Active Allergy Reactions Severity Noted Date Comments Adhesive Tape 10/30/2001 Rash Ciprofloxacin 09/29/2015 Eye drops, for pink eye and made her eye more red. 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 120 mL 0 10/23/2018 Active Warfarin Sodium 7.5 MG Oral Tablet (Coumadin)Indicatio ns:A-fib (HCC),Anticoagulati on management encounter Take 1/2 tablet (3.75mg) by mouth daily or as directed by Coumadin clinic 45 Tablet 3 12/08/2021 Active Premarin 0.625 MG/GM Vaginal Cream (Estrogens, [...] WEEK INSTRUCTED 90 Tablet 3 12/05/2022 Active documented as of this encounter (statuses as of 01/01/2023) Active Problems Problem Noted Date Hx of [...] as of this encounter (statuses as of 01/01/2023) Resolved Problems Problem Noted Date Resolved Date Kidney disease, chronic, stage III (GFR 30-59 ml /min) 06/09/2019 05/12/2021 Overview: Per CKD protocol Acute recurrent maxillary sinusitis 10/18/2018 03/19/2019 Postural headache 01/19/2017 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 0 08/13/2015 [...] as of this encounter (statuses as of 01/01/2023) Immunizations Name Administration Dates Next Due COVID-19 mRNA, LNP-s, No Pre serve, 2-Dose Series ([employer]) 06/10/2021,10/06/2020,09/15/2020 Pneumococcal Conjugate Vacc, 13 Valent (Prevnar) [...] Encounters Date Type Specialty Care Team Description 01/08/2023 [facility] [address] [facility] [place] [address] 02/23/2023 Office Visit Family Medicine Jyoti Do, [address] [facility] [place] [address] 03/02/2023 Nurse Only Nurse [facility] [address] [facility] [place] [address] 04/26/2023 Office Visit Cardiology Andrzej Urena MD [address] [place] [address] 06/26/2023 Office Visit Dermatology Rossy Cain PA-C [address] [place] [address] [place] [address] 07/31/2023 [facility] [address] [place] [address] Health Maintenance Due Date Last Done Comments Alpha-1 Antitrypsin 1953 DXA Scan 2014 2007, 08/2006, 2007, Additional history exists DISCUSS TOBACCO CESSATION (REFER TO SMARTSET #3291) 09/21/2018 09/21/2017 (Course Completed) COLONOSCOPY-EVERY 3 YRS AGES 18-100 07/28/2019 07/28/2016, 07/28/2016, 12/06/2010, Additional history exists COVID-19 Vaccine (4 - Pfizer series) 08/05/2021 06/10/2021, 10/06/2020, 09/15/2020 CKD PHOS USE SMARTSET 05597 11/07/2022 05/03/2022, 05/06/2021, 01/01/2020, Additional history exists Albumin/Creatinine Ratio 11/17/2022 11/17/2021 Depression Screening, Annual for Pts 12 and Over 03/01/2023 03/01/2022 Influenza Vaccine (FLU shot) (#1) 2023 05/17/2022, 04/29/2021, 03/17/2020, Additional history exists CKD HGB USE SMARTSET 06359 05/17/202305/17, 11/07/2021, 11/07/2021, Additional history exists HbA1c [...] 8:13 AM 08/27/2007 3:51 PM Care Teams Prepress Stripper Relationship Specialty Start Date End Date Jyoti Do, [address] [place] [address] PCP - General Family Medicine 08/08/18 documented as of this encounter
--- OUTSIDE RECORDS SUMMARY | 2023-06-09 00:05 | External Medical Summary | Summary of Care ---
Author Name Unknown Organization [facility] Address [address] [place] [address] Phone [phone] Care Team Providers Care Criminal Attorney Name Role Phone Jyoti Do DO Primary Care Provider [phone] Reason for Visit * Reason Comments Dosage Adjustment In Person (Anticoag Cl inic) Encounter Details Date Type Department Care Team Description 01/30/2023 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 Pharmacy, [place] [address] [place] [address] [facility] [address] [place] [address] History of TIA (transient ischemic attack)*; Paroxysmal A-fib (HCC); Anticoagulated on Coumadin; 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 management encounter; 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),Asthma with COPD (chronic obstructive pulmonary disease) ([facility]),Wheezing Use as directed 1 Each 1 5 [...] 08/09/2022 Atorvastatin Calcium 20 MG Oral Tablet (Lipitor)Indicatio [...] Release 24 Hour (toPROL XL)Indications:Par oxysmal A-fib (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),HTN, goal below 140/90 Take one tablet with the 100 mg to equal 125 mg a day. 270 Tablet 3 3 Active Sotalol HCl 160 MG Oral Tablet (Betapace)Indicati ons:Paroxysmal A-fib ([facility]) take 1 tablet by mouth twice a day 360 Tablet 3 3 Active Potassium Citrate ER 10 MEQ (1080 MG) Oral Tablet Extended Release (Urocit-K)Indicati ons:Nephrolithiasi s,Stage 3a chronic kidney disease (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 As directed. New tablet strength. Please dispense EMMA 90 Tablet 1 3 Active Warfarin Sodium 5 MG Oral Tablet (Coumadin)Indicati ons:A-fib (HCC),Anticoagulat ion management encounter Take 0.5-1 Tablets by mouth every evening. 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 Medication Therapy Disease Management - 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 Patient: Sonia Ramos : 1935 Current Warfarin Dose As of 01/30/2023 Warfarin maintenance plan: 5 mg (5 mg x 1) every Wed; 2.5 mg (5 mg x 0.5) all other days Patient-Reported Symptoms: Patient Findings Negatives: Signs/symptoms of thrombosis, Signs/symptoms of bleeding, Change in health, Change in alcohol use, Change in activity, Upcoming invasive procedure, Missed doses, Extra doses, Change in medications, Change in diet/appetite, Bruising INR Result As of 01/30/2023 INR goal: 2.0-3.0 INR used for dosing: >8.0 (01/30/2023) Warfarin Plan As of 01/30/2023 Full warfarin instructions: 01/30: Hold; 01/31: Hold Next INR check: 02/06/2023 Additional Dosing Information: Description 01/30/23- changing to 2.5 mg tablets- pt counseled extensively on different color and new dosing. High INR: Counseled patient on the significance of INR elevation, the increased bleed risk associated with such, sign/symptoms of bleeding, and when to seek medical attention. Patient notes that the 5 mg tablets were difficult to split- ACC not sure if patient was splitting them accurately- this may be reason for supratherapeutic INR. Sending in 2.5 mg tablets for patient to use. Minimum of 2 day hold. Follow up tomorrow. Repeat PT/INR in 1 week(s) Weekly dose: to be decreased Sena Uribe RP Clinical Pharmacist 01/30/2023, 10:21 AM documented in this encounter Plan of Treatment Upcoming Encounters Date Type Specialty Care Team Description 01/31/2023 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 Pharmacy [facility] [address] [place] [facility] [place] [address] 02/06/2023 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 Pharmacy [facility] [address] [place] [facility] [address] 02/23/2023 Office Visit Family Medicine Jyoti Do DO [address] [place] [facility] [place] [address] 03/02/2023 Nurse Only Ancillary [place], Nurse [facility] [address] [place] [facility] [place] [address] 04/26/2023 Office Visit Cardiology Andrzej Urena MD [address] [place] [address] 06/26/2023 Office Visit Dermatology Rossy Cain PA-C [address] [place] [address] [place] [address] 07/31/2023 Cardiac Studies Cardiology [place] [address] [place] [address] Pending Results Name Type Priority Associated Diagnoses Date /Time PT INR Lab Routine History of TIA (transient ischemic attack) Paroxysmal A-fib (HCC) Anticoagulated on Coumadin 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 management encounter intermediate current use of anticoagulant therapy 01/30/2023 10:47 AM EDT Scheduled Orders Name Type Priority Associated Diagnoses Orde r Schedule PT INR Lab Routine History of TIA (transient ischemic attack) Paroxysmal A-fib (HCC) Anticoagulated on Coumadin 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 management encounter intermediate current use of anticoagulant therapy 26 Occurrences starting 01/30/2023 until 01/30/2024 INR FINGERSTICK, POINT OF CARE Point of Care Testing - Unsolicited Results STAT History of TIA (transient ischemic attack) Paroxysmal A-fib (HCC) Anticoagulated on Coumadin 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 management encounter 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 Every 2 Weeks for 26 Occurrences starting 01/30/2023 until 01/31/2024, 1 completed Health Maintenance Due Date Last Done Comments Alpha-1 Antitrypsin 1953 DXA Scan 2014 2007, 08/2006, 2007, Additional history exists DISCUSS TOBACCO CESSATION (REFER TO SMARTSET #3291) 09/21/2018 09/21/2017 (Course Completed) COLONOSCOPY-EVERY 3 YRS AGES 18-100 07/28/2019 07/28/2016, 07/28/2016, 12/06/2010, Additional history exists COVID-19 Vaccine (4 - Pfizer series) 08/05/2021 06/10/2021, 10/06/2020, 09/15/2020 CKD PHOS USE SMARTSET 86646 11/07/2022 05/0 03/2022, 05/06/2021, 01/01/2020, Additional history exists Albumin/Creatinine Ratio 11/17/2022 11/17/2021 Depression Screening, Annual for Pts 12 and Over 03/01/2023 03/01/2022 Influenza Vaccine (FLU shot) (#1) 2023 05/17/2022, 04/29/2021, 03/17/2020, Additional history exists CKD HGB USE SMARTSET 00439 05/17/202305/17, 11/07/2021, 11/07/2021, Additional history exists HbA1c [...] Comments INR FINGERSTICK, POINT OF CARE STAT 01/30/2023 10:27 AM EDT History of TIA (transient ischemic attack) Paroxysmal A-fib (HCC) Anticoagulated on Coumadin 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 management encounter intermediate current use of anticoagulant therapy documented in this encounter Results * INR FINGERSTICK, POINT OF CARE (01/30/2023 10:27 AM EDT) Fingerstick INR >8.0 INR 11:02 AM EDT [facility] 01/30/2023 10:2 7 AM EDT 01/30/2023 11:02 AM EDT Narrative LAB[facility]AT[facility] [facility]- - 01/30/2023 11:02 AM EDT Therapeutic ranges for non-operative patients: Prophylaxsis/treatment of DVT: (Range:2.0-3.0) Treatment of pulmonary embolism:(Range:2.0-3.0) Prevention of systemic embolism from: -tissue heart valves -acute myocardial infarction -valvular heart disease -atrial fibrillation (Range: 2.0-3.0) Mechanical prosthetic valves: (Range: 2.5-3.5) Sena Uribe [facility] LAB POINT OF CARE TEST DOCKED DEVICE UNSOLICITED RESULTS LAB[facility]ATORY [facility] [address] [place] [address] documented in this encounter Visit Diagnoses Diagnosis History of TIA (transient ischemic attack)- Primary Transient ischemic attack (TIA), and 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
--- OUTSIDE RECORDS SUMMARY | 2023-06-09 00:05 | External Medical Summary ---
Author Name Unknown Address Unknown Organization : Laboratory Report Ordering Provider Test Date Status JUSTIN GUAMAN 01/08/2023 11:55:51 Final Therapeutic ranges for non-o perative patients:
Prophylaxsis/treatment of DVT: (Range:2.0-3.0)
Treatment of pulmonary embolism:(Range:2.0-3.0)
Prevention of systemic embolism from:
-tissue heart valves
-acute myocardial infarction
-valvular heart disease
-atrial fibrillation
(Range: 2.0-3.0)
Mechanical prosthetic valves: (Range: 2.5-3.5) Observation Date Value Abnormality Reference (Units ) Status INR in Capillary blood by Coagulation assay 01/08/2023 11:55:51 3.2 (INR) Final Performing Location
--- OUTSIDE RECORDS SUMMARY | 2023-06-09 00:05 | External Medical Summary ---
Author Name Unknown Address Unknown Organization [id number]:[facility] [address] [address] Laboratory Report Ordering Provider Test Date Status ESTEFANYDONNY 01/30/2023 10:47:15 Final Warfarin Therapy
INR: 2 .0-3.0 conventional anticoagulation
INR: 2.5- 3.5 high intensity anticoagulation Observation Date Value Abnormality Reference (Units ) Status PT 01/30/2023 10:47:15 55.4 Above high normal 11.6-15.2 (seconds) Final INR 01/30/2023 10:47:15 6.2 Above upper panic limits 0.8-1.2 Final Performing Location [facility] [place] [address] [place] [address]
--- OUTSIDE RECORDS SUMMARY | 2023-06-09 00:05 | External Medical Summary | Summary of Care ---
Author Name Unknown Organization [facility] Address [address] [place] [address] Phone [phone] Care Team Providers Care Patient Attendant Name Role Phone Jyoti Do DO Primary Care Provider [phone] Reason for Visit * Reason Comments Dosage Adjustment Via Phone (anticoag Cl inic) Encounter Details Date Type Department Care Team Description 12/27/2022 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 Pharmacy, [place] [address] [place] [address] [facility] [address] [place] [address] History of TIA (transient ischemic attack)*; Paroxysmal [...] as of this encounter (statuses as of 12/27/2022) Medications Medication Sig Dispensed Refills Start Date End Date Status EPIPEN 0.3 MG/0.3ML IJ DEVIIndications:Ang ioneurotic edema One injection into thigh as needed for severe allergic reaction 2 Device 1 11/21/2011 Active NEBULIZER COMPRESSOR MISCIndications: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 ([facility]),Asthma with COPD (chronic obstructive pulmonary disease) ([facility]),Wheezing Use as directed 1 Each 1 10/02/2014 [...] Sodium 7.5 MG Oral Tablet (Coumadin)Indicatio ns:A-fib ([facility]),Anticoagulati on management encounter Take 1/2 tablet (3.75mg) [...] 160 MG Oral Tablet (Betapace)Indicatio ns:Paroxysmal A-fib ([facility]) take 1 tablet by mouth twice a [...] as of this encounter (statuses as of 12/27/2022) Active Problems Problem Noted Date Hx of [...] as of this encounter (statuses as of 12/27/2022) Resolved Problems Problem Noted Date Resolved Date Kidney disease, chronic, stage III (GFR 30-59 ml /min) 06/09/2019 05/12/2021 Overview: Per CKD protocol Acute recurrent maxillary sinusitis 10/18/2018 03/19/2019 Postural headache 01/19/2017 03/27/2018 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 Medication Therapy Disease Management - 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 Patient: Sonia Ramos : 1935 Contacts Type Contact Phone/Fax 12/27/2022 09:24 AM EDT Phone (Outgoing) Sonia Ramos (Self) [phone] (H) Spoke to Patient Current Warfarin Dose As of 12/27/2022 Warfarin maintenance plan: 0 mg every Wed; 3.75 mg (7.5 mg x 0.5) all other days Patient-Reported Symptoms: Patient Findings Negatives: Signs/symptoms of thrombosis, Signs/symptoms of bleeding, Change in health, Change in alcohol use, Change in activity, Upcoming invasive procedure, Missed doses, Extra doses, Change in medications, Change in diet/appetite, Bruising INR Result As of 12/27/2022 INR goal: 2.0-3.0 INR used for dosin.5 (12/25/2022) Warfarin Plan As of 12/27/2022 Full warfarin instructions: 0 mg every Wed; 3.75 mg all other days Next INR check: 01/08/2023 Additional Dosing Information: Description Patient prefers to continue with current tablets at this time. Reports no issues splitting pills. Repeat PT/INR in 10 days(s) Weekly dose: resumed Sena Uribe RPh Clinical Pharmacist 12/27/2022, 9:24 AM documented in this encounter Plan of Treatment Upcoming Encounters Date Type Specialty Care Team Description 01/08/2023 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 [address] [facility] [address] 02/23/2023 [facility] Visit [facility] [address] [facility] [address] 03/02/2023 Nurse Only Ancillary Nurse [facility] [address] [place] [address] 04/26/2023 Office Visit Cardiology Andrzej Urena MD [address] [place] [address] 06/26/2023 Office Visit Dermatology Rossy Cain PA-C [address] [place] [address] [place] [address] 07/31/2023 Cardiac Studies Cardiology [facility] [address] [place] [address] Health Maintenance Due Date Last Done Comments Alpha-1 Antitrypsin 1953 DXA Scan 2014 2007, 08/2006, 2007, Additional history exists DISCUSS TOBACCO CESSATION (REFER TO SMARTSET #3291) 09/21/2018 09/21/2017 (Course Completed) COLONOSCOPY-EVERY 3 YRS AGES 18-100 07/28/2019 07/28/2016, 07/28/2016, 12/06/2010, Additional history exists COVID-19 Vaccine (4 - Pfizer series) 08/05/2021 06/10/2021, 10/06/2020, 09/15/2020 CKD PHOS USE SMARTSET 17832 11/07/2022 05/0 03/2022, 05/06/2021, 01/01/2020, Additional history exists Albumin/Creatinine Ratio 11/17/2022 11/17/2021 Depression Screening, Annual for Pts 12 and Over 03/01/2023 03/01/2022 CKD HGB USE SMARTSET 03755 05/17/202305/17, 11/07/2021, 11/07/2021, Additional history exists HbA1c 05/17/2023 05/17/2022, 10/30, 08/12/2010, Additional history exists TSH 08/02/2023 08/02/2022, 05/02, 11/11/2021, Additional history exists O2 ASSESSMENT COMPLETED IN PAST YEAR FOR COPD 10/19/2023 10/18/2022 DTaP,Tdap,and Td Vaccines (2 - Td or Tdap) 03/16/2024 03/16/2014, 04/27/2008 Pneumococcal Vaccine: 65+ Years Completed 02/24/2015, 04/23/2007 Zoster Vaccines Completed 12/17/2019, 02/01, 04/30/2014 Influenza Vaccine (FLU shot) Completed , 04/29/2021, 03/17/2020, Additional history exists GARDASIL-HPV IMMUNIZATION SERIES Aged [...] 8:13 AM 08/27/2007 3:51 PM Care Teams Patient Attendant Relationship Specialty Start Date End Date Jyoti Do, DO [address] [place] [address] PCP - General Family Medicine 08/08/18 documented as of this encounter
[2023-06-09 00:06] LABS: Lipase 30 U/L (11-82)
--- OUTSIDE RECORDS SUMMARY | 2023-06-09 00:06 | External Medical Summary ---
Author Name Unknown Address Unknown Organization K01:[facility] [address] [place] [address] Laboratory Report Ordering Provider Test Date Status JUSTIN GUAMAN 12/25/2022 12:03:13 Final Warfarin Therapy
INR: 2 .0-3.0 conventional anticoagulation
INR: 2.5- 3.5 high intensity anticoagulation Observation Date Value Abnormality Reference (Units ) Status PT 12/25/2022 12:03:13 57.4 Above high normal 11.6-15.2 (seconds) Final INR 12/25/2022 12:03:13 6.5 Above upper panic limits 0.8-1.2 Final Performing Location [facility] [place] [address] [place] [address]
--- OUTSIDE RECORDS SUMMARY | 2023-06-09 00:06 | External Medical Summary | Summary of Care ---
Author Name Unknown Organization [facility] Address [address] [place] [address] Phone [phone] Care Team Providers Care Diamond Setter Apprentice Name Role Phone Jyoti Do DO Primary Care Provider [phone] Reason for Visit * Reason Comments Dosage Adjustment In Person (Anticoag Cl inic) Encounter Details Date Type Department Care Team Description 12/25/2022 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 Pharmacy, [address] [address] [facility] [address] [place] [address] History of TIA (transient ischemic attack)*; Paroxysmal A-fib (HCC); Anticoagulated on Coumadin; 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 management encounter; custodial current use of anticoagulant therapy Allergies Active Allergy Reactions Severity Noted Date Comments Adhesive Tape 10/30/2001 Rash Ciprofloxacin 09/29/2015 Eye drops, for pink eye and made her eye more red. 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[facility]),Asthma with COPD (chronic obstructive pulmonary disease) ([facility]),Wheezing Use as directed 1 Each [...] as of this encounter (statuses as of 12/25/2022) Active Problems Problem Noted Date Hx of [...] as of this encounter (statuses as of 12/25/2022) Resolved Problems Problem Noted Date Resolved Date Kidney disease, chronic, stage III (GFR 30-59 ml /min) 06/09/2019 05/12/2021 Overview: Per CKD protocol Acute recurrent maxillary sinusitis 10/18/2018 03/19/2019 Postural headache 01/19/2017 03/27/2018 custodial current use of anticoagulant therapy 0 08/13/2015 [...] as of this encounter (statuses as of 12/25/2022) Immunizations Name Administration Dates Next Due COVID-19 mRNA, LNP-s, No Pre serve, 2-Dose Series (Pfizer) 06/10/2021,10/06/2020,09/15/2020 Pneumococcal Conjugate Vacc, 13 Valent (Prevnar) 02/24/2015 Pneumococcal Polysaccharide PPV23 (Pneumovax) 04/23/2007 Seasonal Influenza, Quadriva lent Hd (Fluzone Hd) 05/17/2022,04/29/2021 Seasonal Influenza, Quadriva lent, No Preserve, 6 Mons & Above, IM 03/17/2020,03/19/2019,04/24/2018,1003/2017 Seasonal Influenza, Quadriva lent, No Preserve, IM [...] Progress Notes * Sena Uribe RPh - 12/25/2022 11:44 AM EDT Images from the original note were not included. Medication Therapy Disease Management - 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 Patient: Sonia Ramos : 1935 Current Warfarin Dose As of 12/25/2022 Warfarin maintenance plan: 0 mg every Wed; 3.75 mg (7.5 mg x 0.5) all other days Patient-Reported Symptoms: Patient Findings Positives: Change in activity (less activity because of knee pain), Emergency department visit, Change in medications (tylenol for pain), Change in diet/appetite (less greens lately) Negatives: Signs/symptoms of thrombosis, Signs/symptoms of bleeding, Change in health, Change in alcohol use, Upcoming invasive procedure, Missed doses, Extra doses, Bruising INR Result As of 12/25/2022 INR goal: 2.0-3.0 INR used for dosing: >8.0 (12/25/2022) Warfarin Plan As of 12/25/2022 Full warfarin instructions: 12/25: Hold; 12/26: Hold; Otherwise 0 mg every Wed; 3.75 mg all other days Next INR check: 01/08/2023 Additional Dosing Information: Description Patient prefers to continue with current tablets at this time. Reports no issues splitting pills. High INR: Counseled patient on the significance of INR elevation, the increased bleed risk associated with such, sign/symptoms of bleeding, and when to seek medical attention. Sent to lab for confirmation for INR. Patient usually does not take coumadin on wednesdays as part of her maintenance plan. Will call patient on Sunday to provide with guidance if she is to skip as usual, or restart her dose. Sena Uribe RPh Clinical Pharmacist 12/25/2022, 11:45 AM documented in this encounter Plan of Treatment Upcoming Encounters Date Type Specialty Care Team Description 12/27/2022 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 Pharmacy Florinda Almurray [address] [id number] 01/08/2023 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 Pharmacy [facility] [address] [facility] [address] 02/23/2023 Office Visit Family Medicine [facility] [address] [facility] [address] 03/02/2023 Nurse Only Ancillary [place], Nurse [facility] [address] [facility] [address] 04/26/2023 Office Visit Cardiology Andrzej Urena MD [address] [place] [address] 06/26/2023 Office Visit Dermatology Rossy Cain PA-C [address] [place] [address] [place] [address] 07/31/2023 Cardiac Studies Cardiology Amy Christie [facility] [place] [facility] [address] [place] [address] Health Maintenance Due Date Last Done Comments Alpha-1 Antitrypsin 1953 DXA Scan 2014 2007, 08/2006, 2007, Additional history exists DISCUSS TOBACCO CESSATION (REFER TO SMARTSET #3291) 09/21/2018 09/21/2017 (Course Completed) COLONOSCOPY-EVERY 3 YRS AGES 18-100 07/28/2019 07/28/2016, 07/28/2016, 12/06/2010, Additional history exists COVID-19 Vaccine (4 - Pfizer series) 08/05/2021 06/10/2021, 10/06/2020, 09/15/2020 CKD PHOS USE SMARTSET 66894 11/07/2022 050 03/2022, 05/06/2021, 01/01/2020, Additional history exists Albumin/Creatinine Ratio 11/17/2022 11/17/2021 Depression Screening, Annual for Pts 12 and Over 03/01/2023 03/01/2022 CKD HGB USE SMARTSET 41291 05/17/202305/17, 11/07/2021, 11/07/2021, Additional history exists HbA1c [...] Comments INR FINGERSTICK, POINT OF CARE STAT 12/25/2022 11:54 AM EDT History of TIA (transient ischemic attack) Paroxysmal A-fib (HCC) Anticoagulated on Coumadin 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 documented in this encounter Results * INR FINGERSTICK, POINT OF CARE (12/25/2022 11:54 AM EDT) Fingerstick INR >8.0 INR 12:09 PM EDT LABORATORY [facility] [facility] Blood 12/25/2022 11:5 4 AM EDT 12/25/2022 12:09 PM EDT Narrative [facility] - 12/25/2022 12:09 PM EDT Therapeutic ranges for non-operative patients: Prophylaxsis/treatment of DVT: (Range:2.0-3.0) Treatment of pulmonary embolism:(Range:2.0-3.0) Prevention of systemic embolism from: -tissue heart valves -acute myocardial infarction -valvular heart disease -atrial fibrillation (Range: 2.0-3.0) Mechanical prosthetic valves: (Range: 2.5-3.5) Brittani Chiu [facility] LAB POINT OF CARE TEST DOCKED DEVICE UNSOLICITED RESULTS LAB[facility]ATORY [facility] [address] [place] [address] documented in this encounter Visit Diagnoses Diagnosis History of TIA (transient ischemic attack)- Primary Transient ischemic attack (TIA), and cerebral infarction without residual deficits Paroxysmal A-fib (HCC) Atrial fibrillation Anticoagulated on Coumadin Encounter for therapeutic drug monitoring 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 management encounter Encounter for therapeutic drug monitoring custodial current use of anticoagulant therapy documented in [...] 8:13 AM 08/27/2007 3:51 PM Care Teams Diamond Setter Apprentice Relationship Specialty Start Date End Date Jyoti Do, [address] [address] PCP - General Family Medicine 08/08/18 documented as of this encounter
--- OUTSIDE RECORDS SUMMARY | 2023-06-09 00:06 | External Medical Summary | Summary of Care ---
Author Name Unknown Organization [facility] Address [address] [place] [address] Phone [phone] Care Team Providers Care Lcsw Name Role Phone Jyoti Do DO Primary Care Provider [phone] Reason for Visit * Reason Onset Date Comments Hospital Call 12/25/2022 ([facility]) INR= 6.5Goal INR 2-3Patient was not notified. INR was elevated in clinic today, sent for lab verification. Patient was already instructed to hold doses 6-26 and 6-27. 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 Clinic pharmacist will contact patient in morning with further dosing instructions.Bijan Sr, [facility]allinical PharmacistMedication Therapy Management Clinic12/26/2022, 1:05 AM Encounter Details Date Type Department Care Team Description 12/25/[address] [address] Jyoti Do DO [address] [place] [id number] Hospital Call ([phone] (home) //INR= ... Allergies Active Allergy Reactions Severity Noted Date Comments Adhesive Tape 10/30/2001 Rash Ciprofloxacin 09/29/2015 Eye drops, for pink eye and made her eye more red. 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 ([facility]),Asthma with COPD (chronic obstructive pulmonary disease) ([facility]),Wheezing Use as directed 1 Each 1 [...] Sodium 7.5 MG Oral Tablet (Coumadin)Indicatio ns:A-fib ([facility]),Anticoagulati on management encounter Take 1/2 tablet (3.75mg) [...] as of this encounter (statuses as of 12/26/2022) Active Problems Problem Noted Date Hx of [...] as of this encounter (statuses as of 12/26/2022) Resolved Problems Problem Noted Date Resolved Date Kidney disease, chronic, stage III (GFR 30-59 ml /min) 06/09/2019 05/12/2021 Overview: Per CKD protocol Acute recurrent maxillary sinusitis 10/18/2018 03/19/2019 Postural headache 01/19/2017 03/27/2018 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 Brittani Chiu RPh, PharmD Clinical Pharmacist - [facility] 12/26/2022, 9:09 AM [phone] * Telephone Encounter - Elaina Mars - 12/25/2022 11:36 AM EDT 12/25/22 Pt dropped off paperwork that needs to be completed for pt to receive a Handicap Placard. Pt would like this paperwork EMMA so she could take it to Bob Rodriguez's office. Paperwork put in provider's mail bin on 12/25 documented in this encounter Plan of Treatment Upcoming Encounters Date Type Specialty Care Team Description 12/27/2022 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 [address] [facility] [address] 01/08/2023 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 [address] [facility] [address] 02/23/2023 Office Visit Family [facility] Do, DO [address] [facility] [address] 03/02/2023 Nurse Only Ancillary [place] [address] [place] [address] 04/26/2023 Office Visit Cardiology Andrzej Urena MD [address] [place] [address] 06/26/2023 Office Visit Dermatology Rossy Cain PA-C [address] [place] [address] [place] [address] 07/31/2023 Cardiac Studies Cardiology [facility] [address] [place] [address] Health Maintenance Due Date Last Done Comments Alpha-1 Antitrypsin 1953 DXA Scan 2014 2007, 08/2006, 2007, Additional history exists DISCUSS TOBACCO CESSATION (REFER TO SMARTSET #3291) 09/21/2018 09/21/2017 (Course Completed) COLONOSCOPY-EVERY 3 YRS AGES 18-100 07/28/2019 07/28/2016, 07/28/2016, 12/06/2010, Additional history exists COVID-19 Vaccine (4 - Pfizer series) 08/05/2021 06/10/2021, 10/06/2020, 09/15/2020 CKD PHOS USE SMARTSET 24565 11/07/2022 05/0 03/2022, 05/06/2021, 01/01/2020, Additional history exists Albumin/Creatinine Ratio 11/17/2022 11/17/2021 Depression Screening, Annual for Pts 12 and Over 03/01/2023 03/01/2022 CKD HGB USE SMARTSET 66902 05/17/202305/17, 11/07/2021, 11/07/2021, Additional history exists HbA1c [...] 8:13 AM 08/27/2007 3:51 PM Care Teams Lcsw Relationship Specialty Start Date End Date Jyoti Do, [address] [place] [address] PCP - General Family Medicine 08/08/18 documented as of this encounter
--- OUTSIDE RECORDS SUMMARY | 2023-06-09 00:06 | External Medical Summary | Summary of Care ---
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 [place] [address] 01/08/2023 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 Pharmacy [facility] [address] [place] [facility] [place] [address] 02/23/2023 [facility] Visit [facility] [address] [facility] [address] 03/02/2023 Nurse Only Ancillary [place], [facility] [address] [place] [address] 04/26/2023 Office Visit Cardiology Andrzej Urena MD [address] [place] [address] 06/26/2023 Office Visit Dermatology Rossy Cain PA-C [address] [place] [address] [place] [address] 07/31/2023 Cardiac Studies Cardiology [facility] [address] [place] [address] Pending Results Name Type Priority Associated Diagnoses Date /Time PT INR Lab Routine History of TIA (transient ischemic attack) Paroxysmal A-fib (HCC) Anticoagulated on Coumadin 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 management encounter 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 12/25/2022 12:03 PM EDT Health Maintenance Due Date Last Done Comments Alpha-1 Antitrypsin 1953 DXA Scan 2014 2007, 08/2006, 2007, Additional history exists DISCUSS TOBACCO CESSATION (REFER TO SMARTSET #3291) 09/21/2018 09/21/2017 (Course Completed) COLONOSCOPY-EVERY 3 YRS AGES 18-100 07/28/2019 07/28/2016, 07/28/2016, 12/06/2010, Additional history exists COVID-19 Vaccine (4 - Pfizer series) 08/05/2021 06/10/2021, 10/06/2020, 09/15/2020 CKD PHOS USE SMARTSET [id number] 11/07/2022 05/0 03/2022, 05/06/2021, 01/01/2020, Additional history exists Albumin/Creatinine Ratio 11/17/2022 11/17/2021 Depression Screening, Annual for Pts 12 and Over 03/01/2023 03/01/2022 CKD HGB USE SMARTSET 98871 05/17/202305/17, 11/07/2021, 11/07/2021, Additional history exists HbA1c [...] encounter Encounter for therapeutic drug monitoring 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
--- OUTSIDE RECORDS SUMMARY | 2023-06-09 00:06 | External Medical Summary ---
Author Name Unknown Address Unknown Organization : Laboratory Report Ordering Provider Test Date Status JUSTIN GUAMAN 12/25/2022 11:54:01 Final Therapeutic ranges for non-o perative patients:
Prophylaxsis/treatment of DVT: (Range:2.0-3.0)
Treatment of pulmonary embolism:(Range:2.0-3.0)
Prevention of systemic embolism from:
-tissue heart valves
-acute myocardial infarction
-valvular heart disease
-atrial fibrillation
(Range: 2.0-3.0)
Mechanical prosthetic valves: (Range: 2.5-3.5) Observation Date Value Abnormality Reference (Units ) Status INR in Capillary blood by Coagulation assay 12/25/2022 11:54:01 >8.0 (INR) Final Performing Location
[2023-06-09 00:13] LABS: Troponin I High Sensitivity 4.7 pg/ml (0-14)
--- NOTE | 2023-06-09 02:23 | CT Scan Report ---
Exam(s): CT T SPINE EXAM: CT Thoracic Spine Without Intravenous Contrast CLINICAL HISTORY: Reason for exam: back pain. TECHNIQUE: Axial computed tomography images of the thoracic spine without intravenous contrast. Automated exposure control was utilized for the study. A dose lowering technique was utilized adhering to the principles of ALARA. COMPARISON: No relevant prior studies available. FINDINGS: Vertebrae: Unremarkable. No acute fracture. Diffuse osteopenia throughout the visualized bones. Discs/spinal canal/neural foramina: No acute findings. No spinal canal stenosis. Soft tissues: Findings concerning for bronchitis, which may be of infectious or inflammatory etiologies. Prominent mediastinal lymph nodes. Multiple pulmonary nodules concerning for metastatic disease. IMPRESSION: No evidence of acute thoracic spine pathology. Multiple pulmonary nodules concerning for metastatic disease. Findings concern for bronchitis, which may be infectious or inflammatory urologist with prominent mediastinal lymph nodes. Electronically signed by: Lucy Nelson MD 06/09/23 02:22 AM
--- NOTE | 2023-06-09 02:26 | CT Scan Report ---
Exam(s): CT L SPINE EXAM: CT Lumbar Spine Without Intravenous Contrast CLINICAL HISTORY: Reason for exam: back pain. TECHNIQUE: Axial computed tomography images of the lumbar spine without intravenous contrast. CTDI is 38.35 mGy and DLP is 2640.63 mGy-cm. Automated exposure control was utilized for the study. A dose lowering technique was utilized adhering to the principles of ALARA. COMPARISON: No relevant prior studies available. FINDINGS: Vertebrae: Unremarkable. No acute fracture. Diffuse osteopenia throughout the visualized bones. Positive Dougherty sign out L1-2, L2-3, L3-4 and L4-5. Discs/spinal canal/neural foramina: No acute findings. No spinal canal stenosis. Soft tissues: Unremarkable. IMPRESSION: No evidence of acute lumbar spine pathology. Electronically signed by: Lucy Nelson MD 06/09/23 02:25 AM
--- NOTE | 2023-06-09 03:33 | CT Scan Report ---
Exam(s): CT ABDOMEN + PELVIS Without Contrast EXAM: CT Abdomen and Pelvis Without Intravenous Contrast CLINICAL HISTORY: Reason for exam: RLQ and right flank pain. TECHNIQUE: Axial computed tomography images of the abdomen and pelvis without intravenous contrast. CTDI is 38.35 mGy and DLP is 2640.63 mGy-cm. Automated exposure control was utilized for the study. A dose lowering technique was utilized adhering to the principles of ALARA. COMPARISON: CT abdomen on 02/24/2007 FINDINGS: Lung bases: Unremarkable. No mass. No consolidation. Heart: Mild cardiomegaly. Pacer wire partially visualized in the heart. Coronary artery and mitral annular calcifications. ABDOMEN: Liver: Unremarkable. Gallbladder and bile ducts: Prior cholecystectomy. No ductal dilation. Pancreas: Unremarkable. No ductal dilation. Spleen: Unremarkable. No splenomegaly. Adrenals: Nonspecific nodular thickening of the adrenal glands. Kidneys and ureters: Bilateral renal cysts. Nonspecific bilateral perinephric fat stranding. No obstructing stones. Stomach and bowel: Evaluation of the stomach is limited by underdistention. Diverticulosis without evidence of diverticulitis. No small bowel obstruction. PELVIS: Appendix: Normal appendix. Bladder: Unremarkable. No stones. Reproductive: Unremarkable as visualized. ABDOMEN and PELVIS: Intraperitoneal space: Unremarkable. No free air. No significant fluid collection. Bones/joints: Degenerative changes of the spine. Grade 1 anterolisthesis of L4 on L5. No acute fracture. No dislocation. Soft tissues: Small fat-containing umbilical and ventral hernias. Vasculature: Atherosclerotic changes of the vasculature. No aortic aneurysm. Lymph nodes: Unremarkable. No enlarged lymph nodes. IMPRESSION: Nonspecific nodular thickening of the adrenal glands. No acute abnormality in the abdomen or pelvis. Electronically signed by: Nenita Hull M.D. 06/09/23 03:32 AM
--- NOTE | 2023-06-09 03:37 | Ultrasound Report ---
Exam(s): US VENOUS BILATERAL LOWER EXTREMITIES EXAM: US Duplex Bilateral Lower Extremities Veins CLINICAL HISTORY: Reason for exam: Bilateral leg swelling and discomfort. TECHNIQUE: Real-time duplex ultrasound scan of the bilateral lower extremity veins integrating B-mode two-dimensional vascular structure, Doppler spectral analysis, color flow Doppler imaging and compression. COMPARISON: None FINDINGS: Right deep veins: Unremarkable. No DVT in the right common femoral, femoral, proximal deep femoral or popliteal veins. The veins demonstrate normal color flow, are normally compressible, with normal phasic flow and/or augmentation response. Right superficial veins: Unremarkable. No thrombus in the visualized right great saphenous vein. Left deep veins: Unremarkable. No DVT in the left common femoral, femoral, proximal deep femoral or popliteal veins. The veins demonstrate normal color flow, are normally compressible, with normal phasic flow and/or augmentation response. Left superficial veins: Unremarkable. No thrombus in the visualized left great saphenous vein. Soft tissues: Complex right popliteal cyst measuring 3.9 x 3.3 x 1.2 cm. IMPRESSION: 1. No deep venous thrombosis identified in either lower extremity. 2. Complex right popliteal cyst. Electronically signed by: Nenita Hull M.D. 06/09/23 03:37 AM
--- NOTE | 2023-06-09 04:31 | Emergency Department Note ---
ED Visit Note I was consulted by the Advanced Practice Provider. I personally made/approved the management plan and take responsibility for the patient management. I performed a substantive portion of the visit. This includes the aspects of: -History/Physical/Personally seeing the patient -MDM -I independently interpreted the following studies: EKG and thoracic spine CT .
--- NOTE | 2023-06-09 07:15 | Electrocardiogram Report ---
Test Reason : Blood Pressure : / mmHG Vent. Rate : 061 BPM Atrial Rate : 061 BPM P-R Int : 216 ms QRS Dur : 078 ms QT Int : 468 ms P-R-T Axes : 054 044 063 degrees QTc Int : 471 ms Atrial-paced rhythm with prolonged AV conduction Nonspecific ST and T wave abnormality Abnormal ECG When compared with ECG of 27-JUN-2019 09:56, No significant change was found Confirmed by Rajinder Bedolla ([id number]) on 06/09/2023 7:15:24 AM Referred By: REFERRED SELF Confirmed By:Harpreet Bedolla
--- NOTE | 2023-06-09 07:49 | History & Physical Report ---
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 The pain is progressive getting worse and having difficulty ambulating which prompted her to come to the ER. No bowel or bladder incontinence. Ambulate dysfunction Severe low back pain radiating to both legs CT lumbar spine pain ok CT thoracic spine no acute evidence of thoracic spine pathology Possible sciatica will give dose of Decadron Consult orthopedics Pain control- iv dilaudid prn PT OT when stable Multiple pulmonary nodules Incidental finding on thoracic spine CT History of ovarian at younger age. Total abdominal hysterectomy with bilateral salpingo-oophorectomy at age 33 as per epic. History of basal cell carcinoma nasal bridge. No signs of recurrence per Dermatology notes Will consult pulmonary for further recommendations Paroxysmal atrial fibrillation tachybradycardia syndrome S/p pacemaker On sotalol, metoprolol succinate and Coumadin INR therapeutic Will monitor Lower extremity edema Doppler negative for DVT Complex right popliteal cyst Will follow echo History of kidney stones on potassium citrate Hypertension On hydrochlorothiazide, metoprolol succinate will monitor. DVT prophylaxis on Coumadin. Will follow PT/INR Disposition. Medical floor Full code History of Present Illness Chief Complaint: Severe back pain radiating to bilateral lower legs. 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 The pain is progressive getting worse and having difficulty ambulating which prompted her to come to the ER. No bowel or bladder incontinence. No abdominal pain. No chest pain or shortness of breath. No fevers. Appetite is okay. No difficulty swallowing. No headache. Vision is okay. No earache runny nose or sore throat. Currently resting comfortably and hemodynamically stable. Patient noticed swelling of the lower extremities Past medical history. As mentioned above Past surgical history. Left carpal tunnel surgery. Colonoscopy. Cystourethroscopy with lithotripsy bilateral. Multiple cystoscopies. Lithotripsies. Left heart catheterization. Total abdominal hysterectomy with removal of tubes Family history Sister has lobaplatin cancer. Daughter had appendical cancer. Another daughter had colon cancer at age of 33. Daughter has rhinitis. Social history. . Smoked 0.05 packs a day for 40 years. No alcohol use. No drug use. Allergies Allergy/AdvReac Type Severity Reaction Status Date / Time aspirin Allergy Severe THROAT Verified 06/27/19 11:26 SWELLING Iodinated Contrast Media Allergy Severe can't Verified 06/27/19 11:26 breath iodine Allergy Severe can't Verified 06/27/19 11:26 breath nitrofurantoin Allergy Severe couldn't Verified 06/27/19 11:26 breathe ezetimibe Allergy Intermediate pt unsure Verified 06/27/19 11:26 adhesive Allergy Mild tears skin Verified 06/27/19 11:26 clopidogrel Allergy Unknown pt unsure Verified 06/27/19 11:26 Home Medications Medication Instructions Recorded Confirmed Type allopurinol 100 mg tablet 100 mg PO DAILY 06/09/23 06/09/23 History atorvastatin 20 mg tablet 20 mg PO DAILY 06/09/23 06/09/23 History gabapentin 100 mg capsule 100 mg PO TID 06/09/23 06/09/23 History hydrochlorothiazide 25 mg tablet 25 mg PO UD 06/09/23 06/09/23 History levothyroxine 25 mcg tablet 25 mcg PO DAILY 06/09/23 06/09/23 History metoprolol succinate 100 mg 100 mg PO DAILY 06/09/23 06/09/23 History tablet,extended release 24 hr metoprolol succinate 25 mg 25 mg PO DAILY 06/09/23 06/09/23 History tablet,extended release 24 hr potassium citrate 10 mEq (1,080 10 meq PO BID 06/09/23 06/09/23 History mg) tablet,extended release sotalol 160 mg tablet 160 mg PO BID 06/09/23 06/09/23 History warfarin 2.5 mg tablet 2.5 mg PO UD 06/09/23 06/09/23 History Past Med/Surg History Medical History (Updated 06/09/23 @ 05:03 by Gloria Roe PA-C) Kidney stones History of cancer skin ca, and 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, cervical; 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 Afib paroxymal afib Acid reflux COPD (chronic obstructive pulmonary disease) Asthma Hypothyroidism Hypertension Hypertension Hyperlipidemia TIA (transient ischemic attack) Surgical History History of cataract extraction with lens replacement History of tonsillectomy History of cholecystectomy History of hysterectomy History of hysterectomy Family History Other Family history non-contributory Social History Smoking Status: Current some day smoker Tobacco Type: Cigarettes Hx Alcohol Use: No Hx Substance Use: No Preferred Language: Lao Communication Ability: Effective Feed Weigher Required: No Beliefs That Will Affect Care: None Current Living Situation: Alone Feels Safe at Home: Yes Assistive Devices: Oxygen - Continuous Review of Systems Review of Systems: All systems reviewed & are unremarkable except as noted in HPI & below Physical Exam Physical Exam: General- Not in distress Head- atraumatic Eyes- PERRL. ENT- oropharynx clear Neck- supple, no JVD. Lungs- clear to auscultation , no wheezing or crackles. Heart- regular rhythm; no murmur, no gallop Abdomen- normal bowel sounds, soft, nontender, no distension. Extremities- b/l lower extremity edema present. Neuro- alert, oriented x 3; PERRL, EOMI; no facial palsy; no dysarthria; moves extremities. Musculoskeletal. Lumbar spine tenderness present. Negative b/l straight leg test. Results & Data Results & Data Vital Signs (Past 12 Hours) Vital Signs Temp Pulse Pulse Resp BP BP Pulse Ox 06/09/23 06:09 61 20 142/77 H 95 06/09/23 04:16 63 20 146/118 H 96 06/09/23 03:30 73 06/09/23 02:00 61 20 149/61 H 97 06/09/23 00:01 60 18 153/63 H 98 06/08/23 23:38 61 18 152/73 H 98 06/08/23 23:32 60 06/08/23 20:28 36.8 C 78 18 154/82 H 97 O2 Del Method 06/09/23 06:09 Room Air 06/09/23 04:16 Room Air 06/09/23 03:30 06/09/23 02:00 Room Air 06/09/23 00:01 Room Air 06/08/23 23:38 Room Air 06/08/23 23:32 06/08/23 20:28 Room Air Diagnostic Findings Laboratory Results WBC 7.47 K/ul (4.8-10.8) 06/08/23 21:05 RBC 4.89 M/uL (4.20-5.40) 06/08/23 21:05 Hgb 14.5 g/dl (12.0-16.0) 06/08/23 21:05 Hct 45.0 % (37.0-47.0) 06/08/23 21:05 MCV 92.0 fL (80.0-100.0) 06/08/23 21:05 MCH 29.7 pg (25.0-34.0) 06/08/23 21:05 MCHC 32.2 g/dL (32.0-36.0) 06/08/23 21:05 RDW Std Deviation 51.1 fL (36.4-46.3) H 06/08/23 21:05 RDW Coeff of Matias 15.1 % (11.5-14.5) H 06/08/23 21:05 Plt Count 187 K/uL (130-400) 06/08/23 21:05 MPV 12.1 fL (9.4-12.4) 06/08/23 21:05 Immature Gran % (Auto) 0.3 % 06/08/23 21:05 Neut % (Auto) 60.0 % 06/08/23 21:05 Lymph % (Auto) 27.7 % 06/08/23 21:05 [place] % (Auto) 9.9 % 06/08/23 21:05 Eos % (Auto) 1.7 % 06/08/23 21:05 Baso % (Auto) 0.4 % 06/08/23 21:05 Neut # (Auto) 4.48 K/uL (1.40-6.50) 06/08/23 21:05 Lymph # (Auto) 2.07 K/uL (1.20-3.40) 06/08/23 21:05 [place] # (Auto) 0.74 K/uL (0.11-0.59) H 06/08/23 21:05 Eos # (Auto) 0.13 K/uL (0.00-0.50) 06/08/23 21:05 Baso # (Auto) 0.03 K/uL (0.00-0.20) 06/08/23 21:05 Immature Gran # (Auto) 0.02 K/uL (0.01-0.20) 06/08/23 21:05 PT 26.5 Seconds (9.0-12.0) H 06/08/23 21:05 INR 2.6 (0.9-1.1) H 06/08/23 21:05 APTT 37 Seconds (21-31) H 06/08/23 21:05 PTT Ratio 1.3 06/08/23 21:05 Sodium 139 mmol/L (136-145) 06/08/23 21:05 Potassium 4.0 mmol/L (3.5-5.1) 06/08/23 21:05 Chloride 105 mmol/L (98-107) 06/08/23 21:05 Carbon Dioxide 28 mmol/L (21-32) 06/08/23 21:05 Anion Gap 6 (3-11) 06/08/23 21:05 BUN 23 mg/dl (6-23) 06/08/23 21:05 Creatinine 0.82 mg/dl (0.6-1.2) 06/08/23 21:05 Est Cr Clr Drug Dosing Not Reportable 06/08/23 21:05 Est GFR ( Amer) 74.6 ml/min 06/08/23 21:05 Est GFR (Non-Af Amer) 64.3 ml/min 06/08/23 21:05 BUN/Creatinine Ratio 28.0 (10-20) H 06/08/23 21:05 Glucose 110 mg/dl (70-99(Fasting)) H 12/08/23 21:05 Calcium 9.2 mg/dl (8.6-10.3) 06/08/23 21:05 Total Bilirubin 0.5 mg/dl (0.2-1.0) 06/08/23 21:05 AST 24 U/L (13-39) 06/08/23 21:05 ALT 14 U/L (7-52) 06/08/23 21:05 Alkaline Phosphatase 121 U/L (34-104) H 06/08/23 21:05 Troponin I High Sens 4.7 pg/ml (0-14) 06/08/23 21:05 B-Natriuretic Peptide 141 pg/ml (0-100) H 06/09/23 00:22 Total Protein 7.2 gm/dl (6.0-8.3) 06/08/23 21:05 Albumin 3.9 gm/dl (3.4-5.0) 06/08/23 21:05 Globulin 3.3 gm/dl (2.5-4.0) 06/08/23 21:05 Albumin/Globulin Ratio 1.2 (0.9-2) 06/08/23 21:05 Lipase 30 U/L (11-82) 06/08/23 21:05 Urine Color Yellow 06/08/23 23:43 Urine Appearance Clear (Clear) 06/08/23 23:43 Urine pH 7.0 (4.5-7.5) 06/08/23 23:43 Ur Specific [place] 1.020 (1.000-1.030) 06/08/23 23:43 Urine Protein Negative (Negative) 06/08/23 23:43 Urine Glucose (UA) Negative (Negative) 06/08/23 23:43 Urine Ketones Negative (Negative) 06/08/23 23:43 Urine Blood Negative (Negative) 06/08/23 23:43 Urine Nitrite Negative (Negative) 06/08/23 23:43 Urine Bilirubin Negative (Negative) 06/08/23 23:43 Urine Urobilinogen Negative (Negative) 06/08/23 23:43 Ur Leukocyte Esterase Negative (Negative) 06/08/23 23:43 Impressions Abdomen/Pelvis CT 06/08/23 23:27 Exam(s): CT ABDOMEN + PELVIS Without Contrast EXAM: CT Abdomen and Pelvis Without Intravenous Contrast CLINICAL HISTORY: Reason for exam: RLQ and right flank pain. TECHNIQUE: Axial computed tomography images of the abdomen and pelvis without intravenous contrast. CTDI is 38.35 mGy and DLP is 2640.63 mGy-cm. Automated exposure control was utilized for the study. A dose lowering technique was utilized adhering to the principles of ALARA. COMPARISON: CT abdomen on 02/24/2007 FINDINGS: Lung bases: Unremarkable. No mass. No consolidation. Heart: Mild cardiomegaly. Pacer wire partially visualized in the heart. Coronary artery and mitral annular calcifications. ABDOMEN: Liver: Unremarkable. Gallbladder and bile ducts: Prior cholecystectomy. No ductal dilation. Pancreas: Unremarkable. No ductal dilation. Spleen: Unremarkable. No splenomegaly. Adrenals: Nonspecific nodular thickening of the adrenal glands. Kidneys and ureters: Bilateral renal cysts. Nonspecific bilateral perinephric fat stranding. No obstructing stones. Stomach and bowel: Evaluation of the stomach is limited by underdistention. Diverticulosis without evidence of diverticulitis. No small bowel obstruction. PELVIS: Appendix: Normal appendix. Bladder: Unremarkable. No stones. Reproductive: Unremarkable as visualized. ABDOMEN and PELVIS: Intraperitoneal space: Unremarkable. No free air. No significant fluid collection. Bones/joints: Degenerative changes of the spine. Grade 1 anterolisthesis of L4 on L5. No acute fracture. No dislocation. Soft tissues: Small fat-containing umbilical and ventral hernias. Vasculature: Atherosclerotic changes of the vasculature. No aortic aneurysm. Lymph nodes: Unremarkable. No enlarged lymph nodes. IMPRESSION: Nonspecific nodular thickening of the adrenal glands. No acute abnormality in the abdomen or pelvis. Electronically signed by: Nenita Hull M.D. 06/09/23 03:[address] 06/08/23 23:27 Exam(s): CT L SPINE EXAM: CT Lumbar Spine Without Intravenous Contrast CLINICAL HISTORY: Reason for exam: back pain. TECHNIQUE: Axial computed tomography images of the lumbar spine without intravenous contrast. CTDI is 38.35 mGy and DLP is 2640.63 mGy-cm. Automated exposure control was utilized for the study. A dose lowering technique was utilized adhering to the principles of ALARA. COMPARISON: No relevant prior studies available. FINDINGS: Vertebrae: Unremarkable. No acute fracture. Diffuse osteopenia throughout the visualized bones. Positive Chromo sign out L1-2, L2-3, L3-4 and L4-5. Discs/spinal canal/neural foramina: No acute findings. No spinal canal stenosis. Soft tissues: Unremarkable. IMPRESSION: No evidence of acute lumbar spine pathology. Electronically signed by: Lucy Nelson MD 06/09/23 02:[address] 06/08/23 23:27 Exam(s): CT T SPINE EXAM: CT Thoracic Spine Without Intravenous Contrast CLINICAL HISTORY: Reason for exam: back pain. TECHNIQUE: Axial computed tomography images of the thoracic spine without intravenous contrast. Automated exposure control was utilized for the study. A dose lowering technique was utilized adhering to the principles of ALARA. COMPARISON: No relevant prior studies available. FINDINGS: Vertebrae: Unremarkable. No acute fracture. Diffuse osteopenia throughout the visualized bones. Discs/spinal canal/neural foramina: No acute findings. No spinal canal stenosis. Soft tissues: Findings concerning for bronchitis, which may be of infectious or inflammatory etiologies. Prominent mediastinal lymph nodes. Multiple pulmonary nodules concerning for metastatic disease. IMPRESSION: No evidence of acute thoracic spine pathology. Multiple pulmonary nodules concerning for metastatic disease. Findings concern for bronchitis, which may be infectious or inflammatory urologist with prominent mediastinal lymph nodes. Electronically signed by: Lucy Nelson MD 06/09/23 02:22 AM Venous Doppler Study 06/08/23 23:27 Exam(s): US VENOUS BILATERAL LOWER EXTREMITIES EXAM: US Duplex Bilateral Lower Extremities Veins CLINICAL HISTORY: Reason for exam: Bilateral leg swelling and discomfort. TECHNIQUE: Real-time duplex ultrasound scan of the bilateral lower extremity veins integrating B-mode two-dimensional vascular structure, Doppler spectral analysis, color flow Doppler imaging and compression. COMPARISON: None FINDINGS: Right deep veins: Unremarkable. No DVT in the right common femoral, femoral, proximal deep femoral or popliteal veins. The veins demonstrate normal color flow, are normally compressible, with normal phasic flow and/or augmentation response. Right superficial veins: Unremarkable. No thrombus in the visualized right great saphenous vein. Left deep veins: Unremarkable. No DVT in the left common femoral, femoral, proximal deep femoral or popliteal veins. The veins demonstrate normal color flow, are normally compressible, with normal phasic flow and/or augmentation response. Left superficial veins: Unremarkable. No thrombus in the visualized left great saphenous vein. Soft tissues: Complex right popliteal cyst measuring 3.9 x 3.3 x 1.2 cm. IMPRESSION: 1. No deep venous thrombosis identified in either lower extremity. 2. Complex right popliteal cyst. Electronically signed by: Nenita Hull M.D. 06/09/23 03:37 AM ECG Additional Comments: ECG. Atrial paced rhythm with prolonged AV conduction rate of 61. Nonspecific ST changes. No significant change was found. Code Status & VTE Plan VTE Prophylaxis Plan VTE Prophylaxis will be ordered: Yes
--- NOTE | 2023-06-09 07:55 | XRay Report ---
XR chest 1V portable HISTORY: back pain COMPARISON: Chest and left rib series 06/27/2019. FINDINGS: No pneumothorax. No pleural effusions. The heart remains mildly enlarged. This left-sided d ual-chamber pacemaker. No acute fractures. Mild interstitial thickening which is likely chronic. No n ew focal lung consolidations to suggest a pneumonia. No evidence for pulmonary edema. Left basilar li near densities favor subsegmental atelectasis or scarring. This remains unchanged. IMPRESSION: No significant change compared to the prior study. No acute process. ACT 112: Negative or not required by law. Electronically signed by: Jm Fontana M.D. 06/09/2023 7:54 AM
[2023-06-09] MEDS ORDERED: DEXAMETHASONE SOD INJ 4 MG/ML VIAL IV STA (10:33)
[2023-06-09] MEDS ORDERED: POLYETHYLENE (MIRALAX) 17 GM PACK PO PRN (10:33)
[2023-06-09] MEDS ORDERED: ACETAMINOPHEN 325 MG TAB PO PRN (10:33)
[2023-06-09] MEDS ORDERED: HYDROmorphone INJ 0.5 MG/0.5 ML SYR IV PRN (10:33)
[2023-06-09] MEDS ORDERED: dexAMETHasone 10 MG in SYRINGE 0 ML IV STA (10:37)
[2023-06-09 11:22] LABS: Basophils # (auto) 0.02 K/uL (0.00-0.20); Basophils % (auto) 0.3 %; Eosinophils # (auto) 0.15 K/uL (0.00-0.50); Eosinophils % (auto) 2.1 %; Hematocrit (blood only) 43.2 % (37.0-47.0); Hemoglobin 14.1 g/dl (12.0-16.0); Immature Granulocytes # (auto) 0.01 K/uL (0.01-0.20); Immature Granulocytes % (auto) 0.1 %; Lymphocytes # (auto) 1.87 K/uL (1.20-3.40); Lymphocytes % (auto) 25.8 %; Mean Corpuscular Hemoglobin 29.9 pg (25.0-34.0); Mean Corpuscular Hgb Conc 32.6 g/dL (32.0-36.0); Mean Corpuscular Volume 91.5 fL (80.0-100.0); Mean Platelet Volume 11.2 fL (9.4-12.4); Monocytes # (auto) 0.61 K/uL (0.11-0.59); Monocytes % (auto) 8.4 %; Neutrophils # (auto) 4.59 K/uL (1.40-6.50); Neutrophils % (auto) 63.3 %; Platelet Count 185 K/uL (130-400); RDW Standard Deviation 51.1 fL (36.4-46.3); Red Blood Count 4.72 M/uL (4.20-5.40); White Blood Count 7.25 K/ul (4.8-10.8)
[2023-06-09 11:28] LABS: BUN Creatinine Ratio 26.8 (10-20); Creatinine Clr Calc Pharmacy 53.8 ml/min; Est GFR (African American) 74.6 ml/min; Est GFR (Non-African American) 64.3 ml/min; Magnesium 1.8 mg/dl (1.7-2.4); Potassium 4.2 mmol/L (3.5-5.1)
[2023-06-09] MEDS: POTASSIUM CITRATE 10 MEQ TAB PO SCH ×2 (12:04→20:54)
[2023-06-09] MEDS: LEVOTHYROXINE SODIUM 25 MCG TABLET PO SCH (12:04)
[2023-06-09] MEDS: METOPROLOL SUCC 25MG EXT REL TAB PO SCH (12:04)
[2023-06-09] MEDS: GABAPENTIN 100 MG CAP PO SCH ×3 (12:04→20:52)
[2023-06-09] MEDS: METOPROLOL SUCC 50MG EXT REL TAB PO SCH (12:04)
[2023-06-09] MEDS: allopurinoL 100 MG TAB PO SCH (12:04)
[2023-06-09] MEDS: ATORVASTATIN 20 MG TAB PO SCH (12:05)
[2023-06-09] MEDS: SOTALOL HCL 80 MG TAB PO SCH ×2 (12:05→20:53)
[2023-06-09] MEDS: hydroCHLOROthiazide 25 MG TAB PO SCH (12:05)
[2023-06-09 12:12] LABS: Estimated Average Glucose 117 mg/dl; Hemoglobin A1C 5.7 % (4.5-5.6)
--- NOTE | 2023-06-09 12:14 | CT Scan Report ---
CT chest diagnostic wo con CT DOSE: 528.64 mGy.cm HISTORY: Evaluate pulmonary nodules. Abnormal thoracic spine CT. TECHNIQUE: Multiaxial CT images of the chest were performed without contrast. A dose lowering techni que was utilized adhering to the principles of ALARA. COMPARISON: Thoracic spine CT 06/09/2023. FINDINGS: Mild central bronchial wall thickening. Trace mucoid material within the trachea. No pneumo thorax. No pleural effusions. Mild emphysema. There are approximately 20 scattered pulmonary nodules with the largest in the right upper lobe on image 54 measuring 1 cm. Mild dependent changes seen at t he lung bases. No evidence for pulmonary edema.No acute fractures. No suspicious lytic or blastic oss eous lesions. There is a left-sided pacemaker noted. Limited views of the upper abdomen demonstrate a normal liver and spleen. Thickening of the adrenal glands is likely chronic. There is a partially vi sualized 2 cm left renal cysts. Normal esophagus. Normal thyroid gland. The heart is top normal in si ze. No pericardial effusion. Mild calcified plaque within the normal caliber residue noted. There are mild coronary artery calcifications noted. No mediastinal or hilar lymphadenopathy. IMPRESSION: Multiple scattered pulmonary nodules with measure up to 1 cm as described above. Metastatic disease w ould be the diagnosis of exclusion. ACT 112: Negative or not required by law. Electronically signed by: Jm Fontana M.D. 06/09/2023 12:11 PM
--- NOTE | 2023-06-09 14:01 | Pulmonary Consultation ---
Date of Consultation June 09, 2023 Assessment & Plan (1) Multiple pulmonary nodules determined by computed tomography of lung: (2) Tobacco abuse: Plan 88-year-old female who presented for ambulatory dysfunction to the ER was found to have incidental pulmonary nodules found spinal imaging. Dedicated CT chest was obtained which revealed greater than 20 solid pulmonary nodules with the largest lesions measuring 1 cm in the upper lung ledezma. Patient has an extensive smoking history of greater than 40 pack years. She continues to smoke socially on occasion. I went over the results of the CT chest with the patient. I indicated that there is the possibility that these nodules may represent a metastatic malignancy. She also reports a family history of tuberculosis, but denies testing positive herself. I would recommend an outpatient PET/CT scan as soon as possible upon discharge and then follow-up based on the results of the PET scan. Thank you for allowing me to participate in the care of the patient. Please call with questions. History of Present Illness Reason for Consultation: Multiple pulmonary nodules Attending Physician: Case Johnson MD History of Present Illness Patient was admitted by the [facility] service this morning due to severe back pain to the lower extremities bilaterally. She has been having difficulty with ambulation. Otherwise she denies any significant shortness of breath or chest pain. She denies any fevers, chills or night sweats. She is a smoker and smokes half a pack of cigarettes a day for 40 years. 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 CT of the thoracic spine was ordered by the primary team for evaluation of nerve impingement and incidental multiple pulmonary nodules were seen "concerning for metastatic disease". A dedicated CT chest without contrast was ordered which revealed mild central bronchial wall thickening, trace mucus in the trachea, approximately 20 scattered pulmonary nodules with the largest in the right upper lobe measuring 1 cm. No significant mediastinal or hilar lymphadenopathy. I personally reviewed the imaging and agree with the interpretation by radiology. There are no prior chest CTs available for review. She also had a CT of the abdomen pelvis without contrast 06/08/2023 which revealed nonspecific nodular thickening of the adrenal glands. No evidence of primary tumor was seen. She had an echo today which revealed an LVEF of 55 to 60%. Grade 2 diastolic dysfunction was seen. Allergies Allergy/AdvReac Type Severity Reaction Status Date / Time aspirin Allergy Severe THROAT Verified 06/27/19 11:26 SWELLING Iodinated Contrast Media Allergy Severe can't Verified 06/27/19 11:26 breath iodine Allergy Severe can't Verified 06/27/19 11:26 breath nitrofurantoin Allergy Severe couldn't Verified 06/27/19 11:26 breathe ezetimibe Allergy Intermediate pt unsure Verified 06/27/19 11:26 adhesive Allergy Mild tears skin Verified 06/27/19 11:26 clopidogrel Allergy Unknown pt unsure Verified 06/27/19 11:26 Home Medications Medication Instructions Recorded Confirmed Type allopurinol 100 mg tablet 100 mg PO DAILY 06/09/23 06/09/23 History atorvastatin 20 mg tablet 20 mg PO DAILY 06/09/23 06/09/23 History gabapentin 100 mg capsule 100 mg PO TID 06/09/23 06/09/23 History hydrochlorothiazide 25 mg tablet 25 mg PO UD 06/09/23 06/09/23 History levothyroxine 25 mcg tablet 25 mcg PO DAILY 06/09/23 06/09/23 History metoprolol succinate 100 mg 100 mg PO DAILY 06/09/23 06/09/23 History tablet,extended release 24 hr metoprolol succinate 25 mg 25 mg PO DAILY 06/09/23 06/09/23 History tablet,extended release 24 hr potassium citrate 10 mEq (1,080 10 meq PO BID 06/09/23 06/09/23 History mg) tablet,extended release sotalol 160 mg tablet 160 mg PO BID 06/09/23 06/09/23 History warfarin 2.5 mg tablet 2.5 mg PO UD 06/09/23 06/09/23 History Patient History Medical History (Updated 06/09/23 @ 14:45 by Robert Taylor MD) Tobacco abuse Multiple pulmonary nodules determined by computed tomography of lung Kidney stones History of cancer skin ca, and 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, cervical; 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 Afib paroxymal afib Acid reflux COPD (chronic obstructive pulmonary disease) Asthma Hypothyroidism Hypertension Hypertension Hyperlipidemia TIA (transient ischemic attack) Surgical History History of cataract extraction with lens replacement History of tonsillectomy History of cholecystectomy History of hysterectomy History of hysterectomy Family History Other Family history non-contributory Social History Smoking Status: Current some day smoker Tobacco Type: Cigarettes Hx Alcohol Use: No Hx Substance Use: No Preferred Language: Bahraini Communication Ability: Effective Tooling Engineering Tech Required: No Beliefs That Will Affect Care: None Current Living Situation: Alone Other Information That Helps Us Care for You: No Feels Safe at Home: Yes Safety Concerns: Feels Safe At This Time Assistive Devices: Cane and Walker Review of Systems Review of Systems: All systems reviewed & are unremarkable except as noted in HPI & below Physical Exam Physical Exam: Constitutional: Patient appears to be of their stated age. Patient is in no ap parent distress. Patient is well-developed. Eyes: Pupils are equal round and reactive to light. Conjunctivae are normal. Anicteric sclera. Ears nose, mouth and throat: Mallampati class 2. Normal posterior oropharynx. Uvula is midline. Neck: Trachea is midline. Visual inspection is normal. Respiratory: Clear to auscultation bilaterally. No use of accessory muscles. No significant clubbing noted. Cardiovascular: Regular rate and rhythm. No murmurs. No edema. Gastrointestinal: Normal bowel sounds, soft, nontender and nondistended. No hepatosplenomegaly noted. Musculoskeletal: No cyanosis. Patient is able to move all extremities. Strength is 5 out of 5 in the upper and lower extremities. Skin: No rashes, warm dry and intact. Neurologic: No obvious focal neurological deficits seen. Psychiatric: Alert and oriented x3 with a euthymic affect. Results & Data Results & Data Vital Signs (Past 12 Hours) Vital Signs Temp Pulse Pulse Resp BP BP Pulse Ox 06/09/23 11:07 36.3 C L 76 18 160/84 H 97 06/09/23 09:00 145/80 H 06/09/23 09:00 66 17 92 06/09/23 08:12 63 06/09/23 08:00 136/70 06/09/23 08:00 60 13 95 06/09/23 08:00 60 16 136/70 92 06/09/23 07:00 133/67 06/09/23 07:00 60 14 92 06/09/23 06:10 142/77 H 06/09/23 06:09 61 20 142/77 H 95 06/09/23 04:16 63 20 146/118 H 96 06/09/23 03:30 73 06/09/23 02:00 61 20 149/61 H 97 O2 Del Method 06/09/23 11:07 Room Air 06/09/23 09:00 06/09/23 09:00 06/09/23 08:12 06/09/23 08:00 06/09/23 08:00 06/09/23 08:00 Room Air 06/09/23 07:00 06/09/23 07:00 06/09/23 06:10 06/09/23 06:09 Room Air 06/09/23 04:16 Room Air 06/09/23 03:30 06/09/23 02:00 Room Air PG Care Time/CCT Total # of Minutes Spent Total Time Spent with Patient: Total time spent is greater than 50% in coordination of care (as documented) at patient's floor/unit and/or counseling patient: Coding Level of Care Code 15231 INT INP/OBS CARE 2/55MIN Diagnoses Multiple pulmonary nodules determined by computed tomography of lung R91.8 Tobacco abuse Z72.0
[2023-06-09] MEDS: WARFARIN SOD 2.5 MG TAB PO SCH (15:36)
[2023-06-10] MEDS: LEVOTHYROXINE SODIUM 25 MCG TABLET PO SCH (05:20)
[2023-06-10 07:30] LABS: INR 2.7 (0.9-1.1); Prothrombin Time 27.9 Seconds (9.0-12.0)
--- NOTE | 2023-06-10 08:47 | Hospitalist Progress Note ---
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 The pain is progressive getting worse and having difficulty ambulating which prompted her to come to the ER. No bowel or bladder incontinence. Ambulate dysfunction Severe low back pain radiating to both legs CT lumbar spine pain ok CT thoracic spine no acute evidence of thoracic spine pathology Possible sciatica Received dose of Decadron on admission Pain control - increased gabapentin, added tramadol, cont. tylenol, lidocain pat ch, iv dilaudid prn (not used by the pt) Consulted orthopedics - will try to obtain spine MRI if pt's pacer is compatible PT OT when stable Multiple pulmonary nodules Incidental finding on thoracic spine CT History of ovarian at younger age. Total abdominal hysterectomy with bilateral salpingo-oophorectomy at age 33 as per epic. History of basal cell carcinoma nasal bridge. No signs of recurrence per Dermatology notes Consulted pulmonary medicine for further recommendations - CT chest obtained - IMPRESSION: Multiple scattered pulmonary nodules with measure up to 1 cm as described above. Metastatic disease would be the diagnosis of exclusion. Recommend PET/CT as outpt Paroxysmal atrial fibrillation tachybradycardia syndrome S/p pacemaker On sotalol, metoprolol succinate and Coumadin INR therapeutic Will monitor Lower extremity edema Doppler negative for DVT Complex right popliteal cyst echo obtained- LV EF 55-60 %, grade 2 diastolic dysfunction History of kidney stones on potassium citrate Hypertension On hydrochlorothiazide, metoprolol succinate will monitor. DVT prophylaxis on Coumadin. Will follow PT/INR Disposition. Medical floor Full code Admission and Anticipated Discharge Date Admission Date: June 09, 2023 Subjective Pt seen in follow up of back pain, found to have multiple pulmonary nodules concerning for malignancy Currently laying in bed in NAD, says she feels somewhat better No fever, chills, chest pain, shortness of breath, no abd. pain Seen pulm and ortho-spine Review of Systems Review of Systems: All systems reviewed & are unremarkable except as noted in Subjective Physical Exam Physical Exam: General- WD/WN elderly F in NAD Head- atraumatic Eyes- PERRL. ENT- oropharynx clear Neck- supple, no JVD. Lungs- clear to auscultation , no wheezing or crackles. Heart- regular rhythm; no murmur, no gallop Abdomen- normal bowel sounds, soft, nontender, no distension. Extremities- b/l lower extremity edema present. Neuro- alert, oriented x 3; PERRL, EOMI; no facial palsy; no dysarthria; moves extremities. Musculoskeletal. Lumbar spine tenderness present. Results & Data Results & Data Vital Signs (Past 12 Hours) Vital Signs Temp Pulse Resp BP Pulse Ox O2 Del Method 06/10/23 07:38 36.7 C 56 L 17 146/71 H 95 Room Air 06/09/23 22:28 Room Air Laboratory Results 06/10/23 06/09/23 Range/Units 06:16 10:54 WBC 7.25 (4.8-10.8) K/ul RBC 4.72 (4.20-5.40) M/uL Hgb 14.1 (12.0-16.0) g/dl Hct 43.2 (37.0-47.0) % MCV 91.5 (80.0-100.0) fL MCH 29.9 (25.0-34.0) pg MCHC 32.6 (32.0-36.0) g/dL RDW Std Deviation 51.1 H (36.4-46.3) fL RDW Coeff of Matias 15.0 H (11.5-14.5) % Plt Count 185 (130-400) K/uL MPV 11.2 (9.4-12.4) fL Immature Gran % (Auto) 0.1 % Neut % (Auto) 63.3 % Lymph % (Auto) 25.8 % Mccone % (Auto) 8.4 % Eos % (Auto) 2.1 % Baso % (Auto) 0.3 % Neut # (Auto) 4.59 (1.40-6.50) K/uL Lymph # (Auto) 1.87 (1.20-3.40) K/uL Mccone # (Auto) 0.61 H (0.11-0.59) K/uL Eos # (Auto) 0.15 (0.00-0.50) K/uL Baso # (Auto) 0.02 (0.00-0.20) K/uL Immature Gran # (Auto) 0.01 (0.01-0.20) K/uL PT 27.9 H (9.0-12.0) Seconds INR 2.7 H (0.9-1.1) Sodium 139 (136-145) mmol/L Potassium 4.2 (3.5-5.1) mmol/L Chloride 102 (98-107) mmol/L Carbon Dioxide 33 H (21-32) mmol/L Anion Gap 4 (3-11) BUN 22 (6-23) mg/dl Creatinine 0.82 (0.6-1.2) mg/dl Est Cr Clr Drug Dosing 53.8 ml/min Est GFR ( Amer) 74.6 ml/min Est GFR (Non-Af Amer) 64.3 ml/min BUN/Creatinine Ratio 26.8 H (10-20) Glucose 89 (70-99(Fasting)) mg/dl Estimat Average Glucose 117 mg/dl Hemoglobin A1c 5.7 H (4.5-5.6) % Calcium 9.0 (8.6-10.3) mg/dl Magnesium 1.8 (1.7-2.4) mg/dl Medications Administered Current Inpatient Medications Acetaminophen (Acetaminophen 325 Mg Tab) 650 mg PO Q4H PRN PRN Reason: pain/fever Stop: 07/09/23 10:32 Allopurinol (Allopurinol 100 Mg Tab) 100 mg PO DAILY [facility] Stop: 07/09/23 10:32 Last Admin: 06/09/23 12:04 Dose: 100 mg Atorvastatin Calcium (Atorvastatin 20 Mg Tab) 20 mg PO DAILY [facility] Stop: 07/09/23 10:32 Last Admin: 06/09/23 12:05 Dose: 20 mg Gabapentin (Gabapentin 100 Mg Cap) 100 mg PO TID [facility] Stop: 07/09/23 10:32 Last Admin: 06/09/23 20:52 Dose: 100 mg Hydrochlorothiazide (Hydrochlorothiazide 25 Mg Tab) 25 mg PO SuTuThSa@0900 [facility] Stop: 07/09/23 10:32 Last Admin: 06/09/23 12:05 Dose: 25 mg Hydromorphone HCl (Hydromorphone Inj 0.5 Mg/0.5 Ml Syr) 0.5 mg IV Q6H PRN PRN Reason: Severe Pain (Scale 7, 8, 9,10) Stop: 06/23/23 10:32 Levothyroxine Sodium (Levothyroxine Sodium 25 Mcg Tablet) 25 mcg PO DAILYBB [facility] Stop: 07/09/23 10:32 Last Admin: 06/10/23 05:20 Dose: 25 mcg Lidocaine (Lidocaine 5% 1 Patch) 1 patch TD DAILY@0900 [facility] Stop: 07/10/23 08:44 Metoprolol Succinate (Metoprolol Succ 50mg Ext Rel Tab) 100 mg PO DAILY [facility] Stop: 07/09/23 10:32 Last Admin: 06/09/23 12:04 Dose: 100 mg Metoprolol Succinate (Metoprolol Succ 25mg Ext Rel Tab) 25 mg PO DAILY [facility] Stop: 07/09/23 10:32 Last Admin: 06/09/23 12:04 Dose: 25 mg Miscellaneous (Remove Lidoderm Patch) 1 each N/A DAILY@2100 [facility] Stop: 07/10/23 20:59 Polyethylene Glycol (Polyethylene (Miralax) 17 Gm Pack) 17 gm PO DAILY PRN PRN Reason: Constipation Stop: 07/09/23 10:32 Potassium Citrate (Potassium Citrate 10 Meq Tab) 10 meq PO BID [facility] Stop: 07/09/23 10:32 Last Admin: 06/09/23 20:54 Dose: 10 meq Sotalol HCl (Sotalol Hcl 80 Mg Tab) 160 mg PO BID [facility] Stop: 07/09/23 10:32 Last Admin: 06/09/23 20:53 Dose: 160 mg Warfarin Sodium (Warfarin Sod 2.5 Mg Tab) 2.5 mg PO SuMoTuThFrSa@1600 [facility] Stop: 07/09/23 15:59 Last Admin: 06/09/23 15:36 Dose: 2.5 mg Warfarin Sodium (Warfarin Sod 2.5 Mg Tab) 2.5 mg PO We@1600 [facility] Stop: 07/13/23 15:59 Warfarin Sodium (Warfarin Sod 1.25 Mg Tab) 1.25 mg PO We@1600 [facility] Stop: 07/13/23 15:59
[2023-06-10] MEDS ORDERED: traMADol HCL 50 MG TABLET PO PRN (08:48)
[2023-06-10] MEDS: ATORVASTATIN 20 MG TAB PO SCH (09:05)
[2023-06-10] MEDS: METOPROLOL SUCC 25MG EXT REL TAB PO SCH (09:05)
[2023-06-10] MEDS: METOPROLOL SUCC 50MG EXT REL TAB PO SCH (09:05)
[2023-06-10] MEDS: allopurinoL 100 MG TAB PO SCH (09:06)
[2023-06-10] MEDS: POTASSIUM CITRATE 10 MEQ TAB PO SCH ×2 (09:07→20:36)
[2023-06-10] MEDS: SOTALOL HCL 80 MG TAB PO SCH ×2 (09:07→20:35)
[2023-06-10] MEDS: hydroCHLOROthiazide 25 MG TAB PO SCH (09:08)
--- NOTE | 2023-06-10 10:03 | Orthopedic Consultation ---
Date of Consultation June 10, 2023 Assessment & Plan (1) Neurogenic claudication due to lumbar spinal stenosis: Assessment lumbar spinal stenosis with neurogenic claudication and spondylolisthesis L4-L5. Plan I have an opportunity review the patient's CAT scan. She has evidence of significant vacuum phenomenon L4-L5 spondylolisthesis and facet hypertrophy. She is essentially autofused L5-S1. I strongly suspect she is instability L4-L5 and with standing and walking she exhibits severe neural compression and subsequent pain. I would like to obtain an MRI lumbar spine if possible. She has a history of a pacemaker placed in 2019. Is after obtaining further imaging and in consideration of her possible metastatic disease. History of Present Illness Reason for Consultation: Back and bilateral leg pain Attending Physician: Case Johnson MD History of Present Illness This is a very pleasant 88-year-old female that was admitted with significant decline in status. Patient is struggling with back and bilateral leg pain with any standing and ambulation. This began several weeks ago. She denies any precipitating trauma fall or event. She has not had a prior history of these issues or injections. She describes pain across the bilateral buttocks posterior thigh to the knees. Sitting and lying in bed is comfortable. Allergies Allergy/AdvReac Type Severity Reaction Status Date / Time aspirin Allergy Severe THROAT Verified 06/27/19 11:26 SWELLING Iodinated Contrast Media Allergy Severe can't Verified 06/27/19 11:26 breath iodine Allergy Severe can't Verified 06/27/19 11:26 breath nitrofurantoin Allergy Severe couldn't Verified 06/27/19 11:26 breathe ezetimibe Allergy Intermediate pt unsure Verified 06/27/19 11:26 adhesive Allergy Mild tears skin Verified 06/27/19 11:26 clopidogrel Allergy Unknown pt unsure Verified 06/27/19 11:26 Home Medications Medication Instructions Recorded Confirmed Type allopurinol 100 mg tablet 100 mg PO DAILY 06/09/23 06/09/23 History atorvastatin 20 mg tablet 20 mg PO DAILY 06/09/23 06/09/23 History gabapentin 100 mg capsule 100 mg PO TID 06/09/23 06/09/23 History hydrochlorothiazide 25 mg tablet 25 mg PO UD 06/09/23 06/09/23 History levothyroxine 25 mcg tablet 25 mcg PO DAILY 06/09/23 06/09/23 History metoprolol succinate 100 mg 100 mg PO DAILY 06/09/23 06/09/23 History tablet,extended release 24 hr metoprolol succinate 25 mg 25 mg PO DAILY 06/09/23 06/09/23 History tablet,extended release 24 hr potassium citrate 10 mEq (1,080 10 meq PO BID 06/09/23 06/09/23 History mg) tablet,extended release sotalol 160 mg tablet 160 mg PO BID 06/09/23 06/09/23 History warfarin 2.5 mg tablet 2.5 mg PO UD 06/09/23 06/09/23 History Patient History Medical History (Updated 06/10/23 @ 10:02 by Julio Cesar Humphries DO) Tobacco abuse Multiple pulmonary nodules determined by computed tomography of lung Kidney stones History of cancer skin ca, and 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, cervical; 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 Afib paroxymal afib Acid reflux COPD (chronic obstructive pulmonary disease) Asthma Hypothyroidism Hypertension Hypertension Hyperlipidemia TIA (transient ischemic attack) Surgical History History of cataract extraction with lens replacement History of tonsillectomy History of cholecystectomy History of hysterectomy History of hysterectomy Family History Other Family history non-contributory Social History Smoking Status: Current some day smoker Tobacco Type: Cigarettes Hx Alcohol Use: No Hx Substance Use: No Preferred Language: Andorran Communication Ability: Effective Bagging Salvager Required: No Beliefs That Will Affect Care: None Current Living Situation: Alone Other Information That Helps Us Care for You: No Feels Safe at Home: Yes Safety Concerns: Feels Safe At This Time Assistive Devices: Cane and Walker Physical Exam Physical Exam: On exam she is currently in bed. She is alert and oriented. She is comfortable. She has reasonable plantarflexion dorsiflexion Results & Data Vital Signs (Past 12 Hours) Vital Signs Temp Pulse Resp BP Pulse Ox O2 Del Method 06/10/23 09:04 66 18 127/60 93 Room Air 06/10/23 07:38 36.7 C 56 L 17 146/71 H 95 Room Air 06/09/23 22:28 Room Air
[2023-06-10] MEDS: ACETAMINOPHEN 500 MG TAB PO SCH ×3 (10:17→20:36)
[2023-06-10] MEDS: GABAPENTIN 100 MG CAP PO SCH ×3 (10:17→20:35)
[2023-06-10] MEDS: LIDOCAINE 5% 1 PATCH TD SCH (10:18)
[2023-06-10] MEDS: WARFARIN SOD 2.5 MG TAB PO SCH (17:05)
[2023-06-11] MEDS: LEVOTHYROXINE SODIUM 25 MCG TABLET PO SCH (05:36)
[2023-06-11] MEDS: ACETAMINOPHEN 500 MG TAB PO SCH ×3 (05:36→19:53)
[2023-06-11 07:56] LABS: Hematocrit (blood only) 43.1 % (37.0-47.0); Hemoglobin 14.4 g/dl (12.0-16.0); Mean Corpuscular Hemoglobin 29.5 pg (25.0-34.0); Mean Corpuscular Hgb Conc 33.4 g/dL (32.0-36.0); Mean Corpuscular Volume 88.3 fL (80.0-100.0); Mean Platelet Volume 12.1 fL (9.4-12.4); Platelet Count 193 K/uL (130-400); RDW Coefficient of Variation 15.1 % (11.5-14.5); RDW Standard Deviation 49.2 fL (36.4-46.3); Red Blood Count 4.88 M/uL (4.20-5.40); White Blood Count 11.41 K/ul (4.8-10.8)
[2023-06-11 08:07] LABS: BUN Creatinine Ratio 31.3 (10-20); Calcium 9.4 mg/dl (8.6-10.3); Creatinine Clr Calc Pharmacy 53.1 ml/min; Est GFR (African American) 73.5 ml/min; Est GFR (Non-African American) 63.4 ml/min; Phosphorus 2.9 mg/dl (2.5-4.9); Potassium 4.1 mmol/L (3.5-5.1)
[2023-06-11 08:09] LABS: INR 3.3 (0.9-1.1); Prothrombin Time 33.5 Seconds (9.0-12.0)
[2023-06-11] MEDS: SOTALOL HCL 80 MG TAB PO SCH ×2 (08:11→19:53)
[2023-06-11] MEDS: allopurinoL 100 MG TAB PO SCH (08:12)
[2023-06-11] MEDS: METOPROLOL SUCC 25MG EXT REL TAB PO SCH (08:12)
[2023-06-11] MEDS: GABAPENTIN 100 MG CAP PO SCH ×3 (08:12→19:52)
[2023-06-11] MEDS: METOPROLOL SUCC 50MG EXT REL TAB PO SCH (08:12)
[2023-06-11] MEDS: ATORVASTATIN 20 MG TAB PO SCH (08:12)
[2023-06-11] MEDS: LIDOCAINE 5% 1 PATCH TD SCH (08:13)
[2023-06-11] MEDS: POTASSIUM CITRATE 10 MEQ TAB PO SCH ×2 (08:13→19:52)
--- NOTE | 2023-06-11 14:10 | Orthopedic Progress Note ---
Date of Service June 11, 2023 Assessment & Plan (1) Neurogenic claudication due to lumbar spinal stenosis: Plan: MRI available for review does demonstrate evidence of multilevel spinal stenosis. L2-L3 is moderate L4-L5 there is severe with evidence of instability. I suspect this is the primary etiology of her symptom complex. From a surgical perspective she would require at minimum a lumbar decompression with stabilization L4-5 to provide relief of her neural compression. I discussed with her consultation with interventional pain management. Several factors need to be considered. She is being worked up for possible metastatic disease and is on anticoagulation. Admission and Anticipated Discharge Date Admission Date: June 09, 2023 Subjective Patient continues to have significant back pain with weakness with any standing and walking. She is comfortable sitting at rest. Physical Exam Physical Exam: On exam she is sitting up on the side of the bed. She is alert and oriented. She is comfortable throughout her discussion. Results & Data Vital Signs (Past 12 Hours) Vital Signs Temp Pulse Resp BP Pulse Ox O2 Del Method 06/11/23 07:32 36.8 C 65 18 145/93 H 94 Room Air
--- NOTE | 2023-06-11 16:19 | Magnetic Resonance Report ---
MRI OF THE LUMBAR SPINE WITHOUT IV CONTRAST CLINICAL HISTORY: Bilateral leg pain. Difficulty with ambulation. COMPARISON STUDY: CT of the lumbar spine dated 06/09/2023. TECHNIQUE: MRI of the lumbar spine is performed utilizing various T1 and T2-weighted sequences in of the axial and sagittal planes. IV contrast was not administered for this examination. FINDINGS: Lumbar spine: Marrow signal intensity is heterogeneous. Vertebral body height is throughout the lumba r spine. There is minimal retrolisthesis at T12-L1 and L1-L2. Minimal anterolisthesis is noted at L4- L5. Small anterior and lateral marginal osteophytes are seen throughout. The transverse and spinous p rocesses appear intact. Mild marrow edema within the right pedicle of L5 is likely on a degenerative basis. Hemangiomas are noted in the bodies of L2 and L5. No destructive bony lesion is seen. Chronic degenerative endplate change is noted at most lumbar levels. No significant degenerative endplate rachel ma is identified. Intervertebral discs: Disc desiccation and loss of height is seen throughout the lumbar spine. Loss o f height is moderate at L5-S1 and igns-tq-kmfncilw at the remaining lumbar levels. Spinal cord: The visualized spinal cord is normal in morphology and signal intensity. The conus medul francia terminates at the level of L2. The nerve roots of the cauda equina are normal in morphology. L1-L2: There is broad-based posterior disc bulge which abuts the transiting nerve roots. There is no significant acquired compromise of the central canal. Lateral disc bulges contribute to bilateral sub articular stenosis and may abut the exiting bilateral L1 nerve roots. In conjunction with facet arthr opathy, there is mild bilateral neural foraminal stenosis. L2-L3: There is broad-based posterior disc bulge with annular fissure. This abuts the transiting nerv e roots. In conjunction with hypertrophy of the ligamentum flavum, there is qjmp-qk-nnpvblfi central canal stenosis at this level with a minimum AP canal diameter of 6 mm. Lateral disc bulges contribute to bilateral subarticular stenosis, left greater than right. This likely impinges on the exiting travis ateral L2 nerve roots. In conjunction with facet arthropathy, there is igen-gp-ldyaeesk bilateral isai ral foraminal stenosis. L3-L4: There is broad-based posterior disc bulge, which abuts the transiting nerve roots. In conjunct ion with hypertrophy of the ligamentum flavum, there is mild central canal stenosis at this level wit h a minimum AP diameter of 7.5 mm. Lateral disc bulges contribute to bilateral subarticular stenosis, left greater than right. This may impinge on the exiting left L3 nerve root. In conjunction with fac et arthropathy, there is mild right and tmrv-ew-firoygta left neural foraminal stenosis. L4-L5: There is broad-based posterior disc bulge. In conjunction with hypertrophy of the ligamentum f lavum, there is severe central canal stenosis at this level with a minimum AP diameter of 4 mm. Later al disc bulges contribute to bilateral subarticular stenosis, left greater than right. This likely im pinges on the exiting bilateral L4 nerve roots. In conjunction with facet arthropathy, there is mild right and moderate left neural foraminal stenosis. L5-S1: There is broad-based posterior disc bulge, which abuts the transiting nerve roots. There is no significant acquired compromise of the central canal. Predominantly facet arthropathy contributes to mild bilateral neural foraminal stenosis. Sacrum: The visualized sacrum is normal in morphology and signal intensity. Soft tissues: There is fatty atrophy of the paraspinous musculature. The kidneys demonstrate cortical atrophy. There are numerous bilateral renal cysts, which measure up to 2.3 cm. No retroperitoneal ly mphadenopathy is seen. IMPRESSION: 1. Multilevel lumbosacral spondylosis as above with severe central canal stenosis at L4-L5. See discu ssion for detailed level by level analysis. 2. No destructive bony process is seen. 3. Additional findings as above. Dictated: 06/11/2023 2:26 PM Transcribed: 06/11/2023 2:49 PM Raad [id number] [email or web address] Electronically signed by: Rajan James M.D. 06/11/2023 4:18 PM
--- NOTE | 2023-06-11 16:38 | Hospitalist Progress Note ---
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 The pain is progressive getting worse and having difficulty ambulating which prompted her to come to the ER. No bowel or bladder incontinence. Ambulate dysfunction Severe low back pain radiating to both legs CT lumbar spine showed no evidence of acute lumbar spine pathology. CT thoracic spine no acute evidence of thoracic spine pathology Received dose of Decadron on admission Continue Pain control with gabapentin, added tramadol, cont. tylenol, lidocain patch, iv dilaudid prn (not used by the pt) Orthopedic on board MRI Lumbar showed multilevel lumbosacral spondylosis as above with severe centra l canal stenosis at L4-L5. PT/OT eval Will discuss with ortho if any plan to proceed to surgery Multiple pulmonary nodules Incidental finding on thoracic spine CT History of ovarian at younger age. Total abdominal hysterectomy with bilateral salpingo-oophorectomy at age 33 as per epic. History of basal cell carcinoma nasal bridge. No signs of recurrence per Dermatology notes Consulted pulmonary medicine for further recommendations - CT chest obtained - IMPRESSION: Multiple scattered pulmonary nodules with measure up to 1 cm as described above. Metastatic disease would be the diagnosis of exclusion. Recommend PET/CT as outpt Paroxysmal atrial fibrillation tachybradycardia syndrome S/p pacemaker On sotalol, metoprolol succinate and Coumadin INR 3.3 toady Will discuss if ortho if planning for any surgery, that we can hold coumadin Lower extremity edema Doppler negative for DVT Complex right popliteal cyst echo obtained- LV EF 55-60 %, grade 2 diastolic dysfunction History of kidney stones on potassium citrate Hypertension Continue hydrochlorothiazide, metoprolol succinate continue monitor BP DVT prophylaxis on Coumadin with INR 3.3 Continue monitor PT/INR Disposition. Medical floor Full code Admission and Anticipated Discharge Date Admission Date: June 09, 2023 Subjective Pt was seen and examined for follow up of back pain Lying in bed with no acute distress Pt said that she continues to have back pain She said that the pain radiating to her lower extremity She said that pain is worst with ambulation Denies any bladder, bowel loss, chest pain, palpitation and SOB Review of Systems Review of Systems: All systems reviewed & are unremarkable except as noted in Subjective Physical Exam Physical Exam: General- No acute distress Head- atraumatic Eyes- PERRL, EOMI, ENT- oropharynx clear Neck- supple, no JVD Lungs- clear to auscultation Heart- regular rhythm; no murmur Abdomen- normal bowel sounds, soft, nontender Extremities- no calf tenderness, Right knee pain Neuro- alert, oriented x 3; PERRL, EOMI; no facial palsy; no dysarthria Skin- warm & dry Results & Data Results & Data Vital Signs (Past 12 Hours) Vital Signs Temp Pulse Resp BP Pulse Ox O2 Del Method 06/11/23 07:32 36.8 C 65 18 145/93 H 94 Room Air
[2023-06-11] MEDS: WARFARIN SOD 2.5 MG TAB PO SCH (17:34)
[2023-06-12] MEDS: LEVOTHYROXINE SODIUM 25 MCG TABLET PO SCH (05:46)
[2023-06-12] MEDS: ACETAMINOPHEN 500 MG TAB PO SCH ×3 (05:46→20:19)
[2023-06-12 07:08] LABS: Hematocrit (blood only) 41.7 % (37.0-47.0); Mean Corpuscular Hemoglobin 29.9 pg (25.0-34.0); Mean Corpuscular Hgb Conc 33.6 g/dL (32.0-36.0); Mean Corpuscular Volume 88.9 fL (80.0-100.0); Mean Platelet Volume 11.7 fL (9.4-12.4); Platelet Count 182 K/uL (130-400); RDW Coefficient of Variation 15.3 % (11.5-14.5); RDW Standard Deviation 49.1 fL (36.4-46.3); Red Blood Count 4.69 M/uL (4.20-5.40); White Blood Count 13.73 K/ul (4.8-10.8)
[2023-06-12 07:45] LABS: INR 3.9 (0.9-1.1); Prothrombin Time 39.1 Seconds (9.0-12.0)
[2023-06-12] MEDS: POTASSIUM CITRATE 10 MEQ TAB PO SCH ×2 (08:57→20:19)
[2023-06-12] MEDS: GABAPENTIN 100 MG CAP PO SCH ×2 (08:58→13:51)
[2023-06-12] MEDS: METOPROLOL SUCC 50MG EXT REL TAB PO SCH (08:58)
[2023-06-12] MEDS: METOPROLOL SUCC 25MG EXT REL TAB PO SCH (08:59)
[2023-06-12] MEDS: SOTALOL HCL 80 MG TAB PO SCH ×2 (08:59→20:19)
[2023-06-12] MEDS: ATORVASTATIN 20 MG TAB PO SCH (08:59)
[2023-06-12] MEDS: LIDOCAINE 5% 1 PATCH TD SCH (09:00)
[2023-06-12] MEDS: hydroCHLOROthiazide 25 MG TAB PO SCH (09:00)
[2023-06-12] MEDS: allopurinoL 100 MG TAB PO SCH (09:00)
--- NOTE | 2023-06-12 09:32 | Pain Management Consultation ---
Date of Consultation June 12, 2023 Assessment & Plan (1) Neurogenic claudication due to lumbar spinal stenosis: Plan 1. Discussed w/ patient that we can see her in the outpatient setting if surgical route is not undertaken. Currently, patient seems to want to further discuss surgery w/ Dr. Humphries, as she was under the impression that that is the plan. 2. Currently, no indication for interventional pain procedure as inpatient. 3. If a lumbar epidural injection is eventually recommended, the patient would need to have clearance for holding Coumadin pre-procedurally. 4. Agree with PT/OT. 5. Patient seems to state that she cannot go home in her current condition with the pain she is having, but yet I do not see where the patient is utilizing the ordered pain medications other than acetaminophen. 6. May consider increasing gabapentin to 300 mg TID. 7. Can consider IV vs. oral steroid course. 8. Will follow patient peripherally to check on progress. History of Present Illness Attending Physician: Stefania Polanco MD History of Present Illness Patient is an 88-year-old female that presented to the [facility] ED on 06/08/2023 with severe back pain that was radiating into her bilateral lower extremities. These symptoms were seemingly occurring for about 3 weeks prior to her presentation in the emergency department. The symptoms were worsening and she was beginning to have difficulty ambulating, which prompted her to report to the ED. She has denied bowel/bladder incontinence and saddle anesthesia. Today, the patient is stating that she has pain in the central and bilateral low back, which radiates into both lower extremities. She does not say that 1 side is worse than the other. When she is not moving, it seems that she has no pain, but anytime she tries to move or someone has her do something, she has significant increase in pain. Patient has been seen by Dr. Humphries, who noted that there may be some instability at the L4-5 level when she is standing and walking, which is causing some severe neural compression and resulting pain. An MRI was ordered, which did demonstrate severe central canal stenosis at the L4-5 level, with a minimum AP diameter of 4 mm. There is also lateral disc bulges that are contributing to bilateral subarticular stenosis and likely impingement on the exiting bilateral L4 nerve roots. There is also some moderate, nearing severe, stenosis at L2-3 and L3-4. Upon exam and discussion today in the patient's room, she was under the impression that the surgical route was being taken with Dr. Humphries. She was awaiting further discussion with their team. She was saying that there was no way she could return home with the level of pain she was having when she moves. Patient also did inquire about the possibility of there being some metastatic disease. Case discussed with Dr. Brandi Parker. Allergies Allergy/AdvReac Type Severity Reaction Status Date / Time aspirin Allergy Severe THROAT Verified 06/27/19 11:26 SWELLING Iodinated Contrast Media Allergy Severe can't Verified 06/27/19 11:26 breath iodine Allergy Severe can't Verified 06/27/19 11:26 breath nitrofurantoin Allergy Severe couldn't Verified 06/27/19 11:26 breathe ezetimibe Allergy Intermediate pt unsure Verified 06/27/19 11:26 adhesive Allergy Mild tears skin Verified 06/27/19 11:26 clopidogrel Allergy Unknown pt unsure Verified 06/27/19 11:26 Home Medications Medication Instructions Recorded Confirmed Type allopurinol 100 mg tablet 100 mg PO DAILY 06/09/23 06/09/23 History atorvastatin 20 mg tablet 20 mg PO DAILY 06/09/23 06/09/23 History gabapentin 100 mg capsule 100 mg PO TID 06/09/23 06/09/23 History hydrochlorothiazide 25 mg tablet 25 mg PO UD 06/09/23 06/09/23 History levothyroxine 25 mcg tablet 25 mcg PO DAILY 06/09/23 06/09/23 History metoprolol succinate 100 mg 100 mg PO DAILY 06/09/23 06/09/23 History tablet,extended release 24 hr metoprolol succinate 25 mg 25 mg PO DAILY 06/09/23 06/09/23 History tablet,extended release 24 hr potassium citrate 10 mEq (1,080 10 meq PO BID 06/09/23 06/09/23 History mg) tablet,extended release sotalol 160 mg tablet 160 mg PO BID 06/09/23 06/09/23 History warfarin 2.5 mg tablet 2.5 mg PO UD 06/09/23 06/09/23 History Patient History Medical History (Updated 06/10/23 @ 10:02 by Julio Cesar Humphries DO) Tobacco abuse Multiple pulmonary nodules determined by computed tomography of lung Kidney stones History of cancer skin ca, and 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, cervical; 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 Afib paroxymal afib Acid reflux COPD (chronic obstructive pulmonary disease) Asthma Hypothyroidism Hypertension Hypertension Hyperlipidemia TIA (transient ischemic attack) Surgical History History of cataract extraction with lens replacement History of tonsillectomy History of cholecystectomy History of hysterectomy History of hysterectomy Family History Other Family history non-contributory Social History Smoking Status: Current some day smoker Tobacco Type: Cigarettes Hx Alcohol Use: No Hx Substance Use: No Preferred Language: Tajik Communication Ability: Effective [employer] Required: No Beliefs That Will Affect Care: None Current Living Situation: Alone Other Information That Helps Us Care for You: No Feels Safe at Home: Yes Safety Concerns: Feels Safe At This Time Assistive Devices: Cane and Walker Physical Exam Physical Exam: GENERAL: Speech and cognition is intact. Mood and affect is appropriate. Does not appear in acute distress. HEAD: Normocephalic; atraumatic. CHEST: Regular chest respiration and excursion. EXTREMITIES: No TTP. Distal sensation and pulses intact bilaterally. BACK: Diminished ROM.+ mild bilateral SI joint and lumbosacral facet joint tenderness. No midline tenderness. No paraspinal, quadratus lumborum, piriformis, or gluteal tenderness or spasm.Inspection/palpation demonstrates loss of lumbar lordotic curvature. Lidocaine patch present to lumbosacral spine. NEURO: CN II-XII grossly intact with no focal deficits noted. Awake, alert, and oriented x 3. Distal sensation of lower legs intact and equal bilaterally. Patellar Reflex R 1+L 1+ Achilles Reflex R traceL trace Negative clonus bilaterally SKIN: No lesions, erythema, or rashes noted. LOWER EXTREMITIES: R Hip flexion 4+/5; hip extension 4+/5; knee extension 4+/5; knee flexion 4+/5; ankle dorsiflexion 5/5; ankle plantar flexion 5/5; EHL 5/5 L Hip flexion4+/5; hip extension 4+/5; knee extension 4+/5; knee flexion 4+/5; ankle dorsiflexion 5/5; ankle plantar flexion 5/5; EHL 5/5 Results (Pain Clinic) Diagnostic Review MRI Findings: MRI OF THE LUMBAR SPINE WITHOUT IV CONTRAST CLINICAL HISTORY: Bilateral leg pain. Difficulty with ambulation. COMPARISON STUDY: CT of the lumbar spine dated 06/09/2023. TECHNIQUE: MRI of the lumbar spine is performed utilizing various T1 and T2- weighted sequences in of the axial and sagittal planes. IV contrast was not administered for this examination. FINDINGS: Lumbar spine: Marrow signal intensity is heterogeneous. Vertebral body height is throughout the lumbar spine. There is minimal retrolisthesis at T12-L1 and L1- L2. Minimal anterolisthesis is noted at L4-L5. Small anterior and lateral marginal osteophytes are seen throughout. The transverse and spinous processes appear intact. Mild marrow edema within the right pedicle of L5 is likely on a degenerative basis. Hemangiomas are noted in the bodies of L2 and L5. No destructive bony lesion is seen. Chronic degenerative endplate change is noted at most lumbar levels. No significant degenerative endplate edema is identified. Intervertebral discs: Disc desiccation and loss of height is seen throughout the lumbar spine. Loss of height is moderate at L5-S1 and cmxz-ph-hbxwvmls at the remaining lumbar levels. Spinal cord: The visualized spinal cord is normal in morphology and signal intensity. The conus medullaris terminates at the level of L2. The nerve roots of the cauda equina are normal in morphology. L1-L2: There is broad-based posterior disc bulge which abuts the transiting nerve roots. There is no significant acquired compromise of the central canal. Lateral disc bulges contribute to bilateral subarticular stenosis and may abut the exiting bilateral L1 nerve roots. In conjunction with facet arthropathy, there is mild bilateral neural foraminal stenosis. L2-L3: There is broad-based posterior disc bulge with annular fissure. This abuts the transiting nerve roots. In conjunction with hypertrophy of the ligamentum flavum, there is txju-ip-gbknewyh central canal stenosis at this level with a minimum AP canal diameter of 6 mm. Lateral disc bulges contribute to bilateral subarticular stenosis, left greater than right. This likely impinges on the exiting bilateral L2 nerve roots. In conjunction with facet arthropathy, there is qyca-by-iytmgmcl bilateral neural foraminal stenosis. L3-L4: There is broad-based posterior disc bulge, which abuts the transiting nerve roots. In conjunction with hypertrophy of the ligamentum flavum, there is mild central canal stenosis at this level with a minimum AP diameter of 7.5 mm. Lateral disc bulges contribute to bilateral subarticular stenosis, left greater than right. This may impinge on the exiting left L3 nerve root. In conjunction with facet arthropathy, there is mild right and qxxv-op-qfugobsp left neural foraminal stenosis. L4-L5: There is broad-based posterior disc bulge. In conjunction with hypertrophy of the ligamentum flavum, there is severe central canal stenosis at this level with a minimum AP diameter of 4 mm. Lateral disc bulges contribute to bilateral subarticular stenosis, left greater than right. This likely impinges on the exiting bilateral L4 nerve roots. In conjunction with facet arthropathy, there is mild right and moderate left neural foraminal stenosis. L5-S1: There is broad-based posterior disc bulge, which abuts the transiting nerve roots. There is no significant acquired compromise of the central canal. Predominantly facet arthropathy contributes to mild bilateral neural foraminal stenosis. Sacrum: The visualized sacrum is normal in morphology and signal intensity. Soft tissues: There is fatty atrophy of the paraspinous musculature. The kidneys demonstrate cortical atrophy. There are numerous bilateral renal cysts, which measure up to 2.3 cm. No retroperitoneal lymphadenopathy is seen. IMPRESSION: 1. Multilevel lumbosacral spondylosis as above with severe central canal stenosis at L4-L5. See discussion for detailed level by level analysis. 2. No destructive bony process is seen. 3. Additional findings as above. Dictated: 06/11/2023 2:26 PM Transcribed: 06/11/2023 2:49 PM Raad [id number] [email or web address] Electronically signed by: Rajan James M.D. 06/11/2023 4:18 PM Dictated: 06/11/23 1426 Transcribed: 06/11/[address] Findings: Exam(s): CT L SPINE EXAM: CT Lumbar Spine Without Intravenous Contrast CLINICAL HISTORY: Reason for exam: back pain. TECHNIQUE: Axial computed tomography images of the lumbar spine without intravenous contrast. CTDI is 38.35 mGy and DLP is 2640.63 mGy-cm. Automated exposure control was utilized for the study. A dose lowering technique was utilized adhering to the principles of ALARA. COMPARISON: No relevant prior studies available. FINDINGS: Vertebrae: Unremarkable. No acute fracture. Diffuse osteopenia throughout the visualized bones. Positive Osborne sign out L1-2, L2-3, L3-4 and L4-5. Discs/spinal canal/neural foramina: No acute findings. No spinal canal stenosis. Soft tissues: Unremarkable. IMPRESSION: No evidence of acute lumbar spine pathology. Electronically signed by: Lucy Nelson MD 06/09/23 02:25 AM Dictated: 06/09/23224 Transcribed: 06/09/235
--- NOTE | 2023-06-12 18:33 | Hospitalist Progress Note ---
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 The pain is progressive getting worse and having difficulty ambulating which prompted her to come to the ER. No bowel or bladder incontinence. Ambulate dysfunction Severe low back pain radiating to both legs CT lumbar spine showed no evidence of acute lumbar spine pathology. CT thoracic spine no acute evidence of thoracic spine pathology Received dose of Decadron on admission Continue Pain control with gabapentin, added tramadol, cont. tylenol, lidocain patch, iv dilaudid prn (not used by the pt) Orthopedic on board MRI Lumbar showed multilevel lumbosacral spondylosis as above with severe centra l canal stenosis at L4-L5. Case discussed with Dr. Foreman is no plan for surgical intervention during hospital course Dr. Humphries would like her to complete the workup for the lung mass before proceeding to any spine intervention Pain management on board-no indication for interventional pain procedure as inpatient Gabapentin increased to 300 mg 3 times daily Continue PT/OT Multiple pulmonary nodules Incidental finding on thoracic spine CT History of ovarian at younger age. Total abdominal hysterectomy with bilateral salpingo-oophorectomy at age 33 as per epic. History of basal cell carcinoma nasal bridge. No signs of recurrence per Dermatology notes Consulted pulmonary medicine for further recommendations - CT chest obtained - IMPRESSION: Multiple scattered pulmonary nodules with measure up to 1 cm as described above. Metastatic disease would be the diagnosis of exclusion. Recommend PET/CT as outpt Paroxysmal atrial fibrillation tachybradycardia syndrome S/p pacemaker On sotalol, metoprolol succinate and Coumadin INR 3.9 today, will hold Coumadin Lower extremity edema Doppler negative for DVT Complex right popliteal cyst echo obtained- LV EF 55-60 %, grade 2 diastolic dysfunction History of kidney stones on potassium citrate Hypertension Continue hydrochlorothiazide, metoprolol succinate continue monitor BP DVT prophylaxis hold Coumadin today with INR 3.9 Continue monitor PT/INR Full code Disposition Plan to discharge tomorrow if medically stable Admission and Anticipated Discharge Date Admission Date: June 09, 2023 Subjective Pt was seen and examined for follow up of back pain Lying in bed with no acute distress sleeping Later I came back to check on her she was sitting at the edge of the bed eating lunch comfortable Pt said that she continues to have back pain but she has not been asking for any pain meds She gets irritated when I mentioned to her that Dr. Humphries will not proceed with any surgical intervention during this hospital course Review of Systems Review of Systems: All systems reviewed & are unremarkable except as noted in Subjective Physical Exam Physical Exam: General- No acute distress Head- atraumatic Eyes- PERRL, EOMI, ENT- oropharynx clear Neck- supple, no JVD Lungs- clear to auscultation Heart- regular rhythm; no murmur Abdomen- normal bowel sounds, soft, nontender Extremities- no calf tenderness, Right knee pain Neuro- alert, oriented x 3; PERRL, EOMI; no facial palsy; no dysarthria Skin- warm & dry Results & Data Results & Data Vital Signs (Past 12 Hours) Vital Signs Temp Pulse Resp BP Pulse Ox O2 Del Method 06/12/23 15:33 36.6 C 62 18 120/76 98 Room Air 06/12/23 07:42 36.5 C 95 H 18 121/81 95 Room Air
[2023-06-12] MEDS: GABAPENTIN 300 MG CAP PO SCH (20:56)
[2023-06-13] MEDS: LEVOTHYROXINE SODIUM 25 MCG TABLET PO SCH (05:04)
[2023-06-13] MEDS: ACETAMINOPHEN 500 MG TAB PO SCH ×3 (05:04→21:52)
[2023-06-13 07:14] LABS: Hemoglobin 13.5 g/dl (12.0-16.0); Mean Corpuscular Hemoglobin 29.9 pg (25.0-34.0); Mean Corpuscular Hgb Conc 32.9 g/dL (32.0-36.0); Mean Corpuscular Volume 90.9 fL (80.0-100.0); Mean Platelet Volume 12.1 fL (9.4-12.4); Platelet Count 153 K/uL (130-400); RDW Coefficient of Variation 15.2 % (11.5-14.5); RDW Standard Deviation 50.3 fL (36.4-46.3); Red Blood Count 4.51 M/uL (4.20-5.40); White Blood Count 9.82 K/ul (4.8-10.8)
[2023-06-13 07:39] LABS: INR 3.6 (0.9-1.1); Prothrombin Time 36.4 Seconds (9.0-12.0)
[2023-06-13] MEDS: GABAPENTIN 300 MG CAP PO SCH ×3 (09:08→21:52)
[2023-06-13] MEDS: allopurinoL 100 MG TAB PO SCH (09:12)
[2023-06-13] MEDS: POTASSIUM CITRATE 10 MEQ TAB PO SCH ×2 (09:12→21:51)
[2023-06-13] MEDS: SOTALOL HCL 80 MG TAB PO SCH ×2 (09:12→21:51)
[2023-06-13] MEDS: METOPROLOL SUCC 50MG EXT REL TAB PO SCH (09:13)
[2023-06-13] MEDS: METOPROLOL SUCC 25MG EXT REL TAB PO SCH (09:13)
[2023-06-13] MEDS: ATORVASTATIN 20 MG TAB PO SCH (09:13)
[2023-06-13] MEDS: LIDOCAINE 5% 1 PATCH TD SCH (09:15)
[2023-06-13 12:25] LABS: BUN Creatinine Ratio 35.4 (10-20); Calcium 8.4 mg/dl (8.6-10.3); Creatinine Clr Calc Pharmacy 44.6 ml/min; Est GFR (African American) 59.4 ml/min; Est GFR (Non-African American) 51.2 ml/min; Phosphorus 2.5 mg/dl (2.5-4.9); Potassium 3.4 mmol/L (3.5-5.1)
[2023-06-13] MEDS ORDERED: FLUTICASONE PROPIONATE NA SPR 16 GM BTL PRN ×2 (15:32→15:44)
--- NOTE | 2023-06-13 15:32 | Hospitalist Progress Note ---
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 The pain is progressive getting worse and having difficulty ambulating which prompted her to come to the ER. No bowel or bladder incontinence. Ambulatory dysfunction Severe low back pain radiating to both legs CT lumbar spine showed no evidence of acute lumbar spine pathology. CT thoracic spine no acute evidence of thoracic spine pathology Received dose of Decadron on admission Continue Pain control with gabapentin (dose increased), added tramadol, cont. tylenol, lidocaine patch, iv dilaudid prn (not used by the pt) Orthopedic on board MRI Lumbar showed multilevel lumbosacral spondylosis with severe central canal stenosis at L4-L5. Case discussed with Dr. Humphries is no plan for surgical intervention during hospital course Dr. Humphries would like her to complete the workup for the lung mass before proceeding to any spine intervention Pain management on board-no indication for interventional pain procedure as inpatient, advising increase of gabapentin to 300mg TID Gabapentin increased to 300 mg 3 times daily Continue PT/OT Multiple pulmonary nodules Incidental finding on thoracic spine CT History of ovarian at younger age. Total abdominal hysterectomy with bilateral salpingo-oophorectomy at age 33 as per epic. History of basal cell carcinoma nasal bridge. No signs of recurrence per Dermatology notes Consulted pulmonary medicine for further recommendations - CT chest obtained - IMPRESSION: Multiple scattered pulmonary nodules with measure up to 1 cm as described above. Metastatic disease would be the diagnosis of exclusion. Recommend PET/CT as outpt Paroxysmal atrial fibrillation tachybradycardia syndrome S/p pacemaker On sotalol, metoprolol succinate and Coumadin INR was elevated >3 on admission, will hold Coumadin Continue to hold Lower extremity edema Doppler negative for DVT Complex right popliteal cyst echo obtained- LV EF 55-60 %, grade 2 diastolic dysfunction History of kidney stones on potassium citrate Hypertension Continue hydrochlorothiazide, metoprolol succinate continue monitor BP DVT prophylaxis: hold Coumadin with INR 3.9 Full code Disposition Admission and Anticipated Discharge Date Admission Date: June 09, 2023 Subjective Pt stating that she was having pain. Notes that it has overall decreased since she's been here. States difficulty with changing positions. Later notified by nursing that she was havin nasal drainage x1 day. Review of Systems Review of Systems: All systems reviewed & are unremarkable except as noted in Subjective Physical Exam Physical Exam: General: Alert, oriented. No acute distress Skin: No noted rashes or bruises Psych: Appropriate mood and affect Neuro: difficulty with movements HEENT: NC/AT Chest: Nontender to palpation. CV: RRR, Resp: Breath sounds clear bilaterally, no increased effort of breathing. Abdomen: Soft, nontender, nondistended. Extremities: No edema in lower extremities bilaterally. Results & Data Results & Data Vital Signs (Past 12 Hours) Vital Signs Temp Pulse Resp BP Pulse Ox O2 Del Method 06/13/23 09:09 36.2 C L 70 18 156/85 H 95 Room Air
[2023-06-13] MEDS ORDERED: WARFARIN SOD 2.5 MG TAB PO SCH (16:00)
[2023-06-13] MEDS ORDERED: WARFARIN SOD 1.25 MG TAB PO SCH (16:00)
[2023-06-14] MEDS: LEVOTHYROXINE SODIUM 25 MCG TABLET PO SCH (05:39)
[2023-06-14] MEDS: ACETAMINOPHEN 500 MG TAB PO SCH ×2 (05:39→13:45)
[2023-06-14 07:59] LABS: Basophils # (auto) 0.03 K/uL (0.00-0.20); Basophils % (auto) 0.3 %; Eosinophils # (auto) 0.24 K/uL (0.00-0.50); Eosinophils % (auto) 2.2 %; Hematocrit (blood only) 39.2 % (37.0-47.0); Hemoglobin 13.2 g/dl (12.0-16.0); Immature Granulocytes # (auto) 0.06 K/uL (0.01-0.20); Immature Granulocytes % (auto) 0.5 %; Lymphocytes % (auto) 14.4 %; Mean Corpuscular Hemoglobin 30.1 pg (25.0-34.0); Mean Corpuscular Hgb Conc 33.7 g/dL (32.0-36.0); Mean Corpuscular Volume 89.3 fL (80.0-100.0); Monocytes # (auto) 1.16 K/uL (0.11-0.59); Monocytes % (auto) 10.5 %; Neutrophils # (auto) 8.01 K/uL (1.40-6.50); Neutrophils % (auto) 72.1 %; Platelet Count 162 K/uL (130-400); RDW Coefficient of Variation 15.5 % (11.5-14.5); RDW Standard Deviation 50.4 fL (36.4-46.3); Red Blood Count 4.39 M/uL (4.20-5.40)
[2023-06-14 08:20] LABS: INR 1.9 (0.9-1.1); Prothrombin Time 20.2 Seconds (9.0-12.0)
[2023-06-14 08:24] LABS: Albumin Globulin Ratio 1.3 (0.9-2); Albumin Level 3.4 gm/dl (3.4-5.0); BUN Creatinine Ratio 35.8 (10-20); Bilirubin,Total 0.7 mg/dl (0.2-1.0); Calcium 8.8 mg/dl (8.6-10.3); Creatinine Clr Calc Pharmacy 54.5 ml/min; Est GFR (African American) 75.7 ml/min; Est GFR (Non-African American) 65.3 ml/min; Globulin 2.6 gm/dl (2.5-4.0); Phosphorus 3.8 mg/dl (2.5-4.9); Potassium 4.1 mmol/L (3.5-5.1)
[2023-06-14] MEDS: GABAPENTIN 300 MG CAP PO SCH ×2 (08:41→13:45)
[2023-06-14] MEDS: METOPROLOL SUCC 25MG EXT REL TAB PO SCH (08:41)
[2023-06-14] MEDS: POTASSIUM CITRATE 10 MEQ TAB PO SCH (08:41)
[2023-06-14] MEDS: allopurinoL 100 MG TAB PO SCH (08:41)
[2023-06-14] MEDS: hydroCHLOROthiazide 25 MG TAB PO SCH (08:42)
[2023-06-14] MEDS: LIDOCAINE 5% 1 PATCH TD SCH (08:42)
[2023-06-14] MEDS: ATORVASTATIN 20 MG TAB PO SCH (08:42)
[2023-06-14] MEDS: SOTALOL HCL 80 MG TAB PO SCH (08:42)
[2023-06-14] MEDS: METOPROLOL SUCC 50MG EXT REL TAB PO SCH (08:43)
--- NOTE | 2023-06-14 12:36 | Discharge Summary ---
Discharge Summary Date of Service June 14, 2023 Notes For Next Care Provider 1. Multiple pulmonary nodules noted, concern by pulmonology for metastatic disease. 2. Pulmonology recommending an outpatient PET/CT scan as soon as possible upon discharge and then follow-up based on the results of the PET scan 3. Please ensure close follow up with pulmonology as well 4. PT-OT services after discharge- please refer patient 5. 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 The pain is progressive getting worse and having difficulty ambulating which prompted her to come to the ER. No bowel or bladder incontinence. No abdominal pain. No chest pain or shortness of breath. No fevers. Appetite is okay. No difficulty swallowing. No headache. Vision is okay. No earache runny nose or sore throat. Currently resting comfortably and hemodynamically stable. Patient noticed swelling of the lower extremities Past medical history. As mentioned above Past surgical history. Left carpal tunnel surgery. Colonoscopy. Cystourethroscopy with lithotripsy bilateral. Multiple cystoscopies. Lithotripsies. Left heart catheterization. Total abdominal hysterectomy with removal of tubes Family history Sister has lobaplatin cancer. Daughter had appendical cancer. Another daughter had colon cancer at age of 33. Daughter has rhinitis. Social history. . Smoked 0.05 packs a day for 40 years. No alcohol use. No drug use. Admission Exam Per Admitting Provider General- Not in distress Head- atraumatic Eyes- PERRL. ENT- oropharynx clear Neck- supple, no JVD. Lungs- clear to auscultation , no wheezing or crackles. Heart- regular rhythm; no murmur, no gallop Abdomen- normal bowel sounds, soft, nontender, no distension. Extremities- b/l lower extremity edema present. Neuro- alert, oriented x 3; PERRL, EOMI; no facial palsy; no dysarthria; moves extremities. Musculoskeletal. Lumbar spine tenderness present. Negative b/l straight leg test. Principal Dx & Hospital Course #1 = Principal Diagnosis (1) Ambulatory dysfunction: (2) Neurogenic claudication due to lumbar spinal stenosis: (3) Tobacco abuse: (4) Multiple pulmonary nodules determined by computed tomography of lung: (5) Abnormal CT of thoracic spine: (6) Sciatica: Plan 88-year-old female with past med history significant for hyperlipidemia, hypothyroidism, asthma, COPD, paroxysmal atrial fibrillation, tachybradycardia syndrome, s/p pacemaker, hypertension, mitral valve disorder, GERD, chronic kidney disease stage III, history of angioedema, history of tobacco abuse, history of TIA, 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 Ambulatory dysfunction Severe low back pain radiating to both legs CT lumbar spine showed no evidence of acute lumbar spine pathology. CT thoracic spine showed no acute evidence of thoracic spine pathology Received dose of Decadron on admission Continue Pain control with gabapentin (dose increased), added tramadol, cont. tylenol, lidocaine patch, iv dilaudid prn (not used by the pt) Orthopedics/spine consulted- Dr. Humphries would like her to complete the workup for the lung mass before proceeding to any spine intervention, mri ordered MRI Lumbar showed multilevel lumbosacral spondylosis with severe central canal stenosis at L4-L5. Pain management on board-no indication for interventional pain procedure as inpatient, advising increase of gabapentin to 300mg TID Gabapentin increased to 300 mg 3 times daily, pt tolerating well and discharged with such PT/OT - continue after discharge PCP follow up. Multiple pulmonary nodules Incidental finding on thoracic spine CT History of ovarian medical hx at younger age. Total abdominal hysterectomy with bilateral salpingo-oophorectomy at age 33 as per epic. History of basal cell carcinoma nasal bridge. No signs of recurrence per Dermatology notes Consulted pulmonary medicine for further recommendations CT chest obtained - IMPRESSION: "Multiple scattered pulmonary nodules with measure up to 1 cm as described above. Metastatic disease would be the diagnosis of exclusion." Recommend PET/CT as outpt Pulmonology recommending an outpatient PET/CT scan as soon as possible upon discharge and then follow-up based on the results of the PET scan Please ensure close follow up with pulmonology as well Paroxysmal atrial fibrillation tachybradycardia syndrome S/p pacemaker On sotalol, metoprolol succinate and Coumadin INR was elevated >3 on admission, Coumadin held Resumed on discharge- INR 1.9 on day of discharge, was 3.6 the day before Anticipate therapeutic level with next dose of warfarin, please ensure close coumadin clinic followup after discharge Lower extremity edema Doppler negative for DVT Complex right popliteal cyst echo obtained- LV EF 55-60 %, grade 2 diastolic dysfunction History of kidney stones on potassium citrate, continue Hypertension Continue hydrochlorothiazide, metoprolol succinate continue monitor BP Discharge Exam General: Alert, oriented. No acute distress Skin: No noted rashes or bruises Psych: Appropriate mood and affect Neuro: difficulty with movements HEENT: NC/AT Chest: Nontender to palpation. CV: RRR, Resp: Breath sounds clear bilaterally, no increased effort of breathing. Abdomen: Soft, nontender, nondistended. Extremities: No edema in lower extremities bilaterally. Updated Medication List Medication Instructions Recorded Confirmed Type allopurinol 100 mg tablet 100 mg PO DAILY 06/09/23 06/09/23 History atorvastatin 20 mg tablet 20 mg PO DAILY 06/09/23 06/09/23 History hydrochlorothiazide 25 mg tablet 25 mg PO UD 06/09/23 06/09/23 History levothyroxine 25 mcg tablet 25 mcg PO DAILY 06/09/23 06/09/23 History metoprolol succinate 100 mg 100 mg PO DAILY 06/09/23 06/09/23 History tablet,extended release 24 hr metoprolol succinate 25 mg 25 mg PO DAILY 06/09/23 06/09/23 History tablet,extended release 24 hr potassium citrate 10 mEq (1,080 10 meq PO BID 06/09/23 06/09/23 History mg) tablet,extended release sotalol 160 mg tablet 160 mg PO BID 06/09/23 06/09/23 History warfarin 2.5 mg tablet 2.5 mg PO UD 06/09/23 06/09/23 History gabapentin 300 mg capsule 300 mg PO TID #90 caps 06/14/23 Rx Hospital Stay Data Consultations 06/09/23 10:33 Consult Orthopedic Spine Surgery Routine Consult Pulmonology Routine 06/11/23 14:03 Consult Pain Management Routine Diagnostic Imagining Performed 06/08/23 23:27 CT abd pelvis wo con Stat CT lumbar spine wo con Stat CT thoracic spine wo con Stat US venous doppler LE BI Stat 06/09/23 11:25 CT chest diagnostic wo con Routine 06/11/23 07:44 MR lumbar spine wo con Urgent Abdomen/Pelvis CT 06/08/23 23:27 Exam(s): CT ABDOMEN + PELVIS Without Contrast EXAM: CT Abdomen and Pelvis Without Intravenous Contrast CLINICAL HISTORY: Reason for exam: RLQ and right flank pain. TECHNIQUE: Axial computed tomography images of the abdomen and pelvis without intravenous contrast. CTDI is 38.35 mGy and DLP is 2640.63 mGy-cm. Automated exposure control was utilized for the study. A dose lowering technique was utilized adhering to the principles of ALARA. COMPARISON: CT abdomen on 02/24/2007 FINDINGS: Lung bases: Unremarkable. No mass. No consolidation. Heart: Mild cardiomegaly. Pacer wire partially visualized in the heart. Coronary artery and mitral annular calcifications. ABDOMEN: Liver: Unremarkable. Gallbladder and bile ducts: Prior cholecystectomy. No ductal dilation. Pancreas: Unremarkable. No ductal dilation. Spleen: Unremarkable. No splenomegaly. Adrenals: Nonspecific nodular thickening of the adrenal glands. Kidneys and ureters: Bilateral renal cysts. Nonspecific bilateral perinephric fat stranding. No obstructing stones. Stomach and bowel: Evaluation of the stomach is limited by underdistention. Diverticulosis without evidence of diverticulitis. No small bowel obstruction. PELVIS: Appendix: Normal appendix. Bladder: Unremarkable. No stones. Reproductive: Unremarkable as visualized. ABDOMEN and PELVIS: Intraperitoneal space: Unremarkable. No free air. No significant fluid collection. Bones/joints: Degenerative changes of the spine. Grade 1 anterolisthesis of L4 on L5. No acute fracture. No dislocation. Soft tissues: Small fat-containing umbilical and ventral hernias. Vasculature: Atherosclerotic changes of the vasculature. No aortic aneurysm. Lymph nodes: Unremarkable. No enlarged lymph nodes. IMPRESSION: Nonspecific nodular thickening of the adrenal glands. No acute abnormality in the abdomen or pelvis. Electronically signed by: Nenita Hull M.D. 06/09/23 03:32 AM Chest X-Ray 06/08/23 23:27 XR chest 1V portable HISTORY: back pain COMPARISON: Chest and left rib series 06/27/2019. FINDINGS: No pneumothorax. No pleural effusions. The heart remains mildly enlarged. This left-sided dual-chamber pacemaker. No acute fractures. Mild in terstitial thickening which is likely chronic. No new focal lung consolidations to suggest a pneumonia. No evidence for pulmonary edema. Left basilar linear densities favor subsegmental atelectasis or scarring. This remains unchanged. IMPRESSION: No significant change compared to the prior study. No acute process. ACT 112: Negative or not required by law. Electronically signed by: Jm Fontana M.D. 06/09/2023 7:[address] 06/08/23 23:27 Exam(s): CT L SPINE EXAM: CT Lumbar Spine Without Intravenous Contrast CLINICAL HISTORY: Reason for exam: back pain. TECHNIQUE: Axial computed tomography images of the lumbar spine without intravenous contrast. CTDI is 38.35 mGy and DLP is 2640.63 mGy-cm. Automated exposure control was utilized for the study. A dose lowering technique was utilized adhering to the principles of ALARA. COMPARISON: No relevant prior studies available. FINDINGS: Vertebrae: Unremarkable. No acute fracture. Diffuse osteopenia throughout the visualized bones. Positive Mesick sign out L1-2, L2-3, L3-4 and L4-5. Discs/spinal canal/neural foramina: No acute findings. No spinal canal stenosis. Soft tissues: Unremarkable. IMPRESSION: No evidence of acute lumbar spine pathology. Electronically signed by: Lucy Nelson MD 06/09/23 02:[address] 06/08/23 23:27 Exam(s): CT T SPINE EXAM: CT Thoracic Spine Without Intravenous Contrast CLINICAL HISTORY: Reason for exam: back pain. TECHNIQUE: Axial computed tomography images of the thoracic spine without intravenous contrast. Automated exposure control was utilized for the study. A dose lowering technique was utilized adhering to the principles of ALARA. COMPARISON: No relevant prior studies available. FINDINGS: Vertebrae: Unremarkable. No acute fracture. Diffuse osteopenia throughout the visualized bones. Discs/spinal canal/neural foramina: No acute findings. No spinal canal stenosis. Soft tissues: Findings concerning for bronchitis, which may be of infectious or inflammatory etiologies. Prominent mediastinal lymph nodes. Multiple pulmonary nodules concerning for metastatic disease. IMPRESSION: No evidence of acute thoracic spine pathology. Multiple pulmonary nodules concerning for metastatic disease. Findings concern for bronchitis, which may be infectious or inflammatory urologist with prominent mediastinal lymph nodes. Electronically signed by: Lucy Nelson MD 06/09/23 02:22 AM Venous Doppler Study 12/08/23 23:27 Exam(s): US VENOUS BILATERAL LOWER EXTREMITIES EXAM: US Duplex Bilateral Lower Extremities Veins CLINICAL HISTORY: Reason for exam: Bilateral leg swelling and discomfort. TECHNIQUE: Real-time duplex ultrasound scan of the bilateral lower extremity veins integrating B-mode two-dimensional vascular structure, Doppler spectral analysis, color flow Doppler imaging and compression. COMPARISON: None FINDINGS: Right deep veins: Unremarkable. No DVT in the right common femoral, femoral, proximal deep femoral or popliteal veins. The veins demonstrate normal color flow, are normally compressible, with normal phasic flow and/or augmentation response. Right superficial veins: Unremarkable. No thrombus in the visualized right great saphenous vein. Left deep veins: Unremarkable. No DVT in the left common femoral, femoral, proximal deep femoral or popliteal veins. The veins demonstrate normal color flow, are normally compressible, with normal phasic flow and/or augmentation response. Left superficial veins: Unremarkable. No thrombus in the visualized left great saphenous vein. Soft tissues: Complex right popliteal cyst measuring 3.9 x 3.3 x 1.2 cm. IMPRESSION: 1. No deep venous thrombosis identified in either lower extremity. 2. Complex right popliteal cyst. Electronically signed by: Nenita Hull M.D. 06/09/23 03:[address] 06/09/23 11:25 CT chest diagnostic wo con CT DOSE: 528.64 mGy.cm HISTORY: Evaluate pulmonary nodules. Abnormal thoracic spine CT. TECHNIQUE: Multiaxial CT images of the chest were performed without contrast. A dose lowering technique was utilized adhering to the principles of ALARA. COMPARISON: Thoracic spine CT 06/09/2023. FINDINGS: Mild central bronchial wall thickening. Trace mucoid material within the trachea. No pneumothorax. No pleural effusions. Mild emphysema. There are approximately 20 scattered pulmonary nodules with the largest in the right upper lobe on image 54 measuring 1 cm. Mild dependent changes seen at the lung bases. No evidence for pulmonary edema.No acute fractures. No suspicious lytic or blastic osseous lesions. There is a left-sided pacemaker noted. Limited views of the upper abdomen demonstrate a normal liver and spleen. Thickening of the adrenal glands is likely chronic. There is a partially visualized 2 cm left renal cysts. Normal esophagus. Normal thyroid gland. The heart is top normal in size. No pericardial effusion. Mild calcified plaque within the normal caliber residue noted. There are mild coronary artery calcifications noted. No mediastinal or hilar lymphadenopathy. IMPRESSION: Multiple scattered pulmonary nodules with measure up to 1 cm as described above. Metastatic disease would be the diagnosis of exclusion. ACT 112: Negative or not required by law. Electronically signed by: Jm Fontana M.D. 06/09/2023 12:11 PM Lumbar Spine MRI 06/11/23 07:44 MRI OF THE LUMBAR SPINE WITHOUT IV CONTRAST CLINICAL HISTORY: Bilateral leg pain. Difficulty with ambulation. COMPARISON STUDY: CT of the lumbar spine dated 06/09/2023. TECHNIQUE: MRI of the lumbar spine is performed utilizing various T1 and T2- weighted sequences in of the axial and sagittal planes. IV contrast was not administered for this examination. FINDINGS: Lumbar spine: Marrow signal intensity is heterogeneous. Vertebral body height is throughout the lumbar spine. There is minimal retrolisthesis at T12-L1 and L1- L2. Minimal anterolisthesis is noted at L4-L5. Small anterior and lateral marginal osteophytes are seen throughout. The transverse and spinous processes appear intact. Mild marrow edema within the right pedicle of L5 is likely on a degenerative basis. Hemangiomas are noted in the bodies of L2 and L5. No destructive bony lesion is seen. Chronic degenerative endplate change is noted at most lumbar levels. No significant degenerative endplate edema is identified. Intervertebral discs: Disc desiccation and loss of height is seen throughout the lumbar spine. Loss of height is moderate at L5-S1 and [id number] at the remaining lumbar levels. Spinal cord: The visualized spinal cord is normal in morphology and signal intensity. The conus medullaris terminates at the level of L2. The nerve roots of the cauda equina are normal in morphology. L1-L2: There is broad-based posterior disc bulge which abuts the transiting nerve roots. There is no significant acquired compromise of the central canal. Lateral disc bulges contribute to bilateral subarticular stenosis and may abut the exiting bilateral L1 nerve roots. In conjunction with facet arthropathy, there is mild bilateral neural foraminal stenosis. L2-L3: There is broad-based posterior disc bulge with annular fissure. This abuts the transiting nerve roots. In conjunction with hypertrophy of the ligamentum flavum, there is [id number] central canal stenosis at this level with a minimum AP canal diameter of 6 mm. Lateral disc bulges contribute to bilateral subarticular stenosis, left greater than right. This likely impinges on the exiting bilateral L2 nerve roots. In conjunction with facet arthropathy, there is [id number] bilateral neural foraminal stenosis. L3-L4: There is broad-based posterior disc bulge, which abuts the transiting nerve roots. In conjunction with hypertrophy of the ligamentum flavum, there is mild central canal stenosis at this level with a minimum AP diameter of 7.5 mm. Lateral disc bulges contribute to bilateral subarticular stenosis, left greater than right. This may impinge on the exiting left L3 nerve root. In conjunction with facet arthropathy, there is mild right and [id number]-[id number] left neural foraminal stenosis. L4-L5: There is broad-based posterior disc bulge. In conjunction with hypertrophy of the ligamentum flavum, there is severe central canal stenosis at this level with a minimum AP diameter of 4 mm. Lateral disc bulges contribute to bilateral subarticular stenosis, left greater than right. This likely impinges on the exiting bilateral L4 nerve roots. In conjunction with facet arthropathy, there is mild right and moderate left neural foraminal stenosis. L5-S1: There is broad-based posterior disc bulge, which abuts the transiting nerve roots. There is no significant acquired compromise of the central canal. Predominantly facet arthropathy contributes to mild bilateral neural foraminal stenosis. Sacrum: The visualized sacrum is normal in morphology and signal intensity. Soft tissues: There is fatty atrophy of the paraspinous musculature. The kidneys demonstrate cortical atrophy. There are numerous bilateral renal cysts, which measure up to 2.3 cm. No retroperitoneal lymphadenopathy is seen. IMPRESSION: 1. Multilevel lumbosacral spondylosis as above with severe central canal stenosis at L4-L5. See discussion for detailed level by level analysis. 2. No destructive bony process is seen. 3. Additional findings as above. Dictated: 06/11/2023 2:26 PM Transcribed: 06/11/2023 2:49 PM Raad [id number] [email or web address] Electronically signed by: Rajan James M.D. 06/11/2023 4:18 PM Discharge Instructions Given to Patient (Per Discharging Provider) Ms. Myers, You were admitted with intractable back pain. You were seen by the orthopedic surgeon and he is not recommending spinal surgery at this time. He would like further evaluation of your pulmonary nodules that were noted as well. We increased your gabapentin dose to help with the pain. Please continue taking that at home. We also recommend that you continue with physical therapy services to help. You were seen by the senior sales operations analyst and they are recommending an outpatient PET/CT scan as soon as possible upon discharge and then follow-up based on the results of the PET scan. Please keep close followup with your primary care provider about this as well as a senior sales operations analyst. Your primary care provider can refer you to one if needed. Please continue taking your home warfarin as prescribed with close followup with your coumadin clinic. It was a pleasure taking care of you while you were here. Total Time Total Time Spent Total Time Spent (In Minutes): > 30 minutes
[2023-06-14] MEDS: WARFARIN SOD 2.5 MG TAB PO SCH (16:48)
== END 2023-06-14 16:55 | disposition home or self-care (01) | DRG 552 ==
LOC: ED 20:27 → SUATTDRO 06-09 06:18 → EDINP 06-09 06:18 → 3N 06-09 09:44